=== PATIENT | female | born 1965 | race Caucasian/White ===

== ENCOUNTER 2024-01-21 07:45 | Outpatient (CLI) | payer MEDICARE, OTHER, SELFPAY ==
--- NOTE | ~2024-01-21 | MMUS_ITS ---
EXAMINATION: MM diagnostic milagros BI w will, US breast BI complete HISTORY: Bloody nipple discharge TECHNIQUE: Additional 3-D tomosynthesis images of the breasts were performed and synthetic 2-D images were generated. CAD analysis was submitted and interpreted. High resolution bilateral complete breas t ultrasound was performed. COMPARISON: Comparison to multiple prior studies sequentially, with oldest reviewed study dated 08/31. BREAST PARENCHYMAL COMPOSITION: Dense: The breasts are heterogeneously dense, which may obscure small masses FINDINGS: MAMMOGRAPHIC FINDINGS: There are focal asymmetries in the periareolar location of the left breast on CC view, not confirmed on medial lateral or MLO views, likely prominent ducts. No discrete mass, architectural distortion or suspicious calcifications. ULTRASOUND: Complete bilateral US of all 4 quadrants of the breasts and retroareolar region was reviewed. Right breast: Normal heterogeneous echotexture without focal solid or cystic mass. Left breast: At 7:00, 1 cm from the nipple there is an 11 mm cyst, likely corresponding to the mammog raphic asymmetry. No suspicious masses to suggest malignancy. IMPRESSION: 1. No evidence for malignancy in either breast. Given the history of bloody nipple discharge, further evaluation recommended. 2. MRI of the breasts with contrast recommended. BI-RADS Category 0: Incomplete: Needs additional imaging evaluation. Reviewed, dictated and finalized at location B. IMPRESSION: 1. No evidence for malignancy in either breast. Given the history of bloody nip ple discharge, further evaluation recommended. 2. MRI of the breasts with contrast recommended. BI-RADS Category 0: Incomplete: Needs additional imaging evaluation.
== END 2024-01-21 07:46 | disposition home or self-care (01) ==
PROVIDERS: PCP Family Medicine; Visit Provider Internal Medicine Hematology & Oncology
DX: N64.52 Nipple discharge (principal); R92.8 Other abnormal and inconclusive findings on diagnostic imaging of breast
CPT/HCPCS: 76641; 77062; 77066; G0279

== ENCOUNTER 2024-01-30 08:21 | Outpatient (CLI) | payer MEDICARE, MEDICAID, SELFPAY ==
--- NOTE | ~2024-01-30 | DEXA_ITS ---
Bone Density Report Name: NOHELIA PABON Age: 58 Sex: Female Ethnicity: White Date of : 1965 Indication: postmenopausal; screening for osteoporosis; prior fracture; asthma or emphysema; hysterectomy; Referring Provider: SARA GRACE Study: Bone densitometry was performed. Exam Date: January 30, 2024 Accession number: [id number] Bone Density: Region BMD T-score Z-score Classification AP Spine(L1-L4) 1.897 7.7 9.2 Normal Femoral Neck (Left) 0.741 -1.0 0.3 Normal Total Hip (Left) 0.911 -0.3 0.7 Normal Femoral Neck (Right) 0.729 -1.1 0.2 Osteopenia Total Hip (Right) 0.926 -0.1 0.9 Normal Total Hip Mean 0.919 -0.2 0.8 Normal World Health Organization criteria for BMD impression classify patients as: Normal (T-score at or above -1.0), Osteopenia (T-score between -1.0 and -2.5), or Osteoporosis (T-score at or below -2.5). 10-year Fracture Risk: FRAX not reported because: Prior hip or vertebral fracture Clinical Information Provided by Patient: Have had a previous hip or vertebral fracture Has had a low trauma fracture Has used the following medications: Vitamin D, Calcium Has the following medical conditions: Asthma or Emphysema, Hysterectomy Patient maximum height was 64.0 No regular weight bearing exercise Drinks caffeinated beverages Onset of menses at age 12 Number of children 2 Impression: The patient has low bone mass, based on the Right Femoral Neck T-score. The patient has risk factors, including: previous fracture. Discussion: INCREASED RISK OF FRACTURE DUE TO HISTORY OF FRACTURE. The patient's previous fracture puts the patient at high risk of a future fracture. In untreated patients, the risk of osteoporotic fracture increases approximately two-fold for each 1.0 SD decrease in T-score. Low bone density is not the only risk factor for fracture; also consider factors such as patient's age, frailty or poor health, risk of falling, risk of injury, previous osteoporotic fracture, family history of osteoporosis, cigarette smoking, low body weight, etc. Not everyone with a low trauma fracture has osteoporosis; osteomalacia and other metabolic bone disorders should also be considered. Patients who have osteoporosis should be evaluated for specific diseases and conditions (secondary causes) that may cause or contribute to bone loss and fracture risk. National Osteoporosis Foundation (NOF) recommends pharmacologic intervention for patients with a prior hip or vertebral fracture regardless of BMD T-score. The patient should follow a healthful lifestyle (good nutrition with adequate calcium and vitamin D, and appropriate weight-bearing exercise). Follow-Up: Consider a repeat BMD and Vertebral Fracture Assessment (VFA) exam in 2 years or sooner if medically necessary, to reassess this p
== END 2024-01-30 08:22 | disposition home or self-care (01) ==
LOC: ANHIMG 08:26
PROVIDERS: PCP Family Medicine; Visit Provider Internal Medicine Hematology & Oncology
DX: M85.851 Other specified disorders of bone density and structure, right thigh (principal)
CPT/HCPCS: 77080

== ENCOUNTER 2024-02-20 09:51 | Outpatient (CLI) | payer MEDICARE, MEDICAID, SELFPAY ==
--- NOTE | ~2024-02-20 | MR_ITS ---
EXAMINATION: MR breast BI wo/w con INDICATION: Bloody nipple discharge TECHNIQUE: Axial VIBRANT pre and dynamic post contrast, Sagittal VIBRANT post contrast, Axial T2 STIR ASSET COMPARISON: Mammography dated 01/21/2024 CONTRAST: Multihance, 12 cc BREAST COMPOSITION: Heterogeneous fibroglandular tissue FINDINGS: RIGHT BREAST: There is marked background parenchymal enhancement. No abnormal enhancement is present after contrast administration. No pathologically enlarged axillary or internal mammary lymph nodes ar e identified. LEFT BREAST: There is marked background parenchymal enhancement. No abnormal enhancement is present a fter contrast administration. No pathologically enlarged axillary or internal mammary lymph nodes are identified. IMPRESSION: No evidence for malignancy identified. Marked background parenchymal enhancement makes evaluation so mewhat difficult. BI-RADS Category 1: Negative Reviewed, dictated and finalized at location . IMPRESSION: No evidence for malignancy identified. Marked background parenchymal enhanceme nt makes evaluation somewhat difficult. BI-RADS Category 1: Negative
== END 2024-02-20 09:52 | disposition home or self-care (01) ==
PROVIDERS: PCP Family Medicine; Visit Provider Internal Medicine Hematology & Oncology
DX: R92.8 Other abnormal and inconclusive findings on diagnostic imaging of breast (principal)
CPT/HCPCS: 77049; A9577; C8908

== ENCOUNTER 2024-10-06 10:02 | Outpatient (CLI) | payer MEDICARE, MEDICAID, SELFPAY ==
--- NOTE | ~2024-10-06 | MM_ITS ---
EXAMINATION: MM diagnostic milagros BI w will HISTORY: Bilateral nipple discharge TECHNIQUE: 3-D tomosynthesis images of the breasts were performed and synthetic 2-D images were gener ated. CAD analysis was submitted and interpreted. COMPARISON: 01/21/2024, 03/15/2023, 03/14/2022 BREAST PARENCHYMAL COMPOSITION: The breasts are extremely dense, which lowers the sensitivity of mamm ography. FINDINGS: Stable parenchymal pattern of both breasts. No suspicious mass lesion or distortion. No cindy picious mesenteric or calcification. Bilateral benign calcifications are present. IMPRESSION: No mammographic evidence for malignancy. Patient could not stay for ultrasound. Consider follow-up se veral ultrasound to evaluate for dilated ducts or intraductal mass. BI-RADS Category 0: Incomplete: Needs additional imaging evaluation. Reviewed, dictated and finalized at [facility]. IMPRESSION: No mammographic evidence for malignancy. Patient could not stay for ultrasound. Consider follow-up several ultrasound to evaluate for dilated ducts or intradu ctal mass. BI-RADS Category 0: Incomplete: Needs additional imaging evaluation.
--- OUTSIDE RECORDS SUMMARY | 2024-10-06 11:16 | XMS_ITS | Encounter Summary ---
Author Organization [facility] Address [address] [place] [address] Phone Care Team Providers Care Running Instructor Name Role Phone Az Watson MD Primary Care Provider [phone] Cain Lira MD Unavailable [phone] Francoise Tompkins RN Unavailable Unavailable Claribel Sierra Unavailable Unavailab Trisha Houston APRN, SALOMON Unavailable Golden Npaier MD Unavailable Emilio Sarabia MD Unavailable [phone] Reason for Visit * Reason Comments Medication Refill Encounter Details Date Type Department Care Team (Late st Contact Info) Description 02/11/2021 Refill [facility] Medicine - [place] [address] [place] [address] Az Watson MD [address] [address] Medication Refill Social History Tobacco Use Types Packs/Day Years Used Date Smoking Tobacco: Former Cigarettes 1 30 0 06/18/1985 - 06/18/2015 Smokeless Tobacco: Never Alcohol Use Standard Drinks/Week Comments No 0 (1 standard drink = 0.6 oz pur e alcohol) IN OVER A YEAR PHQ-2 Answer Date Recorded Total Score - Questions 1-9 4 08/10 Sexually Active Control Partners Comments Never Comments No Sex and Gender Information Value Date Recorded Sex Assigned at Female 01/23/2023 10:37 AM CDT Legal Sex Female 9:47 PM CDT Gender Identity Female 01/23/2023 10:37 AM CDT Sexual Orientation Not on file Occupation Industry Job Start Date Job End Date disabled Not on file Not on file Not on file COVID-19 Exposure Response Date Recorded In the last month, have you been in contact with someone who was confirmed or suspected to have Coronavirus / COVID-19? No / Unsure 02/03/2021 8:35 AM CDT documented as of this encounter Miscellaneous Notes * Telephone Encounter - Kari Blackmon RN - 02/11/2021 4:37 PM CDT PRN medication requires review from provider Per nursing clinical judgement, provider to review and approve the medication(s) order(s) if appropriate. Requested Prescriptions Pending Prescriptions Disp Refills SUMAtriptan (IMITREX) 100 MG Tablet [Pharmacy Med Name: SUMATRIPTAN SUCCINATE 100MG TABS] 9 Tablet 9 Sig: TAKE ONE TABLET BY MOUTH AT ONSET OF MIGRAINE. MAY REPEAT DOSE IN 2 HOURS IF HEADACHE RECURS. MAX DOSE 2 TABLETS PER DAY. [facility] Neurology: Migraine Therapy Passed - 02/11/2021 10:55 AM Passed - Valid encounter within last 12 months Past Office Visits Recent Outpatient Visits 1 week ago Urinary pain [facility] - Az Collado MD 3 months ago Acute UTI [facility] - [facility] Medicine - Vickey Billy APN, HOUSING COURT JUDGE 5 months ago PVC's (premature ventricular contractions) [facility] - Az Collado MD 8 months ago Bladder infection [facility] - [facility] Medicine - Az Collado MD 11 months ago Hoarseness, chronic [facility] - [facility] Medicine - Az Collado MD Upcoming Appointments Future Appointments In 1 week [id number] [facility], [facility] In 1 week [id number] [facility] Mammography, [facility] In 4 months Mine Rivera, PAC [facility] Medical [facility] - Gastroenterology [facility], [facility] [place] - Recent and Past Visits Recent Visits Date Type Provider Dept 01/31/21 Office Visit Az Watson MD [facility] 11/10/20 Office Visit Vickey Robbins, CLINICAL PSYCHOLOGIST, HOUSING COURT JUDGE [facility]20 Office Visit Az Watson MD [facility] 06/01/20 Office Visit Az Watson MD [facility] 02/26/20 Office Visit Az Watson MD [facility] 02/02/20 Office Visit Az Watson MD [facility] 01/19/20 Office Visit Az Watson MD [facility] 12/31/19 Office Visit Mary Beth Soriano, PAC [facility] Showing recent visits within past 460 days with a meds authorizing provider and meeting all other requirements Future Appointments No visits were found meeting these conditions. Showing future appointments within next 90 days with a meds authorizing provider and meeting all other requirements documented in this encounter Plan of Treatment Upcoming Encounters Date Type Department Care Team (Latest Contact Info) Description 10/16/2024 9:00 AM CDT Office Visit [facility] Medical Group - Family Medicine - [place] [address] [place] [address] Az Watson MD #[address] [address] 10/16/2024 10:00 AM CDT Ancillary Procedure [facility] [address] [place] [address] Az Watson MD #2 [facility] [address] [place] [address] Discharge Disposition: Discharged to home or Selfcare 10/20/2024 9:00 AM CDT Office Visit [facility] - Family [facility] #[address] [place] [address] Az Watson MD #2 [facility] [address] [place] [address] 10/24/2024 10:30 AM CDT Office Visit [facility] UROLOGY #2 [place] [address] Emilio Sarabia MD #2 [facility] [address] [place] [address] documented as of this encounter Visit Diagnoses Diagnosis Migraine without aura and without status migrainosus, not intractable Migraine without aura, without mention of intractable migraine without mention of status migrainosus documented in this encounter Additional Health Concerns Infection Onset Date Last Indicated Resolved Time COVID - 19 06/11/2023 06/11/2023 06/21/2023 12:1 6 AM MANGLE CATCHER Assessment Noted Time PHQ-9 Depression Total Score: 4 09/02/19 21 8:46 AM CDT documented as of this encounter Care Teams Running Instructor Relationship Specialty Start Date End Date Az Watson MD #2 [facility] [address] [place] [address] PCP - General Family Medicine 05/03/15 Cain Lira MD [address] [place] [address] Obstetrics & Gynecology 02/15/17 Francoise Tompkins RN [place] 09/06/21 04/06/22 Claribel Sierra LSW [place] 09/09/21 04/06/22 Trisha Cook APRN, HOUSING COURT JUDGE #[address] [place] [address] Nurse Practitioner Advanced Practice Nurse 11/29/22 Golden Napier MD #2 [facility] [address] [place] [address] Consulting Physician Colon and Rectal Surgery 08/13/23 Emilio Sarabia MD #2 [facility] [address] [place] [address] Consulting Physician Urology 09/11/23 documented as of this encounter
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
--- OUTSIDE RECORDS SUMMARY | 2024-10-06 11:16 | XMS_ITS | Encounter Summary ---
Author Organization [facility] Address [address] [place] [address] Phone Care Team Providers Care International Guest Coordinator Name Role Phone Az Watson MD Primary Care Provider [phone] Cain Lira MD Unavailable [phone] Francoise Tompkins RN Unavailable Unavailable Claribel Sierra Unavailable Unavailab Trisha Houston APRN, SALOMON Unavailable Golden Napier MD Unavailable Emilio Sarabia MD Unavailable [phone] Reason for Visit * Reason Comments Medication Refill Encounter Details Date Type Department Care Team (Late st Contact Info) Description 02/02/2021 Refill [facility] - [facility] Medicine - [place] [address] [place] [address] Az Watson MD [address] [address] Medication Refill Social History Tobacco Use Types [...] Telephone Encounter - Kari Blackmon RN - 02/02/2021 1:45 PM CDT PRN medication requires review from provider Per nursing clinical judgement, provider to review and approve the medication(s) order(s) if appropriate. Requested Prescriptions Pending Prescriptions Disp Refills famotidine (PEPCID) 40 MG Tablet [Pharmacy Med Name: FAMOTIDINE 40MG TABS] 90 Tablet 3 Sig: TAKE ONE-HALF TABLET BY MOUTH TWICE A DAY H2 Antagonists Protocol Passed - 02/02/2021 10:21 AM Passed - Visit with relevant provider in past 12 months or upcoming 90 days Recent Visits Date Type Provider Dept 01/31/21 Office Visit Az Watson MD [facility] 11/10/20 Office Visit Vickey Robbins APN, SALOMON [facility] 09/01/20 Office Visit Az Watson MD [facility] 06/01/20 Office Visit Az Watson MD [facility] 02/26/20 Office Visit Az Watson MD [facility] Showing recent visits within past 365 days and meeting all other requirements Future Appointments No visits were found meeting these conditions. Showing future appointments within next 90 days and meeting all other requirements albuterol 108 (90 Base) MCG/ACT Aerosol Solution [Pharmacy Med Name: ALBUTEROL SULFATE HFA 108 AERS] 18 g 2 Sig: INHALE TWO PUFFS BY MOUTH EVERY 4 HOURS NEEDED FOR WHEEZING Short Acting Inhaled Beta-Agonists Protocol Passed - 02/02/2021 10:21 AM Passed - Visit with relevant provider in past 12 months or upcoming 90 days Recent Visits Date Type Provider Dept 01/31/21 Office Visit Az Watson MD [facility] 11/10/20 Office Visit Vickey Robbins APN, [place] [facility] 09/01/20 Office Visit Az Watson MD [facility] 06/01/20 Office Visit Az Watson MD [facility] 02/26/20 Office Visit Az Watson MD [facility] [place] Showing recent visits within past 365 days and meeting all other requirements Future Appointments No visits were found meeting these conditions. Showing future appointments within next 90 days and meeting all other requirements documented in this encounter Plan of Treatment Upcoming Encounters Date Type Department Care Team (Latest Contact Info) Description 10/16/2024 9:00 AM CDT Office Visit [facility] #2 [place] [address] Az Watson MD #[address] [address] 10/16/2024 10:00 AM CDT Ancillary Procedure [facility] [address] [place] [address] Az Watson MD #[address] [address] Discharge Disposition: Discharged to home or Selfcare 10/20/2024 9:00 AM CDT Office Visit [facility] #[address] [place] [address] Az Watson MD #2 [facility] [address] [place] [address] 10/24/2024 10:30 AM CDT Office Visit [facility] #[address] [place] [address] Emilio Sarabia MD #2 [facility] [address] [place] [address] documented as of this encounter Visit Diagnoses Not on filedocumented in this encounter Additional Health Concerns Infection Onset Date Last Indicated Resolved Time COVID - 19 06/11/2023 06/11/2023 06/21/2023 12:1 6 AM SILVICULTURE TEACHER Assessment Noted Time PHQ-9 Depression Total Score: 4 09/02/19 21 8:46 AM CDT documented as of this encounter Care Teams International Guest Coordinator Relationship Specialty Start Date End Date Az Watson MD #2 [facility] [address] [place] [address] PCP - General Family Medicine 05/03/15 Cain Lira MD [address] [facility] [address] [place] [address] Obstetrics & Gynecology 02/15/17 Francoise Tompkins RN [place] Customs [employer] [place] Protection Officer 09/06/21 04/06/22 Claribel Sierra LSW [place] [employer] Officer 09/09/21 04/06/22 Trisha Cook APRN, TENNIS NET MAKER [address] [place] [address] Nurse Practitioner Advanced Practice Nurse 11/29/22 Golden Napier MD #2 [facility] [address] [place] [address] Consulting Physician Colon and Rectal Surgery 08/13/23 Emilio Sarabia MD #2 [facility] [address] [place] [address] Consulting Physician Urology 09/11/23 documented as of this encounter
--- OUTSIDE RECORDS SUMMARY | 2024-10-06 11:16 | XMS_ITS | Encounter Summary ---
Author Organization [facility] Address [address] [place] [address] Phone Care Team Providers Care Rv Mechanic Name Role Phone Az Watson MD Primary Care Provider [phone] Cain Lira MD Unavailable [phone] Francoise Tompkins RN Unavailable Unavailable Claribel SierraW Unavailable Unavailab Trisha Houston APRN, SALOMON Unavailable Golden Napier MD Unavailable Emilio Sarabia MD Unavailable [phone] Reason for Visit * Reason Comments Medication Refill Encounter Details Date Type Department Care Team (Late st Contact Info) Description 12/28/2020 Refill [facility] [address] [place] [address] Az Watson MD #[address] [address] Medication Refill Social History Tobacco Use Types [...] have Coronavirus / COVID-19? No / Unsure 12/17/2020 8:28 AM CDT documented as of this encounter Miscellaneous Notes * Telephone Encounter - Abbi Hector RN - 12/28/2020 4:01 PM CDT Medication failed the protocol, provider to review and approve the medication order if appropriate. Requested Prescriptions Pending Prescriptions Disp Refills tiZANidine (ZANAFLEX) 4 MG Tablet [Pharmacy Med Name: TIZANIDINE HCL 4MG TABS] 60 Tablet 4 Sig: TAKE ONE TABLET BY MOUTH TWICE A DAY NEEDED FOR MUSCLE SPASMS [facility] Not Delegated - Analgesics: Muscle Relaxants Failed - 12/28/2020 4:01 PM Failed - This refill cannot be delegated Passed - Valid encounter within last 6 months Past Office Visits Recent Outpatient Visits 1 month ago Acute UTI [facility] - Family Medicine - Vickey Billy VP INFORMATION TECHNOLOGY, SENIOR TECHNICAL ARCHITECT 3 months ago PVC's (premature ventricular contractions) [facility] - Az Collado MD 7 months ago Bladder infection [facility] - Az Collado MD 10 months ago Hoarseness, chronic [facility] - Family Medicine - Az Collado MD 11 months ago Hoarseness, chronic [facility] - Az Collado MD Upcoming Appointments Future Appointments In 3 weeks Az Watson MD [facility] Family Medicine [facility] In 6 months Mine Rivera Nikki, PAC [facility] Gastroenterology [facility] THREAD WEAVER - Recent and Past Visits Recent Visits Date Type Provider Dept 11/10/20 Office Visit Vickey Robbins APN, SENIOR TECHNICAL ARCHITECT [facility] 09/01/20 Office Visit Az Watson MD [facility] 06/01/20 Office Visit Az Watson MD [facility] 02/26/20 Office Visit Az Watson MD [facility] 02/02/20 Office Visit Az Watson MD [facility] 01/19/20 Office Visit Az Watson MD [facility] 12/31/19 Office Visit Mary Beth Soriano, PAC [facility] 10/13/19 Telemedicine Az Watson MD [facility] Showing recent visits within past 460 days with a meds authorizing provider and meeting all other requirements Future Appointments Date Type Provider Dept 01/21/21 Appointment Az Watson MD [facility] Showing future appointments within next 90 days with a meds authorizing provider and meeting all other requirements documented in this encounter Plan of Treatment Upcoming Encounters Date Type Department Care Team (Latest Contact Info) Description 10/16/2024 9:00 AM CDT Office Visit [facility] #2 [place] [address] Az Watson MD #[address] [address] 10/16/2024 10:00 AM CDT Ancillary Procedure [facility] [address] [place] [address] Az Watson MD #2 [facility] [address] [place] [address] Discharge Disposition: Discharged to home or Selfcare 10/20/2024 9:00 AM CDT Office Visit [facility] - [facility] #2 [place] [address] Az Watson MD #2 [facility] [address] [place] [address] 10/24/2024 10:30 AM CDT Office Visit [facility] #2 [place] [address] Emilio Sarabia MD #2 [facility] [address] [place] [address] documented as of this encounter Visit Diagnoses Not on filedocumented in this encounter Additional Health Concerns Infection Onset Date Last Indicated Resolved Time COVID - 19 06/11/2023 06/11/2023 06/21/2023 12:1 6 AM DENTAL EQUIPMENT MECHANIC Assessment Noted Time PHQ-9 Depression Total Score: 4 09/02/19 21 8:46 AM CDT documented as of this encounter Care Teams Rv Mechanic Relationship Specialty Start Date End Date Az Watson MD #2 [facility] [address] [place] [address] PCP - General Family Medicine 05/03/15 Cain Lira MD [address] [facility] [address] [facility] [address] [place] [address] Obstetrics & Gynecology 02/15/17 Francoise Tompkins RN [place] Medical Case Manager 09/06/21 04/06/22 Claribel Sierra LSW [place] Medical Case Manager 09/09/21 04/06/22 Trisha Cook APRN, SENIOR TECHNICAL ARCHITECT #2 [place] [address] Nurse Practitioner Advanced Practice Nurse 11/29/22 Golden Napier MD #2 [facility] [address] [place] [address] Consulting Physician Colon and Rectal Surgery 08/13/23 Emilio Sarabia MD #2 [facility] [address] [place] [address] Consulting Physician Urology 09/11/23 documented as of this encounter
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
--- OUTSIDE RECORDS SUMMARY | 2024-10-06 11:16 | XMS_ITS | Encounter Summary ---
Author Organization [facility] Address [address] [place] [address] Phone Care Team Providers Care Finish Carpenter Name Role Phone Az Watson MD Primary Care Provider [phone] Cain Lira MD Unavailable [phone] Francoise Tompkins RN Unavailable Unavailable Claribel SierraW Unavailable Unavailab Trisha Houston APRN, SALOMON Unavailable Golden Napier MD Unavailable Emilio Sarabia MD Unavailable [phone] Reason for Visit * Reason Comments Medication Refill Encounter Details Date Type Department Care Team (Late st Contact Info) Description 07/28/2020 Refill [facility] [address] [place] [address] Az Watson MD #[address] [address] Medication Refill Social History Tobacco Use Types Packs/Day Years Used Date Smoking Tobacco: Former Cigarettes 1 30 0 06/18/1985 - 06/18/2015 Smokeless Tobacco: Never Alcohol Use Standard Drinks/Week Comments No 0 (1 standard drink = 0.6 oz pur e alcohol) IN OVER A YEAR PHQ-2 Answer Date Recorded Total Score - Questions 1-9 2 02/09 Sexually Active Control Partners Comments Never Comments [...] have Coronavirus / COVID-19? No / Unsure 07/01/2020 12:40 PM MANAGER ENVIRONMENTAL HEALTH documented as of this encounter Miscellaneous Notes * Telephone Encounter - Kari Blackmon RN - 07/29/2020 12:06 PM CST Medication failed the protocol, provider to review and approve the medication order if appropriate. Requested Prescriptions Pending Prescriptions Disp Refills albuterol 108 (90 Base) MCG/ACT Aerosol Solution [Pharmacy Med Name: ALBUTEROL SULFATE HFA 108 AERS] 2 Sig: INHALE TWO PUFFS BY MOUTH EVERY 4 HOURS NEEDED FOR WHEEZING Pulmonology: Beta Agonists - Albuterol & Levalbuterol Failed - 07/28/2020 10:04 AM Failed - May refill 2 inhalers, 0 refills one time since last office visit. May refill #50 nebulizer vials, 0 refills for albuterol or #48 vials, 0 refills for Xopenex one time since last office visit. Passed - Valid encounter within last 6 months Past Office Visits Recent Outpatient Visits 1 month ago Bladder infection [facility] - Az Collado MD 5 months ago Hoarseness, chronic [facility] - Az Collado MD 5 months ago Hoarseness, chronic [facility] - Az Collado MD 6 months ago Anxiety [facility] - Az Collado MD 7 months ago Acute vaginitis [facility] Upcoming Appointments Future Appointments In 1 month Az Watson MD [facility] Medical [facility] In 11 months Mine Rivera Nikki, PAC [facility] Medical [facility] TUMBLING AND ROLLING SUPERVISOR - Recent and Past Visits Recent Visits Date Type Provider Dept 06/01/20 Office Visit Az Watson MD [facility] 02/26/20 Office Visit Az Watson MD [facility] 02/02/20 Office Visit Az Watson MD [facility] 01/19/20 Office Visit Az Watson MD [facility] 12/31/19 Office Visit Mary Beth Soriano, PAC [facility] 10/13/19 Telemedicine Az Watson MD [facility] Showing recent visits within past 460 days with a meds authorizing provider and meeting all other requirements Future Appointments Date Type Provider Dept 09/01/20 Appointment Az Watson MD [facility] Showing future appointments within next 90 days with a meds authorizing provider and meeting all other requirements Passed - Last BP in normal range BP Readings from Last 1 Encounters: 07/01/20 98/66 metFORMIN (GLUCOPHAGE) 500 MG Tablet [Pharmacy Med Name: METFORMIN HCL 500MG TABS] 180 Tablet 1 Sig: TAKE ONE TABLET BY MOUTH TWICE A DAY Endocrinology: Diabetes - Biguanides Passed - 07/28/2020 10:04 AM Passed - Valid encounter within last 12 months Past Office Visits Recent Outpatient Visits 1 month ago Bladder infection [facility] Az Collado MD 5 months ago Hoarseness, chronic [facility] Az Collado MD 5 months ago Hoarseness, chronic [facility] Az Collado MD 6 months ago Anxiety [facility] - Az Collado MD 7 months ago Acute vaginitis [facility] Medical [facility] BENNIE Upcoming Appointments Future Appointments In 1 month Az Watson MD [facility] In 11 months Mine Rivera November, PAC [facility] Medical [facility] - Gastroenterology [facility] TUMBLING AND ROLLING SUPERVISOR - Recent and Past Visits Recent Visits Date Type Provider Dept 06/01/20 Office Visit Az Watson MD [facility] 02/26/20 Office Visit Az Watson MD [facility] 02/02/20 Office Visit Az Watson MD [facility] 01/19/20 Office Visit Az Watson MD [facility] 12/31/19 Office Visit Mary Beth Soriano, BENNIE [facility] [place] 10/13/19 Telemedicine Az Watson MD [facility] Showing recent visits within past 460 days with a meds authorizing provider and meeting all other requirements Future Appointments Date Type Provider Dept 09/01/20 Appointment Az Watson MD [facility] Showing future appointments within next 90 days with a meds authorizing provider and meeting all other requirements Passed - Last BP in normal range BP Readings from Last 1 Encounters: 07/01/20 98/66 famotidine (PEPCID) 40 MG Tablet [Pharmacy Med Name: FAMOTIDINE 40MG TABS] 90 Tablet 1 Sig: TAKE ONE-HALF TABLET BY MOUTH TWICE A DAY Gastroenterology: Antiulcer - H2 Antagonists Passed - 07/28/2020 10:04 AM Passed - Valid encounter within last 12 months Past Office Visits Recent Outpatient Visits 1 month ago Bladder infection [facility] - Az Collado MD 5 months ago Hoarseness, chronic [facility] - Az Collado MD 5 months ago Hoarseness, chronic [facility] Az Collado MD 6 months ago Anxiety [facility] - Az Collado MD 7 months ago [facility] Upcoming Appointments Future Appointments In 1 month Az Watson MD [facility] In 11 months Mine Rivera, PAC [facility] TUMBLING AND ROLLING SUPERVISOR - Recent and Past Visits Recent Visits Date Type Provider Dept 06/01/20 Office Visit Az Watson MD [facility] 02/26/20 Office Visit Az Watson MD [facility] 02/02/20 Office Visit Az Watson MD [facility] 01/19/20 Office Visit Az Watson MD [facility] 12/31/19 Office Visit Mary Beth Soriano, BENNIE [facility] 10/13/19 Telemedicine Az Watson MD [facility] Showing recent visits within past 460 days with a meds authorizing provider and meeting all other requirements Future Appointments Date Type Provider Dept 09/01/20 Appointment Az Watson MD [facility] Showing future appointments within next 90 days with a meds authorizing provider and meeting all other requirements Fenofibrate Micronized 134 MG Capsule [Pharmacy Med Name: FENOFIBRATE MICRONIZED 134MG CAPS] 90 Capsule 1 Sig: TAKE ONE CAPSULE BY MOUTH EVERY DAY Cardiovascular: Antilipid - Fibric Acid Derivatives Passed - 07/28/2020 10:04 AM Passed - Valid encounter within last 12 months Past Office Visits Recent Outpatient Visits 1 month ago Bladder infection [facility] Az Collado MD 5 months ago Hoarseness, chronic [facility] Az Collado MD 5 months ago Hoarseness, chronic [facility] Az Collado MD 6 months ago Anxiety [facility] Az Collado MD 7 months ago Acute vaginitis [facility] Mary Beth Haile, BENNIE Upcoming Appointments Future Appointments In 1 month Az Watson MD [facility] Medical [facility] In 11 months Mine Rivera, BENNIE [facility] - [facility] TUMBLING AND ROLLING SUPERVISOR - Recent and Past Visits Recent Visits Date Type Provider Dept 06/01/20 Office Visit Az Watson MD [facility] 02/26/20 Office Visit Az Watson MD [facility] 02/02/20 Office Visit Az Watson MD [facility] 01/19/20 Office Visit Az Watson MD [facility] 12/31/19 Office Visit Mary Beth Soriano, BENNIE [facility] [place] 10/13/19 Telemedicine Az Watson MD [facility] Showing recent visits within past 460 days with a meds authorizing provider and meeting all other requirements Future Appointments Date Type Provider Dept 09/01/20 Appointment Az Watson MD [facility] Showing future appointments within next 90 days with a meds authorizing provider and meeting all other requirements [facility]ER [facility]ON[facility] documented in this encounter Plan of Treatment Upcoming Encounters Date Type Department Care Team (Latest Contact Info) Description 10/16/2024 9:00 AM CDT Office Visit [facility] [place] [address] Az Watson MD #[address] [address] 10/16/2024 10:00 AM CDT Ancillary Procedure [facility] [address] [place] [address] Az Watson MD #[address] [address] Discharge Disposition: Discharged to home or Selfcare 10/20/2024 9:00 AM CDT [facility] Visit [facility] #2 [place] [address] Az Watson MD #2 [facility] [address] [place] [address] 10/24/2024 10:30 AM CDT Office Visit [facility] #2 [place] [address] Emilio Sarabia MD #2 [facility] [address] [place] [address] documented as of this encounter Visit Diagnoses Diagnosis Controlled type 2 diabetes mellitus without complication, without long-term current use of insulin Hyperlipidemia, unspecified hyperlipidemia type documented in this encounter Additional Health Concerns Infection Onset Date Last Indicated Resolved Time COVID - 19 06/11/2023 06/11/2023 06/21/2023 12:1 6 AM MANAGER ENVIRONMENTAL HEALTH Assessment Noted Time PHQ-9 Depression Total Score: 2 02/26/20 20 8:55 AM CDT documented as of this encounter Care Teams Finish Carpenter Relationship Specialty Start Date End Date Az Watson MD #2 [facility] [address] [place] [address] PCP - General Family Medicine 05/03/15 Cain Lira MD [address] [place] [address] Obstetrics & Gynecology 02/15/17 Francoise Tompkins RN [place] [employer] 09/06/21 04/06/22 Claribel Sierra LSW [place] [employer] 09/09/21 04/06/22 Trisha Cook APRN, ANIMAL CONTROL SPECIALIST #2 [place] [address] Nurse Practitioner Advanced Practice Nurse 11/29/22 Golden Napier MD #2 [facility] [address] [place] [address] Consulting Physician Colon and Rectal Surgery 08/13/23 Emilio Sarabia MD #2 [facility] [address] [place] [address] Consulting Physician Urology 09/11/23 documented as of this encounter
--- OUTSIDE RECORDS SUMMARY | 2024-10-06 11:16 | XMS_ITS | Encounter Summary ---
Author Organization [facility] Address [address] [place] [address] Phone Care Team Providers Care Industrial Engineering Manager Name Role Phone Az Watson MD Primary Care Provider [phone] Cain Lira MD Unavailable [phone] Francoise Tompkins RN Unavailable Unavailable Claribel SierraW Unavailable Unavailab Trisha Houston APRN, SALOMON Unavailable Golden Napier MD Unavailable Emilio Sarabia MD Unavailable [phone] Reason for Visit * Reason Comments Medication Refill Encounter Details Date Type Department Care Team (Late st Contact Info) Description 08/24/2020 Refill [facility] [address] [place] [address] Az Watson MD #[address] [address] Medication Refill Social History Tobacco [...] have Coronavirus / COVID-19? No / Unsure 08/17/2020 6:42 AM ARCHIVIST NONPROFIT FOUNDATION documented as of this encounter Miscellaneous Notes * Telephone Encounter - Kari Blackmon RN - 08/25/2020 11:32 AM CDT Medication failed the protocol, provider to review and approve the medication order if appropriate. Requested Prescriptions Pending Prescriptions Disp Refills tiZANidine (ZANAFLEX) 4 MG Tablet [Pharmacy Med Name: TIZANIDINE HCL 4MG TABS] 60 Tablet 4 Sig: TAKE ONE TABLET BY MOUTH TWICE A DAY NEEDED FOR MUSCLE SPASMS Not Delegated - Analgesics: Muscle Relaxants Failed - 08/24/2020 10:23 AM Failed - This refill cannot be delegated Passed - Valid encounter within last 6 months Past Office Visits Recent Outpatient Visits 2 months ago [facility]ado [facility] 6 months ago [facility] 6 months [facility], [facility] Al[facility] MD 7 months ago Anxiety [facility] Az Alvarez MD 7 months ago Acute vaginitis [facility] Mary Beth Araujo, BENNIE Upcoming Appointments Future Appointments In 1 week [facility] MD [facility] In 10 months Mine Rivera Nikki, PAC [facility] Gastroenterology [facility] HIGHWAY ENGINEER - Recent and Past Visits Recent Visits Date Type Provider Dept 06/01/20 Office Visit Az Watson MD [facility] 02/26/20 Office Visit Az Watson MD [facility] 02/02/20 Office Visit Az Watson MD [facility] 01/19/20 Office Visit Az Watson MD [facility] 12/31/19 Office Visit Mary Beth Soriano, BENNIE [facility] [place] 10/13/19 Telemedicine [facility] MD [facility] [...] Description 10/16/2024 9:00 AM CDT [facility] [place] [address] Az Watson MD #[address] [address] 10/16/2024 10:00 AM CDT Ancillary Procedure [facility] [address] [place] [address] Az Watson MD #[address] [address] Discharge Disposition: Discharged to home or Selfcare 10/20/2024 9:00 AM CDT Office Visit [facility] #2 [place] [address] Az Watson MD #2 [facility] [address] [place] [address] 10/24/2024 10:30 AM CDT Office Visit [facility] #[address] [place] [address] Emilio Sarabia MD #2 [facility] [address] [place] [address] documented as of this encounter Visit Diagnoses Not on filedocumented in this encounter Additional Health Concerns Infection Onset Date Last Indicated Resolved Time COVID - 19 06/11/2023 06/11/2023 06/21/2023 12:1 6 AM ARCHIVIST [employer]ATION Assessment Noted Time PHQ-9 Depression Total Score: 2 02/26/20 20 8:55 AM CDT documented as of this encounter Care Teams Industrial Engineering Manager Relationship Specialty Start Date End Date Az Watson MD #2 [facility] [address] [place] [address] PCP - General Family Medicine 05/03/15 Cain Lira MD [address] [facility] [address] [facility] [address] [place] [address] Obstetrics & Gynecology 02/15/17 Francoise Tompkins, RN [place] [employer] Operator 09/06/21 04/06/22 Claribel Sierra LSW [place] [employer] 09/09/21 04/06/22 Trisha Cook APRN, PRIVACY SPECIALIST #[address] [place] [address] Nurse Practitioner Advanced Practice Nurse 11/29/22 Golden Napier MD #2 [facility] [address] [place] [address] Consulting Physician Colon and Rectal Surgery 08/13/23 Emilio Sarabia MD #2 [facility] [address] [place] [address] Consulting Physician Urology 09/11/23 documented as of this encounter
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
--- OUTSIDE RECORDS SUMMARY | 2024-10-06 11:16 | XMS_ITS | Encounter Summary ---
Author Organization [facility] Address [address] [place] [address] Phone Care Team Providers Care Engineer Internship Name Role Phone Az Watson MD Primary Care Provider [phone] Cain Lira MD Unavailable [phone] Francoise Tompkins RN Unavailable Unavailable Claribel SierraW Unavailable Unavailab Trisha Houston APRN, [place] Unavailable Golden Napier MD Unavailable Emilio Sarabia MD Unavailable [phone] Reason for Visit * Reason Comments Medication Refill Encounter Details Date Type Department Care Team (Late st Contact Info) Description 11/04/2020 Refill [facility] [address] [place] [address] Az Watson MD #[address] [address] Medication Refill Social History Tobacco [...] file Not on file Not on file documented as of this encounter Miscellaneous Notes * Telephone Encounter - Kari Blackmon RN - 11/05/2020 8:42 AM CDT Medication failed the protocol, provider to review and approve the medication order if appropriate. Requested Prescriptions Pending Prescriptions Disp Refills albuterol 108 (90 Base) MCG/ACT Aerosol Solution [Pharmacy Med Name: ALBUTEROL SULFATE HFA 108 AERS] 1 Inhaler 2 Sig: INHALE TWO PUFFS BY MOUTH EVERY 4 HOURS NEEDED FOR WHEEZING [facility] Pulmonology: Beta Agonists - Albuterol & Levalbuterol Failed - 11/04/2020 10:06 AM Failed - May refill 2 inhalers, 0 refills one time since last office visit. May refill #50 nebulizer vials, 0 refills for albuterol or #48 vials, 0 refills for Xopenex one time since last office visit. Passed - Valid encounter within last 6 months Past Office Visits Recent Outpatient Visits 2 months ago PVC's (premature ventricular contractions) [facility] - Family Medicine - Az Collado MD 5 months ago Bladder infection [facility] - [facility] Medicine - Az Collado MD 8 months ago Hoarseness, chronic [facility] - [facility] - Az Collado MD 9 months ago Hoarseness, chronic [facility] - [facility] - Az Collado MD 9 months ago Anxiety [facility] - Family Medicine - Az Collado MD Upcoming Appointments Future Appointments In 5 days Mariaa Posadas, PAINTER RAILROAD CAR-SPEECH LANGUAGE PATHOLOGIST [facility] at [facility] In 1 month Az Watson MD [facility] Group - Family Medicine [facility] In 7 months Mine Rivera, [facility] - Gastroenterology - [facility] LINING INSERTER - Recent and Past Visits Recent Visits Date Type Provider Dept 09/01/20 Office Visit Az Watson MD [facility] 06/01/20 Office Visit Az Watson MD [facility] 02/26/20 Office Visit Az Watson MD [facility] 02/02/20 Office Visit Az Watson MD [facility] 01/19/20 Office Visit Az Watson MD [facility] 12/31/19 Office Visit Mary Beth Soriano, [facility] 10/13/19 Telemedicine Az Watson MD [facility] Showing recent visits within past 460 days with a meds authorizing provider and meeting all other requirements Future Appointments Date Type Provider Dept 12/09/20 Appointment Az Watson MD [facility] Showing future appointments within next 90 days with a meds authorizing provider and meeting all other requirements Passed - Last BP in normal range BP Readings from Last 1 Encounters: 09/01/20 116/64 metFORMIN (GLUCOPHAGE) 500 MG Tablet [Pharmacy Med Name: METFORMIN HCL 500MG TABS] 180 Tablet 1 Sig: TAKE ONE TABLET BY MOUTH TWICE A DAY Biguanides Protocol Failed - 11/04/2020 10:06 AM Failed - Normal creatinine in past 6 months CREATININE - POCT Date Value Ref Range Status 03/19/2020 0.8 0.6 - 1.3 mg/dL Final Failed - HgA1C on record in past 6 months HGB-A1C Date Value Ref Range Status 01/27/2020 5.1 4.0 - 6.0 % Final Passed - Visit with relevant provider in past 6 months or upcoming 90 days Recent Visits Date Type Provider Dept 09/01/20 Office Visit Az Watson MD [facility] 06/01/20 Office Visit Az Watson MD [facility] Showing recent visits within past 182 days and meeting all other requirements Future Appointments Date Type Provider Dept 12/09/20 Appointment Az Watson MD [facility] Showing future appointments within next 90 days and meeting all other requirements Passed - GFR in normal range documented in this encounter Plan of Treatment Upcoming Encounters Date Type Department Care Team (Latest Contact Info) Description 10/16/2024 9:00 AM CDT Office Visit [facility] #2 [place] [address] Az Watson MD #[address] [place] [address] 10/16/2024 10:00 AM CDT Ancillary Procedure [facility] [address] [place] [address] Az Watson MD #[address] [place] [address] Discharge Disposition: Discharged to home or Selfcare 10/20/2024 9:00 AM CDT Office Visit [facility] #2 [place] [address] Az Watson MD #2 [facility] [address] [place] [address] 10/24/2024 10:30 AM CDT Office Visit [facility] #2 [place] [address] Emilio Sarabia MD #2 [facility] [address] [place] [address] documented as of this encounter Visit Diagnoses Diagnosis Controlled type 2 diabetes mellitus without complication, without long-term current use of insulin documented in this encounter Additional Health Concerns Infection Onset Date Last Indicated Resolved Time COVID - 19 06/11/2023 06/11/2023 06/21/2023 12:1 6 AM SAL[place] TROLL FISHER Assessment Noted Time PHQ-9 Depression Total Score: 4 09/02/19 21 8:46 AM CDT documented as of this encounter Care Teams Engineer Internship Relationship Specialty Start Date End Date Az Watson MD #2 [facility] [address] [place] [address] PCP - General Family Medicine 05/03/15 Cain Lira MD [address] [place] [address] Obstetrics & Gynecology 02/15/17 Francoise Tompkins RN [place] User Support Analyst Supervisor 09/06/21 04/06/22 Claribel Sierra LSW [place] User Support Analyst Supervisor 09/09/21 04/06/22 Trisha Cook APRN, SULFATE DRIER MACHINE OPERATOR #[address] [place] [address] Nurse Practitioner Advanced Practice Nurse 11/29/22 Golden Napier MD #2 [facility] [address] [place] [address] Consulting Physician Colon and Rectal Surgery 08/13/23 Emilio Sarabia MD #2 [facility] [address] [place] [address] Consulting Physician Urology 09/11/23 documented as of this encounter
--- OUTSIDE RECORDS SUMMARY | 2024-10-06 11:16 | XMS_ITS | Encounter Summary ---
Author Organization [facility] Address [address] [place] [address] Phone Care Team Providers Care Resident Care Coordinator Name Role Phone Az Watson MD Primary Care Provider [phone] Cain Lira MD Unavailable [phone] Francoise Tompkins RN Unavailable Unavailable Claribel Sierra Unavailable Unavailab Trisha Houston APRN, [place] Unavailable Golden Napier MD Unavailable Emilio Sarabia MD Unavailable [phone] Reason for Visit * Reason Comments Medication Refill Encounter Details Date Type Department Care Team (Late st Contact Info) Description 05/09/2021 Refill [facility] Medicine - [place] [address] [place] [address] Az Watson MD [address] [address] Medication Refill Social History Tobacco Use Types [...] have Coronavirus / COVID-19? No / Unsure 04/25/2021 10:00 AM ASSEMBLY HAND documented as of this encounter Miscellaneous Notes * Telephone Encounter - Emma Stubbs RN - 05/09/2021 1:17 PM CST Medication failed the protocol, provider to review and approve the medication order if appropriate. Requested Prescriptions Pending Prescriptions Disp Refills albuterol 108 (90 Base) MCG/ACT Aerosol Solution [Pharmacy Med Name: ALBUTEROL SULFATE HFA 108 AERS] 18 g 2 Sig: INHALE TWO PUFFS BY MOUTH EVERY 4 HOURS NEEDED FOR WHEEZING Short Acting Inhaled Beta-Agonists Protocol Passed - 05/09/2021 9:30 AM Passed - Visit with relevant provider in past 12 months or upcoming 90 days Recent Visits Date Type Provider Dept 04/18/21 Office Visit Vickey Robbins APRN, CNP [facility] 01/31/21 Office Visit zA Watson MD [facility] 11/10/20 Office Visit Vickey Robbins APRN, [place] 09/01/20 Office Visit Az Watson MD [facility] 06/01/20 Office Visit Az Watson MD [facility] Showing recent visits within past 365 days and meeting all other requirements Future Appointments Date Type Provider Dept 05/27/21 Appointment Az Watson MD [facility] Showing future appointments within next 90 days and meeting all other requirements MBLY HAND documented in this encounter Plan of Treatment Upcoming Encounters Date Type Department Care Team (Latest Contact Info) Description 10/16/2024 9:00 AM CDT Office Visit [facility] [place] [address] Az Watson MD #2 [facility] [address] [place] [address] 10/16/2024 10:00 AM CDT Ancillary Procedure [facility] [address] [facility] [address] Az Watson MD #[address] [address] Discharge Disposition: Discharged to home or Selfcare 10/20/2024 9:00 AM CDT Office Visit [facility] #2 [place] [address] Az Watson MD #[address] [place] [address] 10/24/2024 10:30 AM CDT Office Visit [facility] #2 [facility] [place] [address] Emilio Sarabia MD #[address] [place] [address] documented as of this encounter Visit Diagnoses Not on filedocumented in this encounter Additional Health Concerns Infection Onset Date Last Indicated Resolved Time COVID - 19 06/11/2023 06/11/2023 06/21/2023 12:1 6 AM ASSEMBLY HAND Assessment Noted Time PHQ-9 Depression Total Score: 4 09/02/19 21 8:46 AM CDT documented as of this encounter Care Teams Resident Care Coordinator Relationship Specialty Start Date End Date Az Watson MD #2 [facility] [address] [place] [address] PCP - General Family Medicine 05/03/15 Cain Lira MD [address] [facility] [address] [place] [address] Obstetrics & Gynecology 02/15/17 Francoise Tompkins RN [place] Registered Nurse Cardiovascular Icu 09/06/21 04/06/22 Claribel Sierra LSW [place] Registered Nurse Cardiovascular Icu 09/09/21 04/06/22 Trisha Cook APRN, STUDENT WORKER #[address] [place] [address] Nurse Practitioner Advanced Practice Nurse 11/29/22 Golden Napier MD #2 [facility] [address] [place] [address] Consulting Physician Colon and Rectal Surgery 08/13/23 Emilio Sarabia MD #2 [facility] [address] [place] [address] Consulting Physician Urology 09/11/23 documented as of this encounter
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
--- OUTSIDE RECORDS SUMMARY | 2024-10-06 11:17 | XMS_ITS | Encounter Summary ---
Author Organization [facility] Address [address] [place] [address] Phone Care Team Providers Care Guest Room Inspector Name Role Phone Az Watson MD Primary Care Provider [phone] Cain Lira MD Unavailable [phone] Francoise Tompkins RN Unavailable Unavailable Claribel SierraW Unavailable Unavailab Trisha Houston APRN, SALOMON Unavailable Golden Napier MD Unavailable Emilio Sarabia MD Unavailable [phone] Reason for Visit * Reason Comments Medication Refill Encounter Details Date Type Department Care Team (Late st Contact Info) Description 06/25/2020 Refill [facility] [address] [place] [address] Az Watson MD #[address] [address] Medication Refill Social History Tobacco Use Types Packs/Day Years Used Date Smoking Tobacco: Former Cigarettes 1 30 0 06/18/1985 - 06/18/2015 Smokeless Tobacco: Never Comments:quit may 2015 Alcohol Use Standard Drinks/Week Comments No 0 [...] have Coronavirus / COVID-19? No / Unsure 06/21/2020 6:32 AM C PYTHON DEVELOPER documented as of this encounter Miscellaneous Notes * Telephone Encounter - Kari Blackmon RN - 06/25/2020 11:07 AM CST Please address medication warning Per nursing clinical judgement, provider to review and approve the medication(s) order(s) if appropriate. Requested Prescriptions Pending Prescriptions Disp Refills famotidine (PEPCID) 40 MG Tablet [Pharmacy Med Name: FAMOTIDINE 40MG TABS] 90 Tab 1 Sig: TAKE ONE-HALF TABLET BY MOUTH TWICE A DAY Gastroenterology: Antiulcer - H2 Antagonists Passed - 06/25/2020 9:03 AM Passed - Valid encounter within last 12 months Past Office Visits Recent Outpatient Visits 3 weeks ago Bladder infection [facility] - Az Collado MD 4 months ago Hoarseness, chronic [facility] - Az Collado MD 4 months ago Hoarseness, chronic [facility] - Az Collado MD 5 months ago Anxiety [facility] - Az Collado MD 5 months ago Acute vaginitis [facility] - [facility] Medicine - Mary Beth Haile, BENNIE Upcoming Appointments Future Appointments In 6 days Sony Hu, DO [facility] - [facility] - [facility] In 2 months Az Watson MD [facility] - Recent and Past Visits Recent Visits Date Type Provider Dept 06/01/20 Office Visit Az Watson MD [facility] 02/26/20 Office Visit Az Watson MD [facility] 02/02/20 Office Visit Az Watson MD [facility] 01/19/20 Office Visit Az Watson MD [facility] 12/31/19 Office Visit Mary Beth Soriano PAC [facility] [place] 10/13/19 Telemedicine Az Watson MD [facility] Showing recent visits within past 460 days with a meds authorizing provider and meeting all other requirements Future Appointments Date Type Provider Dept 09/01/20 Appointment Az Watson MD [facility] Showing future appointments within next 90 days with a meds authorizing provider and meeting all other requirements C PYTHON DEVELOPER documented in this encounter Plan of Treatment Upcoming Encounters Date Type Department Care Team (Latest Contact Info) Description 10/16/2024 9:00 AM CDT Office Visit [facility] [address] [place] [address] Az Watson MD #[address] [address] 10/16/2024 10:00 AM CDT Ancillary Procedure [facility] [address] [place] [address] Az Watson MD #[address] [address] Discharge Disposition: Discharged to home or Selfcare 10/20/2024 9:00 AM CDT Office Visit [facility] - Family Medicine [facility] [address] [place] [address] Az Watson MD #2 [facility] [address] [place] [address] 10/24/2024 10:30 AM CDT Office Visit [facility] #2 [place] [address] Emilio Sarabia MD #2 [facility] [address] [place] [address] documented as of this encounter Visit Diagnoses Not on filedocumented in this encounter Additional Health Concerns Infection Onset Date Last Indicated Resolved Time COVID - 19 06/11/2023 06/11/2023 06/21/2023 12:1 6 AM C PYTHON DEVELOPER Assessment Noted Time PHQ-9 Depression Total Score: 2 02/26/20 20 8:55 AM CDT documented as of this encounter Care Teams Guest Room Inspector Relationship Specialty Start Date End Date Az Watson MD [address]2 [facility] [address] [place] [address] PCP - General Family Medicine 05/03/15 Cain Lira MD [address] [facility] [address] [facility] [address] [place] [address] Obstetrics & Gynecology 02/15/17 Francoise Tompkins RN [place] Dramatic Teacher 09/06/21 04/06/22 Claribel Sierra LSW [place] Dramatic Teacher 09/09/21 04/06/22 Trisha Cook APRN, REGISTERED NURSES [address] [place] [address] Nurse Practitioner Advanced Practice Nurse 11/29/22 Golden Napier MD #2 [facility] [address] [place] [address] Consulting Physician Colon and Rectal Surgery 08/13/23 Emilio Sarabia MD #2 [facility] [address] [place] [address] Consulting Physician Urology 09/11/23 documented as of this encounter
--- OUTSIDE RECORDS SUMMARY | 2024-10-06 11:17 | XMS_ITS | Clinical Summary ---
Author Organization [facility] Address [address] [place] [address] Care Team Providers Care Vehicle Body Maker Name Role Phone Jose Mendoza RN Unavailable UnavailMelissa Nguyen RN Unavailable Unavailab Heriberto Gray MD Unavailable [phone] Lashaun Mcmahon MD Unavailable [phone] Az Watson MD Unavailable [phone] Az Watson MD Primary Care Provider [phone] Ashish Brown MD Unavailable [phone] Ousmane Zaidi MD Unavailable [phone] Allergies Active Allergy Reactions Criticality Noted Date Comments Cat Dander Itching,Eye irritation,Rhinitis Low 07/07/2024 Duloxetine Rash,Seizures High 12/16/2015 Erythromycin Stomach upset,Vomiting Low Gabapentin Hallucinations Medium 01/22/2023 Honeysuckle Shortness of breath High 12/25/2023 Alvan Rash High 06/30/2021 Blisters on back of head Metoclopramide Hcl Other (See comments) High 023 Tardive dyskinesia Mold Wheezing Medium 06/26/2024 Can't breathe Pregabalin Seizures High 11/22/2022 Briseyda Fruit Itching,Rash Medium 07/07/2024 Briseyda bushes Olanzapine-Fluoxetine Unknown 02/06/2017 Tetracycline Vomiting Low Medications rosuvastatin (CRESTOR) 10 mg tablet take 1 tablet by oral route every day 0 0 4 Active metFORMIN (GLUCOPHAGE) 500 mg tablet take 1 tablet by oral route 2 times every day with morning and evening meals 0 0 4 Active albuterol HFA (PROAIR HFA) 90 mcg/actuation inhaler inhale 2 puff by inhalation route every 4 - 6 hours as needed 0 Inhaler [address] (NexIUM) 40 mg capsule take 1 capsule by oral route every day 0 0 4 Active ALPRAZolam (XANAX) 0.5 mg tablet Take 1 tablet (0.5 mg total) by mouth 3 (three) times a day [address] (DEPAKOTE) 500 mg EC tablet Take 1 tablet (500 mg total) by mouth nightly 7 Active estradiol (ESTRACE) 2 mg tablet Take 1 tablet (2 mg total) by mouth every morning 7 Active mirtazapine (REMERON) 45 mg tablet Take 1 tablet (45 mg total) by mouth nightly 7 Active blood-glucose meter kit 1 Device by other route 4 times daily 9 Active CALCIUM CARBONATE-RICKI MIN D3 ORAL Take 2 tablets by mouth daily with dinner Active famotidine (PEPCID) 40 mg tabletIndicati ons:Heartburn Take 1 tablet (40 mg total) by mouth as needed for heartburn 1 Active traZODone (DESYREL) 150 mg tablet Take 2 tablets (300 mg total) by mouth nightly 2 Active citalopram (CeleXA) 10 mg tablet Take 1 tablet (10 mg total) by mouth every morning Take with 20 mg to total 30 mg 2 Active ascorbic acid (VITAMIN C) 500 mg tablet,chewabl e Take 1 tablet/chew tab (500 mg total) by mouth every morning Active magnesium oxide 500 mg capsule Take 500 mg by mouth nightly Active magnesium hydroxide (MILK OF MAGNESIA ORAL)Indicatio ns:constipatio n Take 130 mg by mouth daily as needed (constipation) Active ondansetron (ZOFRAN) 4 mg tablet Take 2 tablets (8 mg total) by mouth every 8 (eight) hours as needed for nausea or vomiting 3 Active blood-glucose, ketone contl nml solution To check blood sugar daily. DX: E11.9 3 Active blood glucose diagnostic strip Use as directed to check blood sugar daily. DX: E11.9 3 Active SUMAtriptan (IMITREX) 100 mg tablet Take 1 tablet (100 mg total) by mouth once as needed for migraine 3 Active Ultra Thin Lancets 30 gauge misc USE TO CHECK BLOOD SUGAR DAILY 4 Active oxyBUTYnin XL (DITROPAN-XL) 10 mg 24 hr tablet Take 1 tablet (10 mg total) by mouth nightly Active vibegron (Gemtesa) 75 mg tablet Take 75 mg by mouth nightly Active fluticasone propionate (FLONASE) 50 mcg/actuation nasal spray Administer 1 spray into each nostril daily Active acetaminophen (TYLENOL) 500 mg tabletIndicati ons:Pain Take 2 tablets (1,000 mg total) by mouth every 6 (six) hours as needed for pain Active pseudoephedrin e ER (SUDAFED) 120 mg 12 hr tablet Take 1 tablet (120 mg total) by mouth daily as needed for congestion Active vit C,O-Ma-hdhzz-l utein-zeaxan 250-90-40-1 mg capsule Take 1 capsule by mouth daily before lunch Active vitamin E 1,000 unit capsule Take 1 capsule (1,000 Units total) by mouth daily before lunch Active zinc gluconate 50 mg tablet Take 1 tablet (50 mg total) by mouth every morning Active carvediloL (COREG) 12.5 mg tablet TAKE 1 TABLET(12.5 MG) BY MOUTH DAILY 90 tablet 3 4 Active Additional Information Patient taking differently: 6.25 mgoral2 times daily with meals (bkfst, dinner), Indications: hypertension, Informant: Self, Reported on 09/04/2024 fenofibrate micronized (LOFIBRA) 134 mg capsule Take 1 capsule (134 mg total) by mouth nightly 4 Active naloxone (NARCAN) 4 mg/actuation spray,non-aero gregor Administer 1 spray into affected nostril(s) as needed for opioid reversal or respiratory depression 5 Active vitamin B complex (B COMPLEX ORAL) Take 1 tablet by mouth daily before lunch Active carboxymethylc ellulose (REFRESH LIQUIGEL) 1 % ophthalmic liquid gel drops Administer 1 drop into both eyes 2 (two) times a day as needed (dry eye) Active cycloSPORINE (RESTASIS) 0.05 % ophthalmic emulsion Administer 1 drop into both eyes 2 (two) times a day as needed (dry eye) Active diclofenac sodium (VOLTAREN) 1 % gel Apply 2 g topically 2 (two) times a day as needed (pain) Active cholecalcifero l, vitamin D3, (VITAMIN D3 ORAL) Take 1 tablet by mouth daily with dinner Active simethicone (GAS-X ORAL) Take 2 tablets by mouth 2 (two) times a day Active acetaminophen- aspirin-caffei ne (EXCEDRIN MIGRAINE) 250-250-65 mg per tablet Take 1 tablet by mouth every 6 (six) hours as needed for headaches or pain Active polyethylene glycol (MIRALAX) 17 gram packetIndicati ons:constipati on Take 1 packet (17 g total) by mouth daily 5 Active senna-docusate (PERICOLACE) 8.6-50 mgIndications: constipation Take 2 tablets by mouth 2 (two) times a day for 7 days 28 tablet 5 Active lidocaine 5 % gel Apply topically Acti ve tiZANidine (ZANAFLEX) 4 mg tabletIndicati ons:Muscle Spasm Take 2 tablets (8 mg total) by mouth 3 (three) times a day 180 tablet 5 Active oxyCODONE (ROXICODONE) 10 mg tabletIndicati ons:Pain Take 1 tablet (10 mg total) by mouth every 4 (four) hours as needed for pain 42 tablet 5 Active tiZANidine (ZANAFLEX) 4 mg tabletIndicati ons:Muscle Spasm Take 2 tablets (8 mg total) by mouth 3 (three) times a day 180 tablet 5 09/23/19 25 Discontin ued(Reord er) oxyCODONE (ROXICODONE) 10 mg tabletIndicati ons:Pain Take 1 tablet (10 mg total) by mouth every 4 (four) hours as needed for pain 42 tablet 5 09/09/19 25 Discontin ued(Reord er) oxyCODONE (ROXICODONE) 10 mg tabletIndicati ons:Pain Take 1 tablet (10 mg total) by mouth every 4 (four) hours as needed for pain 42 tablet 5 09/16/19 25 Discontin ued(Reord er) oxyCODONE (ROXICODONE) 10 mg tabletIndicati ons:Pain Take 1 tablet (10 mg total) by mouth every 4 (four) hours as needed for pain 42 tablet 5 09/23/19 25 Discontin ued(Reord er) oxyCODONE (ROXICODONE) 10 mg tabletIndicati ons:Pain Take 1 tablet (10 mg total) by mouth every 4 (four) hours as needed for pain 42 tablet 5 10/01/19 25 Discontin ued(Reord er) Active Problems Problem Noted Date Diagnosed Date Cervical myelopathy 07/01/2024 Numbness and tingling of hand 04/25/2024 Spondylosis of lumbar region without myelopathy or radiculopathy 11/30/2023 Terminal ileitis without complication 08/02/2023 Bladder infection 07/17/2023 Rash 05/08/2023 Constipation 04/18/2023 Weight loss 04/10/2023 Hearing loss 12/25/2022 Iron deficiency anemia 12/14/2022 Anemia, normocytic normochromic 11/22/2022 Diabetic gastroparesis assoc iated with type 2 diabetes mellitus 11/10/2022 Palpitations 11/01/2022 Chronic laryngitis 06/28/2022 Chronic post-traumatic stress disorder (PTSD) Major depressive disorder, recurrent episode, mi ld 02/22/2022 Essential hypertension 10/26/2021 Hemorrhoids 08/30/2021 Rectal bleeding 08/30/2021 Frequent UTI 01/31/2021 History of bladder surgery 01/31/2021 Other spondylosis with radiculopathy, lumbar reg ion 11/19/2020 Spinal stenosis, lumbar chago on, with neurogenic claudication 11/19/2020 s/p L4-5 TLIF in 2017 09/24/2020 Cervical spondylosis with radiculopathy 09/25/19 Pre-operative cardiovascular examination 021 PVC's (premature ventricular contractions) 09/01 Urinary incontinence 09/01/2020 Abnormal EKG 06/21/2020 Arthritis 04/27/2020 COPD (chronic obstructive pulmonary disease) Depression 04/27/2020 DM (diabetes mellitus) 04/27/2020 Overview (04/27/2020): Overview: Type 2 Epigastric abdominal pain 04/27/2020 Hyperlipidemia 04/27/2020 Laryngopharyngeal reflux 04/27/2020 Nausea with vomiting 04/27/2020 Obesity 04/27/2020 Vocal cord polyp 04/27/2020 Insomnia secondary to chronic pain 03/31/2020 Hair loss 02/26/2020 Nail deformity 02/26/2020 Thyroid nodule 02/26/2020 Hoarseness, chronic 02/02/2020 Irritable bowel syndrome 01/19/2020 Seasonal allergies 01/19/2020 Shortness of breath 01/19/2020 Degenerative disc disease, cervical 04/10/2019 Degenerative cervical spinal stenosis 04/10/2019 Cervical radiculopathy 04/10/2019 Cervicalgia 03/26/2019 emt intermediate (current) use of opiate analgesic 12/10 Chronic bilateral low back pain without sciatica 05/31/2018 Lumbar post-laminectomy synd louie-L4 to L5 pedicle screws with a L4-5 disc spacer 05/31/2018 Chronic joint pain 06/06/2017 Medically complex patient 06/06/2017 Overweight (BMI 25.0-29.9) 06/06/2017 Vitamin D insufficiency 06/06/2017 Migraine without aura and wi thout status migrainosus, not intractable 04/13/2017 Gastroesophageal reflux disease without esophagi tis 01/17/2017 Chronic pain syndrome 08/02/2016 History of colon polyps 08/02/2016 Overactive bladder 04/27/2016 Anxiety disorder 10/25/2015 Controlled type 2 diabetes m ellitus without complication, without long-term current use of insulin 10/25/2015 Cough 11/03/2009 Resolved Problems Problem Noted Date Diagnosed Date Resolved Date Chronic back pain greater th an 3 months duration 09/21/2021 07/13/2023 Tobacco abuse 06/23/2015 03/08/2023 Encounters Date Type Department Care Team Description 10/03/2024 Orders Only [facility] Neurosurgery [address] [place] [address] Medical Office Building [address] [place] [address] Emil Reaves MD PhD Cervical myelopathy (HCC) (Primary Dx); Cervical disc disorder with radiculopathy of cervical region; Cervicalgia 09/24/2024 Telephone [facility] [address] [facility] [address] [place] [address] Dunia Douglas NP 09/05/2024 Orders Only [facility] Neurosurgery [address] [facility] 6th [place] [address] [place] [address] Emil Reaves MD PhD Cervicalgia (Primary Dx); Cervical myelopathy (HCC); Back pain at L4-L5 level; Cervical disc disorder with radiculopathy of cervical region; Spinal stenosis, cervical region 09/04/2024 9:45 AM CDT Office Visit [facility] Neurosurgery [address] [place] [address] Medical Office Building [address] [place] [address] Emil Reaves MD PhD Cervical myelopathy (HCC) (Primary Dx) 09/04/2024 9:14 AM CDT - 09/04/2024 11:59 PM CDT Hospital Encounter [id number] [address] [place] [address] [address] [place] [phone] Cervical disc disorder with radiculopathy of cervical region; Cervical myelopathy (HCC); Cervicalgia Discharge Disposition: Discharge to home or self care 09/04/2024 Orders Only [facility] Neurosurgery [address] [place] [address] Medical Office Building [address] [place] [address] Emil Reaves MD PhD Lumbar post-laminectomy syndrome (Primary Dx); Cervical disc disorder with radiculopathy of cervical region; Back pain at L4-L5 level; Spinal stenosis, cervical region; Cervicalgia 08/27/2024 Orders Only [facility] Neurosurgery [address] [place] [address] Medical Office [facility] [address] [place] [address] Emil Reaves MD PhD Cervicalgia (Primary Dx); Cervical disc disorder with radiculopathy of cervical region; Cervical myelopathy (HCC) 07/24/2024 Telephone [facility] Neurosurgery [address] [facility] [address]th [place] [address] [place] [phone] Emil Reaves MD PhD 07/23/2024 Telephone [facility] Neurosurgery [address] [facility] [address]th [place] [address] [place] [phone] Emil Reaves MD PhD Med Refill 07/22/2024 SHOP/CHAP Initial Outreach [facility] [address] [place] [address] Any Velez, ELLYN 07/21/2024 SHOP/CHAP Initial Outreach [facility] CASE [facility]NAGEMENT [address] [place] [address] Any Velez, ELLYN 07/21/2024 SHOP/CHAP Initial Eligibility Review [facility]NAGEMENT [address] [place] [address] Any Velez, ELLYN 07/18/2024 7:30 AM DECK WORKER - 07/18/2024 12:40 PM DECK WORKER Surgery [facility] Operating Room [address] [place] [address] Emil Reaves MD PhD C5-C7 Posterior Spinal Fusion, C6 Decompression, Extension of Levels as Indicatd 07/18/2024 7:30 AM DECK WORKER Anesthesia Event [facility] Operating Room [address] [place] [address] Alex Marti III, MD PhD Carmen Elkins NP 07/18/2024 5:38 AM DECK WORKER - 07/19/2024 3:06 PM DECK WORKER Hospital [address] [address] Emil Reaves MD PhD Cervical myelopathy (HCC) (Primary Dx) Discharge Disposition: Discharge to home or self care 07/08/2024 9:10 AM DECK WORKER Lab [address] [address] Back pain at L4-L5 level; Cervical disc disorder with radiculopathy of cervical region; Cervical myelopathy (HCC) 07/08/2024 Orders Only [facility] Neurosurgery [address] [facility] Medical Office Building 4 [facility] [address] [place] [phone] Emil Reaves MD PhD Back pain at L4-L5 level (Primary Dx); Cervical disc disorder with radiculopathy of cervical region; Cervical myelopathy (HCC) from Last 3 Months Immunizations Immunization Administration Dates Next Due Influenza, Quadrivalent, Spl it, Intramuscular 02/27/2019 Influenza, Quadrivalent, Spl it, Pediatric, Preservative Free, Intramuscular 02/10/2022 Influenza, Quadrivalent, Spl it, Preservative Free, Intramuscular 02/25/2020,02/27/2019,03/01/2018 Influenza, Trivalent, Cell Culture-based MDCK, Preservative Free, Antibiotic Free, Intramuscular 02/20/2023 Influenza, Trivalent, IM (MDV) 1,03/01/2017,02/28/2016,02/23,02/19/2014,02/18/2013 Influenza, Trivalent, Preser vative Free, Intramuscular 02/27/2016,02/18/2015 Pneumococcal Polysaccharide PPV23 02/25/2020,,02/18/2015 Tdap 02/23/2015,02/18/2015,02/18/2013 ZOSTER Recombinant 03/29/2018, 8,12/11/2017,12/10 Surgical History Surgery Date Site/Laterality Comments TOTAL ABDOMINAL HYSTERECTOMY Hysterectomy, total TONSILLECTOMY Tonsillectomy LAMINECTOMY 06/11/2017 - 06/10/2018 Total Laminectomy/fusion BLADDER SUSPENSION OTHER SURGICAL HISTORY 06/11/2017 - 06/10/2018 TLIF Medical History Medical History Date Comments Arthritis Arthritis; Comme nts: JETHRO 05/20/2014 - Type 2 diabetes mellitus (HCC) D iabetes type 2; Comments: JETHRO 05/20/2014 - Chronic obstructive pulmonar y disease (HCC) COPD Gastroesophageal reflux disease GERD Hx Other Medical hysterectomy Hx Other Medical bladder suspens ion Type 2 diabetes mellitus (HCC) D iabetes type 2; Comments: KSA 06/16/2014 - Hyperlipidemia Neck pain Bipolar disorder (HCC) Essential hypertension 10/26/2021 Abnormal ECG Anxiety Cervical disc disease Cervical stenosis (uterine cervix) Depression Gastric reflux Glaucoma Lumbar stenosis Disc disorder of lumbar region Osteoarthritis Osteoporosis Osteopenia Claustrophobia Tolerates MRI po shantel Nausea with vomiting 04/27/2020 Family History Medical History Relation Name Comments Heart disease Maternal Grandfather Diabetes Maternal Grandmother Hypertension Maternal Grandmother Diabetes Mother Diabetes mellit us; Fibromyalgia Mother Fibromyalgia; Hypertension Mother Hypertension; 60s y, [place] Paternal Grandfather Anesthesia problems Neg Hx Relation Name Status Comments Maternal Grandfather Maternal Grandmother Mother Paternal Grandfather Social History Tobacco Use Types Packs/Day Years Used Date Smoking Tobacco: Former Cigarettes 1.5 39.8 1 977 - 03/20/2016 Passive Smoke Exposure: Past Smokeless Tobacco: Never Tobacco Cessation:Counseling Given: No Alcohol Use Standard Drinks/Week Comments No 0 (1 standard drink = 0.6 oz pur e alcohol) Dovetailities Answer Date Recorded In the past 12 months has [employer] gas, oil, or water Glad to Have You threatened to shut off services in your home? Patient declined 07/22/2024 Social Connection and Isolation Panel [NHANES] A nswer Date Recorded In a typical week, how many times do you talk on the phone with family, friends, or neighbors? Patient declined 07/22/2024 How often do you get togethe r with friends or relatives? Patient declined 07/22/2024 How often do you attend zoroastrianism or hindu serv ices? Patient declined 07/22/2024 Do you belong to any clubs o r organizations such as zoroastrianism groups, unions, fraternal or athletic groups, or school groups? Patient declined 07/22/2024 How often do you attend meet ings of the clubs or organizations you belong to? Patient declined 07/22/2024 Are you , , di vorced, , never , or living with a partner? Patient declined 07/22/2024 AUDIT-C Answer Date Recorded Q1: How often do you have a drink containing alcohol? Never 07/07/2024 Q2: How many drinks containi ng alcohol do you have on a typical day when you are drinking? Patient does not drink Q3: How often do you have si x or more drinks on one occasion? Never 07/07/2024 Overall Financial Resource Strain (CARDIA) Answe r Date Recorded How hard is it for you to pa y for the very basics like food, housing, medical care, and heating? Patient declined 07/22/2024 PHQ-2 Answer Date Recorded PHQ-2 Total Score (If total score is 3 or more points, staff should administer the PHQ-9) 0 05/27/2024 Hunger Vital Sign Answer Date Recorded Within the past 12 months, y ou worried that your food would run out before you got the money to buy more. Patient declined Within the past 12 months, t he food you bought just didn't last and you didn't have money to get more. Patient declined 04/2025 PRAPARE - Transportation Answer Date Re corded In the past 12 months, has l ack of transportation kept you from medical appointments or from getting medications? Patient declined 07/22/2024 In the past 12 months, has l ack of transportation kept you from meetings, work, or from getting things needed for daily living? Patient declined 07/22/2024 PHQ-9 Answer Date Recorded PHQ-9 Total Score 0 05/27/2024 Housing Stability Vital Sign Answer Daniel e Recorded In the last 12 months, was t here a time when you were not able to pay the mortgage or rent on time? Patient declined 07/22/19 25 In the past 12 months, how m any times have you moved where you were living? 0 07/22/2024 At any time in the past 12 m [facility], were you homeless or living in a alf (including now)? Patient declined 07/22/2024 Personal Safety Answer Date Recorded Have you ever been in or are you currently in a harmful physical or emotional relationship or is someone making you feel afraid or unsafe? Denies 07/18/2024 Comments No Sex and Gender Information Value Date Recorded Sex Assigned at Not on file Legal Sex Female 10:40 AM DECK WORKER Gender Identity Not on file Sexual Orientation Not on file Occupation Industry Job Start Date Job End Date On disability Not on file Not on file Not on file Obstetrics History Comments S/p Hysterectomy Last Filed Vital Signs Vital Sign Reading Time Taken Comments Blood Pressure 101/69 07/19/2024 11:15 AM DECK WORKER Pulse 103 07/19/2024 11:15 AM DECK WORKER Temperature 36.9 C (98.5 F) 07/19/2024 3:21 AM DECK WORKER Respiratory Rate 17 07/19/2024 8:10 AM DECK WORKER Oxygen Saturation 100% 07/19/2024 11:15 AM DECK WORKER Inhaled Oxygen Concentration - - Weight 62.1 kg (137 lb) 09/04/2024 10:31 AM CDT Height 160 cm (5' 3 ) 09/04/2024 10:31 AM CDT Body Mass Index 24.27 09/04/2024 10:31 AM CDT Plan of Treatment Health Maintenance Due Date Last Done Comments Albumin Creatinine Ratio, Urine 1963 Colon Cancer Screening-Colonoscopy 1963 Dilated Eye Exam 1963 Foot Exam 1963 Hepatitis B Screening 1981 Regular Well Visit/Exam 18-64 1981 Pneumococcal vaccine <65 (2 of 2 - PCV) 02/24/2021 02/25/2020, 02/23/2015, 02/18/2015 Hemoglobin A1C 05/29/2023 11/27/2022 Breast Cancer Screening-Mammogram 03/15/2024 03/15/2023, 03/15/2023, 03/14/2022, Additional history exists Lung Cancer Screening 04/23/2024 04/23/2023 , 03/14/2022, 03/10/2021 DTaP/Tdap/Td Vaccine (4 - Td or Tdap) 02/23/2025 02/23/2015, 02/18/2015, 02/18/2013 Depression Screening 05/27/2025 05/27/2024, 05/27/2024, 02/21/2024, Additional history exists Lipid Panel 07/18/2025 07/18/2024, 05/0 11/2021, 02/03/2021, Additional history exists eGFR 07/18/2025 07/18/2024, 06/12, 12/16/2022, Additional history exists Hepatitis C Screening Completed 06/09/2014 Zoster Vaccine Completed 03/29/2018, 03/11, 12/11/2017, Additional history exists Influenza Vaccine Completed 02/19/2024, , 02/10/2022, Additional history exists Goals Goal Patient Goal Type Associated Problems Recent Progress Patient-Stated? Author [facility](05/2024 8:22 AM CDT) No Jose Mendoza, RN Note: Patient will establish a comfort-function goal and identify the pain level that will allow the patient to perform desired activities and achieve an acceptable quality of life. [facility](05/2024 8:22 AM CDT) No Jose Mendoza, RN Note: Patient will report that the pain management medication regimen achieves comfort-function goal without the occurrence of adverse effects. Medical Devices Implanted Type Area Digital Marketing Specialist Device Identifier Shelf Expiration Date Model / Serial / Lot [employer] Allograft Bone Putty 2.5cc 700-025 - [id number] Implanted:Qty: 1 on 12/15/2022 by Emil Reaves MD PhD at [facility] N/A: Spine Cervical [employer] [id number] 04/10/2025 700-025 / / [id number] [employer] Cage Spinal Cervical 12d X 14w X 7h 6 Degree [id number] - [id number] Implanted:Qty: 1 on 12/15/2022 by Emil Reaves MD PhD at [facility] N/A: Spine Cervical [employer] [id number] 09/02/2026 [id number] / / [id number] [employer] Maxan 8mm 1 Level Spine Plate Bone Green [id number] - [id number] Implanted:Qty: 1 on 12/15/2022 by Emil Reaves MD PhD at [facility] N/A: Spine Cervical [employer] [id number] / / [employer] Maxan 4mm 16mm Variable Angle Spine Screw Bone [id number] - [id number] Implanted:Qty: 4 on 12/15/2022 by Emil Reaves MD PhD at [facility] N/A: Spine Cervical [employer] [id number] / / [employer] Virage Closure Top Lid Sterilization Nonsterile Disposable Screw .001 - [id number] Implanted:Qty: 6 on 07/18/2024 by Emil Reaves MD PhD at [facility] N/A: Spine Cervical [employer] 28.0 01 / / [employer] Virage 3.5mm 35mm Spine Straight [place] Spinal Titanium Blue Oct .004 - [id number] Implanted:Qty: 2 on 07/18/2024 by Emil Reaves MD PhD at [facility] N/A: Spine Cervical [employer] .0 04 / / [employer] I Factor Allograft Putty Syringe Graft 5 Cc Bone 700-050 - [id number] Implanted:Qty: 1 on 07/18/2024 by Emil Reaves MD PhD at [facility] N/A: Spine Cervical [employer] [id number] 05/10/2026 700-050 / / [id number] [employer] Crushed Chip Frozen Graft 60ml Bone Cancellous [id number] - [id number] Implanted:Qty: 1 on 07/18/2024 by Emil Reaves MD PhD at [facility] N/A: Spine Cervical [employer] 04/19/2029 [id number] / / [id number] [employer] Graft Bone Filler Allosync Pure 5cc Putty Abs - [id number] - [id number] Implanted:Qty: 1 on 07/18/2024 by Emil Reaves MD PhD at [facility] N/A: Spine Cervical [employer] [id number] 01/28/2029 ABS 5 / [id number] / [employer] Virage 4.5mm 20mm Self Tap Polyaxial Friction Fit Spine Screw 08.002 - [id number] Implanted:Qty: 2 on 07/18/2024 by Emil Reaves MD PhD at [facility] N/A: Spine Cervical [employer] 07.29001.0 02 / / [employer] Virage 3.5mm 14mm Polyaxial Spine Screw Bone Nonsterile 07.66139.007 - [id number] Implanted:Qty: 4 on 07/18/2024 by Emil Reaves MD PhD at [facility] N/A: Spine Cervical [employer] 07.03609.0 07 / / Procedures Procedure Name Priority Date/Time Associated Diagnosis Comments XR SPINE CERVICAL 2 OR 3 VIEWS Schedule Routine, Read Routine (OP Routine) 09/04/2024 9:30 AM CDT Cervical disc disorder with radiculopathy of cervical region Cervical myelopathy (HCC) Cervicalgia POCT GLUCOSE DEVICE Routine 07/19/2024 11:55 AM DECK WORKER XR SPINE CERVICAL 2 OR 3 VIEWS Pending Discharge 07/19/2024 11:53 AM DECK WORKER POCT GLUCOSE DEVICE Routine 07/19/2024 8 :13 AM DECK WORKER POCT GLUCOSE DEVICE Routine 07/18/2024 8 :45 PM DECK WORKER POCT GLUCOSE DEVICE Routine 07/18/2024 5 :02 PM DECK WORKER POCT GLUCOSE DEVICE Routine 07/18/2024 11:22 AM DECK WORKER LIPID PANEL STAT 07/18/2024 11:22 AM DECK WORKER EGFR STAT 07/18/2024 11:22 AM DECK WORKER BASIC METABOLIC PANEL STAT 07/18/2024 11:22 AM DECK WORKER CBC WITHOUT DIFFERENTIAL STAT 07/18/2024 11:22 AM DECK WORKER SD AN PROCEDURE PLACEHOLDER Routine 07/18/2024 10:18 AM DECK WORKER SD AN PROCEDURE PLACEHOLDER Routine 07/18/2024 10:17 AM DECK WORKER SD AN PROCEDURE PLACEHOLDER Routine 07/18/2024 10:16 AM DECK WORKER SD AN ELECTIVE ENDOTRACHEAL AIRWAY Routine 07/18/2024 10:16 AM DECK WORKER FL FLUOROSCOPY < 1 HOUR IP Routine 07/18/2024 10:00 AM DECK WORKER POCT GLUCOSE DEVICE Routine 07/18/2024 9 :14 AM DECK WORKER SPINAL CORD MONITORING 07/18/2024 7:33 AM DECK WORKER Cervical myelopathy (HCC) FUSION CERVICAL/THORACIC - POSTERIOR WITH INSTRUMENTATION 07/18/2024 7:33 AM DECK WORKER Cervical myelopathy (HCC) POCT GLUCOSE DEVICE Routine 07/18/2024 6 :33 AM DECK WORKER URINALYSIS, MICROSCOPIC ONLY Routine 07/08/2024 9:17 AM DECK WORKER Back pain at L4-L5 level Cervical disc disorder with radiculopathy of cervical region Cervical myelopathy (HCC) URINE CULTURE Routine 07/08/2024 9:17 AM DECK WORKER URINALYSIS AND REFLEX TO MICROSCOPIC AND CULTURE Routine 07/08/2024 9:17 AM DECK WORKER Back pain at L4-L5 level Cervical disc disorder with radiculopathy of cervical region Cervical myelopathy (HCC) EGFR Routine 07/08/2024 9:07 AM DECK WORKER Back pain at L4-L5 level Cervical disc disorder with radiculopathy of cervical region Cervical myelopathy (HCC) DIFFERENTIAL AUTO Routine 07/08/2024 9:0 7 AM DECK WORKER Back pain at L4-L5 level Cervical disc disorder with radiculopathy of cervical region Cervical myelopathy (HCC) ANTIBODY SCREEN Routine 07/08/2024 9:07 AM DECK WORKER Back pain at L4-L5 level Cervical disc disorder with radiculopathy of cervical region Cervical myelopathy (HCC) ABO/RH Routine 07/08/2024 9:07 AM DECK WORKER Back pain at L4-L5 level Cervical disc disorder with radiculopathy of cervical region Cervical myelopathy (HCC) APTT Routine 07/08/2024 9:07 AM DECK WORKER Cervical myelopathy (HCC) TYPE AND SCREEN Routine 07/08/2024 9:07 AM DECK WORKER Back pain at L4-L5 level Cervical disc disorder with radiculopathy of cervical region Cervical myelopathy (HCC) PROTIME-INR Routine 07/08/2024 9:07 AM DECK WORKER Back pain at L4-L5 level Cervical disc disorder with radiculopathy of cervical region Cervical myelopathy (HCC) CBC WITH AUTO DIFFERENTIAL Routine 07/08/2024 9:07 AM DECK WORKER Back pain at L4-L5 level Cervical disc disorder with radiculopathy of cervical region Cervical myelopathy (HCC) VITAMIN D 25 HYDROXY Routine 07/08/2024 9:07 AM DECK WORKER Back pain at L4-L5 level Cervical disc disorder with radiculopathy of cervical region Cervical myelopathy (HCC) BASIC METABOLIC PANEL Routine 07/08/2024 9:07 AM DECK WORKER Back pain at L4-L5 level Cervical disc disorder with radiculopathy of cervical region Cervical myelopathy (HCC) POCT HEMOGLOBIN A1C Routine 11/27/2022 12:28 PM CDT SERUM HEPATITIS C AB Routine 06/09/2014 4:35 AM DECK WORKER from Last 3 Months or Most Recently Relevant to Health Maintenance Results * XR Spine Cervical 2 or 3 Views (09/04/2024 9:30 AM CDT) Anatomical Region Laterality Modality Spine N/A Computed Radiogr aphy 09/04/2024 10:1 0 AM CDT Impressions 09/04/2024 10:13 AM CDT Unchanged postsurgical evidence of posterior decompression and instrumented spinal fusion from C5-C7 with combined anterior instrumented spinal fusion and interbody spacer from C5-C6. Dictated by: Ricardo Christian M.D. The radiology attending physician has personally reviewed this study, and had reviewed and/or edited this written report and agrees with it. Electronically signed by: Doug Addison M.D. Narrative 09/04/2024 10:13 AM CDT EXAMINATION: XR SPINE CERVICAL 2 OR 3 VIEWS HISTORY: Cervical Pain COMPARISON: C-spine MR from 11/26/2023 FINDINGS: Unchanged postsurgical evidence of posterior decompression and instrumented spinal fusion from C5-C7 with combined anterior instrumented spinal fusion and interbody spacer from C5-C6. Intact instrumentation. Multilevel degenerative disc disease, worst and mild at the unfused cervical spinal segments, particularly at C2-C3 where there are interdiscal calcifications. Fusion from degenerative change of the posterior elements at this level. No listhesis. Vertebral body heights are maintained. Prevertebral soft tissues are normal. Calcified atherosclerosis of the carotid arteries. Multilevel bilateral facet arthropathy and uncovertebral hypertrophy. Procedure Note Doug Frank MD - 09/04/2024 EXAMINATION: XR SPINE CERVICAL 2 OR 3 VIEWS HISTORY: Cervical Pain COMPARISON: C-spine MR from 11/26/2023 FINDINGS: Unchanged postsurgical evidence of posterior decompression and instrumented spinal fusion from C5-C7 with combined anterior instrumented spinal fusion and interbody spacer from C5-C6. Intact instrumentation. Multilevel degenerative disc disease, worst and mild at the unfused cervical spinal segments, particularly at C2-C3 where there are interdiscal calcifications. Fusion from degenerative change of the posterior elements at this level. No listhesis. Vertebral body heights are maintained. Prevertebral soft tissues are normal. Calcified atherosclerosis of the carotid arteries. Multilevel bilateral facet arthropathy and uncovertebral hypertrophy. IMPRESSION: Unchanged postsurgical evidence of posterior decompression and instrumented spinal fusion from C5-C7 with combined anterior instrumented spinal fusion and interbody spacer from C5-C6. Dictated by: Ricardo Christian M.D. The radiology attending physician has personally reviewed this study, and had reviewed and/or edited this written report and agrees with it. Electronically signed by: Doug Addison M.D. us Emil Reaves MD PhD IMG XR PROCEDURES Final R esult * POCT glucose (07/19/2024 11:55 AM DECK WORKER) Glucose, POC 143 70 - 199 mg/dL Blood 07/19/2024 11:5 5 AM DECK WORKER 07/19/2024 11:55 AM DECK WORKER Emil Reaves MD PhD LAB POCT ORDERABLES - DEV ICE Final Result [facility] Department [place] [address] * XR Spine Cervical 2 or 3 Views (07/19/2024 11:53 AM DECK WORKER) Anatomical Region Laterality Modality Spine N/A Computed Radiogr aphy 07/19/2024 4:32 PM DECK WORKER Impressions 07/19/2024 4:32 PM DECK WORKER 1. New posterior decompression and spinal fusion from C5 to C7. Electronically signed by: Duane Zuniga D.O. Narrative 07/19/2024 4:32 PM DECK WORKER EXAMINATION: XR SPINE CERVICAL 2 OR 3 VIEWS HISTORY: post op COMPARISON: 01/10/2024 FINDINGS: Interval posterior decompression and instrumented fusion from C5 to C7. Unchanged anterior discectomy and instrumented fusion at C5-C6. The hardware is intact and the cervical spine alignment is normal. Mild degenerative disc disease of the unfused segments. Mild soft tissue swelling subcutaneous gas in the posterior neck soft tissues. Procedure Note Duane Zuniga DO - 07/19/2024 EXAMINATION: XR SPINE CERVICAL 2 OR 3 VIEWS HISTORY: post op COMPARISON: 01/10/2024 FINDINGS: Interval posterior decompression and instrumented fusion from C5 to C7. Unchanged anterior discectomy and instrumented fusion at C5-C6. The hardware is intact and the cervical spine alignment is normal. Mild degenerative disc disease of the unfused segments. Mild soft tissue swelling subcutaneous gas in the posterior neck soft tissues. IMPRESSION: 1. New posterior decompression and spinal fusion from C5 to C7. Electronically signed by: Duane Zuniga D.O. us You [employer] ACCOUNTS RECEIVABLE REPRESENTATIVE IMG XR PROCEDURES Final Resu lt * POCT glucose (07/19/2024 8:13 AM DECK WORKER) Glucose, POC 141 70 - 199 mg/dL Blood 07/19/2024 8:13 AM DECK WORKER 07/19/2024 8:13 AM DECK WORKER us Emil Reaves MD PhD LAB POCT ORDERABLES - DEV ICE Final Result Performing Organization Address [facility] Co de Phone Number [facility] [place] [address] * POCT glucose (07/18/2024 8:45 PM DECK WORKER) Glucose, POC 137 70 - 199 mg/dL Blood 07/18/2024 8:45 PM DECK WORKER 07/18/2024 8:45 PM DECK WORKER Emil Reaves MD PhD LAB POCT ORDERABLES - DEV ICE Final Result Performing Organization Address [facility] Co de Phone Number [facility] [place] [address] * POCT glucose (07/18/2024 5:02 PM DECK WORKER) Glucose, POC 97 70 - 199 mg/dL Blood 07/18/2024 5:02 PM DECK WORKER 07/18/2024 5:02 PM DECK WORKER Emil Reaves MD PhD LAB POCT ORDERABLES - DEV ICE Final Result Performing Organization Address [facility] Co de Phone Number [facility] [place] [address] * eGFR (07/18/2024 11:22 AM DECK WORKER) eGFR >90 >=60 mL/min/1. 73 m2 Comment: Interpretive Data Reference Interval Normal >/= 90 mL/min/1.73m2 Mildly decreased* 60 - 89 mL/min/1.73m2 Mildly to moderately decreased 45 - 59 mL/min/1.73m2 Moderately to severely decreased 30 - 44 mL/min/1.73m2 Severely decreased 15 - 29 mL/min/1.73m2 Kidney Failure < 15 mL/min/1.73m2 *Relative to young adult level Estimated glomerular filtration rate is determined by the 2020 CKD-EPI equation recommended by the National Kidney Foundation (A Unifying Approach to GFR Estimation: Recommendations of the NKF-ASK Task Force on Reassessing the Inclusion of Race in Diagnosing Kidney Disease, JASN 2020). The CKD-EPI equation should not be used for patients with unstable renal function and has not been validated in children and those over 70. Current interpretive data was last reviewed 2021. Blood 07/18/2024 11:2 2 AM DECK WORKER 07/18/2024 11:38 AM DECK WORKER Emil Reaves MD PhD LAB BLOOD ORDERABLES Pretty l Result Performing Organization Address City/[facility]/ZIP Co de Phone Number [facility] [place] [address] * POCT glucose (07/18/2024 11:22 AM DECK WORKER) Glucose, POC 114 70 - 199 mg/dL Blood 07/18/2024 11:2 2 AM DECK WORKER 07/18/2024 11:22 AM DECK WORKER Emil Reaves MD PhD LAB POCT ORDERABLES - DEV ICE Final Result Performing Organization Address City/[facility]/ZIP Co de Phone Number [facility] [place] [address] * (ABNORMAL) CBC without differential (07/18/2024 11:22 AM DECK WORKER) [facility] WBC 4.6 3.8 - 9.9 K/cumm Hgb 9.5(L) 11.9 - 15.5 g/dL [facility] Hct 29.9(L) 35.6 - 45.5 % [facility] Plt 209 150 - 400 K/cumm [facility] MPV 9.8 9.1 - 12.3 fL [facility] RBC 3.23(L) 3.90 - 5.20 M/cumm [facility] MCV 92.6 81.3 - 96.4 fL [facility] MCH 29.4 27.1 - 33.3 pg [facility] MCHC 31.8(L) 32.3 - 35.7 g/dL [facility] RDW CV 12.2 11.1 - 14.9 % [facility] RDW SD 41.5 35.7 - 48.1 fL [facility] NRBC abs 0.00 0.00 - 0.01 K/cumm [facility] Blood 07/18/2024 11:2 2 AM DECK WORKER 07/18/2024 11:37 AM DECK WORKER us Emil Reaves MD PhD LAB BLOOD ORDERABLES Pretty cervantes Result [facility] Department [place] [address] * (ABNORMAL) Lipid panel (07/18/2024 11:22 AM DECK WORKER) [facility] Cholesterol 97 30 - 199 mg/dL Comment: Interpretive Data Ages < or = 19 years Acceptable: <170 mg/dL Borderline high: 170-199 mg/dL High: >or= 200 mg/dL Ages > or = 20 years Desirable: <200 mg/dL Borderline high: 200-239 mg/dL High: >or= 240 mg/dL Literature References: 1. Expert Panel on Integrated Guidelines for Cardiovascular Health and Risk Reduction in Children and Adolescents. Pediatrics 2011;128:S213 2. NCEP Expert Panel. Circulation 2004;110:227 Current Interpretive Data was last revised on 2018. Triglycerides 106 <=149 mg/dL [facility] Comment: Interpretive Data Ages < or = 9 years Acceptable: <75 mg/dL Borderline high: 75-99 mg/dL High: >or= 100 mg/dL Ages 10 to 20 years Acceptable: <90 mg/dL Borderline high: 90-129 mg/dL High: >or= 130 mg/dL Ages > or = 20 years Desirable: <150 mg/dL Borderline high: 150-199 mg/dL High: 200-499 mg/dL Very high: >or= 499 mg/dL Literature References: 1. Expert Panel on Integrated Guidelines for Cardiovascular Health and Risk Reduction in Children and Adolescents. Pediatrics 2011;128:S213 2. NCEP Expert Panel. Circulation 2004;110:227 Current Interpretive Data was last revised on 2018. HDL 29(L) >=40 mg/dL [facility] Comment: Interpretive Data Ages < or = 19 years Acceptable: >45 mg/dL Borderline low: 40-45 mg/dL Low: <40 mg/dL Ages > or = 20 years Desirable: >or= 60 mg/dL Low: <40 mg/dL Literature References: 1. Expert Panel on Integrated Guidelines for Cardiovascular Health and Risk Reduction in Children and Adolescents. Pediatrics 2011;128:S213 2. NCEP Expert Panel. Circulation 2004;110:227 Current Interpretive Data was last revised on 2018. LDL, calculated 48 <=129 mg/dL [facility] Comment: Interpretive Data Ages < or = 19 years Acceptable: <110 mg/dL Borderline high: 110-129 mg/dL High: >or= 130 mg/dL Ages > or = 20 years Optimal: <100 mg/dL Near optimal: 100-129 mg/dL Borderline high: 130-159 mg/dL High: >160 mg/dL Calculated using the Dharmesh LDL-C estimating equation. This equation was implemented on 2024. Prior to this date LDL-C was estimated using the Friedewald equation. Literature References: 1. Expert Panel on Integrated Guidelines for Cardiovascular Health and Risk Reduction in Children and Adolescents. Pediatrics 2011;128:S213 2. NCEP Expert Panel. Circulation 2004;110:227 3. Dharmesh Alas et al. LUDY Cardiol. 2020 October 09;5(5):540-548. doi: 10.1001/jamacardio.2020.0013 Current Interpretive Data was last revised on 2024. Non-HDL Cholesterol 68 mg/dL [facility] Comment: Interpretive Data Ages < or = 19 years Acceptable: <120 mg/dL Borderline high: 120-144 mg/dL High: >145 mg/dL Ages > or = 20 years When triglycerides are >200 mg/dL, Non-HDL cholesterol is a secondary target of therapy with treatment goals that are 30 mg/dL greater than the LDL cholesterol target. Literature References: 1. Expert Panel on Integrated Guidelines for Cardiovascular Health and Risk Reduction in Children and Adolescents. Pediatrics 2011;128:S213 2. NCEP Expert Panel. Circulation 2004;110:227 Current Interpretive Data was last revised on 2018. Chol/HDL ratio 3 [facility] Blood 07/18/2024 11:2 2 AM DECK WORKER 07/18/2024 11:38 AM DECK WORKER us Emil Reaves MD PhD LAB BLOOD ORDERABLES Pretty cervantes Result [facility] Department [place] [address] * (ABNORMAL) Basic metabolic panel (07/18/2024 11:22 AM DECK WORKER) Sodium 142 135 - 145 mmol/L Potassium, pl 4.4 3.3 - 4.9 mmol/L [facility] Chloride 110 97 - 110 mmol/L [facility] CO2 26 22 - 32 mmol/L [facility] Anion gap 6 2 - 15 mmol/L [facility] BUN 20 6 - 25 mg/dL [facility] Creatinine 0.60 0.60 - 1.10 mg/dL [facility] Glucose 112 70 - 199 mg/dL [facility] Comment: Interpretive Data Fasting glucose >/= 126 mg/dl is diagnostic for diabetes. Fasting is defined as no caloric intake for at least 8 hours. Fasting glucose between 100 mg/dl to 125 mg/dl is diagnostic of prediabetes. In a patient with classic symptoms of hyperglycemia or hyperglycemic crisis, a random glucose >/= 200 mg/dl is diagnostic for diabetes. In the absence of unequivocal hyperglycemia, results should be confirmed by repeat testing. The classification and Diagnosis of Diabetes Diabetes Care 2021; 46: S19-S40. Current interpretive data was last revised 2022. Calcium 8.0(L) 8.5 - 10.3 mg/dL [facility] Blood 07/18/2024 11:2 2 AM DECK WORKER 07/18/2024 11:38 AM DECK WORKER Emil Reaves MD PhD LAB BLOOD ORDERABLES Pretty l Result [facility] [place] [address] * SD AN PROCEDURE PLACEHOLDER (07/18/2024 10:18 AM DECK WORKER) Narrative Dipti Jamil CRNA - 07/18/2024 10:18 AM DECK WORKER Dipti Jamil CRNA 07/18/2024 10:19 AM Arterial Line Patient location: OR End time: 07/18/2024 10:18 AM Indication: continuous blood pressure monitoring and blood sampling needed Staff: Placed by: MARKET GARDENER: Dipti Jamil CRNA Procedure prep: Prep solution: chlorhexadine/alcohol Prep: provider hat/mask and sterile gloves Skin infiltrated with lidocaine 1%: yes Arterial line: Catheter size: 22 gauge Catheter length: 1 and 1/4 inch Laterality: right Site: radial artery Line secured: Tegaderm Results: good waveform and good blood return Number of attempts: 1 Assessment: Events: patient tolerated procedure well with no complications us Alex Marti III, MD PhD ANESTHESIA ORDERABLES Final Result * SD AN PROCEDURE PLACEHOLDER (07/18/2024 10:17 AM DECK WORKER) Narrative Dipti Jamil CRNA - 07/18/2024 10:17 AM DECK WORKER Dipti Jamil CRNA 07/18/2024 10:18 AM Peripheral IV Catheter Patient location: OR End time: 07/18/2024 10:18 AM Staff: Placed by: MARKET GARDENER: Dipti Jamil CRNA Preprocedure prep: Prep solution: chlorhexadine PPE: gloves and provider hat/mask PIV line: Laterality: left Site: wrist Catheter size: 16 g Technique: direct visualization, palpatation and anatomical landmarks Procedure details: good blood return Number of attempts: 1 Assessment: Events: patient tolerated procedure well with no complications Result [facility] Alex Marti III, MD PhD ANESTHESIA ORDERABLES Final Result * SD AN ELECTIVE ENDOTRACHEAL AIRWAY, SD AN PROCEDURE PLACEHOLDER (07/18/2024 10:16 AM DECK WORKER) Narrative Dipti Jamil CRNA - 07/18/2024 10:16 AM DECK WORKER Dipti Jamil CRNA 07/18/2024 10:17 AM Airway Patient location: OR Urgency: elective Indications for airway management: anesthesia and airway protection Difficult airway: no Staff: Placed by: MARKET GARDENER: Dipti Jamil CRNA Emergent airway documentation: Risks and benefits discussed: yes Consent obtained: yes Consent given by: patient Airway prep: Preoxygenated: yes Patient position: sniffing Sedation level during airway: GA Final airway details: Final airway type: endotracheal airway Tube type: ETT ETT size: 7.0 mm Cuffed: yes Technique used for successful ETT placement: video laryngoscopy Insertion site: oral Video blade type: Conroy Blade size: 3 Cormack-Lehane (video): grade I - full view of glottis Initial cuff pressure: 28 cm H2O Cuff inflated with: air ETT to lips: 22 cm Placement verified by: auscultation and CO2 detection Airway secured with: silk tape and prone view tape Number of attempts: 1 Result [facility] Alex Marti III, MD PhD ANESTHESIA ORDERABLES Final Result * FL Fluoroscopy < 1 Hour (07/18/2024 10:00 AM DECK WORKER) Narrative [facility] - 07/18/2024 10:00 AM DECK WORKER The images from this study are not interpreted by Radiology. Please refer to the physician's procedure / OR operative note. Result [facility] Emil Reaves MD PhD IMG FLUOROSCOPY PROCEDURE S Final Result [facility] * POCT glucose (07/18/2024 9:14 AM DECK WORKER) Glucose, POC 118 70 - 199 mg/dL Blood 07/18/2024 9:14 AM DECK WORKER 07/18/2024 9:14 AM DECK WORKER Emil Reaves MD PhD LAB POCT ORDERABLES - DEV ICE Final Result Performing Organization Address [facility] de Phone Number [facility] [place] [address] * POCT glucose (07/18/2024 6:33 AM DECK WORKER) Glucose, POC 98 70 - 199 mg/dL Blood 07/18/2024 6:33 AM DECK WORKER 07/18/2024 6:33 AM DECK WORKER Emil Reaves MD PhD LAB POCT ORDERABLES - DEV ICE Final Result Performing Organization Address [facility] [place] [address] * (ABNORMAL) Urinalysis reflex to microscopic and culture Urine, clean voided (07/08/2024 9:17 AM DECK WORKER) [facility] Color, ur Yellow Yellow Clarity, ur Turbid(A) Clear [facility] ([place]) Specific gravity, ur 1.018 1.003 - 1.030 [facility] ([place]) pH, urine 8.0 [facility] ([place]) Comment: Interpretive Data U rine pH is affected by diet, medications, systemic acid-base disturbances, and renal tubular function. pH may affect urinary stone formation. For example, urine pH below 6.0 may help reduce the tendency for calcium phosphate stones and pH greater than 6.0 may reduce the tendency for uric acid stone formation. Source: [facility] Current Interpretive Data was last revised on 2017 Protein, ur ql Negative Negative [facility] ([place]) Glucose, ur ql Negative Negative [facility] ([place]) Ketones, ur Negative Negative [facility] ([place]) Bilirubin, ur Negative Negative [facility] ([place]) Blood, ur Negative Negative [facility] ([place]) Urobilinogen, ur <2.0 <2.0 mg/dL [facility] ([place]) Nitrite, ur Negative Negative [facility] ([place]) Leukocyte esterase, ur 3+(A) Negative [facility] ([place]) UA reflex comment Reflex to microscopic UA will be performed. [facility] ([place]) Urine, clean voided 07/08/2024 9:17 AM DECK WORKER 07/08/2024 9:47 AM DECK WORKER us Emil Reaves MD PhD LAB MICROBIOLOGY - GENERA L ORDERABLES Final Result Performing Organization Address [facility] Co de Phone Number [facility] [place] ([place]) [address] [facility] [address] * (ABNORMAL) Urinalysis, microscopic only (07/08/2024 9:17 AM DECK WORKER) WBC, ur 11-20(A) 0 - 5 /HPF RBC, ur 0-2 0 - 2 /HPF [facility] ([place]) Epithelial cells, squamous, ur 1-5 0 - 5 /HPF [facility] ([place]) Bacteria, ur Trace(A) [facility] ([place]) Culture Reflex Comment Reflex to urine culture will be performed. [facility] ([place]) Urine, clean voided 07/08/2024 9:17 AM DECK WORKER 07/08/2024 9:47 AM DECK WORKER us Emil Reaves MD PhD LAB URINE ORDERABLES Pretty l Result Performing Organization Address City/[facility]/ZIP Co de Phone Number [facility] [address] [facility] [address] * Urine culture Urine, clean voided (07/08/2024 9:17 AM DECK WORKER) Report Final Report: Less than 100,000 colonies/mL (clinically insignificant growth based on current clinical standards) Comment:Testing performed by : [facility], [address] [place] [address] Organism (CLINICALLY INSIGNIFICANT GROWTH [facility] [place] ([place]) Urine, clean voided 07/08/2024 9:17 AM DECK WORKER 07/08/2024 1:50 PM DECK WORKER Narrative [facility] ([place]) - 07/09/2024 4:03 PM DECK WORKER Urine culture reflexed based upon urinalysis results. Testing performed by [facility] ([phone]) us Emil Reaves MD PhD LAB MICROBIOLOGY - GENERA L ORDERABLES Final Result [facility] ([place]) 1 [facility] Department [place] [address] * eGFR (07/08/2024 9:07 AM DECK WORKER) eGFR >90 >=60 mL/min/1. 73 m2 Comment: Interpretive Data Reference Interval Normal >/= 90 mL/min/1.73m2 Mildly decreased* 60 - 89 mL/min/1.73m2 Mildly to moderately decreased 45 - 59 mL/min/1.73m2 Moderately to severely decreased 30 - 44 mL/min/1.73m2 Severely decreased 15 - 29 mL/min/1.73m2 Kidney Failure < 15 mL/min/1.73m2 *Relative to young adult level Estimated glomerular filtration rate is determined by the 2020 CKD-EPI equation recommended by the National Kidney Foundation (A Unifying Approach to GFR Estimation: Recommendations of the NKF-ASK Task Force on Reassessing the Inclusion of Race in Diagnosing Kidney Disease, JASN 2020). The CKD-EPI equation should not be used for patients with unstable renal function and has not been validated in children and those over 70. Current interpretive data was last reviewed 2021. Blood 07/08/2024 9:07 AM DECK WORKER 07/08/2024 9:41 AM DECK WORKER us Emil Reaves MD PhD LAB BLOOD ORDERABLES Pretty l Result [facility] ([place]) 1 [facility] Department [place] [address] * Differential, auto (07/08/2024 9:07 AM DECK WORKER) Neutrophil abs 2.7 1.5 - 6.5 K/cumm Imm gran abs 0.0 0.0 - 0.1 K/cumm [facility] ([place]) Lymphocyte abs 1.7 0.8 - 3.3 K/cumm [facility] ([place]) Monocyte abs 0.6 0.2 - 0.8 K/cumm [facility] ([place]) Eosinophil abs 0.2 0.0 - 0.5 K/cumm [facility] ([place]) Basophil abs 0.0 0.0 - 0.1 K/cumm [facility] ([place]) Neutrophil pct 51.1 % [facility] ([place]) Comment: Interpretive Data Percent cell count reference ranges are not reported, since discordance with absolute values may lead to misinterpretation of CBC data. Current Interpretive Data was last revised on 2017. Imm gran pct 0.6 % [facility] ([place]) Comment: Interpretive Data Percent cell count reference ranges are not reported, since discordance with absolute values may lead to misinterpretation of CBC data. Current Interpretive Data was last revised on 2017. Lymphocyte pct 33.2 % [facility] ([place]) Comment: Interpretive Data Percent cell count reference ranges are not reported, since discordance with absolute values may lead to misinterpretation of CBC data. Current Interpretive Data was last revised on 2017. Monocyte pct 11.5 % [facility] ([place]) Comment: Interpretive Data Percent cell count reference ranges are not reported, since discordance with absolute values may lead to misinterpretation of CBC data. Current Interpretive Data was last revised on 2017. Eosinophil pct 3.2 % [facility] ([place]) Comment: Interpretive Data Percent cell count reference ranges are not reported, since discordance with absolute values may lead to misinterpretation of CBC data. Current Interpretive Data was last revised on 2017. Basophil pct 0.4 % [facility] ([place]) Comment: Interpretive Data Percent cell count reference ranges are not reported, since discordance with absolute values may lead to misinterpretation of CBC data. Current Interpretive Data was last revised on 2017. Blood 07/08/2024 9:07 AM DECK WORKER 07/08/2024 9:41 AM DECK WORKER Emil Reaves MD PhD LAB BLOOD ORDERABLES Pretty l Result Performing Organization Address City/[facility]/ZIP Co de Phone Number [facility] ([place]) 1 [facility] Department [place] [address] * (ABNORMAL) CBC with auto differential (07/08/2024 9:07 AM DECK WORKER) WBC 5.2 3.8 - 9.9 K/cumm Hgb 11.5(L) 11.9 - 15.5 g/dL [facility] ([place]) Hct 35.3(L) 35.6 - 45.5 % [facility] ([place]) Plt 264 150 - 400 K/cumm [facility] ([place]) MPV 9.2 9.1 - 12.3 fL [facility] ([place]) RBC 3.80(L) 3.90 - 5.20 M/cumm [facility] ([place]) MCV 92.9 81.3 - 96.4 fL [facility] ([place]) MCH 30.3 27.1 - 33.3 pg [facility] ([place]) MCHC 32.6 32.3 - 35.7 g/dL [facility] ([place]) RDW CV 12.2 11.1 - 14.9 % [facility] ([place]) RDW SD 41.3 35.7 - 48.1 fL [facility] ([place]) NRBC abs 0.00 0.00 - 0.01 K/cumm [facility] ([place]) Blood 07/08/2024 9:07 AM DECK WORKER 07/08/2024 9:41 AM DECK WORKER Emil Reaves MD PhD LAB BLOOD ORDERABLES Pretty cervantes Result Performing Organization Address City/[facility]/ZIP Co de Phone Number [facility] ([place]) [address] [place] [address] * ABO/Rh (07/08/2024 9:07 AM DECK WORKER) ABO/Rh A Positive Blood 07/08/2024 9:07 AM DECK WORKER 07/08/2024 9:41 AM DECK WORKER Narrative [facility] ([place] - 07/08/2024 10:45 AM DECK WORKER Has the patient had Daratumumab or Isatuximab in the past 6 months?->Unknown Emil Reaves MD PhD LAB BLOOD BANK TEST ORDER ROSE Final Result [facility]) [address] [place] [address] * Vitamin D 25 hydroxy (07/08/2024 9:07 AM DECK WORKER) Pathologist [facility] Vitamin D 25-OH 50 30 - 80 ng/mL Blood 07/08/2024 9:07 AM DECK WORKER 07/08/2024 9:41 AM DECK WORKER Emil Reaves MD PhD LAB BLOOD ORDERABLES Pretty l Result [facility]) [address] [place] [address] * aPTT (07/08/2024 9:07 AM DECK WORKER) aPTT 32 28 - 38 sec [facility] ([place]) Comment: Interpretive Data Heparin therapeutic range: 66.0 - 100.0 seconds. Range based on correlation with therapeutic heparin activity range of 0.3 - 0.7 Units/mL. Current interpretive data was last revised on 2023. Blood 07/08/2024 9:07 AM DECK WORKER 07/08/2024 9:41 AM DECK WORKER us Emil Reaves MD PhD LAB BLOOD ORDERABLES Pretty l Result Performing Organization Address City/[facility]/ZIP Co de Phone Number [facility]) [address] [place] [address] * Protime-INR (07/08/2024 9:07 AM DECK WORKER) Pathologist [facility] PT 10.4 9.7 - 13.0 sec [facility] ([place]) INR 0.96 0.90 - 1.20 [facility] Comment: Interpretive data Oral anticoagulant therapeutic ranges: Venous thromboembolism prophylaxis or treatment: 2.0-3.0 CARDIOLOGY Standard range: 2.0-3.0 High-intensity range: 2.5-3.5 Refer to indication-specific guidelines for appropriate target ranges for prosthetic heart valve replacement. Current interpretive data was last revised on 2019. Blood 07/08/2024 9:07 AM DECK WORKER 07/08/2024 9:41 AM DECK WORKER us Emil Reaves MD PhD LAB BLOOD ORDERABLES Pretty l Result Performing Organization Address [facility]/ZIP Co de Phone Number [facility] 1 [facility] [place] [address] * Antibody screen (07/08/2024 9:07 AM DECK WORKER) Pathologist [facility] Carmen, indirect, Gel Interpretation Negative ABSC Blood 07/08/2024 9:07 AM DECK WORKER 07/08/2024 9:41 AM DECK WORKER Narrative [facility] - 07/08/2024 10:45 AM DECK WORKER Has the patient had Daratumumab or Isatuximab in the past 6 months?->Unknown Emil Reaves MD PhD LAB BLOOD BANK TEST ORDER ROSE Final Result Performing Organization Address City/[facility]/ZIP Co de Phone Number [facility] ([place]) [address] [place] [address] * Basic metabolic panel (07/08/2024 9:07 AM DECK WORKER) Pathologist [facility] Sodium 142 135 - 145 mmol/L Potassium, pl 4.2 3.3 - 4.9 mmol/L [facility] Chloride 104 97 - 110 mmol/L [facility] ([place]) CO2 28 22 - 32 mmol/L [facility] Anion gap 10 2 - 15 mmol/L [facility] ([place]) BUN 20 6 - 25 mg/dL [facility]) Creatinine 0.60 0.60 - 1.10 mg/dL [facility]) Glucose 121 70 - 199 mg/dL [facility] ([place]) Comment: Interpretive Data Fasting glucose >/= 126 mg/dl is diagnostic for diabetes. Fasting is defined as no caloric intake for at least 8 hours. Fasting glucose between 100 mg/dl to 125 mg/dl is diagnostic of prediabetes. In a patient with classic symptoms of hyperglycemia or hyperglycemic crisis, a random glucose >/= 200 mg/dl is diagnostic for diabetes. In the absence of unequivocal hyperglycemia, results should be confirmed by repeat testing. The classification and Diagnosis of Diabetes Diabetes Care 2021; 46: S19-S40. Current interpretive data was last revised 2022. Calcium 9.4 8.5 - 10.3 mg/dL [facility] Blood 07/08/2024 9:07 AM DECK WORKER 07/08/2024 9:41 AM DECK WORKER Emil Reaves MD PhD LAB BLOOD ORDERABLES Pretty cervantes Result [facility]) 1 [facility] Department [place] [address] * POCT hemoglobin A1c (11/27/2022 12:28 PM CDT) Pathologist [facility] Hgb A1C, POC 5.0 4.0 - 5.6 % [facility] Est Average Gluc POC 97 mg/dL [facility] Comment: The ADA recommends reporting an estimated Average Glucose (eAG) with all Hemoglobin A1c results using the equation derived from a study of 507 normal and diabetic adults. Minority populations were underrepresented and children were not included. (Diabetes Care 31:4139-5114, 2008). The eAG is not equivalent to a fasting glucose. Blood 11/27/2022 12:2 8 PM CDT 11/27/2022 12:28 PM CDT us Emil Reaves MD PhD POINT OF CARE TEST ORDERA BLES Final Result [facility] [place] [address] * Serum Hepatitis C ab (06/09/2014 4:35 AM DECK WORKER) HCV ab NONREAC NONREAC HISTORICAL RESULTS Serum 06/09/2014 4:35 AM DECK WORKER Narrative HISTORICAL RESULTS - 06/09/2014 8:01 AM DECK WORKER HEP C EARLY ACUTE INFECTION (OCCURING DURING THE PRIOR 8-9 WEEKS) IS NOT RULED OUT BY THIS TEST. us Cinthia Garrison MD LAB BLOOD ORDERABLES Final Resul t HISTORICAL RESULTS from Last 3 Months or Most Recently Relevant to Health Maintenance Insurance [facility] MEDICARE ADVANTAGE [address] [place] [address] [facility] MEDICARE ADVANTAGE IDPA Advance Directives For more information, please contact: [phone] * Full Code (Latest Code Status on File) Date Activated Date Inactivated Comments 07/18/2024 1:43 PM 07/19/2024 7:11 PM * Full Code Date Activated Date Inactivated Comments 12/15/2022 2:34 PM 12/16/2022 4:53 PM Care Teams Vehicle Body Maker Relationship Specialty Start Date End Date Az Watson MD [address] [facility] [address] [address] PCP - General Family Medicine 10/22/23 Jose Mendoza, RN Registered Nurse 06/12/17 Melissa Stearns, RN Registered Nurse Pain Management 12/03/17 Heriberto Mercedes MD [address] [place] [address] Anesthesiologist Pain Management 05/03/22 Lashaun Mcmahon MD [address] [address] Consulting Physician Cardiology 12/13/22 Az Watson MD [address] [place] [place] [address] [address] Referring Physician Family Medicine 12/13/22 Ashish Brown MD [address] [place] [address] Referring Physician Obstetrics and Gynecology 11/07/23 Ousmane Zaidi MD [address] [place] [address] Consulting Physician Anesthesiology 02/21/24
--- OUTSIDE RECORDS SUMMARY | 2024-10-06 11:17 | XMS_ITS | Continuity of Care Document ---
Author Organization [facility] Address [address] [place] [address] Phone Care Team Providers Care Spray Stainer Name Role Phone Administrative, Provider Unavailable Unavail able Allergies, Adverse Reactions, Alerts Substance Reaction Status Criticality No Known Allergies Active No Inform ation Medications Medication Instructions Dosage Effective Dates (start - stop) Status Comments Odessa 5 mg-325 mg tablet take 1 by oral route every 8 hours as needed for pain - Active Feldene 10 mg capsule take 1 capsule by oral route every day 10 MG - Active CELEXA (unknown strength) take 1 tablet by oral route every day Not Available - Active XANAX (unknown strength) take 1 tablet by oral route 3 times every day Not Available - Active NEXIUM (unknown strength) take 1 capsule by oral route every day at least 1 hour before a meal swallowing whole. Do not crush or chew granules. Not Available - Active CRESTOR (unknown strength) take 1 tablet by oral route every day Not Available - Active FLONASE (unknown strength) inhale 1 spray by intranasal route every day in each nostril Not Available - Active ALEVE (unknown strength) take 1 tablet by oral route every 12 hours as needed Not Available - Active Mobic 15 mg tablet take 1 tablet by oral route every day - No Longer Active Procedures Procedure Date Medical Record Copy Medical Record Copy Per Page Office/outpatient visit,est, mod 2014 Screen For Future Fall Risk, 1 Or No Fal ls In 1 yr Screend For Tobacco And Rec Cessation In tervention BMI Documented Above Normal Limit F/U Pl an Doc Current Medications Documented 15 Influenza Immunization Administered Or R eported Pain Assessmnt Pos. F/u Plan Documented BP Not Documented Reason Not Given Nerve Conduction Studies; - 5 EMG, each extrem w/nerve conduction; com plete Office/outpatient visit,[facility], [facility] 2014 Current Tobacco Non User BMI Documented Above Normal Limit F/U Pl an Doc Current Medications Documented 15 Influenza Immunization Administered Or R eported Pain Assessmnt Pos. F/u Plan Documented Office/outpatient visit,[facility], [facility] 2014 Pain Assessmnt Pos. F/u Plan Documented Current Medications Not Documented For N o Reason BMI Not Documented Reason Not Given Screend For Tobacco And Rec Cessation In tervention Influenza Vaccine Not Given No Reason Ap Pneumoccol Vaccine Administered 015 Office/outpatient visit,[facility], [facility] 2014 Pain Assessmnt Pos. F/u Plan Documented Current Medications Not Documented For N o Reason MRI of cervical spine, No Contrast MRI of lumbar spine X-ray exam of thoracic 3 views 15 X-ray exam Lumbar Complete Flex/ext View s X-ray exam Cervical 6+ Views Current Tobacco Non User BMI Doc Out Of Norm Limits No F/U Plan D oc No Reas Current Medications Not Documented For N o Reason BP Normal No Follow Up Required 015 Office/outpatient visit,[facility], [facility] 2014 OA Symptoms And Functional Status Assess ed Pain Assessmnt Pos. F/u Plan Documented Advance Directives Directive Yes / No Effective Date File Name No Information Encounters Encounter Description Practice Location Reason(s) For Visit Diagnoses Date Provider Providers Copied on Encounter [facility], [address] [address], [place], [place], [id number], [place] tel:[phone] [facility] No Information 5 Administrati ve Provider. [address] [facility] [address], [place], [place], [id number], [place]. tel:[phone] Office/outpa tient visit,[facility], [facility], [address] [address], [place], [place], [id number], [place] tel:[phone] [facility] Brachial neuritisAcquir ed spondylolisthe sisCervical spinal stenosis 5 Rosalina Young. [address] [address], [place], [place], [id number], [place]. tel:[phone] Referring Provider: Hannah Mckeon, [address] [address], [place], [address] . tel:[phone] [facility], [address] [address], [place], [place], [id number], [place] tel:[phone] [facility] cervical spine (chief complaint) BRACHIAL NEURITIS NOS 5 Isabella Ramirez. [address] [address], [place], [place], [id number], [place]. tel:[phone] Referring Provider: Delta Mcclure, [address], [place], [address] . tel:[phone] Office/outpa tient visit,[facility], [facility], [address] [address], [place], [place], [id number], [place] tel:[phone] [facility] Cervical radiculopathy 5 Kylee Sorenson. [address] [facility], [address] [address], [place], [place], [id number], [place]. tel:[phone] Referring Provider: James Lawton, [address], [place], [address] . tel:[phone] Office/outpa tient visit,[facility], [facility], [address] [address], [place], [place], [id number], [place] tel:[phone] [facility] lumbar spine (chief complaint) Spinal stenosis of lumbar regionSpinal stenosis in cervical regionLUMBOSAC RAL NEURITIS NOSACQ SPONDYLOLISTHE SIS 5 Isabella Ramirez. [address], [address], [place], [place], [id number], [place]. tel:[phone] Referring Provider: James Lawton, [address], [place], [address] . tel:[phone] Office/outpa tient visit,[facility], [facility], [address] [address], [place], [place], [address], [place] tel:[phone] [facility] cervical spine (chief complaint) BRACHIAL NEURITIS NOSLUMBOSACRAL NEURITIS NOSPain in thoracic spineLumbar painCervical painSpinal stenosis in cervical regionSpinal stenosis of lumbar regionAcquired spondylolisthe sis 5 Isabella Ramirez. [address], [address], [place], [place], [address], [place]. tel:[phone] Referring Provider: James Lawton, [address], [place], [address] . tel:[phone] [facility], [address], [place], [place], [address], [place] tel:[phone] [facility] BRACHIAL NEURITIS NOS 5 [facility]. [address], [address], [place], [place], [address], [place]. tel:[phone] Referring Provider: James Lawton, [address], [place], [address] . tel:[phone] [facility], [address] [place] [address], [id number], tel:[phone] [facility] LUMBOSACRAL NEURITIS NOS 5 [facility]. [address] [facility], [address], [place], [place], [id number], . tel:[phone] Referring Provider: James Lawton, [address] [place] [address] [address], [place], [address] . tel:[phone] Office/outpa tient visit,[facility], [facility], [address] [place] [address] [address], [place], [place], [id number], [place] tel:[phone] [facility] lumbar spine (chief complaint) Pain in thoracic spineCervical painLumbar painCervical radiculopathyL umbar radiculopathy 0201 5 Isabella Ramirez. [address] [facility], [address], [place], [place], [address], [place]. tel:[phone] Referring Provider: James Lawton, [address] [place] [address] [address], [place], [address] . tel:[phone] Family History Family Member Type Diagnosis Age At Onset Problem (finding) Family history of Diabetes mellitus Problem (finding) Family history of Arthr itis Problem (finding) Family history of cance r Problem (finding) Family history of hyper tension Maternal grandmother Problem (finding) stroke Immunizations Vaccine Date Status Comments Flu (split) (3 yrs or older) administered Source: Other Provider Payers Payer name Insurance type Covered libertarian ID Authoriza tion(s) No Information Social History Type Description Quantity Date Captured Comments Sex Female Smoking Status No Information Chief Complaint And Reason For Visit No Information Reason For Referral Reason For Referral No Information Plan Of Treatment Date Type Action Status Referral Ordered: EMG NCS Appointment date/timeframe: 10/13/2014 ordered Referral Ordered: MRI of cervical spine, No Contrast Appointment date/timeframe: 08/20/2014 ordered Referral Ordered: X-ray exam of thoracic 3 views ordered Referral Ordered: X-ray exam Cervical 6+ Views ordered Referral Ordered: MRI lumbar spine Wo Contrast Appointment date/timeframe: 08/20/2014 ordered Referral Ordered: X-ray exam Lumbar Complete Flex/ext Views ordered Patient Education Body Mass Index: After Your Visit completed Patient Education Surgery for Cervical My elopathy: Befor completed Patient Education Body Mass Index: After Your Visit completed Patient Education Body Mass Index: After Your Visit completed Patient Education [id number] Plan for People With Lo completed History Of Present Illness Encounter Date Complaint History Of Prese nt Illness cervical spine Ivone Hernandez i s a 49 year old female. EMG NCS right upper Extremity lumbar spine Ivone Hernandez i s a 49 year old female. She presents with pain. The problem is unchanged. She rates her current pain as 9/10. cervical spine Ivone Hernandez i s a 49 year old female. She presents with pain. The problem is unchanged. She rates her current pain as 9/10. The patient has had a previous MRI. lumbar spine Ivone Hernandez i s a 49 year old female. She presents with pain. The symptoms occur constantly. The problem is worse. The pain is described as burning, sharp, stabbing, aching and throbbing. She rates her current pain as 8/10. The symptoms are aggravated by walking and sitting. Ivone states that the symptoms are relieved by rest, heat and medications. She has had TENS applied. Patient has had previous therapy. She attended physical therapy. Functional Status Date Functional Assessmen t No Information Instructions Date Instruction Additional Infor mation No Information Assessments Type Assessment Date No Information Patient Care Teams Name Effective Dates (start - stop) Status Members No Information
--- OUTSIDE RECORDS SUMMARY | 2024-10-06 11:17 | XMS_ITS | Referral Summary ---
Author Organization [facility] Address [address] [place] [address] Care Team Providers Care Clay Worker Name Role Phone Jose Mendoza RN Unavailable UnavailMelissa Nguyen RN Unavailable Unavailab Heriberto Gray MD Unavailable [phone] Lashaun Mcmahon MD Unavailable [phone] Az Watson MD Unavailable [phone] Az Watson MD Primary Care Provider [phone] Ashish Brown MD Unavailable [phone] Ousmane Zaidi MD Unavailable [phone] Encounters Date Type Department Care Team Description 10/03/2024 Orders Only [facility] Neurosurgery [address] Medical Office Building [address] [place] [address] Emil Reaves MD PhD Cervical myelopathy (HCC) (Primary Dx); Cervical disc disorder with radiculopathy of cervical region; Cervicalgia 09/24/2024 Telephone [facility] [address] [place] [address] Dunia Douglas NP 09/05/2024 Orders Only [facility] Neurosurgery [address] [facility] [facility] 6th [place] [address] [place] [address] Emil Reaves MD PhD Cervicalgia (Primary Dx); Cervical myelopathy (HCC); Back pain at L4-L5 level; Cervical disc disorder with radiculopathy of cervical region; Spinal stenosis, cervical region 09/04/2024 Orders Only [facility] Neurosurgery [address] [place] [address] Medical Office Building [address] [place] [address] Emil Reaves MD PhD Lumbar post-laminectomy syndrome (Primary Dx); Cervical disc disorder with radiculopathy of cervical region; Back pain at L4-L5 level; Spinal stenosis, cervical region; Cervicalgia 09/04/2024 9:14 AM CDT - 09/04/2024 11:59 PM CDT Hospital Encounter [id number] [address] [place] [address] [address] [place] [phone] Cervical disc disorder with radiculopathy of cervical region; Cervical myelopathy (HCC); Cervicalgia Discharge Disposition: Discharge to home or self care 09/04/2024 9:45 AM CDT Office Visit [facility] Neurosurgery [address] [place] [address] Medical Office Building [address] [place] [address] Emil Reaves MD PhD Cervical myelopathy (HCC) (Primary Dx) 08/27/2024 Orders Only [facility] Neurosurgery [address] [place] [address] Medical Office Building [address] [place] [address] Emil Reaves MD PhD Cervicalgia (Primary Dx); Cervical disc disorder with radiculopathy of cervical region; Cervical myelopathy (HCC) 07/24/2024 Telephone [facility] [facility] 6th [place] [address] [place] [address] Emil Reaves MD PhD 07/23/2024 Telephone [facility] Neurosurgery [address] [facility] 6th [place] [address] [place] [address] Emil Reaves MD PhD Med Refill 07/22/2024 SHOP/CHAP Initial Outreach MERGED WITH [facility] OP CASE MANAGEMENT [address] [place] [address] Any Velez RN 07/21/2024 SHOP/CHAP Initial Outreach MERGED WITH [facility] OP CASE MANAGEMENT [address] [place] [address] Any Velez RN 07/21/2024 SHOP/CHAP Initial Eligibility Review MERGED WITH [facility] OP CASE MANAGEMENT [address] [place] [address] Any Velez, ELLYN 07/18/2024 5:38 AM SHEET LAYER - 07/19/2024 3:06 PM SHEET LAYER Hospital Encounter [address] [address] Emil Reaves MD PhD Cervical myelopathy (HCC) (Primary Dx) Discharge Disposition: Discharge to home or self care 07/18/2024 7:30 AM SHEET LAYER - 07/18/2024 12:40 PM SHEET LAYER Surgery [facility] Operating Room [address] [place] [address] Emil Reaves MD PhD C5-C7 Posterior Spinal Fusion, C6 Decompression, Extension of Levels as Indicatd 07/18/2024 7:30 AM SHEET LAYER Anesthesia Event [facility] Operating Room [address] [place] [id number] Alex Marti III, MD PhD Carmen Elkins NP 07/08/2024 9:10 AM SHEET LAYER [address] [address] Back pain at L4-L5 level; Cervical disc disorder with radiculopathy of cervical region; Cervical myelopathy (HCC) 07/08/2024 Orders Only [facility] Neurosurgery [facility] [facility] Medical Office Building [address] [place] [address] Emil Reaves MD PhD Back pain at L4-L5 level (Primary Dx); Cervical disc disorder with radiculopathy of cervical region; Cervical myelopathy (HCC) from Last 3 Months Allergies Active Allergy Reactions Criticality Noted Date Comments Cat Dander Itching,Eye irritation,Rhinitis Low 07/07/2024 Duloxetine Rash,Seizures High 12/16/2015 Erythromycin Stomach upset,Vomiting Low Gabapentin Hallucinations Medium 01/22/2023 Honeysuckle Shortness of breath High 12/25/2023 La Plant Rash High 06/30/2021 Blisters on back of head Metoclopramide Hcl Other (See comments) High 023 Tardive dyskinesia Mold Wheezing Medium 06/26/2024 Can't breathe Pregabalin Seizures High 11/22/2022 Brsieyda Fruit Itching,Rash Medium 07/07/2024 Briseyda bushes Olanzapine-Fluoxetine [...] daily as needed for congestion Active vit C,W-Yn-wnykj-l utein-zeaxan 250-90-40-1 mg capsule Take 1 capsule [...] stenosis 04/10/2019 Cervical radiculopathy 04/10/2019 Cervicalgia 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 12/10 Chronic [...] duration 09/21/2021 07/13/2023 Tobacco abuse 06/23/2015 03/08/2023 Immunizations Immunization Administration Dates Next Due Influenza, Quadrivalent, Spl it, Intramuscular 02/27/2019 Influenza, Quadrivalent, Spl it, Pediatric, Preservative Free, Intramuscular 02/10/2022 Influenza, Quadrivalent, Spl it, Preservative Free, Intramuscular 02/25/2020,02/27/2019,03/01/2018 Influenza, Trivalent, Cell Culture-based MDCK, Preservative Free, Antibiotic Free, Intramuscular 02/20/2023 Influenza, Trivalent, IM (MDV) 1,03/01/2017,02/28/2016,02/23,02/19/2014,02/18/2013 Influenza, Trivalent, Preser vative Free, Intramuscular 02/27/2016,02/18/2015 Pneumococcal Polysaccharide PPV23 02/25/2020,,02/18/2015 Tdap 02/23/2015,02/18/2015,02/18/2013 ZOSTER Recombinant 03/29/2018, 8,12/11/2017,12/10 Social History Tobacco Use Types Packs/Day Years Used Date Smoking Tobacco: Former Cigarettes 1.5 39.8 1 977 - 03/20/2016 Passive Smoke Exposure: Past Smokeless Tobacco: Never Tobacco Cessation:Counseling Given: No Alcohol Use Standard Drinks/Week Comments No 0 (1 standard drink = 0.6 oz pur e alcohol) [facility] Utilities Answer Date Recorded In the past 12 months has th e electric, gas, oil, or water company threatened to shut off services in your home? Patient declined 07/22/2024 Social Connection and Isolation Panel [NHANES] A nswer Date Recorded In a typical week, how many times do you talk on the phone with family, friends, or neighbors? Patient declined 07/22/2024 How often do you get togethe r with friends or relatives? Patient declined 07/22/2024 How often do you attend quaker or mormonism serv ices? Patient declined 07/22/2024 Do you belong to any clubs o r organizations such as quaker groups, unions, fraternal or athletic groups, or [...] any time in the past 12 m [facility], were you homeless or living in a residential (including now)? Patient declined 07/22/2024 Personal Safety Answer Date Recorded Have you ever been in or are you currently in a harmful physical or emotional relationship or is someone making you feel afraid or unsafe? Denies 07/18/2024 Comments No Sex and Gender Information Value Date Recorded Sex Assigned at Not on file Legal Sex Female 10:40 AM SHEET LAYER Gender Identity Not on file Sexual Orientation Not on file Occupation Industry Job Start Date Job End Date On disability Not on file Not on file Not on file Last Filed Vital Signs Vital Sign Reading Time Taken Comments Blood Pressure 101/69 07/19/2024 11:15 AM SHEET LAYER Pulse 103 07/19/2024 11:15 AM SHEET LAYER Temperature 36.9 C (98.5 F) 07/19/2024 3:21 AM SHEET LAYER Respiratory Rate 17 07/19/2024 8:10 AM SHEET LAYER Oxygen Saturation 100% 07/19/2024 11:15 AM SHEET LAYER Inhaled Oxygen Concentration - - Weight 62.1 kg (137 lb) 09/04/2024 10:31 AM CDT Height 160 cm (5' 3 ) 09/04/2024 10:31 AM CDT Body Mass Index 24.27 09/04/2024 10:31 AM CDT Plan of Treatment Not on file Goals Goal Patient Goal Type Associated Problems [...] adverse effects. Medical Devices Implanted Type Area Bromination Equipment Operator Device Identifier Shelf Expiration Date Model / Serial / Lot [employer] Allograft Bone Putty 2.5cc 700-025 - [id number] Implanted:Qty: 1 on 12/15/2022 by Emil Reaves MD PhD at [facility] N/A: Spine Cervical [employer] [id number] 04/10/2025 700-025 / / [id number] [employer] Cage Spinal Cervical 12d X 14w X 7h 6 Degree [id number] - [id number] Implanted:Qty: 1 on 12/15/2022 by Emil Reaves MD PhD at [facility] N/A: Spine Cervical [employer] [id number] 09/02/2026 [id number] / / [id number] [employer] Maxan 8mm 1 Level Spine Plate Bone Green [id number] - [id number] Implanted:Qty: 1 on 12/15/2022 by Emil Reaves MD PhD at [facility] N/A: Spine Cervical [employer] [id number] / / [employer] Maxan 4mm 16mm Variable Angle Spine Screw Bone 14-604470 - [id number] Implanted:Qty: 4 on 12/15/2022 by Emil Reaves MD PhD at [facility] N/A: Spine Cervical [employer] [id number] / / [employer] Inc Virage Closure Top Lid Sterilization Nonsterile Disposable Screw 28.001 - [id number] Implanted:Qty: 6 on 07/18/2024 by Emil Reaves MD PhD at [facility] N/A: Spine Cervical [employer] 28.0 / / [employer] Spine Inc Virage 3.5mm 35mm Spine Straight Milton Spinal Titanium Blue Oct 09.004 - [id number] Implanted:Qty: 2 on 07/18/2024 by Emil Reaves MD PhD at [facility] N/A: Spine Cervical [employer] 07.21706.0 04 / / [employer] I Factor Allograft Putty Syringe Graft 5 Cc Bone 700-050 - [id number] Implanted:Qty: 1 on 07/18/2024 by Emil Reaves MD PhD at [facility] N/A: Spine Cervical [employer] [id number] 05/10/2026 700-050 / / [id number] Allosource Crushed Chip Frozen Graft 60ml Bone Cancellous [id number] - [id number] Implanted:Qty: 1 on 07/18/2024 by Emil Reaves MD PhD at [facility] N/A: Spine Cervical [employer]osource 04/19/2029 [id number] / / [id number] [employer] Graft Bone Filler Allosync Pure 5cc Putty Abs-2009-10 - [id number] - [id number] Implanted:Qty: 1 on 07/18/2024 by Emil Reaves MD PhD at [facility] N/A: Spine Cervical [employer] [id number] 01/28/2029 ABS-2009- 5 / [id number] / Michelle [employer] Virage 4.5mm 20mm Self Tap Polyaxial Friction Fit Spine Screw 07.18762.002 - [id number] Implanted:Qty: 2 on 07/18/2024 by Emil Reaves MD PhD at [facility] N/A: Spine Cervical [employer] 07.89703.0 02 / / [employer] Inc Virage 3.5mm 14mm Polyaxial Spine Screw Bone Nonsterile 07.21939.007 - [id number] Implanted:Qty: 4 on 07/18/2024 by Emil Reaves MD PhD at [facility] N/A: Spine Cervical [employer] 07.04387.0 07 / / Procedures Procedure Name Priority Date/Time Associated Diagnosis Comments XR SPINE CERVICAL 2 OR 3 VIEWS Schedule Routine, Read Routine (OP Routine) 09/04/2024 9:30 AM CDT Cervical disc disorder with radiculopathy of cervical region Cervical myelopathy (HCC) Cervicalgia POCT GLUCOSE DEVICE Routine 07/19/2024 11:55 AM SHEET LAYER XR SPINE CERVICAL 2 OR 3 VIEWS Pending Discharge 07/19/2024 11:53 AM SHEET LAYER POCT GLUCOSE DEVICE Routine 07/19/2024 8 :13 AM SHEET LAYER POCT GLUCOSE DEVICE Routine 07/18/2024 8 :45 PM SHEET LAYER POCT GLUCOSE DEVICE Routine 07/18/2024 5 :02 PM SHEET LAYER POCT GLUCOSE DEVICE Routine 07/18/2024 11:22 AM SHEET LAYER LIPID PANEL STAT 07/18/2024 11:22 AM SHEET LAYER EGFR STAT 07/18/2024 11:22 AM SHEET LAYER BASIC METABOLIC PANEL STAT 07/18/2024 11:22 AM SHEET LAYER CBC WITHOUT DIFFERENTIAL STAT 07/18/2024 11:22 AM SHEET LAYER AZ AN PROCEDURE PLACEHOLDER Routine 07/18/2024 10:18 AM SHEET LAYER AZ AN PROCEDURE PLACEHOLDER Routine 07/18/2024 10:17 AM SHEET LAYER AZ AN PROCEDURE PLACEHOLDER Routine 07/18/2024 10:16 AM SHEET LAYER AZ AN ELECTIVE ENDOTRACHEAL AIRWAY Routine 07/18/2024 10:16 AM SHEET LAYER FL FLUOROSCOPY < 1 HOUR IP Routine 07/18/2024 10:00 AM SHEET LAYER POCT GLUCOSE DEVICE Routine 07/18/2024 9 :14 AM SHEET LAYER SPINAL CORD MONITORING 07/18/2024 7:33 AM SHEET LAYER Cervical myelopathy (HCC) FUSION CERVICAL/THORACIC - POSTERIOR WITH INSTRUMENTATION 07/18/2024 7:33 AM SHEET LAYER Cervical myelopathy (HCC) POCT GLUCOSE DEVICE Routine 07/18/2024 6 :33 AM SHEET LAYER URINALYSIS, MICROSCOPIC ONLY Routine 07/08/2024 9:17 AM SHEET LAYER Back pain at L4-L5 level Cervical disc disorder with radiculopathy of cervical region Cervical myelopathy (HCC) URINE CULTURE Routine 07/08/2024 9:17 AM SHEET LAYER URINALYSIS AND REFLEX TO MICROSCOPIC AND CULTURE Routine 07/08/2024 9:17 AM SHEET LAYER Back pain at L4-L5 level Cervical disc disorder with radiculopathy of cervical region Cervical myelopathy (HCC) EGFR Routine 07/08/2024 9:07 AM SHEET LAYER Back pain at L4-L5 level Cervical disc disorder with radiculopathy of cervical region Cervical myelopathy (HCC) DIFFERENTIAL AUTO Routine 07/08/2024 9:0 7 AM SHEET LAYER Back pain at L4-L5 level Cervical disc disorder with radiculopathy of cervical region Cervical myelopathy (HCC) ANTIBODY SCREEN Routine 07/08/2024 9:07 AM SHEET LAYER Back pain at L4-L5 level Cervical disc disorder with radiculopathy of cervical region Cervical myelopathy (HCC) ABO/RH Routine 07/08/2024 9:07 AM SHEET LAYER Back pain at L4-L5 level Cervical disc disorder with radiculopathy of cervical region Cervical myelopathy (HCC) APTT Routine 07/08/2024 9:07 AM SHEET LAYER Cervical myelopathy (HCC) TYPE AND SCREEN Routine 07/08/2024 9:07 AM SHEET LAYER Back pain at L4-L5 level Cervical disc disorder with radiculopathy of cervical region Cervical myelopathy (HCC) PROTIME-INR Routine 07/08/2024 9:07 AM SHEET LAYER Back pain at L4-L5 level Cervical disc disorder with radiculopathy of cervical region Cervical myelopathy (HCC) CBC WITH AUTO DIFFERENTIAL Routine 07/08/2024 9:07 AM SHEET LAYER Back pain at L4-L5 level Cervical disc disorder with radiculopathy of cervical region Cervical myelopathy (HCC) VITAMIN D 25 HYDROXY Routine 07/08/2024 9:07 AM SHEET LAYER Back pain at L4-L5 level Cervical disc disorder with radiculopathy of cervical region Cervical myelopathy (HCC) BASIC METABOLIC PANEL Routine 07/08/2024 9:07 AM SHEET LAYER Back pain at L4-L5 level Cervical disc disorder with radiculopathy of cervical region Cervical myelopathy (HCC) POCT HEMOGLOBIN A1C Routine 11/27/2022 12:28 PM CDT SERUM HEPATITIS C AB Routine 06/09/2014 4:35 AM SHEET LAYER from Last 3 Months or Most Recently [...] esult * POCT glucose (07/19/2024 11:55 AM SHEET LAYER) Glucose, POC 143 70 - 199 mg/dL Blood 07/19/2024 11:5 5 AM SHEET LAYER 07/19/2024 11:55 AM SHEET LAYER us Emil Reaves MD PhD LAB POCT ORDERABLES - DEV ICE Final Result [facility] [address] [facility] [place] [address] * XR Spine Cervical 2 or 3 Views (07/19/2024 11:53 AM SHEET LAYER) Anatomical Region Laterality Modality Spine N/A Computed Radiogr aphy 07/19/2024 4:32 PM SHEET LAYER Impressions 07/19/2024 4:32 PM SHEET LAYER 1. New posterior decompression and spinal fusion from C5 to C7. Electronically signed by: Duane Zuniga D.O. Narrative 07/19/2024 4:32 PM SHEET LAYER EXAMINATION: XR SPINE CERVICAL 2 OR 3 [...] by: Duane Zuniga D.O. us You Plascencia JEWEL STRINGER IMG XR PROCEDURES Final Resu lt * POCT glucose (07/19/2024 8:13 AM SHEET LAYER) Glucose, POC 141 70 - 199 mg/dL Blood 07/19/2024 8:13 AM SHEET LAYER 07/19/2024 8:13 AM SHEET LAYER us Emil Reaves MD PhD LAB POCT ORDERABLES - DEV ICE Final Result [facility] [place] [address] * POCT glucose (07/18/2024 8:45 PM SHEET LAYER) Glucose, POC 137 70 - 199 mg/dL Blood 07/18/2024 8:45 PM SHEET LAYER 07/18/2024 8:45 PM SHEET LAYER Emil Reaves MD PhD LAB POCT ORDERABLES - DEV ICE Final Result Performing Organization Address [facility] Co de Phone Number [facility] [place] [address] * POCT glucose (07/18/2024 5:02 PM SHEET LAYER) Glucose, POC 97 70 - 199 mg/dL Blood 07/18/2024 5:02 PM SHEET LAYER 07/18/2024 5:02 PM SHEET LAYER Emil Reaves MD PhD LAB POCT ORDERABLES - DEV ICE Final Result Performing Organization Address [facility] Co de Phone Number [facility] [place] [address] * eGFR (07/18/2024 11:22 AM SHEET LAYER) eGFR >90 >=60 mL/min/1. 73 m2 Comment: [...] reviewed 2021. Blood 07/18/2024 11:2 2 AM SHEET LAYER 07/18/2024 11:38 AM SHEET LAYER Emil Reaves MD PhD LAB BLOOD ORDERABLES Pretty l Result Performing Organization Address City/[facility]/ZIP Co de Phone Number [facility] [place] [address] * POCT glucose (07/18/2024 11:22 AM SHEET LAYER) Pathologist [facility] Glucose, POC 114 70 - 199 mg/dL Blood 07/18/2024 11:2 2 AM SHEET LAYER 07/18/2024 11:22 AM SHEET LAYER Emil Reaves MD PhD LAB POCT ORDERABLES - DEV ICE Final Result Performing Organization Address [facility] de Phone Number [facility] Department [place] [address] * (ABNORMAL) CBC without differential (07/18/2024 11:22 AM SHEET LAYER) WBC 4.6 3.8 - 9.9 K/cumm Hgb 9.5(L) 11.9 - 15.5 g/dL [facility] Hct 29.9(L) 35.6 - 45.5 % [facility] Plt 209 150 - 400 K/cumm [facility] MPV 9.8 9.1 - 12.3 fL [facility] RBC 3.23(L) 3.90 - 5.20 M/cumm [facility] MCV 92.6 81.3 - 96.4 fL [facility] MCH 29.4 27.1 - 33.3 pg [facility] MCHC 31.8(L) 32.3 - 35.7 g/dL [facility] RDW CV 12.2 11.1 - 14.9 % [facility] RDW SD 41.5 35.7 - 48.1 fL [facility] NRBC abs 0.00 0.00 - 0.01 K/cumm [facility] Blood 07/18/2024 11:2 2 AM SHEET LAYER 07/18/2024 11:37 AM SHEET LAYER us Emil Reaves MD PhD LAB BLOOD ORDERABLES Pretty cervantes Result [facility] Department [place] [address] * (ABNORMAL) Lipid panel (07/18/2024 11:22 AM SHEET LAYER) Cholesterol 97 30 - 199 mg/dL Comment: [...] revised on 2018. Triglycerides 106 <=149 mg/dL [facility] Comment: Interpretive Data Ages < or [...] revised on 2018. HDL 29(L) >=40 mg/dL [facility] Comment: Interpretive Data Ages < or [...] on 2018. LDL, calculated 48 <=129 mg/dL [facility] Comment: Interpretive Data Ages < or = [...] revised on 2024. Non-HDL Cholesterol 68 mg/dL [facility] Comment: Interpretive Data Ages < or [...] last revised on 2018. Chol/HDL ratio 3 [facility] Blood 07/18/2024 11:2 2 AM SHEET LAYER 07/18/2024 11:38 AM SHEET LAYER Emil Reaves MD PhD LAB BLOOD ORDERABLES Pretty l Result Performing Organization Address [facility] Co de Phone Number [facility] Department [place] [address] * (ABNORMAL) Basic metabolic panel (07/18/2024 11:22 AM SHEET LAYER) [facility] Sodium 142 135 - 145 mmol/L Potassium, pl 4.4 3.3 - 4.9 mmol/L [facility] Chloride 110 97 - 110 mmol/L [facility] CO2 26 22 - 32 mmol/L [facility] Anion gap 6 2 - 15 mmol/L [facility] BUN 20 6 - 25 mg/dL [facility] Creatinine 0.60 0.60 - 1.10 mg/dL [facility] Glucose 112 70 - 199 mg/dL [facility] Comment: Interpretive Data Fasting glucose >/= [...] 2022. Calcium 8.0(L) 8.5 - 10.3 mg/dL [facility] Blood 07/18/2024 11:2 2 AM SHEET LAYER 07/18/2024 11:38 AM SHEET LAYER Emil Reaves MD PhD LAB BLOOD ORDERABLES Pretty l Result Performing Organization Address [facility] Co de Phone Number [facility] Department [place] [address] * [place] AN PROCEDURE PLACEHOLDER (07/18/2024 10:18 AM SHEET LAYER) Dipti Garcia CRNA - 07/18/2024 10:18 AM SHEET LAYER Dipti Jamil CRNA 07/18/2024 10:19 AM Arterial Line Patient location: OR End time: 07/18/2024 10:18 AM Indication: continuous blood pressure monitoring and blood sampling needed Staff: Placed by: EXTRUSION MANAGER: Dipti Jamil CRNA Procedure prep: Prep solution: chlorhexadine/alcohol Prep: provider hat/mask and sterile gloves Skin infiltrated with lidocaine 1%: yes Arterial line: Catheter size: 22 gauge Catheter length: 1 and 1/4 inch Laterality: right Site: radial artery Line secured: Tegaderm Results: good waveform and good blood return Number of attempts: 1 Assessment: Events: patient tolerated procedure well with no complications Alex Marti III, MD PhD ANESTHESIA ORDERABLES Final Result * [place] AN PROCEDURE PLACEHOLDER (07/18/2024 10:17 AM SHEET LAYER) Dipti Garcia CRNA - 07/18/2024 10:17 AM SHEET LAYER Dipti Jamil CRNA 07/18/2024 10:18 AM Peripheral IV Catheter Patient location: OR End time: 07/18/2024 10:18 AM Staff: Placed by: SAMMY: Dipti Jamil CRNA Preprocedure prep: Prep solution: chlorhexadine PPE: gloves and provider hat/mask PIV line: Laterality: left Site: wrist Catheter size: 16 g Technique: direct visualization, palpatation and anatomical landmarks Procedure details: good blood return Number of attempts: 1 Assessment: Events: patient tolerated procedure well with no complications Alex Marti III, MD PhD ANESTHESIA ORDERABLES Final Result * [place] AN ELECTIVE ENDOTRACHEAL AIRWAY, [place] AN PROCEDURE PLACEHOLDER (07/18/2024 10:16 AM SHEET LAYER) Dipti Garcia CRNA - 07/18/2024 10:16 AM SHEET LAYER Dipti Jamil CRNA 07/18/2024 10:17 AM Airway Patient location: OR Urgency: elective Indications for airway management: anesthesia and airway protection Difficult airway: no Staff: Placed by: EXTRUSION MANAGER: Dipti Jamil CRNA Emergent airway documentation: Risks [...] prone view tape Number of attempts: 1 Alex Marti III, MD PhD ANESTHESIA ORDERABLES Final Result * [place] Fluoroscopy < 1 Hour (07/18/2024 10:00 AM SHEET LAYER) Narrative [email or web address] - 07/18/2024 10:00 AM SHEET LAYER The images from this study are not interpreted by Radiology. Please refer to the physician's procedure / OR operative note. Emil Reaves MD PhD IMG FLUOROSCOPY PROCEDURE S Final Result Performing Organization Address [facility] Co de Phone Number [email or web address] * POCT glucose (07/18/2024 9:14 AM SHEET LAYER) Glucose, POC 118 70 - 199 mg/dL Blood 07/18/2024 9:14 AM SHEET LAYER 07/18/2024 9:14 AM SHEET LAYER Emil Reaves MD PhD LAB POCT ORDERABLES - DEV ICE Final Result Performing Organization Address City/[facility]/ZIP Co de Phone Number [facility] Department [place] [address] * POCT glucose (07/18/2024 6:33 AM SHEET LAYER) Glucose, POC 98 70 - 199 mg/dL Blood 07/18/2024 6:33 AM SHEET LAYER 07/18/2024 6:33 AM SHEET LAYER us Emil Reaves MD PhD LAB POCT ORDERABLES - DEV ICE Final Result [facility] Department [place] [address] * (ABNORMAL) Urinalysis reflex to microscopic and culture Urine, clean voided (07/08/2024 9:17 AM SHEET LAYER) Color, ur Yellow Yellow Clarity, ur Turbid(A) [...] tendency for uric acid stone formation. Source: [facility] Vendormate Current Interpretive Data was last revised on [...] ([place]ITA) Urine, clean voided 07/08/2024 9:17 AM SHEET LAYER 07/08/2024 9:47 AM SHEET LAYER Emil Reaves MD PhD LAB MICROBIOLOGY - GENERA L ORDERABLES Final Result Performing Organization Address [facility] Co de Phone Number LUPE [facility]LEY ([place]) 1 [facility] [place] [address] * (ABNORMAL) Urinalysis, microscopic only (07/08/2024 9:17 AM SHEET LAYER) WBC, ur 11-20(A) 0 - 5 /HPF RBC, ur 0-2 0 - 2 /HPF [facility] ([place]) Epithelial cells, squamous, ur 1-5 0 - 5 /HPF [facility] ([place]) Bacteria, ur Trace(A) [facility] ([place]) Culture Reflex Comment Reflex to urine culture will be performed. [facility] ([place]) Urine, clean voided 07/08/2024 9:17 AM SHEET LAYER 07/08/2024 9:47 AM SHEET LAYER Emil Reaves MD PhD LAB URINE ORDERABLES Pretty l Result Performing Organization Address [facility] Co de Phone Number LUPE WHATLEY ([place]) 1 [facility] [place] [address] * Urine culture Urine, clean voided (07/08/2024 9:17 AM SHEET LAYER) Report Final Report: Less than 100,000 colonies/mL (clinically insignificant growth based on current clinical standards) Comment:Testing performed by : [facility], 1 [place] [address] Organism (CLINICALLY INSIGNIFICANT GROWTH [facility] ([place]) Urine, clean voided 07/08/2024 9:17 AM SHEET LAYER 07/08/2024 1:50 PM SHEET LAYER Narrative [facility] ([place]) - 07/09/2024 4:03 PM SHEET LAYER Urine culture reflexed based upon urinalysis results. Testing performed by [facility] Microbiology Laboratory ([phone]) Emil Reaves MD PhD LAB MICROBIOLOGY - GENERA L ORDERABLES Final Result Performing Organization Address [facility]/ZIP Co de Phone Number LUPE WHATLEY ([place]) 1 [facility] Department [place] [address] * eGFR (07/08/2024 9:07 AM SHEET LAYER) Pathologist [facility] eGFR >90 >=60 mL/min/1. 73 m2 Comment: [...] last reviewed 2021. Blood 07/08/2024 9:07 AM SHEET LAYER 07/08/2024 9:41 AM SHEET LAYER us Emil Reaves MD PhD LAB BLOOD ORDERABLES Pretty l Result LUPE Armstrong[place]) 1 [facility] Department [place] [address] * Differential, auto (07/08/2024 9:07 AM SHEET LAYER) Neutrophil abs 2.7 1.5 - 6.5 K/cumm [...] Neutrophil pct 51.1 % [facility] ([place]) Comment: Interpretive [...] revised on 2017. Blood 07/08/2024 9:07 AM SHEET LAYER 07/08/2024 9:41 AM SHEET LAYER us Emil Reaves MD PhD LAB BLOOD ORDERABLES Pretty cervantes Result LUPE WHATLEY ([place]) 1 [facility] Department [place] [address] * (ABNORMAL) CBC with auto differential (07/08/2024 9:07 AM SHEET LAYER) WBC 5.2 3.8 - 9.9 K/cumm Hgb [...] [facility] ([place]) Blood 07/08/2024 9:07 AM SHEET LAYER 07/08/2024 9:41 AM SHEET LAYER Emil Reaves MD PhD LAB BLOOD ORDERABLES Pretty l Result Performing Organization Address City/[facility] de Phone Number [facility] ([place]) 1 [facility] Department [place] [address] * ABO/Rh (07/08/2024 9:07 AM SHEET LAYER) ABO/Rh A Positive Blood 07/08/2024 9:07 AM SHEET LAYER 07/08/2024 9:41 AM SHEET LAYER Narrative [facility] ([place]) - 07/08/2024 10:45 AM SHEET LAYER Has the patient had Daratumumab or Isatuximab in the past 6 months?->Unknown Emil Reaves MD PhD LAB BLOOD BANK TEST ORDER ROSE Final Result Performing Organization Address City/State/[facility] Co de Phone Number LUPE WHAT[place] ([place]) 1 [facility] [place] [address] * Vitamin D 25 hydroxy (07/08/2024 9:07 AM SHEET LAYER) Vitamin D 25-OH 50 30 - 80 ng/mL Blood 07/08/2024 9:07 AM SHEET LAYER 07/08/2024 9:41 AM SHEET LAYER Emil Reaves MD PhD LAB BLOOD ORDERABLES Pretty l Result Performing Organization Address [facility] Co de Phone Number LUPE [place] ([place]) 1 [facility] [place] [address] * aPTT (07/08/2024 9:07 AM SHEET LAYER) aPTT 32 28 - 38 sec [facility] ([place]) Comment: Interpretive Data Heparin therapeutic range: 66.0 - 100.0 seconds. Range based on correlation with therapeutic heparin activity range of 0.3 - 0.7 Units/mL. Current interpretive data was last revised on 2023. Blood 07/08/2024 9:07 AM SHEET LAYER 07/08/2024 9:41 AM SHEET LAYER Emil Reaves MD PhD LAB BLOOD ORDERABLES Pretty l Result Performing Organization Address [facility] Co de Phone Number LUPE [place] ([place]) 1 [facility] [place] [address] * Protime-INR (07/08/2024 9:07 AM SHEET LAYER) PT 10.4 9.7 - 13.0 sec [facility] ([place]) INR 0.96 0.90 - 1.20 [facility] ([place]) Comment: Interpretive data Oral anticoagulant therapeutic ranges: Venous thromboembolism prophylaxis or treatment: 2.0-3.0 CARDIOLOGY Standard range: 2.0-3.0 High-intensity range: 2.5-3.5 Refer to indication-specific guidelines for appropriate target ranges for prosthetic heart valve replacement. Current interpretive data was last revised on 2019. Blood 07/08/2024 9:07 AM SHEET LAYER 07/08/2024 9:41 AM SHEET LAYER Emil Reaves MD PhD LAB BLOOD ORDERABLES Pretty l Result Performing Organization Address City/[facility]/ZIP Co de Phone Number [facility] ([place]) [address] [place] [address] [place] [address] * Antibody screen (07/08/2024 9:07 AM SHEET LAYER) Carmen, indirect, Gel Interpretation Negative ABSC Blood 07/08/2024 9:07 AM SHEET LAYER 07/08/2024 9:41 AM SHEET LAYER Narrative [facility] ([place]) - 07/08/2024 10:45 AM SHEET LAYER Has the patient had Daratumumab or Isatuximab in the past 6 months?->Unknown Emil Reaves MD PhD LAB BLOOD BANK TEST ORDER ROSE Final Result Performing Organization Address [facility] Co de Phone Number LUPE [place] ([place]) [address] [place] [address] [place] [address] * Basic metabolic panel (07/08/2024 9:07 AM SHEET LAYER) Sodium 142 135 - 145 mmol/L Potassium, pl 4.2 3.3 - 4.9 mmol/L [facility] ([place]) Chloride 104 97 - 110 mmol/L [facility] ([place]) CO2 28 22 - 32 mmol/L [facility] ([place]) Anion gap 10 2 - 15 mmol/L [facility] ([place]) BUN 20 6 - 25 mg/dL [facility] ([place]) Creatinine 0.60 0.60 - 1.10 mg/dL [facility] ([place]) Glucose 121 70 - 199 mg/dL [facility] ([place]) Comment: Interpretive Data Fasting glucose >/= 126 [...] 2022. Calcium 9.4 8.5 - 10.3 mg/dL [facility] ([place]) Blood 07/08/2024 9:07 AM SHEET LAYER 07/08/2024 9:41 AM SHEET LAYER Emil Reaves MD PhD LAB BLOOD ORDERABLES Pretty l Result Performing Organization Address City/[facility]/ZIP Co de Phone Number [facility] ([place]) 1 [facility] Department [place] [address] * POCT hemoglobin A1c (11/27/2022 12:28 PM CDT) [facility] Hgb A1C, POC 5.0 4.0 - 5.6 % [facility] Est Average Gluc POC 97 mg/dL [facility] Comment: The ADA recommends reporting an estimated Average Glucose (eAG) with all Hemoglobin A1c results using the equation derived from a study of 507 normal and diabetic adults. Minority populations were underrepresented and children were not included. (Diabetes Care 31:7347-1010, 2008). The eAG is not equivalent to a fasting glucose. Blood 11/27/2022 12:2 8 PM CDT 11/27/2022 12:28 PM CDT Emil Reaves MD PhD POINT OF CARE TEST ORDERA BLES Final Result Performing Organization Address City/[facility]/ZIP Co de Phone Number [facility] [place] [address] * Serum Hepatitis C ab (06/09/2014 4:35 AM SHEET LAYER) [facility] HCV ab NONREAC NONREAC HISTORICAL RESULTS Serum 06/09/2014 4:35 AM SHEET LAYER Narrative HISTORICAL RESULTS - 06/09/2014 8:01 AM SHEET LAYER HEP C EARLY ACUTE INFECTION (OCCURING DURING THE PRIOR 8-9 WEEKS) IS NOT RULED OUT BY THIS TEST. us Cinthia Garrison MD LAB BLOOD ORDERABLES Final Resul t HISTORICAL RESULTS from Last 3 Months or Most Recently Relevant to Health Maintenance Insurance [facility] [place]UAL [place] [facility] MEDICARE ADVANTAGE [facility] MEDICARE ADVANTAGE IDPA Advance Directives For more information, please contact: [phone] * Full Code (Latest Code Status on File) Date Activated Date Inactivated Comments 07/18/2024 1:43 PM 07/19/2024 7:11 PM * Full Code Date Activated Date Inactivated Comments 12/15/2022 2:34 PM 12/16/2022 4:53 PM Care Teams Clay Worker Relationship Specialty Start Date End Date Az Watson MD [address] [address] PCP - General Family Medicine 10/22/23 Jose Mendoza, RN Registered Nurse 06/12/17 Melissa Stearns RN Registered Nurse Pain Management 12/03/17 Heriberto Mercedes MD [address] [place] [address] Anesthesiologist Pain Management 05/03/22 Lashaun Mcmahon MD [address] [place] [address] Consulting Physician Cardiology 12/13/22 Az Watson MD 2 [facility] [address] [place] [address] Referring Physician Family Medicine 12/13/22 Ashish Brown MD [address] [facility] [address] [place] [address] Referring Physician Obstetrics and Gynecology 11/07/23 Ousmane Zaidi MD [address] [place] [address] Consulting Physician Anesthesiology 02/21/24
--- OUTSIDE RECORDS SUMMARY | 2024-10-06 11:17 | XMS_ITS | Patient Health Record ---
Author Organization [facility] Address [address] [place] [address] Support Name Relationship Address Phone Ivone Hernandez Guarantor Unknown [phone] Reason For Referral No Information Medications Medication SIG (Take, Route, Frequency, Duration) Notes Start Date End Date Status Calcium Carbonate 1250 (500 Ca) MG take 1 tablet by oral route daily for 30 days Oral 1 for 30 Active Multiple Vitamins take 1 tablet by ora l route once daily with food for 30 days Oral 1 for 30 Active Ferrous Sulfate 325 (65 Fe) MG take 1 capsule by oral route daily for 30 days Oral 1 for 30 Active Estradiol 2 MG take 1 tablet by ora l route daily for 30 days Oral 1 for 30 Active Esomeprazole Magnesium 40 MG take 1 capsule by oral route daily for 30 days Oral 1 for 30 Active ZyrTEC Allergy 10 MG take 1 capsule by o ral route daily for 30 days Oral 1 for 30 Active ProAir Digihaler 108 (90 Base) MCG/ACT INHALE 2 PUFFS BY MOUTH EVERY 6 HOURS NEEDED Inhalation 08/12/2012 Active Reglan 5 MG 1 tab 2 times a day Oral for 30 Active Problems Problem Type SNOMED Code ICD Code Onset Dates Problem Status W/U Status Risk Notes Problem 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) Unspecified binocular vision disorder (368.30) Active confirmed Problem Anemia (473744218) Anemia, unspecified (D64.9) Active confirmed Problem Anxiety disorder (847675028) Anxiety disorder, unspecified (F41.9) Active confirmed Problem Allergic rhinitis caused by pollen (disorder) (74012233) Allergic rhinitis due to pollen (J30.1) Active confirmed Problem Chronic obstructive pulmonary disease (05688079) Chronic obstructive pulmonary disease, unspecified (J44.9) Active confirmed Problem Gastro-esophageal reflux disease without esophagitis (017506514) Gastro-esophagea l reflux disease without esophagitis (K21.9) Active confirmed Problem Rheumatoid arthritis (27836385) Rheumatoid arthritis, unspecified (M06.9) Active confirmed Problem Age-related osteoporosis (919725357) Age-related osteoporosis without current pathological fracture (M81.0) Active confirmed Problem Hyperlipidemia (34684436) Hyperlipidemia, unspecified (E78.5) Active confirmed Problem Headache (75113772) Headache, unspecified (R51.9) Active confirmed Plan Of Treatment No Information Insurance Providers Payer Name Payer Address Payer Phone Subscriber Number Group Number Insured Name Patient Relationship to Insured Coverage Start Date Coverage End Date [employer] [place] [address] [place] [address] [id number] Ivone Hernandez Self - patient is the insured 2 Medical (General) History Surgical History Surgery Date(Month/Year) Tonsillectomy; 2011-08-30 Bladder Surgery: urge inconti, Date of P rocedure: 2004; 2011-08-30 Hysterectomy: varicose vein. SHAHAB, Date o f Procedure: 2004; 2011-08-30
--- OUTSIDE RECORDS SUMMARY | 2024-10-06 11:17 | XMS_ITS | Encounter Summary ---
Author Organization [facility] Address [address] [place] [address] Phone Care Team Providers Care Web Applications Architect Name Role Phone Az Watson MD Primary Care Provider [phone] Cain Lira MD Unavailable [phone] Francoise Tompkins RN Unavailable Unavailable Claribel Sierra Unavailable Unavailab Trisha Houston APRN, SALOM[place] Unavailable Golden Napier MD Unavailable Emilio Sarabia MD Unavailable [phone] Reason for Visit * Reason Comments Medication Refill Encounter Details Date Type Department Care Team (Late st Contact Info) Description 08/11/2021 Refill [facility] - Family Medicine - [place] [address] [place] [address] Az Watson MD [address] [address] Medication Refill Social History Tobacco Use Types [...] encounter Miscellaneous Notes * Telephone Encounter - Ivon Naranjo RN - 08/11/2021 10:28 AM CST Medication failed the protocol, provider to review and approve the medication order if appropriate. Requested Prescriptions Pending Prescriptions Disp Refills metFORMIN (GLUCOPHAGE) 500 MG Tablet [Pharmacy Med Name: METFORMIN HCL 500MG TABS] 180 Tablet 1 Sig: TAKE ONE TABLET BY MOUTH TWICE A DAY Biguanides Protocol Failed - 08/11/2021 10:15 AM Failed - HgA1C on record in past 6 months HGB-A1C Date Value Ref Range Status 02/03/2021 5.6 4.0 - 6.0 % Final Failed - GFR on record in past 6 months GFR, EST. NONAFRICAN Date Value Ref Range Status 02/03/2021 >60 >=60 Final Passed - Visit with relevant provider in past 6 months or upcoming 90 days Recent Visits Date Type Provider Dept 04/18/21 Office Visit Vickey Robbins APRN, PASSENGER CAR UPHOLSTERER APPRENTICE [facility] [place] Showing recent visits within past 182 days and meeting all other requirements Future Appointments Date Type Provider Dept 08/30/21 Appointment Az Watson MD [facility] Showing future appointments within next 90 days and meeting all other requirements Fenofibrate Micronized 134 MG Capsule [Pharmacy Med Name: FENOFIBRATE MICRONIZED 134MG CAPS] 90 Capsule 1 Sig: TAKE ONE CAPSULE BY MOUTH EVERY DAY Fibrates Protocol Passed - 08/11/2021 10:15 AM Passed - Visit with relevant provider in past 12 months or upcoming 90 days Recent Visits Date Type Provider Dept 04/18/21 Office Visit Vickey Robbins APRN, [facility] [place] 01/31/21 Office Visit Az Watson MD [facility] 11/10/20 Office Visit Vickey Robbins APRN, SALOM[place] 09/01/20 Office Visit Az Watson MD [facility] Showing recent visits within past 365 days and meeting all other requirements Future Appointments Date Type Provider Dept 08/30/21 Appointment zA Watson MD [facility] Showing future appointments within next 90 days and meeting all other requirements Passed - Lipid panel in past 12 months LDL Date Value Ref Range Status 02/03/2021 78 5 - 130 mg/dL Final HDL CHOLESTEROL Date Value Ref Range Status 02/03/2021 43.2 >40 mg/dL Final CHOLESTEROL Date Value Ref Range Status 02/03/2021 148 <=200 mg/dL Final TRIGLYCERIDES Date Value Ref Range Status 02/03/2021 132 <150 mg/dL Final VLDL Date Value Ref Range Status 02/03/2021 26 5 - 55 mg/dL Final CHOL/HDL RATIO Date Value Ref Range Status 02/03/2021 3.4 0.0 - 4.4 Final NON-HDL CHOLESTEROL Date Value Ref Range Status 02/03/2021 104.8 <130 mg/dL Final albuterol 108 (90 Base) MCG/ACT Aerosol Solution [Pharmacy Med Name: ALBUTEROL SULFATE HFA 108 AERS] 18 g 2 Sig: INHALE TWO PUFFS BY MOUTH EVERY 4 HOURS NEEDED FOR WHEEZING Short Acting Inhaled Beta-Agonists Protocol Passed - 08/11/2021 10:15 AM Passed - Visit with relevant provider in past 12 months or upcoming 90 days Recent Visits Date Type Provider Dept 04/18/21 Office Visit Vickey Robbins APRN, [facility] [place] 01/31/21 Office Visit Az Watson MD [facility] 11/10/20 Office Visit Vickey Robbins APRN, [facility] 09/01/20 Office Visit Az Watson MD [facility] Showing recent visits within past 365 days and meeting all other requirements Future Appointments Date Type Provider Dept 08/30/21 Appointment Az Watson MD [facility] Showing future appointments within next 90 days and meeting all other requirements ERTY ADJUSTER documented in this encounter Plan of Treatment Upcoming Encounters Date Type Department Care Team (Latest Contact Info) Description 10/16/2024 9:00 AM CDT Office Visit [facility] [address] [place] [address] Az Watson MD #2 [facility] [address] [place] [address] 10/16/2024 10:00 AM CDT Ancillary Procedure [facility] [address] [place] [address] Az Watson MD #[address] [address] Discharge Disposition: Discharged to home or Selfcare 10/20/2024 9:00 AM CDT Office Visit [facility] #2 [place] [address] Az Watson MD #[address] [address] 10/24/2024 10:30 AM CDT Office Visit [facility] #2 [place] [address] Emilio Sarabia MD #2 [facility] [address] [place] [address] documented as of this encounter Visit Diagnoses Diagnosis Controlled type 2 diabetes mellitus without complication, without long-term current use of insulin Hyperlipidemia, unspecified hyperlipidemia type documented in this encounter Additional Health Concerns Infection Onset Date Last Indicated Resolved Time COVID - 19 06/11/2023 06/11/2023 06/21/2023 12:1 6 AM PROPERTY ADJUSTER Assessment Noted Time PHQ-9 Depression Total Score: 4 09/02/19 21 8:46 AM CDT documented as of this encounter Care Teams Web Applications Architect Relationship Specialty Start Date End Date Az Watson MD #2 [facility] [address] [place] [address] PCP - General Family Medicine 05/03/15 Cain Lira MD [address] [place] [address] Obstetrics & Gynecology 02/15/17 Francoise Tompkins RN [place] [employer] 09/06/21 04/06/22 Claribel Sierra LSW [place] [employer] 09/09/21 04/06/22 Trisha Cook APRN, PASSENGER CAR UPHOLSTERER APPRENTICE [address] [place] [address] Nurse Practitioner Advanced Practice Nurse 11/29/22 Golden Napier MD #2 [facility] [address] [place] [address] Consulting Physician Colon and Rectal Surgery 08/13/23 Emilio Sarabia MD #2 [facility] [address] [place] [address] Consulting Physician Urology 09/11/23 documented as of this encounter
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
--- OUTSIDE RECORDS SUMMARY | 2024-10-06 11:17 | XMS_ITS | Encounter Summary ---
Author Organization [facility] Address [address] [place] [address] Phone Care Team Providers Care Network Technician Name Role Phone Az Watson MD Primary Care Provider [phone] Cain Lira MD Unavailable [phone] Francoise Tompkins RN Unavailable Unavailable Claribel Sierra Unavailable Unavailab Trisha Houston APRN, [place] Unavailable Golden Napier MD Unavailable Emilio Sarabia MD Unavailable [phone] Reason for Visit * Reason Comments Medication Refill Encounter Details Date Type Department Care Team (Late st Contact Info) Description 05/17/2021 Refill [facility] - [facility] - [place] [address] [place] [address] Az Watson MD [address] [address] Medication Refill Social History Tobacco Use Types [...] COVID-19? No / Unsure 04/25/2021 10:00 AM RESERVE OPERATOR documented as of this encounter Miscellaneous Notes * Telephone Encounter - Kari Blackmon RN - 05/17/2021 2:23 PM CST Medication failed the protocol, provider to review and approve the medication order if appropriate. Requested Prescriptions Pending Prescriptions Disp Refills tiZANidine (ZANAFLEX) 4 MG Tablet [Pharmacy Med Name: TIZANIDINE HCL 4MG TABS] 60 Tablet 4 Sig: TAKE ONE TABLET BY MOUTH TWICE A DAY NEEDED FOR MUSCLE SPASMS Not Delegated - Muscle Relaxants Protocol Failed - 05/17/2021 11:20 AM Failed - This refill cannot be [...] Dept 05/27/21 Appointment Az Watson MD [facility] Showing future appointments within next 90 days and meeting all other requirements Passed - ALT less than 90 and AST less than 55 on record in past 12 months SGOT (AST) Date Value Ref Range Status 02/03/2021 20 <=32 U/L Final SGPT (ALT) Date Value Ref Range Status 02/03/2021 22 <=41 U/L Final RVE OPERATOR documented in this encounter Plan of Treatment Upcoming Encounters Date Type Department Care Team (Latest Contact Info) Description 10/16/2024 9:00 AM CDT Office Visit [facility] #2 [place] [address] Az Watson MD #2 [facility] [address] [place] [address] 10/16/2024 10:00 AM CDT Ancillary Procedure [facility] [address] [place] [address] Az Watson MD #[address] [place] [address] Discharge Disposition: Discharged to home or Selfcare 10/20/2024 9:00 AM CDT Office Visit [facility] #2 [place] [address] Az Watson MD #2 [facility] [address] [place] [address] 10/24/2024 10:30 AM CDT Office Visit [facility] #2 [place] [address] Emilio Sarabia MD #2 [facility] [address] [place] [address] documented as of this encounter Visit Diagnoses Not on filedocumented in this encounter Additional Health Concerns Infection Onset Date Last Indicated Resolved Time COVID - 19 06/11/2023 06/11/2023 06/21/2023 12:1 6 AM RESERVE OPERATOR Assessment Noted Time PHQ-9 Depression Total Score: 4 09/02/19 21 8:46 AM CDT documented as of this encounter Care Teams Network Technician Relationship Specialty Start Date End Date Az Watson MD #2 [facility] [address] [place] [address] PCP - General Family Medicine 05/03/15 Cain Lira MD [address] [place] [address] Obstetrics & Gynecology 02/15/17 Francoise Tompkins RN [place] Central Melt Specialist 09/06/21 04/06/22 Claribel Sierra LSW [place] Central Melt Specialist 09/09/21 04/06/22 Trisha Cook APRN, CLERICAL METHODS ANALYST #2 [place] [address] Nurse Practitioner Advanced Practice Nurse 11/29/22 Golden Napier MD #2 [facility] [address] [place] [address] Consulting Physician Colon and Rectal Surgery 08/13/23 Emilio Sarabia MD #2 [facility] [address] [place] [address] Consulting Physician Urology 09/11/23 documented as of this encounter
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
--- OUTSIDE RECORDS SUMMARY | 2024-10-06 11:18 | XMS_ITS | Encounter Summary ---
Author Organization [facility] Address [address] [place] [address] Phone Care Team Providers Care Warehouse Guard Name Role Phone Az Watson MD Primary Care Provider [phone] Cain Lira MD Unavailable [phone] Francoise Tompkins RN Unavailable Unavailable Claribel Sierra Unavailable Unavailab Trisha Houston APRN, [place] Unavailable Golden Napier MD Unavailable Emilio Sarabia MD Unavailable [phone] Reason for Visit * Reason Comments Medication Refill Encounter Details Date Type Department Care Team (Late st Contact Info) Description 10/27/2021 Refill [facility] - [facility] Medicine - [place] [address] [place] [address] Az Watson MD [address] [address] Medication Refill Social History Tobacco Use Types Packs/Day Years Used Date Smoking Tobacco: Former Cigarettes 1 39 1 977 - 06/18/2015 Smokeless Tobacco: Never Alcohol Use Standard Drinks/Week Comments No 0 (1 standard drink = 0.6 oz pur e alcohol) last 2011 PHQ-2 Answer Date Recorded Total Score - Questions 1-9 1 08/10 Sexually Active Control Partners Comments Not Currently [...] suspected to have Coronavirus/COVID-19? No / Unsure 10/18/2021 7:20 AM CDT documented as of this encounter Miscellaneous Notes * Telephone Encounter - Kari Blackmon RN - 10/27/2021 1:18 PM CDT PRN medication requires review from [...] Short Acting Inhaled Beta-Agonists Protocol Passed - 10/27/2021 12:55 PM Passed - Visit with relevant provider in past 12 months or upcoming 90 days Recent Visits Date Type Provider Dept 09/21/21 Office Visit Az Watson MD [facility] 08/30/21 Office Visit Az Watson MD [facility] 04/18/21 Office Visit Vickey Robbins APRN, [place] [facility] [place] 01/31/21 Office Visit Az Watson MD [facility] 11/10/20 Office Visit Vickey Robbins APRN, [place] [facility] Showing recent visits within past 365 days and meeting all other requirements Future Appointments Date Type Provider Dept 12/08/21 Appointment Az Watosn MD [facility] Showing future appointments within next 90 days and meeting all other requirements documented in this encounter Plan of Treatment Upcoming Encounters Date Type Department Care Team (Latest Contact Info) Description 10/16/2024 9:00 AM CDT [facility] #2 [place] [address] Az Watson MD #2 [facility] [address] [place] [address] 10/16/2024 10:00 AM CDT Ancillary Procedure [facility] - [facility] Center CT [address] [facility] [place] [address] Az Watson MD #[address] [facility] [address] [place] [address] Discharge Disposition: Discharged to home or Selfcare 10/20/2024 9:00 AM CDT Office Visit [facility] #2 [place] [address] Az Watson MD #2 [facility] [address] [place] [address] 10/24/2024 10:30 AM CDT Office Visit [facility]OLOGY #2 [facility] [place] [address] Emilio Sarabia MD #2 [facility] [address] [place] [address] documented as of this encounter Visit Diagnoses Not on filedocumented in this encounter Additional Health Concerns Infection Onset Date Last Indicated Resolved Time COVID - 19 06/11/2023 06/11/2023 06/21/2023 12:1 6 AM TRANSPORTATION MAINTENANCE OPERATOR Assessment Noted Time PHQ-9 Depression Total Score: 4 09/02/19 21 8:46 AM CDT documented as of this encounter Care Teams Warehouse Guard Relationship Specialty Start Date End Date Az Watson MD #2 [facility] [address] [place] [address] PCP - General Family Medicine 05/03/15 Cain Lira MD [address] [place] [address] Obstetrics & Gynecology 02/15/17 Francoise Tompkins RN [place] R&D Engineer 09/06/21 04/06/22 Claribel Sierra LSW [place] R&D Engineer 09/09/21 04/06/22 Trisha Cook APRN, CARDIAC CATH LAB RADIOLOGY TECHNOLOGIST #2 [place] [address] Nurse Practitioner Advanced Practice Nurse 11/29/22 Golden Napier MD #2 [facility] [address] [place] [address] Consulting Physician Colon and Rectal Surgery 08/13/23 Emilio Sarabia MD #2 [facility] [address] [place] [address] Consulting Physician Urology 09/11/23 documented as of this encounter
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
--- OUTSIDE RECORDS SUMMARY | 2024-10-06 11:18 | XMS_ITS | Encounter Summary ---
Author Organization [facility] Healthcare Address [address] [place] [address] Care Team Providers Care White Sugar Supervisor Name Role Phone Jose Mendoza RN Unavailable UnavailMelissa Nguyen RN Unavailable Unavailab Heriberto Gray MD Unavailable [phone] Vickey Robbins NP Primary Care Provider Lashaun Mcmahon MD Unavailable [phone] Az Watson MD Unavailable [phone] Az Watson MD Primary Care Provider [phone] Ashish Brown MD Unavailable [phone] Ousmane Zaidi MD Unavailable [phone] Any Velez RN Unavailable [phone] Encounter Details Date Type Department Care Team (Late st Contact Info) Description 10/06/2020 Telephone [facility] [address] [place] [address] Leah Alves, RT Social History Tobacco Use Types Packs/Day Years Used Date Smoking Tobacco: Former Smokeless Tobacco: Never Alcohol Use Standard Drinks/Week Comments No 0 (1 standard drink = 0.6 oz pur e alcohol) PHQ-2 Answer Date Recorded PHQ-2 Total Score (If total score is 3 or more points, staff should administer the PHQ-9) 0 09/21/2020 Comments No Sex and Gender Information Value Date Recorded Sex Assigned at Not on file Legal Sex Female 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 Author BH-Pain Behavioral Health Worsening(05/2024 8:22 AM CDT) No Jose Mendoza, ELLYN Note: Patient will establish a comfort-function goal and identify the pain level that will allow the patient to perform desired activities and achieve an acceptable quality of life. BH-Pain Behavioral Health Worsening(05/2024 8:22 AM CDT) No Jose Mendoza RN Note: Patient will report that the pain management medication regimen achieves comfort-function goal without the occurrence of adverse effects. documented as of this encounter Visit Diagnoses Not on filedocumented in this encounter Care Teams White Sugar Supervisor Relationship Specialty Start Date End Date Vickey Robbins NP 2 [facility] [address] CHATMAN [address] [address] PCP - General Nurse Practitioner 08/16/22 10/21/23 Az Watson MD 2 [facility] [place] [address] PCP - General Family Medicine 10/22/23 Jose Mendoza, ELLYN Registered Nurse 06/12/17 Melissa Stearns, ELLYN Registered Nurse Pain Management 12/03/17 Heriberto Mercedes MD 2 [facility] [address] [address] Anesthesiologist Pain Management 05/03/22 Lashaun Mcmahon MD 2 [facility] [place] [address] Consulting Physician Cardiology 12/13/22 Az Watson MD 2 [facility] [address] [place] [address] Referring Physician Family Medicine 12/13/22 Ashish Brown MD [address] [facility] [address] [place] [address] Referring Physician Obstetrics and Gynecology 11/07/23 Ousmane Zaidi MD 2 [facility] [address] [place] [address] Consulting Physician Anesthesiology 02/21/24 Any Velez, RN [address] [facility] [address] [place] [address] SHOP Outpatient Roving Weight Gauger 07/21/24 07/21/24 documented as of this encounter
--- OUTSIDE RECORDS SUMMARY | 2024-10-06 11:18 | XMS_ITS | Continuity of Care Document ---
Author Organization [facility] Address [address] [facility] [address] [place] [address] Phone Care Team Providers Care Ortho Assistant Name Role Phone Baltazar OD, Sony Unavailable Unavailable Advance Directives Directive Yes / No Effective Date File Name No Information Encounters Encounter Description Practice Location Reason(s) For Visit Diagnoses Date Provider Providers Copied on Encounter [facility], [address] [place], [place], [id number], [place] tel:[phone] [facility] No Information Apr-2 0-200 5 Baltazar OD Sony. [address] [facility] , [address], [place], [address], [place]. tel:[phone] Family History Family Member Type Diagnosis Age At Onset No Information Payers Payer name Insurance type Covered democrat ID Authoriza tion(s) Medicaid [facility] [id number] Social History Type Description Quantity Date Captured Comments Sex Female Smoking Status No Information Chief Complaint And Reason For Visit No Information Reason For Referral Reason For Referral No Information History Of Present Illness Encounter Date Complaint History Of Prese nt Illness No Information Functional Status Date Functional Assessmen t No Information Instructions Date Instruction Additional Infor mation No Information Assessments Type Assessment Date No Information Patient Care Teams Name Effective Dates (start - stop) Status Members No Information
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
--- OUTSIDE RECORDS SUMMARY | 2024-10-06 11:18 | XMS_ITS | Encounter Summary ---
Author Organization [facility] Address [address] [place] [address] Phone Care Team Providers Care Biometry Teacher Name Role Phone Az Watson MD Primary Care Provider [phone] Cain Lira MD Unavailable [phone] Francoise Tompkins RN Unavailable Unavailable Claribel SierraW Unavailable Unavailab Trisha Houston APRN, [place] Unavailable Golden Napier MD Unavailable Emilio Sarabia MD Unavailable [phone] Reason for Visit * Reason Comments Medication Refill Encounter Details Date Type Department Care Team (Late st Contact Info) Description 11/24/2019 Refill [facility] [address] [place] [address] Az Watson MD #[address] [address] Medication Refill Social History Tobacco Use Types Packs/Day Years Used Date Smoking Tobacco: Former Cigarettes 1 30 0 06/18/1985 - 06/18/2015 Smokeless Tobacco: Never Comments:quit may 2015 Alcohol Use Standard Drinks/Week Comments No 0 (1 standard drink = 0.6 oz pur e alcohol) only at [place] PHQ-2 Answer Date Recorded PHQ-2 Score 2 09/19/2019 Sexually Active Control Partners Comments Never Comments [...] encounter Miscellaneous Notes * Telephone Encounter - Lela Fairbanks RN - 11/24/2019 11:48 AM CDT Requested Prescriptions Pending Prescriptions Disp Refills tiZANidine (ZANAFLEX) 4 MG Tablet [Pharmacy Med Name: TIZANIDINE HCL 4MG TABS] 60 Tab 4 Sig: TAKE ONE TABLET BY MOUTH TWICE A DAY NEEDED FOR MUSCLE SPASMS Not Delegated - Analgesics: Muscle Relaxants Failed - 11/24/2019 9:17 AM Failed - This refill cannot be delegated Passed - Valid encounter within last 6 months Past Office Visits Recent Outpatient Visits 1 month ago Gastroesophageal reflux disease without esophagitis [facility] Az Watson MD 8 months ago Hyperlipidemia, unspecified hyperlipidemia type [facility] Az Watson MD 10 months ago Acute cystitis with hematuria [facility] Vickey Robbins APN, HOUSING QUALITY STANDARD INSPECTOR 1 year ago Hyperlipidemia, unspecified hyperlipidemia type [facility] Az Watson MD 2 years ago Chronic prescription benzodiazepine use [facility] Az Watson MD Upcoming Appointments Future Appointments In 1 month Az Watson MD [facility], [facility] In 4 months Sony Hu DO [facility] GASTROENTEROLOGY, [facility] documented in this encounter Plan of Treatment Upcoming Encounters Date Type Department Care Team (Latest Contact Info) Description 10/16/2024 9:00 AM CDT Office Visit [facility] #2 [place] [address] Az Watson MD #2 [facility] [address] [place] [address] 10/16/2024 10:00 AM CDT [facility] [address] [place] [address] Az Watson MD #2 [facility] [address] [place] [address] Discharge Disposition: Discharged to home or Selfcare 10/20/2024 9:00 AM CDT Office Visit [facility] #2 [place] [address] Az Watson MD #2 [facility] [address] [place] [address] 10/24/2024 10:30 AM CDT Office Visit [facility] #2 [place] [address] Emilio Sarabia MD #2 [facility] [address] [place] [address] documented as of this encounter Visit Diagnoses Not on filedocumented in this encounter Additional Health Concerns Infection Onset Date Last Indicated Resolved Time COVID - 19 06/11/2023 06/11/2023 06/21/2023 12:1 6 AM REGROOVER Assessment Noted Time PHQ-9 Depression Total Score: 2 09/19/19 20 9:00 AM CDT documented as of this encounter Care Teams Biometry Teacher Relationship Specialty Start Date End Date Az Watson MD #2 [facility] [address] [place] [address] PCP - General Family Medicine 05/03/15 Cain Lira MD [address] [place] [address] Obstetrics & Gynecology 02/15/17 Francoise Tompkins RN [place] Deodorizer Operator 09/06/21 04/06/22 Claribel Sierra LSW [place] Deodorizer Operator 09/09/21 04/06/22 Trisha Cook APRN, HOUSING QUALITY STANDARD INSPECTOR #2 [place] [address] Nurse Practitioner Advanced Practice Nurse 11/29/22 Golden Napier MD #2 [facility] [address] [place] [address] Consulting Physician Colon and Rectal Surgery 08/13/23 Emilio Sarabia MD #2 [facility] [address] [place] [address] Consulting Physician Urology 09/11/23 documented as of this encounter
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
--- OUTSIDE RECORDS SUMMARY | 2024-10-06 11:18 | XMS_ITS | Encounter Summary ---
Author Organization [facility] Address [address] [place] [address] Phone Care Team Providers Care Hand Tier Name Role Phone Az Watson MD Primary Care Provider [phone] Cain Lira MD Unavailable [phone] Francoise Tompkins RN Unavailable Unavailable Claribel Sierra Unavailable Unavailab Trisha Houston APRN, SALOMON Unavailable Golden Napier MD Unavailable Emilio Sarabia MD Unavailable [phone] Reason for Visit * Reason Comments Medication Refill Encounter Details Date Type Department Care Team (Late st Contact Info) Description 12/09/2021 Refill [facility] [place] [address] [place] [address] Az Watson MD #[address] [address] Medication Refill Social History Tobacco Use Types [...] suspected to have Coronavirus/COVID-19? No / Unsure 12/08/2021 3:27 PM CDT documented as of this encounter Miscellaneous Notes * Telephone Encounter - Kari Blackmon RN - 12/09/2021 3:16 PM CDT Medication failed the protocol, provider to review and approve the medication order if appropriate. Requested Prescriptions Pending Prescriptions Disp Refills tiZANidine (ZANAFLEX) 4 MG Tablet [Pharmacy Med Name: TIZANIDINE HCL 4MG TABS] 90 Tablet 1 Sig: TAKE 1 TABLET BY MOUTH 3 TIMES DAILY. Not Delegated - Muscle Relaxants Protocol Failed - 12/09/2021 3:11 PM Failed - This refill cannot be delegated Passed - Visit with relevant provider in past 12 months or upcoming 90 days Recent Visits Date Type Provider Dept 09/21/21 Office Visit Az Watson MD [facility] 08/30/21 Office Visit Az Watson MD [facility] 04/18/21 Office Visit Vickey Robbins APRN, [facility] [place] 01/31/21 Office Visit Az Watson MD [facility] Showing recent visits within past 365 days and meeting all other requirements Future Appointments Date Type Provider Dept 01/24/22 Appointment Az Watson MD [facility] Showing future appointments within next 90 days and meeting all other requirements Passed - ALT less than 90 and AST less than 55 on record in past 12 months SGOT (AST) Date Value Ref Range Status 10/14/2021 22 <=32 U/L Final SGPT (ALT) Date Value Ref Range Status 10/14/2021 19 <=41 U/L Final albuterol 108 (90 Base) MCG/ACT Aerosol Solution [Pharmacy Med Name: ALBUTEROL SULFATE HFA 108 AERS] 18 g 2 Sig: INHALE TWO PUFFS BY MOUTH EVERY 4 HOURS NEEDED FOR WHEEZING Short Acting Inhaled Beta-Agonists Protocol Passed - 12/09/2021 3:11 PM Passed - Visit with relevant provider in past 12 months or upcoming 90 days Recent Visits Date Type Provider Dept 09/21/21 Office Visit Az Watson MD [facility] 08/30/21 Office Visit Az Watson MD [facility] 04/18/21 Office Visit Vickey Robbins APRN, ACUTE CARE NURSE [facility] [place] 01/31/21 Office Visit Az Watson MD [facility] Showing recent visits within past 365 days and meeting all other requirements Future Appointments Date Type Provider Dept 01/24/22 Appointment Az Watson MD [facility] Showing future appointments within next 90 days and meeting all other requirements rosuvastatin (CRESTOR) 10 MG Tablet [Pharmacy Med Name: ROSUVASTATIN CALCIUM 10MG TABS] 90 Tablet 2 Sig: TAKE ONE TABLET BY MOUTH EVERY DAY Hmg CoA Reductase Inhibitors Protocol Passed - 12/09/2021 3:11 PM Passed - Visit with relevant provider in past 12 months or upcoming 90 days Recent Visits Date Type Provider Dept 09/21/21 Office Visit Az Watson MD [facility] 08/30/21 Office Visit Az Watson MD [facility] 04/18/21 Office Visit Vickey Robbins APRN, ACUTE CARE NURSE [facility] 01/31/21 Office Visit Az Watson MD [facility] Showing recent visits within past 365 days and meeting all other requirements Future Appointments Date Type Provider Dept 01/24/22 Appointment Az Watson MD [facility] Showing [...] Range Status 10/14/2021 100.6 <130 mg/dL Final documented in this encounter Plan of Treatment Upcoming Encounters Date Type Department Care Team (Latest Contact Info) Description 10/16/2024 9:00 AM CDT [facility] [place] [address] Az Watson MD #[address] [address] 10/16/2024 10:00 AM CDT Ancillary Procedure [facility] [address] [place] [address] Az Watson MD #[address] [address] Discharge Disposition: Discharged to home or Selfcare 10/20/2024 9:00 AM CDT Office Visit [facility] [place] [address] Az Watson MD #[address] [address] 10/24/2024 10:30 AM CDT Office Visit [facility] #2 [place] [address] Emilio Sarabia MD #2 [place] [address] [place] [address] documented as of this encounter Visit Diagnoses Diagnosis Hyperlipidemia, unspecified hyperlipidemia type documented in this encounter Additional Health Concerns Infection Onset Date Last Indicated Resolved Time COVID - 19 06/11/2023 06/11/2023 06/21/2023 12:1 6 AM CONSULTING SALES EXECUTIVE Assessment Noted Time PHQ-9 Depression Total Score: 4 09/02/19 21 8:46 AM CDT documented as of this encounter Care Teams Hand Tier Relationship Specialty Start Date End Date Az Watson MD #2 [facility] [address] [place] [address] PCP - General Family Medicine 05/03/15 Cain Lira MD [address] [facility] [address] [facility] [address] [place] [address] Obstetrics & Gynecology 02/15/17 Francoise Tompkins RN [place] Pattern Data Operator 09/06/21 04/06/22 Claribel Sierra LSW [place] Pattern Data Operator 09/09/21 04/06/22 Trisha Cook APRN, ACUTE CARE NURSE #2 [place] [address] Nurse Practitioner Advanced Practice Nurse 11/29/22 Golden Napier MD #2 [facility] [address] [place] [address] Consulting Physician Colon and Rectal Surgery 08/13/23 Emilio Sarabia MD #[address] [address] Consulting Physician Urology 09/11/23 documented as of this encounter
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
--- OUTSIDE RECORDS SUMMARY | 2024-10-06 11:18 | XMS_ITS | Encounter Summary ---
Author Organization [facility] Healthcare Address [address] [place] [address] Care Team Providers Care Spanish Literature Professor Name Role Phone Jose Mendoza RN Unavailable UnavailMelissa Nguyen RN Unavailable Unavailab Heriberto Gray MD Unavailable [phone] Lashaun Mcmahon MD Unavailable [phone] Az Watson MD Unavailable [phone] Az Watson MD Primary Care Provider [phone] Ashish Brown MD Unavailable [phone] Ousmane Zaidi MD Unavailable [phone] Encounter Details Date Type Department Care Team (Late st Contact Info) Description 09/24/2024 Telephone [facility] [address] [facility] [address] [place] [address] Dunia Douglas, BILL [address] [place] [address] Social History Tobacco Use Types Packs/Day Years Used Date Smoking Tobacco: Former Cigarettes 1.5 39.8 1 977 - 03/20/2016 Passive Smoke Exposure: Past Smokeless Tobacco: Never Alcohol Use Standard Drinks/Week Comments No 0 (1 standard drink = 0.6 oz pur e alcohol) [facility] Utilities Answer Date Recorded In the [...] declined 07/22/2024 How often do you attend rastafarian or bahai serv ices? Patient declined 07/22/2024 Do you belong to any clubs o r organizations such as rastafarian groups, unions, fraternal or athletic groups, or [...] any time in the past 12 m [facility], were you homeless or living in a long term (including now)? Patient declined 07/22/2024 Personal Safety Answer Date Recorded Have you ever been in or are you currently in a harmful physical or emotional relationship or is someone making you feel afraid or unsafe? Denies 07/18/2024 Comments No Sex and Gender Information Value Date Recorded Sex Assigned at Not on file Legal Sex Female 10:40 AM VARITYPE OPERATOR Gender Identity Not on file Sexual Orientation Not on file Occupation Industry Job Start Date Job End Date On disability Not on file Not on file Not on file documented as of this encounter Miscellaneous Notes * Telephone Encounter - Jeannette Harman - 09/24/2024 8:50 AM CDT Called pt to reschedule appt. LVM documented in this encounter Plan of Treatment Not on [...] on filedocumented in this encounter Care Teams Spanish Literature Professor Relationship Specialty Start Date End Date Az Watson MD [facility] [address] [place] [address] PCP - General Family Medicine 10/22/23 Jose Mendoza, RN Registered Nurse 06/12/17 Melissa Stearns, RN Registered Nurse Pain Management 12/03/17 Heriberto Mercedes MD [address] [facility] [address] [address] [place] [address] Anesthesiologist Pain Management 05/03/22 Lashaun Mcmahon MD [address] [facility] [address] [place] [address] [place] [address] Consulting Physician Cardiology 12/13/22 Az Watson MD [address] [facility] [address] Referring Physician Family Medicine 12/13/22 Ashish Brown MD [address] [place] [address] Referring Physician Obstetrics and Gynecology 11/07/23 Ousmane Zaidi MD [address] [facility] [address] [address] [place] [address] Consulting Physician Anesthesiology 02/21/24 documented as of this encounter
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
--- OUTSIDE RECORDS SUMMARY | 2024-10-06 11:18 | XMS_ITS | CONTINUITY OF CARE DOCUMENT ---
Author Name [email or web address] Address Unknown Organization [facility] Address [address] [place] [address] Phone [phone] Care Team Providers Care Power Equipment Technology Instructor Name Role Phone ALVARO LIMON MD Unavailable ALVARO LIMON MD Unavailable INSURANCE PROVIDERS Payer name Policy type / Coverage type Lan red republican [employer] [facility] Medicaid 1 [id number]
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
--- OUTSIDE RECORDS SUMMARY | 2024-10-06 11:18 | XMS_ITS | Patient Health Record ---
Author Organization [employer] Address [facility] [place] [address] Support Name Relationship Address Phone Ivone Hernandez Guarantor Unknown [phone] Reason For Referral No Information Medications Medication SIG (Take, Route, Frequency, Duration) Notes Start Date End Date Status NexIUM 40mg take 1 capsule by or ORAL 04/28/2014 0 Active Flonase 50mcg/actuation inhale 1 spray b y in NASAL 04/28/2014 Active Topamax 100mg take 2 tablet by ora ORAL 04/28/2014 Active metFORMIN HCl 500mg take 1 tablet by ora ORAL 04/1106/11/1899 Active Reglan 5mg take 1 tablet by ora ORAL 04/28/2014 Active Percocet 10-325mg take 1 tablet by ora ORAL 201306/11/1899 Active Estrace 2mg take 1 tablet by ora ORAL 04/28/2014 0 Active Advair Diskus 250-50mcg/dose inhale 1 puff by inh INHALATION 04/28/2014 Active ProAir HFA 90mcg/actuation inhale 2 puff by inh INHALATION 04/28/2014 Active Baclofen 10mg take 1 tablet by ora ORAL 04/28/2014 Active Crestor 10mg take 1 tablet by ora ORAL 04/28/2014 Active Problems Problem Type SNOMED Code ICD Code Onset Dates Problem Status W/U Status Risk Notes Problem Chronic laryngitis (03668205) Chronic laryngitis (476.0) 0 confirmed Kervin Problem Degeneration of intervertebral disc (38190515) Degeneration of intervertebral disc, site unspecified (722.6) 0 confirmed Kervin Plan Of Treatment No Information Medical (General) History Surgical History Surgery Date(Month/Year) bladder sling tonsillectomy
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
--- OUTSIDE RECORDS SUMMARY | 2024-10-06 11:18 | XMS_ITS | Continuity of Care Document ---
Author Organization [facility] Address [address] [facility] [address] [place] [address] Phone Care Team Providers Care Conveyor Line Battery Charger Name Role Phone Ronald MICHEAL, Emma Unavailable Unavailable Allergies, Adverse Reactions, Alerts Substance Reaction Status Criticality DULOXETINE HCL Active No Informatio n erythromycin base Active No Informa tion lithium Active No Information tetracycline Active No Information Medications Medication Instructions Dosage Effective Dates (start - stop) Status Comments cephalexin 250 mg capsule take 1 capsule by oral route every 6 hours 250 MG - Active Imitrex 100 mg tablet take 1 tablet by o ral route after onset of migraine; may repeat after 2 hours if headache returns,not to exceed 200mg in 24hrs 100 MG - Active Excedrin Extra Strength 250 mg-250 mg-65 mg tablet take one tablet daily - Active zinc 50 mg tablet take one tablet daily - Active Benadryl 25 mg capsule take 2 capsule by oral route every 4 - 6 hours as needed 50 MG - Active citalopram 40 mg tablet take 1 tablet by oral route every day 40 MG - Active Flonase Allergy Relief 50 mcg/actuation nasal spray,suspension inhale 2 spray by intranasal route every day in each nostril 100 MCG - Active ibuprofen 200 mg capsule take 1 capsule by oral route every 6 hours as needed 200 MG - Active metoprolol succinate ER 50 mg tablet,extended release 24 hr take 1 tablet by oral route every day 50 MG - Active ondansetron [address] 2 tablet by translingual route 2 times every day on top of the tongue where they will dissolve, then swallow 8 MG - Active Stool Softener 50 mg capsule take 1 capsule by oral route every day at bedtime as needed 50 MG - Active Sudafed 30 mg tablet take 2 tablet by or al route every 1 - 12 hours as needed not to exceed 8 tablets per 24hrs 60 MG - Active Vitamin C 1,000 mg tablet take 1 by oral route every day 1 - Active Ventolin HFA 90 mcg/actuation aerosol inhaler inhale 2 puff by inhalation route every 4 - 6 hours as needed 180 MCG - Active Xanax 0.5 mg tablet take 1 tablet by ora l route 3 times every day 0.5 MG - Active tizanidine 4 mg tablet take 1 tablet by oral route every 6 - 8 hours as needed not to exceed 3 doses in 24 hours 4 MG - Active oxycodone 10 mg tablet take 1 tablet by oral route every 4 - 6 hours 10 MG - Active mirtazapine 45 mg tablet take 1 tablet by oral route every day before bedtime 45 MG - Active rosuvastatin 10 mg tablet take 1 tablet by oral route every day 10 MG - Active Calcium 500 500 mg calcium (1,250 mg) tablet take 1 by oral route every day 1 - Active multivitamin with iron tablet take 1 tablet by oral route every day with food - Active fenofibrate micronized 134 mg capsule take 1 capsule by oral route every day with food 134 MG - Active magnesium 200 mg tablet take 2 by oral r oute every day 2 - Active potassium chloride ER 10 mEq capsule,extended release take 2 capsule by oral route every day with food 20 MEQ - Active metformin 500 mg tablet take 2 tablet by oral route every day with morning and evening meals 1000 MG - Active Depakote 500 mg tablet,delayed release take 1 tablet by oral route 2 times every day 500 MG - Active Celebrex 200 mg capsule take 1 capsule b y oral route 2 times every day as needed 200 MG - Active Movantik 25 mg tablet take 1 tablet by o ral route every day in the morning 25 MG - Active trazodone 150 mg tablet take 1 tablet by oral route 3 times every day 150 MG - Active Nexium 40 mg capsule,delayed release take 1 capsule by oral route every day 40 MG - Active estradiol 2 mg tablet take 1 tablet by o ral route every day 2 MG - Active Procedures Procedure Date No Charge GDX Retina Fundus Photography W/ Report Eye Exam & Treatment SCODI, Retina No Charge Optomap Fundus Photos 021 Eye Exam & Treatment No Charge Refraction Fundus Photography W/ Report Eye Exam, New Patient Advance Directives Directive Yes / No Effective Date File Name No Information Encounters Encounter Description Practice Location Reason(s) For Visit Diagnoses Date Provider Providers [facility]ied on [facility], [facility] [place] [address], [place], [place], [id number], tel:[phone] SEC Cuco MARTINES Professional No Information 3 Ronald Carter. [address] [place], [place] [address], [address], [place], [place], [address], [place]. tel:[phone] [facility], [facility] [place] [address], [place], [place], [id number], [phone] SEC Cuco BOBBI Professional Diabetic eye exam (chief complaint) Drusen (degenerative) of macula, left eyeAge-related nuclear cataract, bilateralType 2 diabetes mellitus without complicationsO ptic cupping of both eyes 2 Lonny Hays. [address], [address], [address], [place]. tel:[phone] Referring Provider: Saúl Alas [address] [facility] [address], [place], [address] . tel:[phone] [facility], [facility] [place] [address], [place], [place], [address], [place] tel:[phone] SEC Cuco [place] Professional Complete Exam (chief complaint) Age-related nuclear cataract, bilateralType 2 diabetes mellitus without complicationsB ranch retinal vein occlusion of right eye with retinal neovasculariza tionOptic cupping of both eyesDry eye syndrome of bilateral lacrimal glands 1 Lonny Hays. [address], [address], [place], [place], [address], [place]. tel:[phone] Referring Provider: Saúl Alas [address], [place], [address] . tel:[phone] [facility], [address] [place] [address] [address], [place], [place], [address], [phone] SEC Cuco [place] Professional Complete Exam (chief complaint) Age-related nuclear cataract, bilateral Sep-2 1 Lonny Hays. [address], [facility] [address], [place], [place], [address], . tel:[phone] Referring Provider: Saúl Alas, [address], [place], [address] . tel:[phone] [facility], [address] [place] [address] [address], [place], [place], [address], [phone] SEC Pierce [place] Professional complete (chief complaint) Age-related nuclear cataract, bilateralBranc h retinal vein occlusion of right eye with retinal neovasculariza tionOptic cupping of both eyesType 2 diabetes mellitus without complications Nov- 0 Lonny Hays. [address], [facility] [address], [place], [place], [address], [place]. tel:[phone] Referring Provider: Saúl Alas, [address], [place], [address] . tel:[phone] [facility], [address] [place] [address] [address], [place], [place], [address], [phone] SEC Fredy Coolye No Information October- 0 Lonny Hays. [address], [address], [place], [place], [address], . tel:[phone] Family History Family Member Type Diagnosis Age At Onset Problem Family history of Diabetes nj nino Payers Payer name Insurance type Covered alliance party ID Authoriza tion(s) Medicare [facility] [id number] Medicaid [facility] [id number] Social History Type Description Quantity Date Captured Comments Alcohol Use Details Unknown Caffeine Use Details Unknown Tobacco Use Status No Information Smoking Status No Information Sex Female Chief Complaint And Reason For Visit No Information Reason For Referral Reason For Referral No Information Plan Of Treatment Date Type Action Status Goal Tobacco cessation counseling completed Goal Tobacco cessation counseling completed Patient Education The Eye: Anatomy Sketch completed Patient Education Cataracts: Care Instruc tions completed Patient Education Learning About Retinal Vein Occlusion completed History Of Present Illness Encounter Date Complaint History Of Prese nt Illness Diabetic eye exam The 57 year ol d patient presents for evaluation of Diabetic eye exam in the right eye and left eye. Patient states her eyes are dry. Patient using an ART prn OU. Patient is a Type 2 diab, BS checked a couple of days ago @ 99, a1c 6.0, and PCP treats her diab. Patient states she has [facility] glasses [facility]. Complete Exam The 56 year old female presents for evaluation of Complete Exam with OCT-MAC and Optomap in the right eye and left eye. Hx of CAT OU, JUAN OU, Cupping OU, and BRVO OD. Pt is NIDDM II x 9 yrs, followed by PCP, pt she doesn't check BS and A1C was 5.1 about 3 mos ago. Pt reports stable VA, OU, DV and NV, since last appt. Pt reports she uses AFT PRN OU. Complete Exam The 55 year old female presents for evaluation of Complete Exam in the right eye and left eye. Hx of CAT OU, Cupping OU, JUAN OU, and BRVO OD. Pt is NIDDM II x 8-9yrs, followed by PCP, pt reports BS was 98 this am and she is unaware of A1C. Pt reports she is using AFT PRN OU. Pt denies any changes in VA, OU, DV and NV, since last appt. Pt left without being seen by due to wait time. complete The 54 year old female presents for evaluation of complete in the right eye and left eye. Pt wants glc evaluation, she says her previous doctor was watching it . Pt states pain behind both eyes. She says she gets tejada's. Pt states she can't see at night, feels her vision is getting worse. Pt is Type II NIDDM, she doesn't know her A1c and her BS is usually around 111-112. Functional Status Date Functional Assessmen t No Information Instructions Date Instruction Additional Infor aníbal Impression/Plan Impression/Plan Impression/Plan Impression/Plan Assessments Type Assessment Date No Information Patient Care Teams Name Effective Dates (start - stop) Status Members No Information
--- OUTSIDE RECORDS SUMMARY | 2024-10-06 11:18 | XMS_ITS | Encounter Summary ---
Author Organization [facility] Address [address] [place] [address] Phone Care Team Providers Care Environmental Planning Engineer Name Role Phone Az Watson MD Primary Care Provider [phone] Cain Lira MD Unavailable [phone] Francoise Tompkins RN Unavailable Unavailable Claribel SierraW Unavailable Unavailab Trisha Houston APRN, SALOMON Unavailable Golden Napier MD Unavailable Emilio Sarabia MD Unavailable [phone] Reason for Visit * Reason Comments Medication Refill Encounter Details Date Type Department Care Team (Late st Contact Info) Description 05/12/2020 Refill [facility] [address] [place], [place] [id number] Az Watson MD [address] [address] Medication Refill Social History Tobacco Use Types Packs/Day Years Used Date Smoking Tobacco: Former Cigarettes 1 30 0 06/18/1985 - 06/18/2015 Smokeless Tobacco: Never Comments:quit may 2015 Alcohol Use Standard Drinks/Week Comments No 0 (1 standard drink = 0.6 oz pur e alcohol) only at [place] PHQ-2 Answer Date Recorded Total Score - [...] have Coronavirus / COVID-19? No / Unsure 04/27/2020 9:25 AM VOCATIONAL DIRECTOR documented as of this encounter Miscellaneous Notes * Telephone Encounter - Kari Blackmon RN - 05/12/2020 11:59 AM CST Medication failed the protocol, provider to review and approve the medication order if appropriate. Requested Prescriptions Pending Prescriptions Disp Refills fluticasone (FLONASE) 50 MCG/ACT Suspension [Pharmacy Med Name: FLUTICASONE PROPIONATE 50 SUSP] 2 Sig: USE 2 SPRAYS IN EACH NOSTRIL EVERY EVENING Ear, Nose, and Throat: Nasal Preparations - Corticosteroids Passed - 05/12/2020 9:47 AM Passed - Valid encounter within last 12 months Past Office Visits Recent Outpatient Visits 2 months ago Hoarseness, chronic [facility] - Az Collado MD 3 months ago Hoarseness, chronic [facility] - Az Collado MD 3 months ago Anxiety [facility] Az Alvarez MD 4 months ago Acute vaginitis [facility] Mary Beth Araujo PAC 7 months ago Gastroesophageal reflux disease without esophagitis [facility] Az Alvarez MD Upcoming Appointments Future Appointments In 2 weeks Az Watson MD [facility] Nabor [place] [facility] In 1 month Sony Hu, [facility] - Gastroenterology - [place] [facility] BAR TURNER - Recent and Past Visits Recent Visits Date Type Provider Dept 02/26/20 Office Visit Az Watson MD [facility] 02/02/20 Office Visit Az Watson MD [facility] 01/19/20 Office Visit Az Watson MD [facility] 12/31/19 Office Visit Mary Beth Soriano PAC [facility] [place] 10/13/19 Telemedicine Az Watson MD [facility] 03/13/19 Office Visit Az Watson MD [facility] Showing recent visits within past 460 days with a meds authorizing provider and meeting all other requirements Future Appointments Date Type Provider Dept 06/01/20 Appointment Az Watson MD [facility] [place] Showing future appointments within next 90 days with a meds authorizing provider and meeting all other requirements albuterol 108 (90 Base) MCG/ACT Aerosol Solution [Pharmacy Med Name: ALBUTEROL SULFATE HFA 108 AERS] 2 Sig: INHALE TWO PUFFS BY MOUTH EVERY 4 HOURS NEEDED FOR WHEEZING Pulmonology: Beta Agonists - Albuterol & Levalbuterol Failed - 05/12/2020 9:47 AM Failed - May refill 2 inhalers, 0 refills one time since last office visit. May refill #50 nebulizer vials, 0 refills for albuterol or #48 vials, 0 refills for Xopenex one time since last office visit. Passed - Valid encounter within last 6 months Past Office Visits Recent Outpatient Visits 2 months ago Hoarseness, chronic [facility] - Az Collado MD 3 months ago Hoarseness, chronic [facility] - Az Collado MD 3 months ago Anxiety [facility] - Az Collado MD 4 months ago Acute vaginitis [facility] 7 months ago Gastroesophageal reflux disease without esophagitis [facility] MD Upcoming Appointments Future Appointments In 2 weeks Az Watson MD [facility] Family [facility] In 1 month Sony Hu, [facility] Gastroenterology [facility] BAR TURNER - Recent and Past Visits Recent Visits Date Type Provider Dept 02/26/20 Office Visit Az Watson MD [facility] [place] 02/02/20 Office Visit Az Watson MD [facility] [place] 01/19/20 Office Visit Az Watson MD [facility] [place] 12/31/19 Office Visit [facility] 10/13/19 Telemedicine Az Watson MD [facility] [place] 03/13/19 [facility] recent visits within past 460 days with a meds authorizing provider and meeting all other requirements Future Appointments Date Type Provider Dept 06/01/20 Appointment Az Watson MD [facility] [place] Showing future appointments within next 90 days with a meds authorizing provider and meeting all other requirements Passed - Last BP in normal range BP Readings from Last 1 Encounters: 02/26/20 122/74 TIONAL DIRECTOR documented in this encounter Plan of Treatment Upcoming Encounters Date Type Department Care Team (Latest Contact Info) Description 10/16/2024 9:00 AM CDT [facility] [place] [facility] [place] [address] Az Watson MD [address] [address] 10/16/2024 10:00 AM CDT Ancillary Procedure [facility] [address] [place] [address] Az Watson MD #2 [facility] [address] [place] [address] Discharge Disposition: Discharged to home or Selfcare 10/20/2024 9:00 AM CDT Office Visit [facility] - [facility] #2 [place] [address] Az Watson MD #2 [facility] [address] [place] [address] 10/24/2024 10:30 AM CDT Office Visit [facility] #2 [place] [address] Emilio Sarabia MD #2 [facility] [address] [place] [address] documented as of this encounter Visit Diagnoses Not on filedocumented in this encounter Additional Health Concerns Infection Onset Date Last Indicated Resolved Time COVID - 19 06/11/2023 06/11/2023 06/21/2023 12:1 6 AM VOCATIONAL DIRECTOR Assessment Noted Time PHQ-9 Depression Total Score: 2 02/26/20 20 8:55 AM CDT documented as of this encounter Care Teams Environmental Planning Engineer Relationship Specialty Start Date End Date Az Watson MD #2 [facility] [address] [place] [address] PCP - General Family Medicine 05/03/15 Cain Lira MD [address] [facility] [address] [facility] [address] [place] [address] Obstetrics & Gynecology 02/15/17 Francoise Tompkins RN [place] [employer] Doc[employer] 09/06/21 04/06/22 Claribel Sierra LSW [place] [employer] 09/09/21 04/06/22 Trisha Cook APRN, SKULL CHOPPER [address] [place] [address] Nurse Practitioner Advanced Practice Nurse 11/29/22 Golden Napier MD #2 [facility] [address] [place] [address] Consulting Physician Colon and Rectal Surgery 08/13/23 Emilio Sarabia MD #2 [facility] [address] [place] [address] Consulting Physician Urology 09/11/23 documented as of this encounter
--- OUTSIDE RECORDS SUMMARY | 2024-10-06 11:18 | XMS_ITS | Encounter Summary ---
Author Organization [facility] Address [address] [place] [address] Phone Care Team Providers Care Professor Of Mathematics Name Role Phone Az Watson MD Primary Care Provider [phone] Cain Lira MD Unavailable [phone] Francoise Tompkins RN Unavailable Unavailable Claribel Sierra Unavailable Unavailab Trisha Houston APRN, SALOMON Unavailable Golden Napier MD Unavailable Emilio Sarabia MD Unavailable [phone] Reason for Visit * Reason Comments Medication Refill Encounter Details Date Type Department Care Team (Late st Contact Info) Description 10/26/2021 Refill [facility] - [place] [address] [place] [address] Az Watson MD [address] [address] Medication Refill Social History Tobacco Use Types [...] Encounter - Kari Blackmon RN - 10/27/2021 9:23 AM CDT Medication failed the protocol, provider to review and approve the medication order if appropriate. Requested Prescriptions Pending Prescriptions Disp Refills tiZANidine (ZANAFLEX) 4 MG Tablet [Pharmacy Med Name: TIZANIDINE HCL 4MG TABS] 90 Tablet 1 Sig: Take 1 Tablet by mouth 3 times daily. Not Delegated - Muscle Relaxants Protocol Failed - 10/26/2021 5:39 PM Failed - This refill cannot be delegated Passed - Visit with relevant provider in past 12 months or upcoming 90 days Recent Visits Date Type Provider Dept 09/21/21 Office Visit Az Watson MD [facility] 08/30/21 Office Visit Az Watson MD [facility] 04/18/21 Office Visit Vickey Robbins APRN, SALOMON [place] 01/31/21 Office Visit Az Watson MD [facility] 11/10/20 Office Visit Vcikey Robbins APRN, SALOMON [place] Showing recent visits within past 365 days and meeting all other requirements Future Appointments Date Type Provider Dept 12/08/21 Appointment Az Watson MD [facility] Showing future appointments within next 90 days and meeting all other requirements Passed - ALT less than 90 and AST less than 55 on record in past 12 months SGOT (AST) Date Value Ref Range Status 10/14/2021 22 <=32 U/L Final SGPT (ALT) Date Value Ref Range Status 10/14/2021 19 <=41 U/L Final documented in this encounter Plan of Treatment Upcoming Encounters Date Type Department Care Team (Latest Contact Info) Description 10/16/2024 9:00 AM CDT Office Visit [facility]2 [facility] [address] Az Watson MD #2 [facility] [address] [place] [address] 10/16/2024 10:00 AM CDT Ancillary Procedure [facility] [address] [place] [address] Az Watson MD #[address] [address] Discharge Disposition: Discharged to home or Selfcare 10/20/2024 9:00 AM CDT Office Visit [facility] [facility] [address] Az Watson MD #2 [facility] [address] [place] [address] 10/24/2024 10:30 AM CDT Office Visit [facility] #2 [place] [address] Emilio Sarabia MD #2 [facility] [address] [place] [address] documented as of this encounter Visit Diagnoses Not on filedocumented in this encounter Additional Health Concerns Infection Onset Date Last Indicated Resolved Time COVID - 19 06/11/2023 06/11/2023 06/21/2023 12:1 6 AM READING TEACHER Assessment Noted Time PHQ-9 Depression Total Score: 4 09/02/19 21 8:46 AM CDT documented as of this encounter Care Teams Professor Of Mathematics Relationship Specialty Start Date End Date Az Watson MD #2 [facility] [address] [place] [address] PCP - General Family Medicine 05/03/15 Cain Lira MD [address] [place] [address] Obstetrics & Gynecology 02/15/17 Francoise Tompkins RN [place] [employer] Systems Engineer 09/06/21 04/06/22 Claribel Sierra LSW [place] [employer] Systems Engineer 09/09/21 04/06/22 Trisha Cook APRN, TITLE CLERK [employer] [address] [place] [address] Nurse Practitioner Advanced Practice Nurse 11/29/22 Golden Napier MD #2 [facility] [address] [place] [address] Consulting Physician Colon and Rectal Surgery 08/13/23 Emilio Sarabia MD #2 [facility] [address] [place] [address] Consulting Physician Urology 09/11/23 documented as of this encounter
--- OUTSIDE RECORDS SUMMARY | 2024-10-06 11:18 | XMS_ITS | Encounter Summary ---
Author Organization [facility] Address [address] [place] [address] Phone Care Team Providers Care Equities Analyst Name Role Phone Az Watson MD Primary Care Provider [phone] Cain Lira MD Unavailable [phone] Trisha Cook APRN, DIRECTOR BEHAVIORAL HEALTH Unavailable Golden Napier MD Unavailable Emilio Sarabia MD Unavailable [phone] Reason for Visit * Reason Comments Medication Refill Encounter Details Date Type Department Care Team (Late st Contact Info) Description 11/16/2023 Refill [facility] - Family Medicine - [place] [address] [place] [address] Az Watson MD #[address] [address] Medication Refill Social History Tobacco Use Types [...] Telephone Encounter - Kari Blackmon RN - 11/16/2023 2:41 PM CDT PRN medication requires review from [...] Short Acting Inhaled Beta-Agonists Protocol Passed - 11/16/2023 1:18 PM Passed - Visit with relevant provider [...] 01/02/23 Office Visit Vickey Robbins APRN, [place] [facility] Showing recent visits within past 365 days and meeting all other requirements Future Appointments Date Type Provider Dept 11/27/23 Appointment Vickey Robbins APRN, [place] [facility] Showing future appointments within next 90 days and meeting all other requirements docusate sodium (COLACE) 100 MG Capsule [Pharmacy Med Name: DOCUSATE SOD 100MG CAPSULES] 60 Capsule1 Sig: TAKE ONE CAPSULE BY MOUTH TWICE DAILY NEEDED FOR CONSTIPATION. 2ND LINE Laxatives Protocol Passed - 11/16/2023 1:18 PM Passed - Visit with relevant provider in past 12 months or upcoming 90 days Recent Visits Date Type Provider Dept 07/25/23 Office Visit Az Watson MD [facility] 07/17/23 Telemedicine Az Watson MD [facility] 05/08/23 Telemedicine Az Watson MD [facility] 04/18/23 Office Visit Az Watson MD [facility] 03/08/23 Office Visit Vickey Robbins APRN, [place] 02/28/23 Office Visit Vickey Robbins APRN, [place] [facility] 01/24/23 Office Visit Vickey Robbins APRN, [place] [facility] 01/02/23 Office Visit Vickey Robbins APRN, [place] [facility] Showing recent visits within past 365 days and meeting all other requirements Future Appointments Date Type Provider Dept 11/27/23 Appointment Vickey Robbins APRN, CNP [facility] Showing future appointments within next 90 days and meeting all other requirements Passed - Up to date with colon cancer screening Health Maintenance Lancets Misc 100 Lancet 3 Sig: Use as directed to check blood sugar daily Dx: E11.9 There is no refill protocol information for this order documented in this encounter Plan of Treatment Upcoming Encounters Date Type Department Care Team (Latest Contact Info) Description 10/16/2024 9:00 AM CDT Office Visit [facility] Medical [facility] - Family Medicine - [place] [address] [place] [address] Az Watson MD #[address] [address] 10/16/2024 10:00 AM CDT Ancillary Procedure [facility] [address] [place] [address] Az Watson MD #2 [facility] [address] [place] [address] Discharge Disposition: Discharged to home or Selfcare 10/20/2024 9:00 AM CDT Office Visit [facility] - Family Medicine [facility] #2 [place] [address] Az Watson MD #[address] [address] 10/24/2024 10:30 AM CDT Office Visit [facility] UROLOGY #2 [place] [address] Emilio Sarabia MD #[address] [address] documented as of this encounter Goals Goal Patient Goal Type Associated Problems Recent Progress Patient-Stated? Author Behavioral Health Behavioral Health On track( 022 8:46 AM DIRECTOR AMBULATORY) Yes Betsy Butts, DOSIMETRIST Note: I need to be able to [...] documented as of this encounter Care Teams Equities Analyst Relationship Specialty Start Date End Date Az Watson MD #2 [facility] [address] [place] [address] PCP - General Family Medicine 05/03/15 Cain Lira MD [address] [place], [place] [id number] Obstetrics & Gynecology 02/15/17 Trisha Cook APRN, DIRECTOR BEHAVIORAL HEALTH #[address] [place] [address] Nurse Practitioner Advanced Practice Nurse 11/29/22 Golden Napier MD #2 [facility] [address] [place] [address] Consulting Physician Colon and Rectal Surgery 08/13/23 Emilio Sarabia MD #2 [facility] [address] [place] [address] Consulting Physician Urology 09/11/23 documented as of this encounter
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
--- OUTSIDE RECORDS SUMMARY | 2024-10-06 11:18 | XMS_ITS | Encounter Summary ---
Author Organization [facility] Address [address] [place] [address] Phone Care Team Providers Care Casting Operator Helper Name Role Phone Az Watson MD Primary Care Provider [phone] Cain Lira MD Unavailable [phone] Francoise Tompkins RN Unavailable Unavailable Claribel Sierra Unavailable Unavailab Trisha Houston APRN, ORNAMENTAL PAINTER Unavailable Golden Napier MD Unavailable Emilio Sarabia MD Unavailable [phone] Reason for Visit * Reason Comments Medication Refill Encounter Details Date Type Department Care Team (Late st Contact Info) Description 11/10/2021 Refill [facility] - [place] #2 [place] [id number] Mine Rivera Nikki, PAC [address] [place] [address] Medication Refill Social History Tobacco Use Types [...] encounter Miscellaneous Notes * Telephone Encounter - Alta Rucker RN - 11/11/2021 3:42 PM CDT Patient requesting refill too soon. Medication refused. documented in this encounter Plan of Treatment Upcoming Encounters Date Type Department Care Team (Latest Contact Info) Description 10/16/2024 9:00 AM CDT Office Visit [facility] #2 [place] [address] Az Watson MD #[address] [address] 10/16/2024 10:00 AM CDT Ancillary Procedure [facility] [address] [place] [address] Az Watson MD #[address] [address] Discharge Disposition: Discharged to home or Selfcare 10/20/2024 9:00 AM CDT Office Visit [facility] #2 [place] [address] Az Watson MD #2 [facility] [address] [place] [address] 10/24/2024 10:30 AM CDT Office Visit [facility] #2 [place] [address] Emilio Sarabia MD #2 [facility] [address] [place] [address] documented as of this encounter Visit Diagnoses Diagnosis Gastroesophageal reflux disease without esophagitis Esophageal reflux documented in this encounter Additional Health Concerns Infection Onset Date Last Indicated Resolved Time COVID - 19 06/11/2023 06/11/2023 06/21/2023 12:1 6 AM GENETIC COORDINATOR Assessment Noted Time PHQ-9 Depression Total Score: 4 09/02/19 21 8:46 AM CDT documented as of this encounter Care Teams Casting Operator Helper Relationship Specialty Start Date End Date Az Watson MD #2 [facility] [address] [place] [address] PCP - General Family Medicine 05/03/15 Cain Lira MD [address] [facility] [address] [facility] [address] [place] [address] Obstetrics & Gynecology 02/15/17 Francoise Tompkins RN [place] Collection Correspondent 09/06/21 04/06/22 Claribel Sierra LSW [place] Collection Correspondent 09/09/21 04/06/22 Trisha Cook APRN, ORNAMENTAL PAINTER #2 [place] [address] Nurse Practitioner Advanced Practice Nurse 11/29/22 Golden Napier MD #2 [facility] [address] [place] [address] Consulting Physician Colon and Rectal Surgery 08/13/23 Emilio Sarabia MD #2 [facility] [address] [place] [address] Consulting Physician Urology 09/11/23 documented as of this encounter
--- OUTSIDE RECORDS SUMMARY | 2024-10-06 11:18 | XMS_ITS | Clinical Summary ---
Author Organization [facility] Amanda naranjo [facility] Address [address] [place] [address] Care Team Providers Care Tufter Operator Name Role Phone Az Watson MD Primary Care Provider [phone] Allergies Active Allergy Reactions Criticality Noted Date Comments Divalproex Rash Low 04/09/2023 Duloxetine Rash,Seizure High 04/09/2023 Erythromycin Nausea and Vomiting Low 04/09/2023 Fluoxetine Hcl Other (See Comments) 04/09/2023 Gabapentin Hallucination Low 04/09/2023 Olanzapine Other (See Comments) 04/09/2023 Pregabalin Seizure High 04/09/2023 Prochlorperazine Other (See Comments) Tetracycline Hcl Nausea and Vomiting Low 04/09/2023 Medications albuterol sulfate HFA 90 mcg/actuation aerosol inhaler Albuterol Sulfate HFA 108 (90 Base) MCG/ACT Inhalation Aerosol Solution QTY: 18 Days: 16 Refills: 0 Written: 03/28/23 Patient Instructions: 2 puffs twice a day 03/28/20 Active ALPRAZolam (XANAX) 0.5 mg tablet ALPRAZolam 0.5 MG Oral Tablet QTY: 90 tablet Days: 30 Refills: 0 Written: 02/23/23 Patient Instructions: 1 tablet as needed for Anxiety. 02/24/20 Active carvediloL (COREG) 12.5 mg tablet Carvedilol 12.5 MG Oral Tablet QTY: 180 tablet Days: 90 Refills: 0 Written: 04/09/23 Patient Instructions: 04/09/20 Active celecoxib (CeleBREX) 200 mg capsule 2 times daily. 04/01/20 Active citalopram (CeleXA) 10 mg tablet Citalopram Hydrobromide 10 MG Oral Tablet QTY: 90 tablet Days: 90 Refills: 0 Written: 02/18/23 Patient Instructions: 02/19/20 Active citalopram (CeleXA) 20 mg tablet Citalopram Hydrobromide 20 MG Oral Tablet QTY: 90 tablet Days: 90 Refills: 0 Written: 02/18/23 Patient Instructions: 02/19/20 Active esomeprazole (NexIUM) 40 mg Capsule, Delayed Release(E.C.) Esomeprazole Magnesium 40 MG Oral Capsule Delayed Release QTY: 90 capsule Days: 90 Refills: 0 Written: 02/15/23 Patient Instructions: 1 tablet 4 hours before meals. 02/16/20 Active estradioL (ESTRACE) 2 mg tablet Estradiol 2 MG Oral Tablet QTY: 90 tablet Days: 90 Refills: 0 Written: 03/26/23 Patient Instructions: 03/26/20 Active famotidine (PEPCID) 40 mg tablet Famotidine 40 MG Oral Tablet QTY: 90 tablet Days: 90 Refills: 0 Written: 02/22/23 Patient Instructions: 1/2 tablet in the am and 1/2 tablet in the pm. 02/23/20 Active fluticasone propionate (FLONASE) 50 mcg/spray [place], Suspension nasal inhaler Fluticasone Propionate 50 MCG/ACT Nasal Suspension QTY: 48 Days: 90 Refills: 0 Written: 03/26/23 Patient Instructions: daily. 03/26/20 Active ketorolac tromethamine (ACULAR) 0.5 % solution Ketorolac Tromethamine 0.5% Ophthalmic Solution QTY: 5 Days: 12 Refills: 0 Written: 04/02/23 Patient Instructions: 04/02/20 Active metFORMIN (GLUCOPHAGE) 500 mg tablet 2 times daily. 01/27/20 Active mirtazapine (REMERON) 45 mg tablet Mirtazapine 45 MG Oral Tablet QTY: 30 tablet Days: 30 Refills: 0 Written: 02/19/23 Patient Instructions: at bedtime 02/20/20 Active Mometasone (ELOCON) 0.1 % Solution Mometasone Furoate 0.1% External Solution QTY: 60 Days: 15 Refills: 0 Written: 02/14/23 Patient Instructions: As directed. 02/15/20 Active oxyBUTYnin (DITROPAN XL) 10 mg Extended Release 24 hour tablet oxyBUTYnin Chloride ER 10 MG Oral Tablet Extended Release 24 Hour QTY: 0 tablet Days: 0 Refills: 0 Written: 04/09/23 Patient Instructions: At bedtime. 04/09/20 Active oxyCODONE (ROXICODONE) 10 mg tablet oxyCODONE HCl 10 MG Oral Tablet QTY: 42 tablet Days: 7 Refills: 0 Written: 03/01/23 Patient Instructions: 1 tablet every 4 hours. 03/01/20 Active rosuvastatin (CRESTOR) 10 mg tablet Rosuvastatin Calcium 10 MG Oral Tablet QTY: 90 tablet Days: 90 Refills: 0 Written: 01/26/23 Patient Instructions: 01/27/20 Active traZODone (DESYREL) 150 mg tablet traZODone HCl 150 MG Oral Tablet QTY: 60 tablet Days: 30 Refills: 0 Written: 02/20/23 Patient Instructions: 2 tablets at bed. 02/21/20 Active fenofibrate micronized (LOFIBRA) 134 mg Capsule Take 134 mg by mouth daily. Active vibegron (GEMTESA ORAL) Take by mouth. Active divalproex (DEPAKOTE) 500 mg delayed release tablet Take 500 mg by mouth 3 times daily. Active SUMAtriptan (IMITREX) 100 mg tablet Take 100 mg by mouth see administration instructions. may repeat in 2 hours; max dose 200mg in 24 hours Active ascorbic acid (VITAMIN C) 100 mg Tablet, Chewable Take 100 mg by mouth. Active cyanocobalamin 1,000 mcg Tablet Take 1,000 mcg by mouth daily. Active MAGNESIUM CITRATE ORAL Take by mouth. Ac tive Active Problems No known active problems Encounters Date Type Department Care Team Description 10/02/[address] [facility] Oncology and Hematology - [place] [address] [place] [phone] He Tran MD Depression Referral 09/09/2024 External Device Data [facility] ABSTRACTION Provider, Abstract 08/27/2024 External Device Data [facility] [place] Provider, Abstract 08/20/2024 External Device Data [place] Provider, Abstract 08/19/2024 External Device Data [facility] Provider, Abstract 08/18/2024 External Device Data [place] Provider, Abstract 08/16/2024 External Device Data [facility] Provider, Abstract 08/16/2024 External Device Data [place] Provider, Abstract 08/13/2024 External Device Data [facility] Provider, Abstract 07/30/2024 External Device Data [facility] [place] Provider, Abstract from Last 3 Months Family History Medical History Relation Name Comments Diabetes Mother Relation Name Status Comments Brother Alive Daughter 1 Alive Daughter 2 Father Mother Alive Sister Alive Social History Tobacco Use Types Packs/Day Years Used Date Smoking Tobacco: Former Cigarettes Smokeless Tobacco: Never Alcohol Use Standard Drinks/Week Comments Not Currently 0 (1 standard drink = 0.6 oz pur e alcohol) Comments Unknown Sex and Gender Information Value Date Recorded Sex Assigned at Not on file Legal Sex Female 12:12 PM CONCRETE SPREADER Gender Identity Not on file Sexual Orientation Not on file Last Filed Vital Signs Vital Sign Reading Time Taken Comments Blood Pressure 117/70 03/03/2024 9:01 AM CDT Pulse 101 03/03/2024 8:59 AM CDT Temperature 36.7 C (98 F) 03/03/2024 8:59 AM CDT Respiratory Rate 16 03/03/2024 8:59 AM CDT Oxygen Saturation 97% 03/03/2024 8:59 AM CDT Inhaled Oxygen Concentration - - Weight 62.8 kg (138 lb 6.4 oz) 03/03/2024 8:59 A M CDT Height - - Body Mass Index - - Plan of Treatment Upcoming Encounters Date Type Department Care Team (Late st Contact Info) Description 11/28/2024 9:30 AM CDT Office Visit [facility] Oncology and Hematology - [place] [address] [facility] [address] [place] [address] He Tran MD [address] [facility] [address] [place] [address] 04/08/2025 8:30 AM CDT Office Visit [facility] Endocrinology [address] [facility] [address] [place] [address] Rogelio Franks MD [address] [phone] Health Maintenance Due Date Last Done Comments DIABETES MICROALBUMIN ANNUAL SCREEN 1981 LDL CHOLESTEROL ANNUAL 1981 COLORECTAL SCREENING 2008 Colorectal Cancer Screening 2008 FIT-DNA Q 3 years 2008 FIT/FOBT Q 1 year 2008 Flex Sig/CT Colonography Q 5 years 2008 RSV VACCINE (60+ or ) (1 - Risk 60-74 years 1-dose series) 2023 DIABETES HBA1C Q 6 MONTHS 03/13/2024 09/12/2023, BREAST CANCER SCREENING 01/20/2025 01/21/20 24, 01/21/2024, 03/15/2023, Additional history exists DIABETES ANNUAL FOOT EXAM 02/14/2025 02/15/2024 DTAP/TDAP/TD VACCINES (4 - T d or Tdap) 02/23/2025 02/23/2015, 02/18/2015, 02/18/2013 DIABETES ANNUAL RETINAL EXAM 02/24/2025 02/25/2024 ZOSTER VACCINE Completed 03/29/2018, 12/10/2017 INFLUENZA VACCINE Completed 02/19/2024, , 02/20/2023, Additional history exists Procedures Procedure Name Priority Date/Time Associated Diagnosis Comments MAMMO BILAT DIAGNOSTIC Routine 01/21/2024 12:59 PM CDT from Last 3 Months or Most Recently Relevant to Health Maintenance Results * MAMMO BILAT DIAGNOSTIC (01/21/2024 12:59 PM CDT) Anatomical Region Laterality Modality Breast Bilateral Mammography He Tran MD MAMMO ORDERABLES Final Result from Last 3 Months or Most Recently Relevant to Health Maintenance Insurance [employer] [employer] [facility] [id number] [employer] Sas[address] [place] [address] Care Teams Tufter Operator Relationship Specialty Start Date End Date Az Watson MD [address] [address] PCP - General Family Practice 06/26/23
--- OUTSIDE RECORDS SUMMARY | 2024-10-06 11:18 | XMS_ITS | Encounter Summary ---
Author Organization [facility] Address [address] [place] [address] Phone Care Team Providers Care Health Center Assistant Name Role Phone Az Watson MD Primary Care Provider [phone] Cain Lira MD Unavailable [phone] Francoise Tompkins RN Unavailable Unavailable Claribel Sierra Unavailable Unavailab Trisha [place] APRN, SALOMON Unavailable Golden Napier MD Unavailable Emilio Sarabia MD Unavailable [phone] Reason for Visit * Reason Comments Medication Refill Encounter Details Date Type Department Care Team (Late st Contact Info) Description 02/08/2022 Refill [facility] - Family Medicine - [place] [address] [place] [address] Az Watson MD [address] [address] Medication Refill Social History Tobacco Use Types [...] Telephone Encounter - Kari Blackmon RN - 02/09/2022 8:58 AM CDT Medication failed the protocol, provider to review and approve the medication order if appropriate. Requested Prescriptions Pending Prescriptions Disp Refills metFORMIN (GLUCOPHAGE) 500 MG Tablet [Pharmacy Med Name: METFORMIN HCL 500MG TABS] 180 Tablet 1 Sig: TAKE ONE TABLET BY MOUTH TWICE A DAY Biguanides Protocol Passed - 02/08/2022 5:13 PM Passed - Visit with relevant provider in past 6 months or upcoming 90 days Recent Visits Date Type Provider Dept 09/21/21 Office Visit Az Watson MD [facility] 08/30/21 Office Visit Az Watson MD [facility] Showing recent visits within past 182 days and meeting all other requirements Future Appointments Date Type Provider Dept 04/28/22 Appointment Az Watson MD [facility] Showing future appointments within next 90 days and meeting all other requirements Passed - HgA1C on record in past 6 months HGB-A1C Date Value Ref Range Status 10/14/2021 5.5 4.0 - 6.0 % Final Passed - GFR on record in past 6 months GFR, EST. NONAFRICAN Date Value Ref Range Status 10/14/2021 >60 >=60 Final tiZANidine (ZANAFLEX) 4 MG Tablet [Pharmacy Med Name: TIZANIDINE HCL 4MG TABS] 90 Tablet 1 Sig: TAKE ONE TABLET BY MOUTH THREE TIMES A DAY Not Delegated - Muscle Relaxants Protocol Failed - 02/08/2022 5:13 PM Failed - This refill cannot be delegated Passed - Visit with relevant provider in past 12 months or upcoming 90 days Recent Visits Date Type Provider Dept 09/21/21 Office Visit Az Wtason MD [facility] 08/30/21 Office Visit Az Watson MD [facility] 04/18/21 Office Visit Vickey Robbins APRN, MACHINE OPERATOR HELPER [facility] Showing recent visits within past 365 days and meeting all other requirements Future Appointments Date Type Provider Dept 04/28/22 Appointment Az Watson MD [facility] [place] Showing future appointments within next 90 days [...] Description 10/16/2024 9:00 AM CDT Office Visit [facility] [address] [place] [address] Az Watson MD #[address] [address] 10/16/2024 10:00 AM CDT Ancillary Procedure [facility] [address] [place] [address] Az Watson MD #[address] [address] Discharge Disposition: Discharged to home or Selfcare 10/20/2024 9:00 AM CDT Office Visit [facility] [address] [place] [address] Az Watson MD #2 [facility] [address] [place] [address] 10/24/2024 10:30 AM CDT Office Visit [facility] #[address] [place] [address] Emilio Sarabia MD #2 [facility] [address] [place] [address] documented as of this encounter Visit Diagnoses Diagnosis Controlled type 2 diabetes mellitus without complication, without long-term current use of insulin documented in this encounter Additional Health Concerns Infection Onset Date Last Indicated Resolved Time COVID - 19 06/11/2023 06/11/2023 06/21/2023 12:1 6 AM QUALITY MANAGEMENT NURSE Assessment Noted Time PHQ-9 Depression Total Score: 4 09/02/19 21 8:46 AM CDT documented as of this encounter Care Teams Health Center Assistant Relationship Specialty Start Date End Date Az Watson MD [address] [facility] [address] [place] [address] PCP - General Family Medicine 05/03/15 Cain Lira MD [address] [facility] [address] [facility] [address] [place] [address] Obstetrics & Gynecology 02/15/17 Francoise Tompkins RN [place] Congressional Representative 09/06/21 04/06/22 Claribel Sierra LSW [place] Congressional Representative 09/09/21 04/06/22 Trisha Cook APRN, MACHINE OPERATOR HELPER [address] [place] [address] Nurse Practitioner Advanced Practice Nurse 11/29/22 Golden Napier MD #2 [facility] [address] [place] [address] Consulting Physician Colon and Rectal Surgery 08/13/23 Emilio Sarabia MD #2 [facility] [address] [place] [address] Consulting Physician Urology 09/11/23 documented as of this encounter
--- OUTSIDE RECORDS SUMMARY | 2024-10-06 11:18 | XMS_ITS | Encounter Summary ---
Author Organization [facility] Address [address] [place] [address] Phone Care Team Providers Care Slab Worker Name Role Phone Az Watson MD Primary Care Provider [phone] Cain Lira MD Unavailable [phone] Francoise Tompkins RN Unavailable Unavailable Claribel SierraW Unavailable Unavailab Trisha [place] APRN, SALOMON Unavailable Golden Napier MD Unavailable Emilio Sarabia MD Unavailable [phone] Reason for Visit * Reason Comments Medication Refill Encounter Details Date Type Department Care Team (Late st Contact Info) Description 10/27/2019 Refill [facility] [address] [place] [address] Az Watson MD #[address] [address] Medication Refill Social History Tobacco Use Types Packs/Day Years Used Date Smoking Tobacco: Former Cigarettes 1 30 0 06/18/1985 - 06/18/2015 Smokeless Tobacco: Never Comments:quit may 2015 Alcohol Use Standard Drinks/Week Comments No 0 (1 standard drink = 0.6 oz pur e alcohol) only at [facility] PHQ-2 Answer Date Recorded PHQ-2 Score 2 [...] have Coronavirus / COVID-19? No / Unsure 10/16/2019 9:29 AM CDT documented as of this encounter Miscellaneous Notes * Telephone Encounter - Lela Fairbanks RN - 10/27/2019 9:47 AM CDT Requested Prescriptions Pending Prescriptions Disp Refills tiZANidine (ZANAFLEX) 4 MG Tablet [Pharmacy Med Name: TIZANIDINE HCL 4MG TABS] 60 Tab 0 Sig: TAKE ONE TABLET BY MOUTH TWICE A DAY NEEDED FO MUSCLE SPASMS Not Delegated - Analgesics: Muscle Relaxants Failed - 10/27/2019 9:11 AM Failed - Valid encounter within last 6 months Past Office Visits Recent Outpatient Visits 7 months ago Hyperlipidemia, unspecified hyperlipidemia type [facility] Az Watson MD 9 months ago Acute cystitis with hematuria [facility] Vickey Robbins APN, UPHOLSTERY HANDLER 1 year ago Hyperlipidemia, unspecified hyperlipidemia type [facility] Az Watson MD 2 years ago Chronic prescription benzodiazepine use [facility] Az Watson MD 2 years ago Vitamin D insufficiency [facility] Az Watson MD Upcoming Appointments Future Appointments In 5 months Sony Hu, [facility], [facility] Failed - This refill cannot be delegated documented in this encounter Plan of Treatment Upcoming Encounters Date Type Department Care Team (Latest Contact Info) Description 10/16/2024 9:00 AM CDT Office Visit [facility] [place] [address] Az Watson MD #[address] [address] 10/16/2024 10:00 AM CDT Ancillary Procedure [facility] [address] [place] [address] Az Watson MD #2 [facility] [address] [place] [address] Discharge Disposition: Discharged to home or Selfcare 10/20/2024 9:00 AM CDT Office Visit [facility] [place] [address] Az Watson MD #[address] [address] 10/24/2024 10:30 AM CDT Office Visit [facility] #2 [place] [address] Emilio Sarabia MD #2 [facility] [address] [place] [address] documented as of this encounter Visit Diagnoses Not on filedocumented in this encounter Additional Health Concerns Infection Onset Date Last Indicated Resolved Time COVID - 19 06/11/2023 06/11/2023 06/21/2023 12:1 6 AM FIBERGLASS PRODUCT TESTER Assessment Noted Time PHQ-9 Depression Total Score: 2 09/19/19 20 9:00 AM CDT documented as of this encounter Care Teams Slab Worker Relationship Specialty Start Date End Date Az Watson MD [address] [facility] [address] [place] [address] PCP - General Family Medicine 05/03/15 Cain Lira MD [address] [place] [address] Obstetrics & Gynecology 02/15/17 Francoise Tompkins RN [place] Car Refinisher 09/06/21 04/06/22 Claribel Sierra LSW [place] Car Refinisher 09/09/21 04/06/22 Trisha Cook APRN, UPHOLSTERY HANDLER [address] [place] [address] Nurse Practitioner Advanced Practice Nurse 11/29/22 Golden Napier MD #2 [facility] [address] [place] [address] Consulting Physician Colon and Rectal Surgery 08/13/23 Emilio Sarabia MD #2 [facility] [address] [place] [address] Consulting Physician Urology 09/11/23 documented as of this encounter
--- OUTSIDE RECORDS SUMMARY | 2024-10-06 11:18 | XMS_ITS | Encounter Summary ---
Author Organization [facility] Address [address] [place] [address] Phone Care Team Providers Care Clam Sorter Name Role Phone Az Watson MD Primary Care Provider [phone] Cain Lira MD Unavailable [phone] Francoise Tompkins RN Unavailable Unavailable Claribel SierraW Unavailable Unavailab Trisha Houston APRN, SALOMON Unavailable Golden Napier MD Unavailable Emilio Sarabia MD Unavailable [phone] Reason for Visit * Reason Comments Medication Refill Encounter Details Date Type Department Care Team (Late st Contact Info) Description 02/06/2020 Refill [facility] [address] [place] [address] Az Watson MD #[address] [address] Medication Refill Social History Tobacco Use Types Packs/Day Years Used Date Smoking Tobacco: Former Cigarettes 1 30 0 06/18/1985 - 06/18/2015 Smokeless Tobacco: Never Comments:quit may 2015 Alcohol Use Standard Drinks/Week Comments No 0 (1 standard drink = 0.6 oz pur e alcohol) only at [place] PHQ-2 Answer Date Recorded PHQ-2 Score 2 [...] have Coronavirus / COVID-19? No / Unsure 02/04/2020 10:08 AM CDT documented as of this encounter Miscellaneous Notes * Telephone Encounter - Sarah Olivares RN - 02/09/2020 2:33 PM CDT Routing to PCP for review r/t famotidine 20mg out of stock, pharmacy requesting 40mg tablets. Patient was taking 20mg bid, pended script for 40mg taking 20mg bid. Requested Prescriptions Pending Prescriptions Disp Refills Fenofibrate Micronized 134 MG Capsule [Pharmacy Med Name: FENOFIBRATE MICRONIZED 134MG CAPS] 90 Cap1 Sig: TAKE ONE CAPSULE BY MOUTH EVERY DAY Cardiovascular: Antilipid - Fibric Acid Derivatives Passed - 02/09/2020 2:33 PM Passed - Valid encounter within last 12 months Past Office Visits Recent Outpatient Visits 1 week ago Hoarseness, chronic [facility] Az Watson MD 3 weeks ago Anxiety [facility] Az Watson MD 1 month ago Acute vaginitis [facility] Mary Beth Soriano PAC 3 months ago Gastroesophageal reflux disease without esophagitis [facility] Az Watson MD 11 months ago Hyperlipidemia, unspecified hyperlipidemia type [facility] Az Watson MD Upcoming Appointments Future Appointments Tomorrow [facility]1; [facility] Tomorrow SAHCCT1 [facility], [facility] In 2 days Az Watson MD [facility] - Primary Care, [facility] In 2 months Sony Hu DO [facility] - Gastroenterology, [facility] In 2 months Az Watson MD [facility] - Primary Care, [facility] ELECTRICAL ENGINEERING DRAFTSPERSON - Recent and Past Visits Recent Visits Date Type Provider Dept 02/02/20 Office Visit Az Watson MD [facility] 01/19/20 Office Visit Az Watson MD [facility] 12/31/19 Office Visit Mary Beth Soriano PAC [facility] [place] 10/13/19 Telemedicine Az Watson MD [facility] 03/13/19 Office Visit Az Watson MD [facility] 01/10/19 Office Visit Vickey Robbins APN, SPARMAKER [facility] Show[facility] recent visits within past 460 days with a meds authorizing provider and meeting all other requirements Future Appointments Date Type Provider Dept 02/11/20 Appointment Az Watson MD [facility] 04/22/20 Appointment Az Watson MD [facility] [place] Showing future appointments within next 90 days with a meds authorizing provider and meeting all other requirements famotidine (PEPCID) 40 MG Tablet 90 Tab 1 Sig: Take 0.5 Tabs by mouth 2 times daily. Gastroenterology: Antiulcer - H2 Antagonists Passed - 02/09/2020 2:33 PM Passed - Valid encounter within last 12 months Past Office Visits Recent Outpatient Visits 1 week ago Hoarseness, chronic [facility] Az Watson MD 3 weeks ago Anxiety [facility] Az Watson MD 1 month ago Acute vaginitis [facility] Mary Beth Soriano, PAC 3 months ago Gastroesophageal reflux disease without esophagitis [facility] Az Watson MD 11 months ago Hyperlipidemia, unspecified hyperlipidemia type [facility] Az Watson MD Upcoming Appointments Future Appointments Tomorrow [facility]1; [facility], [facility] Tomorrow [facility]CT1 [facility], [facility] In 2 days Az Watson MD [facility] - Primary Care, [facility] In 2 months Sony Hu DO [facility] - Gastroenterology, [facility] In 2 months Az Watson MD [facility] - Primary Care, [facility] ELECTRICAL ENGINEERING DRAFTSPERSON - Recent and Past Visits Recent Visits Date Type Provider Dept 02/02/20 Office Visit Az Watson MD [facility] 01/19/20 Office Visit Az Watson MD [facility] [place] 12/31/19 Office Visit Mary Beth Soriano PAC [facility] 10/13/19 Telemedicine Az Watson MD [facility] 03/13/19 Office Visit Az Watson MD [facility] [place] 01/10/19 Office Visit Vickey Robbins APN, SPARMAKER [facility] [place] Showing recent visits within past 460 days with a meds authorizing provider and meeting all other requirements Future Appointments Date Type Provider Dept 02/11/20 Appointment Az Watson MD [facility] [place] 04/22/20 Appointment Az Watson MD [facility] [place] Showing future appointments within next 90 days with a meds authorizing provider and meeting all other requirements Refused Prescriptions Disp Refills famotidine (PEPCID) 20 MG Tablet [Pharmacy Med Name: FAMOTIDINE 20MG TABS] 60 Tab 3 Sig: TAKE ONE TABLET BY MOUTH TWICE A DAY Gastroenterology: Antiulcer - H2 Antagonists Passed - 02/09/2020 2:33 PM Passed - Valid encounter within last 12 months Past Office Visits Recent Outpatient Visits 1 week ago Hoarseness, chronic [facility] Az Watson MD 3 weeks ago Anxiety [facility] - Primary Care Az Watson MD 1 month ago Acute vaginitis [facility] Mary Beth Soriano, PAC 3 months ago Gastroesophageal reflux disease without esophagitis [facility] Az Watson MD 11 months ago Hyperlipidemia, unspecified hyperlipidemia type [facility] Az Watson MD Upcoming Appointments Future Appointments Tomorrow [facility]USTECH1; [facility] Tomorrow [facility] MD [facility], [facility] In 2 months Sony Hu DO [facility] - Gastroenterology, [facility] In 2 months Az Watson MD [facility] Medical [facility] - Primary Care, [facility] ELECTRICAL ENGINEERING DRAFTSPERSON - Recent and Past Visits Recent Visits Date Type Provider Dept 02/02/20 Office Visit Az Watson MD [facility] 01/19/20 Office Visit Az Watson MD [facility] 12/31/19 Office Visit Mary Beth Soriano, BENNIE [facility] 10/13/19 Telemedicine Az Watson MD [facility] 03/13/19 Office Visit Az Watson MD [facility] 01/10/19 Office Visit Vickey Robbins APN, SPARMAKER [facility] Showing recent visits within past 460 days with a meds authorizing provider and meeting all other requirements Future Appointments Date Type Provider Dept 02/11/20 Appointment Az Watson MD [facility] 04/22/20 Appointment Az Watson MD [facility] Showing future appointments within next 90 days with a meds authorizing provider and meeting all other requirements * Telephone Encounter - Afia Herman - 02/09/2020 12:11 PM CDT Pharmacy is needing a new script for this patients Famotidine. Pharmacy is only carrying 40 mg tablets of this at this time. I have pended Script for this medication. documented in this encounter Plan of Treatment Upcoming Encounters Date Type Department Care Team (Latest Contact Info) Description 10/16/2024 9:00 AM CDT Office Visit [facility] #2 [facility] [address] zA Watson MD #2 [facility] [address] [place] [address] 10/16/2024 10:00 AM CDT Ancillary Procedure [facility] [address] [place] [address] Az Watson MD #[address] [address] Discharge Disposition: Discharged to home or Selfcare 10/20/2024 9:00 AM CDT Office Visit [facility] #2 [facility] [address] Az Watson MD #[address] [address] 10/24/2024 10:30 AM CDT Office Visit [facility] #2 [place] [address] Emilio Sarabia MD #[address] [place] [address] documented as of this encounter Visit Diagnoses Not on filedocumented in this encounter Additional Health Concerns Infection Onset Date Last Indicated Resolved Time COVID - 19 06/11/2023 06/11/202306/21/2023 12:1 6 AM RESIDENT INSPECTOR Assessment Noted Time PHQ-9 Depression Total Score: 2 12/31/19 20 10:12 AM CDT documented as of this encounter Care Teams Clam Sorter Relationship Specialty Start Date End Date Az Watson MD #2 [facility] [address] [place] [address] PCP - General Family Medicine 05/03/15 Cain Lria MD [address] [place] [address] Obstetrics & Gynecology 02/15/17 Francoise Tompkins RN [place] Director Pharmacy Services 09/06/21 04/06/22 Claribel Sierra LSW [place] Director Pharmacy Services 09/09/21 04/06/22 Trisha Cook APRN, SPARMAKER #2 [place] [address] Nurse Practitioner Advanced Practice Nurse 11/29/22 Golden Napier MD #2 [facility] [address] [place] [address] Consulting Physician Colon and Rectal Surgery 08/13/23 Emilio Sarabia MD #2 [facility] [address] [place] [address] Consulting Physician Urology 09/11/23 documented as of this encounter
--- OUTSIDE RECORDS SUMMARY | 2024-10-06 11:18 | XMS_ITS | Encounter Summary ---
Author Organization [facility] Address [address] [place] [address] Phone Care Team Providers Care Chemistry Instructor Name Role Phone Az Watson MD Primary Care Provider [phone] Cain Lira MD Unavailable [phone] Francoise Tompkins RN Unavailable Unavailable Claribel Sierra Unavailable Unavailab Trisha Houston APRN, TEACHER HEARING IMPAIRED Unavailable Golden Napier MD Unavailable Emilio Sarabia MD Unavailable [phone] Reason for Visit * Reason Comments Medication Refill Encounter Details Date Type Department Care Team (Late st Contact Info) Description 11/14/2021 Refill [facility] [place] #2 [place] [id number] Mine Rivera Nikki, PAC [address] [place] [address] Medication Refill Social History Tobacco Use Types [...] encounter Miscellaneous Notes * Telephone Encounter - Itzel Monzon MA - 11/14/2021 1:23 PM CDT erroneous encounter documented in this encounter Plan of Treatment Upcoming Encounters Date Type Department Care Team (Latest Contact Info) Description 10/16/2024 9:00 AM CDT Office Visit [facility] #2 [place] [address] Az Watson MD #[address] [address] 10/16/2024 10:00 AM CDT Ancillary Procedure [facility] [address] [place] [address] Az Watson MD #[address] [address] Discharge Disposition: Discharged to home or Selfcare 10/20/2024 9:00 AM CDT Office Visit [facility] #2 [place] [address] Az Watson MD #2 [facility] [address] [place] [address] 10/24/2024 10:30 AM CDT Office Visit [facility] #2 [place] [address] Emilio Sarabia MD #2 [facility] [address] [place] [address] documented as of this encounter Visit Diagnoses Diagnosis Gastroesophageal reflux disease without esophagitis Esophageal reflux documented in this encounter Additional Health Concerns Infection Onset Date Last Indicated Resolved Time COVID - 19 06/11/2023 06/11/2023 06/21/2023 12:1 6 AM CLINICAL RECRUITER Assessment Noted Time PHQ-9 Depression Total Score: 4 09/02/19 21 8:46 AM CDT documented as of this encounter Care Teams Chemistry Instructor Relationship Specialty Start Date End Date Az Watson MD #2 [facility] [address] [place] [address] PCP - General Family Medicine 05/03/15 Cain Lira MD [address] [facility] [address] [facility] [address] [place] [address] Obstetrics & Gynecology 02/15/17 Francoise Tompkins RN [place] Electrician Substation Supervisor 09/06/21 04/06/22 Claribel Sierra LSW [place] Electrician Substation Supervisor 09/09/21 04/06/22 Trisha Cook APRN, TEACHER HEARING IMPAIRED #2 [place] [address] Nurse Practitioner Advanced Practice Nurse 11/29/22 Golden Napier MD #2 [facility] [address] [place] [address] Consulting Physician Colon and Rectal Surgery 08/13/23 Emilio Sarabia MD #2 [facility] [address] [place] [address] Consulting Physician Urology 09/11/23 documented as of this encounter
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
--- OUTSIDE RECORDS SUMMARY | 2024-10-06 11:18 | XMS_ITS | Encounter Summary ---
Author Organization [facility] Address [address] [place] [address] Phone Care Team Providers Care Ignition Mechanic Name Role Phone Az Watson MD Primary Care Provider [phone] Cain Lira MD Unavailable [phone] Francoise Tompkins RN Unavailable Unavailable Claribel Sierra Unavailable Unavailab Trisha Houston APRN, HUMAN SERVICES INSTRUCTOR Unavailable Golden Napier MD Unavailable Emilio Sarabia MD Unavailable [phone] Reason for Visit * Reason Comments Medication Refill Encounter Details Date Type Department Care Team (Late st Contact Info) Description 02/10/2022 Refill [facility] - [facility]ology - [place] [address] [place] [id number] Mine Rivera Nikki, PAC [address] [place] [address] Medication Refill Social History Tobacco Use Types [...] encounter Miscellaneous Notes * Telephone Encounter - Mine Rivera PAC - 02/14/2022 12:22 PM CDT Refer to telephone note of 02/08/2022 * Telephone Encounter - Alta Rucker RN - 02/14/2022 11:41 AM CDT Pharmacy requesting refill of: Requested Prescriptions Pending Prescriptions Disp Refills ??? esomeprazole (NexIUM) 40 MG CAPSULE DELAYED RELEASE [Pharmacy Med Name: ESOMEPRAZOLE MAGNESIUM 40MG CPDR] 90 Capsule 0 Sig: TAKE ONE CAPSULE BY MOUTH EVERY DAY Last fill: 12/13/2021 Patients last OV with GI: 06/30/2021 Next Office Visit with GI: None scheduled. Nexium order pended, please review. documented in this encounter Plan of Treatment Upcoming Encounters Date Type Department Care Team (Latest Contact Info) Description 10/16/2024 9:00 AM CDT Office Visit [facility] - Family Medicine [facility] [address] [place] [address] Az Watson MD [address] [address] 10/16/2024 10:00 AM CDT Ancillary Procedure [facility] [address] [place] [address] Az Watson MD [address] [facility] [address] [place] [address] Discharge Disposition: Discharged to home or Selfcare 10/20/2024 9:00 AM CDT Office Visit [facility] - Family Medicine [facility] [address] [place] [address] Az Watson MD [address] [facility] [address] [place] [address] 10/24/2024 10:30 AM CDT Office Visit [facility] [address] [place] [address] Emilio Sarabia MD [address]2 [facility] [address] [place] [address] documented as of this encounter Visit Diagnoses Diagnosis Gastroesophageal reflux disease without esophagitis Esophageal reflux documented in this encounter Additional Health Concerns Infection Onset Date Last Indicated Resolved Time COVID - 19 06/11/2023 06/11/2023 06/21/2023 12:1 6 AM DRIER AND PULVERIZER TENDER Assessment Noted Time PHQ-9 Depression Total Score: 4 09/02/19 21 8:46 AM CDT documented as of this encounter Care Teams Ignition Mechanic Relationship Specialty Start Date End Date Az Watson MD [address] [address] PCP - General Family Medicine 05/03/15 Cain Lira MD [address] [place] [address] Obstetrics & Gynecology 02/15/17 Tompkins, Francoise M, RN [place] Hot Dip Plater 09/06/21 04/06/22 Claribel Sierra LSW [place] Hot Dip Plater 09/09/21 04/06/22 Trisha Cook APRN, HUMAN SERVICES INSTRUCTOR [address] [place] [address] Nurse Practitioner Advanced Practice Nurse 11/29/22 Golden Napier MD [address]2 [facility] [address] [place] [address] Consulting Physician Colon and Rectal Surgery 08/13/23 Emilio Sarabia MD #2 [facility] [address] [place] [address] Consulting Physician Urology 09/11/23 documented as of this encounter
--- OUTSIDE RECORDS SUMMARY | 2024-10-06 11:18 | XMS_ITS | Encounter Summary ---
Author Organization [facility] Address [address] [place] [place] [address] Care Team Providers Care Storage Battery Inspector Name Role Phone Az Watson MD Primary Care Provider [phone] Encounter Details Date Type Department Care Team (Late st Contact Info) Description 04/23/2023 Lab Requisition [facility] - Pathology Lab [address] [place] [address] Josefa Ye MD [facility] [address] [address] Illness, unspecified Social History Tobacco Use Types Packs/Day Years Used Date Smoking Tobacco: Former Cigarettes 1 2015 Smokeless Tobacco: Never Alcohol Use Standard Drinks/Week Comments Not Currently 0 (1 standard drink = 0.6 oz pur e alcohol) Occasionally Comments No Sex and Gender Information Value Date Recorded Sex Assigned at Not on file Legal Sex Female 8:54 AM NUCLEAR POWER PLANT ENGINEER Gender Identity Not on file Sexual Orientation Not on file documented as of this encounter Functional Status * Is person deaf or have serious hearing difficulty? Answer Date of Assessment Author No 03/29/2022 10:57 AM Augusta Feldman RN * Is person blind or have serious difficulty seeing? Answer Date of Assessment Author No 03/29/2022 10:57 AM Augusta Feldman RN * Does person have serious difficulty walking/climbing stairs? Answer Date of Assessment Author Yes 03/29/2022 10:57 AM Augusta Feldman RN * Does person have difficulty dressing/bathing? Answer Date of Assessment Author Yes 03/29/2022 10:57 AM Augusta Feldman RN * Does person have difficulty doing errands alone? Answer Date of Assessment Author Yes 03/29/2022 10:57 AM Augusta Feldman RN documented as of this encounter Mental Status * Does person have difficulty concentrating/remembering/making decisions? Answer Entry Date Author No 03/29/2022 10:57 AM Augusta Feldman RN documented in this encounter Plan of Treatment Not on file documented as of this encounter Procedures Procedure Name Priority Date/Time Associated Diagnosis Comments BONE MARROW BIOPSY (STL) Routine 04/20/2023 8:12 AM NUCLEAR POWER PLANT ENGINEER Illness, unspecified documented in this encounter Results * BONE MARROW BIOPSY (STL) (04/20/2023 8:12 AM NUCLEAR POWER PLANT ENGINEER) Case Report Bone Marrow Patholog y Report Case: [id number] Authorizing Provider: Josefa Ye MD Collected: 04/20/2023 08:12 AM Ordering Location: [facility] Pathology Lab Received: 04/23/2023 01:06 PM Pathologist: Yannick Ahn MD Specimens: A) - Bone Marrow Core, Left iliac B) - Bone Marrow Clot 04/23/2023 2:57 PM NUCLEAR POWER PLANT ENGINEER [facility] PATHOLOGY LAB Final Diagnosis Bone marrow, aspirate, clot section, and core biopsy: - Mildly hypocellular marrow with maturing trilineage hematopoiesis and no evidence of lymphoma or high-grade myeloid neoplasm. - Hemodilute aspirate smear. - See description. Peripheral blood smear: - Normocytic anemia. - See description. 04/23/2023 2:57 PM [facility] PATHOLOGY [facility] Comment Correlation with genetics is recommended to assess for the possibility of a subtle myeloid stem cell disorder, that is not morphologically as evident. 04/23/2023 2:57 PM NUCLEAR POWER PLANT ENGINEER [facility] PATH[facility] Peripheral Smear Description RBC: normocytic anemia. WBC: normal in number and morphology. No dysplasia seen. Platelets:normal in number and morphology. 04/23/2023 2:57 PM [facility] Bone Marrow Aspirate Differential count (200 cells): not performed due to hemodilution. Specimen quality: hemodilute. Spicules: none. Mostly peripheral blood elements with occasional myeloid and erythroid precursor cells. 04/23/2023 2:57 PM [facility] Bone Marrow Core Biopsy and Clot Section Description Specimen quality: adequate with 1.7 cm of evaluable marrow. Cellularity: 30-40% Trilineage Hematopoiesis: present. Myeloid to Erythroid ratio: normal. Myeloid maturation and localization: normal. Erythroid maturation and localization: normal. Megakaryocyte number: normal. Megakaryocyte distribution: few small forms present Lymphoid aggregates: absent. Bone trabeculae: normal. Blood vessels: normal. Plasma cells: normal. Reticulin stain: mild reticulin fibrosis. Storage iron (by special stain): adequate. Sideroblastic iron (by special stain): no ring sideroblasts. Clot section marrow particles: absent. Clot section morphology: peripheral blood only. 04/23/2023 2:57 PM [facility] Flow Cytometry Summary Bone marrow, flow cytometric immunophenotypic analysis: - No evidence of a monoclonal B-cell population or increase in blasts 04/23/2023 2:57 PM [facility] Clinical History Anemia. 04/23/2023 2:57 PM [facility] Materials Received Received are 11 slide(s) and 2 blocks labeled [id number] along with a copy of the outside pathology report. The materials originate from [facility], [address] [place] [address]. All original materials are returned to the referring institution, along with a copy of our final report. 04/23/2023 2:57 PM [facility] Pathologist Location at [facility] 04/23/2023 2:57 PM [facility] Disclaimer The performance characteristics of all immunohistochemical and indirect immunofluorescence stains (if any) cited in this report were determined by the Histopathology Laboratory of [facility]. Some of these tests were developed by our own laboratory and have not been cleared or approved by the US Food and Drug Administration. The FDA does not require this test to go through premarket FDA review. These tests are used for clinical purposes. They should not be regarded as investigational or for research. This laboratory is certified under the Clinical Laboratory Improvement Amendments (CLIA) as qualified to perform high complexity clinical laboratory testing. This case has been personally reviewed and interpreted by the attending (teaching) pathologist. 04/23/2023 2:57 PM NUCLEAR POWER PLANT ENGINEER [facility] PATHOLOGY LAB Embedded Images 04/23/2023 2:57 PM NUCLEAR POWER PLANT ENGINEER [facility] LAB Pathology/Cytology BONE MARROW CLOT SPECIMEN / Unknown 04/20/2023 8:12 AM NUCLEAR POWER PLANT ENGINEER 04/23/2023 1:06 PM NUCLEAR POWER PLANT ENGINEER Miscellaneous samples (specimen) BONE MARROW CLOT SPECIMEN / Unknown 04/20/2023 8:12 AM NUCLEAR POWER PLANT ENGINEER 04/23/2023 1:06 PM NUCLEAR POWER PLANT ENGINEER us Josefa Ye MD LAB - PATHOLOGY/CYTOLOGY ORDERAB LES Final Result [facility] PATHOLOGY LAB [address] [phone] documented in this encounter Visit Diagnoses Diagnosis Illness, unspecified documented in this encounter Care Teams Storage Battery Inspector Relationship Specialty Start Date End Date Az Watson MD PCP - General 03/06/18 documented as of this encounter
--- OUTSIDE RECORDS SUMMARY | 2024-10-06 11:18 | XMS_ITS | Clinical Summary ---
Author Organization [facility] Address [address] [place] [address] Phone Care Team Providers Care Carburetor Expert Name Role Phone Az Watson MD Primary Care Provider [phone] Cain Lira MD Unavailable [phone] Trisha Cook APRN, DOPE FIRER Unavailable Golden Napier MD Unavailable Emilio Sarabia MD Unavailable [phone] Allergies Active Allergy Reactions Criticality Noted Date Comments Duloxetine Hcl Other (see Comments),Rash 2015 seizure Erythromycin Itching,Vomiting 09/24/2015 Gabapentin Hallucinations 01/22/2023 Clovis Rash High 06/30/2021 Lonicera Shortness of Breath High 12/25/2023 Honeysuckle Metoclopramide Hcl Other (see Comments) High 023 Tardive dyskinesia Pregabalin Other (see Comments) High 11/22/2022 Seizures Briseyda Hives,Itching 10/01/2024 Tetracycline Itching,Vomiting Medications estradiol (ESTRACE) 2 MG Tablet Take 1 Tablet by mouth daily. 015 Active Calcium Carb-Cholecalcife rol (CALCIUM 600 + D PO) Take 2 Tabs by mouth daily (with dinner). Active POTASSIUM CHLORIDE PO Take 1 Tab by mouth daily. Active Ascorbic Acid (VITAMIN C PO) Take by mouth. Active MAGNESIUM PO Take by mouth daily. Active zinc sulfate (ZINCATE) 220 (50 Zn) MG Capsule Take 220 mg by mouth 2 times daily. Active Pseudoephedrine HCl (SUDAFED PO)Indications:Ta winnie Sudafed D Take by mouth daily. Indications: Taking Sudafed D Active fluocinonide (LIDEX) 0.05 % Solution Active Misc. Devices MiscIndications:C hronic back pain greater than 3 months duration,Other spondylosis with radiculopathy, lumbar region Supply and instructions: Dispense 1 Standard Single Point Cane 1 Each Active Cholecalciferol (VITAMIN D3 PO) Take by mouth. Active Ibuprofen (MOTRIN IB PO) Take by mouth. Activ e multi-vitamins Tablet Take 1 Tablet by mouth every morning. Active Blood Glucose Monitoring Suppl (True Metrix Meter) w/Device Kit To check blood sugar daily. DX: E11.9 1 Kit Active Glucose Blood (True Metrix Blood Glucose Test) Strip Use as directed to check blood sugar daily. DX: E11.9 100 Strip 3 023 Active acetaminophen (TYLENOL) 325 MG Tablet Take 325 mg by mouth every 4 hours as needed. Active prednisoLONE acetate (PRED FORTE) 1 % Suspension 023 Active ketorolac, ophth, (ACULAR) 0.5 % Solution 023 Active carvedilol (COREG) 12.5 MG Tablet Take 12.5 mg by mouth daily. 023 Active oxyCODONE 10 MG TabletIndications :Chronic pain syndrome Take 1 Tablet by mouth every 6 hours as needed for Moderate or more severe pain. 42 Tablet 024 Active Diapers & Supplies Misc Use as directed 120 Each 11 024 Active Incontinence Supply Disposable MiscIndications:U rinary incontinence, unspecified type Use as directed 120 Each 11 024 Active Glucose Blood (OneTouch Verio) Strip Use to check glucose daily 100 Strip 3 024 Active Blood Glucose Monitoring Suppl (OneTouch Verio) w/Device Kit Use to check glucose daily 1 Kit Active docusate sodium (COLACE) 100 MG Capsule TAKE ONE CAPSULE BY MOUTH TWICE DAILY NEEDED FOR CONSTIPATION. 2ND LINE 60 Capsule 1 024 Active Additional Information Patient not taking.Reported on 10/01/2024 Lancets Misc Use as directed to check blood sugar daily Dx: E11.9 100 Lancet 3 024 Active mometasone (ELOCON) 0.1 % Solution Active hydrocortisone 2.5 % CreamIndications: Pruritus Apply 2 times daily. Application Site: Left wrist twice daily until healed (Description and Location) 30 g 024 Active Fenofibrate Micronized 134 MG CapsuleIndication s:Hyperlipidemia, unspecified hyperlipidemia type TAKE 1 CAPSULE BY MOUTH DAILY 90 Capsule 1 024 Active metFORMIN (GLUCOPHAGE) 500 MG TabletIndications :Controlled type 2 diabetes mellitus without complication, without long-term current use of insulin TAKE 1 TABLET BY MOUTH TWICE DAILY 180 Tablet 1 024 Active famotidine (PEPCID) 40 MG Tablet Take 0.5 Tablets by mouth 2 times daily. 90 Tablet 1 024 Active SUMAtriptan (IMITREX) 100 MG Tablet TAKE 1 TABLET BY MOUTH DAILY NEEDED FOR MIGRAINE OR HEADACHES DIRECTED, MAY REPEAT DOSE IN 2 HOURS IF HEADACHE RECCURS 9 Tablet 3 025 Active esomeprazole (NexIUM) 40 MG CAPSULE DELAYED RELEASEIndication s:Gastroesophagea l reflux disease without esophagitis TAKE ONE CAPSULE BY MOUTH DAILY 90 Capsule 1 025 Active rosuvastatin (CRESTOR) 10 MG TabletIndications :Hyperlipidemia, unspecified hyperlipidemia type Take 1 Tablet by mouth daily. 90 Tablet 1 025 Active Gemtesa 75 MG Tablet TAKE 1 TABLET BY MOUTH DAILY 90 Tablet 3 025 Active tiZANidine (ZANAFLEX) 4 MG Tablet Take 8 mg by mouth 3 times daily. 025 Active citalopram (CeleXA) 10 MG TabletIndications :Depression, unspecified depression type Take 1 Tablet by mouth daily. 30 Tablet 025 Active albuterol 108 (90 Base) MCG/ACT Aerosol SolutionIndicatio ns:SOB (shortness of breath) INHALE 2 PUFFS BY MOUTH EVERY 4 HOURS NEEDED FOR COUGH 8.5 g 1 025 Active senna-docusate (Stimulant Laxative) 8.6-50 MG Tablet Take 2 Tablets by mouth 2 times daily. 120 Tablet 2 025 Active ALPRAZolam (XANAX) 0.5 MG TabletIndications :Anxiety Take 1 Tablet by mouth 3 times daily as needed for Anxiety. 90 Tablet 025 Active divalproex (DEPAKOTE) 500 MG Tablet Delayed ResponseIndicatio ns:Depression, unspecified depression type TAKE 2 TABLETS BY MOUTH EVERY NIGHT 60 Tablet 025 Active fluticasone (FLONASE) 50 MCG/ACT Suspension SHAKE LIQUID AND USE 2 SPRAYS IN EACH NOSTRIL DAILY DIRECTED 16 g 3 025 Active oxybutynin (DITROPAN-XL) 10 MG TABLET SR 24 HR TAKE 1 TABLET BY MOUTH DAILY 90 Tablet 3 025 Active Acetaminophen (TYLENOL EXTRA STRENGTH PO) Take 1,000 mg by mouth 2 times daily. Active Multiple Vitamins-Minerals (CENTRUM SILVER PO) Take by mouth. Activ e citalopram (CeleXA) 10 MG Tablet Take 1 Tablet by mouth every morning. 90 Tablet 025 Active citalopram (CeleXA) 20 MG TabletIndications :anxiety Take 1 Tablet by mouth every morning. Indications: anxiety 90 Tablet 025 Active Mirtazapine (REMERON) 45 MG TabletIndications :Insomnia, unspecified type Take 1 Tablet by mouth nightly. 30 Tablet 025 Active traZODone (DESYREL) 150 MG TabletIndications :Insomnia, unspecified type Take 2 Tablets by mouth nightly. 60 Tablet 025 Active ondansetron (ZOFRAN) 4 MG Tablet TAKE 1 TO 2 TABLETS BY MOUTH EVERY 8 HOURS NEEDED FOR NAUSEA 90 Tablet 025 Active cycloSPORINE (Restasis MultiDose) 0.05 % Emulsion Place 1 Drop in both eyes 2 times daily. 30 Each 1 025 Active Multiple Vitamin (MULTI-VITAMIN PO) Take 1 Tablet by mouth daily. 2024 Discontinued oxybutynin (DITROPAN-XL) 10 MG TABLET SR 24 HR Take 1 Tablet by mouth daily. 90 Tablet 3 024 2024 Discontinued Restasis MultiDose 0.05 % Emulsion INSTILL 1 DROP INTO BOTH EYES TWICE DAILY 2024 Discontinued(R eorder) citalopram (CeleXA) 10 MG Tablet Take 1 Tablet by mouth every morning. 2024 Discontinued(R eorder) fluticasone (FLONASE) 50 MCG/ACT Suspension 2 Sprays by Nasal route daily. Use in each nostril as directed. 16 g 3 2024 Discontinued ondansetron (ZOFRAN) 4 MG Tablet TAKE 1 TO 2 TABLETS BY MOUTH EVERY 8 HOURS NEEDED FOR NAUSEA 90 Tablet 2024 Discontinued(R eorder) ALPRAZolam (XANAX) 0.5 MG TabletIndications :Anxiety Take 1 Tablet by mouth 3 times daily as needed for Anxiety. 90 Tablet 2024 Discontinued Mirtazapine (REMERON) 45 MG TabletIndications :Insomnia, unspecified type Take 1 Tablet by mouth nightly. 30 Tablet 2024 Discontinued(R eorder) traZODone (DESYREL) 150 MG TabletIndications :Insomnia, unspecified type Take 2 Tablets by mouth nightly. 60 Tablet 2024 Discontinued(R eorder) divalproex (DEPAKOTE) 500 MG Tablet Delayed ResponseIndicatio ns:Depression, unspecified depression type Take 2 Tablets by mouth nightly. 60 Tablet 2024 Discontinued citalopram (CeleXA) 20 MG TabletIndications :anxiety Take 1 Tablet by mouth every morning. Indications: anxiety 30 Tablet 025 2024 Discontinued(R eorder) fluconazole (DIFLUCAN) 150 MG Tablet Take 1 Tablet by mouth once for 1 dose. 1 Tablet 2024 Active Problems Problem Noted Date Diagnosed Date SOB (shortness of breath) 05/29/2024 History of cataract 08/05/2023 Terminal ileitis without complication 08/02/2023 Primary hypertension 07/25/2023 Bladder infection 07/17/2023 Migraine without aura and wi th status migrainosus, not intractable 05/08/2023 Rash 05/08/2023 Constipation 04/18/2023 Postmenopausal 04/18/2023 Hearing loss 12/25/2022 Iron deficiency anemia 12/14/2022 Anemia, normocytic normochromic 11/22/2022 Diabetic gastroparesis assoc iated with type 2 diabetes mellitus 11/10/2022 Esophageal thickening 04/23/2022 Abnormal thyroid ultrasound 04/23/2022 Major depressive disorder, recurrent episode, mi ld 02/22/2022 Chronic post-traumatic stress disorder (PTSD) Chronic back pain greater than 3 months duration 09/21/2021 S/P lumbar spinal fusion 09/21/2021 Gastroesophageal reflux disease 08/30/2021 Rectal bleeding 08/30/2021 Hemorrhoids 08/30/2021 Personal history of tobacco use, presenting hazards to health 01/31/2021 Frequent UTI 01/31/2021 History of bladder surgery 01/31/2021 Urinary incontinence 09/01/2020 Encounter for monitoring beta jeanette therapy PVC's (premature ventricular contractions) 09/01 Abnormal EKG 06/21/2020 Hair loss 02/26/2020 Nail deformity 02/26/2020 Thyroid nodule 02/26/2020 Hoarseness, chronic 02/02/2020 Irritable bowel syndrome 01/19/2020 Seasonal allergies 01/19/2020 Shortness of breath 01/19/2020 Vitamin D insufficiency 06/06/2017 Chronic joint pain 06/06/2017 Medically complex patient 06/06/2017 Migraine without aura and wi thout status migrainosus, not intractable 04/13/2017 Gastroesophageal reflux disease without esophagi tis 01/17/2017 Chronic pain syndrome 08/02/2016 History of colon polyps 08/02/2016 Chronic bilateral low back pain with sciatica Overactive bladder 04/27/2016 Anxiety 10/25/2015 Controlled type 2 diabetes m ellitus without complication, without long-term current use of insulin 10/25/2015 Insomnia 10/25/2015 Tobacco abuse 06/23/2015 Nausea with vomiting Epigastric abdominal pain Anxiety disorder Arthritis COPD (chronic obstructive pulmonary disease) Depression DM (diabetes mellitus) Overview (05/27/2015): Type 2 Hyperlipidemia Laryngopharyngeal reflux Vocal cord polyp Weight loss Resolved Problems Problem Noted Date Diagnosed Date Resolved Date Elevated liver enzymes 03/16/201803/16 Encounters Date Type Department Care Team Description 10/03/2024 Telephone [facility] [address] [place] [address] Az Watson MD Prior Authorization 10/01/2024 [facility] [place] [address] Az Watson MD Medication Refill 10/01/2024 Nurse Triage [facility] [address] [address] Az Watson MD Medication Problem; Abdominal Pain; Yeast Infection 09/25/2024 [facility] [place] [address] Az Watson MD Medication Refill 09/22/2024 [facility] [place] [address] Az Watson MD Medication Refill 09/21/2024 Refill [facility] [address] [place] [address] Emilio Sarabia MD Medication Refill 09/21/2024 [facility] [place] [address] Az Watson MD Medication Refill 09/15/2024 Telephone [facility] [address] [place] [phone] Az Watson MD Advice Only; Medication Management 09/05/2024 [facility] Triage [facility] [address] [place] [phone] Az Watson MD Advice Only; Cough; Pleurisy 09/05/2024 [facility] [place] [facility] [facility] [phone] Az Watson MD Prior Authorization 09/04/2024 [facility] [place] [address] [place] [phone] Az Watson MD Medication Refill 09/02/2024 [facility] [place] [address] [place] [phone] Az Watson MD Medication Refill 09/01/2024 Results [facility] [place] [address] [facility] [phone] Vickey Robbins APRN, DOPE FIRER URINALYSIS REFLEX IF INDICATED BY ABNORMAL RESULTS 09/01/2024 Telephone [facility] [address] [place] [phone] Emilio Sarabia MD 09/01/2024 Telephone [facility] [place] [phone] Az Watson MD 09/01/2024 [facility] [address] [place] [phone] Az Watson MD Advice Only 08/26/2024 [facility]ill [facility] [place] [address] Az Watson MD Medication Refill 08/25/2024 10:15 AM CDT Office Visit [facility] [place] [address] [facility] [address] Az Watson MD Depression, unspecified depression type (Primary Dx); Anxiety; Insomnia, unspecified type; Gross hematuria Discharge Disposition: Discharged to home or Selfcare 08/25/2024 Travel 08/25/2024 Telephone [facility] [place] [facility] [address] [place] [phone] Az Watson MD Appointment 08/23/2024 Refill [facility] [address] [place] [address] Emilio Sarabia MD Medication Refill 08/21/2024 [facility]ill [facility] [place] [address] Az Watson MD Medication Refill 08/01/2024 9:00 AM DEVELOPMENT EXECUTIVE Office Visit [facility] [address] [place] [address] Emilio Sarabia MD Frequent UTI (Primary Dx) Discharge Disposition: Discharged to home or Selfcare 08/01/2024 Travel 07/23/2024 Results Follow-Up [facility] [place] [address] [place] [address] Az Watson MD CBC WITH AUTO DIFFERENTIAL 07/21/2024 Refill [facility] [place] [address] [facility] [address] Az Watson MD Medication Refill 07/18/2024 Results Follow-Up [facility] [address] [place] [address] Teresa Holder, MERCHANDISE SUPPORT ASSOCIATE, DOPE FIRER XR CHEST 2 VIEWS 07/15/2024 [facility]phone [facility] [address] [place] [address] Az Watson MD Form Completion 07/11/2024 10:33 AM DEVELOPMENT EXECUTIVE - 07/11/2024 11:59 PM DEVELOPMENT EXECUTIVE [facility] [address] [place] [address] Oemeryl, Teresa Caicedo, MERCHANDISE SUPPORT ASSOCIATE, DOPE FIRER Discharge Disposition: Discharged to home or Selfcare 07/11/2024 9:30 AM DEVELOPMENT EXECUTIVE [facility] [place] [facility] [place] [address] Gallo, Teresa Caicedo, MERCHANDISE SUPPORT ASSOCIATE, DOPE FIRER Preoperative clearance (Primary Dx) Discharge Disposition: Discharged to home or Selfcare 07/11/2024 [facility]phone [facility] [address] [place] [phone] Az Watson MD Form Completion 07/11/2024 Travel 07/10/2024 [facility]ill [facility] [place] [address] Az Watson MD Medication Refill from Last 3 Months Immunizations Immunization Administration Dates Next Due Influenza Vaccine 02/27/2016,02/18/2015 Influenza Vaccine greater than 3 yrs 08/2020,03/02/2017,02/28/2016,02/0902/27/2017 Influenza Vaccine less than 3 yrs 02/27/2019 Influenza Vaccine, MDCK,quad rivalent, pres free 02/20/2023 Influenza Vaccine, Quadrivalent, PF 02/25/2020,0 02/27/2019,03/02/2018 Influenza Vaccine,quadrivale nt Less Than 3s 02/10/2022 Influenza, Injectable, Mdck, Preservative Free 02/20/2023 Influenza, Injectable, Quadrivalent 02/27/2019 Influenza, Seasonal, Injecta ble, Undefined 02/11/2021,03/01/2017,02/28/2016,02/09,02/19/2014,02/18/2013 Influenza,Split Virus,Trivalent,Injectable,PF 02/19/2024 PNEUMONIA ADULT IM [id number] 02/23/2015 Pneumococcal Vaccine Adult - 23 Valent 02/25/2020,02/23/2015,02/18/2015 Pneumococcal conjugate PCV20 , polysaccharide [id number] conjugate, adjuvant, PF 09/19/2022 RSV, Bivalent, Protein Subun it Rsvpref, Diluent Reconstit (Abrysvo) 11/27/2023 TDAP Vaccine 02/18/2015,02/18/2013 Zoster Vaccine Recombinant 03/29/2018,12/10/2017 Family History Medical History Relation Name Comments ADD / ADHD Brother No Known Problems Daughter 1 Depression Daughter 2 Post pardum Drug Abuse Daughter 2 Dementia Father Other-comment Father A-FIB Cancer Maternal Aunt Depression Maternal Aunt Heart Attack Maternal Grandfather Abdominal Aortic Aneurysm Maternal Grandmother Diabetes Maternal Grandmother Hypertension Maternal Grandmother Stroke Maternal Grandmother Diabetes Mother Hypertension Mother Depression Paternal Aunt No Known Problems Paternal Grandfather Cancer Paternal Grandmother Thyroid Disease Sister Relation Name Status Comments Brother Alive Daughter 1 Alive Daughter 2 Father Maternal Aunt Maternal Grandfather Maternal Grandmother Mother Alive Paternal Aunt Paternal Grandfather Paternal Grandmother Sister Alive Social History Tobacco Use Types Packs/Day Years Used Date Smoking Tobacco: Former Cigarettes 1 39 1 977 - 06/18/2015 Smokeless Tobacco: Never Tobacco Cessation:Counseling Given: Yes Alcohol Use Standard Drinks/Week Comments Not Currently 0 (1 standard drink = 0.6 oz pur e alcohol) last 2011 [facility] Utilities Answer Date Recorded In the past 12 months has [employer], gas, oil, or water [employer] threatened to shut off services in your home? Patient declined 02/19/2024 Social Connection and Isolation Panel [NHANES] A nswer Date Recorded In a typical week, how many times do you talk on the phone with family, friends, or neighbors? Patient declined 02/19/2024 How often do you get togethe r with friends or relatives? Patient declined 02/19/2024 How often do you attend shinto or quaker serv ices? Patient declined 02/19/2024 Do you belong to any clubs o r organizations such as shinto groups, unions, fraternal or athletic groups, or [...] Total Score - Questions 1-9 2 08/09 [facility] - Occupational Stress [...] any time in the past 12 m [facility], were you homeless or living in a chcf (including now)? Patient declined 02/19/2024 Education Answer [...] Sign Reading Time Taken Comments Blood Pressure 132/70 08/25/2024 10:02 AM CDT Pulse 89 08/25/2024 10:02 AM CDT Temperature 36.2 C (97.1 F) 08/25/2024 10:02 AM CDT Respiratory Rate 18 08/01/2024 8:48 AM DEVELOPMENT EXECUTIVE Oxygen Saturation 98% 08/25/2024 10:02 AM CDT Inhaled Oxygen Concentration - - Weight 61.2 kg (135 lb) 08/25/2024 10:02 AM CDT Height 162.6 cm (5' 4 ) 08/25/2024 10:02 AM CDT Body Mass Index 23.17 08/25/2024 10:02 AM CDT Plan of Treatment Upcoming Encounters Date Type Department Care Team (Latest Contact Info) Description 10/16/2024 9:00 AM CDT [facility] [address] [place] [address] zA Watson MD [address] [address] 10/16/2024 10:00 AM CDT [facility]illary [facility] [address] [place] [address] Az Watson MD [address]2 [facility] [address] [place] [address] Discharge Disposition: Discharged to home or Selfcare 10/20/2024 9:00 AM CDT Office [facility] [address] [place] [address] Az Watson MD #2 [facility] [address] [place] [address] 10/24/2024 10:30 AM CDT Office Visit [facility] [address] [place] [address] Emilio Sarabia MD #[address] [address] Health Maintenance Due Date Last Done Comments Colonoscopy 2008 Immunochemical Fecal Occult Blood 2013 SARS-COV-2 Immunization () 02/10/2024 Diabetes: Nephropathy Screening 02/29/2024 02/28/2023, 11/22/2022, 10/27/2022, Additional history exists Lung Cancer Screening 04/23/2024 04/23/2023 , 03/14/2022, 03/10/2021, Additional history exists Diabetes: Hemoglobin A1c 11/27/2024 024, 09/12/2023, 02/07/2023, Additional history exists Mammogram 01/20/2025 01/21/2024, 01/09, 03/15/2023, Additional history exists Diabetes: Foot Exam 02/14/2025 02/15/2024, 06/15/2023, 03/02/2023 Td Immunization Every 10 Years (Adults With 1 Tdap) 02/18/2025 02/18/2015, 02/18/2013 Diabetes: Eye Exam 04/16/2025 04/16/2024, 1 , 02/25/2024, Additional history exists Cologuard 04/25/2025 04/25/2022, 03/26/2019 Colorectal Cancer Screening 04/25/2025 Postponed from 04/25/2025 (Lower Priority for Now) Zoster Immunization Completed 03/29/2018, 8 Hepatitis C Virus (HCV) Screening Completed 09/13/2018 Pneumococcal Immunization (50+ years) Completed 09/19/2022, 02/25/2020, 02/23/2015, Additional history exists Pneumococcal Immunization Combined Discontinued 09/19/2022, 02/25/2020, 02/23/2015, Additional history exists Respiratory Syncytial Virus (RSV) Immunization (Adult) Completed 11/27/2023 Influenza Immunization Completed , 02/20/2023, 02/20/2023, Additional history exists Hepatitis B Immunization Aged Out No longer eligible based on patient's age to complete this topic Meningococcal Immunization (ACWY) Aged Out No longer eligible based on patient's age to complete this topic Rotavirus Immunization Aged Out No lo nger eligible based on patient's age to complete this topic Goals Goal Patient Goal Type Associated Problems Recent Progress Patient-Stated? Author Behavioral Health Behavioral Health On track( 022 8:46 AM DEVELOPMENT EXECUTIVE) Yes Betsy Butts, GUT PULLER Note: I need to be able to [...] at least 1x/month at least 6 sessions Procedures Procedure Name Priority Date/Time Associated Diagnosis Comments NEUROSURGY CONSULT 09/04/2024 12 :00 AM CDT URINALYSIS REFLEX IF INDICATED BY ABNORMAL RESULTS Routine 09/01/2024 9:22 AM CDT Gross hematuria URINALYSIS REFLEX IF INDICATED BY ABNORMAL RESULTS Routine 08/01/2024 9:06 AM DEVELOPMENT EXECUTIVE Frequent UTI CULTURE, URINE Routine 08/01/2024 9:06 AM DEVELOPMENT EXECUTIVE Frequent UTI XR CHEST 2 VIEWS Routine 07/11/2024 11:0 0 AM DEVELOPMENT EXECUTIVE Preoperative clearance CBC WITH AUTO DIFFERENTIAL Routine 07/11/2024 10:16 AM DEVELOPMENT EXECUTIVE Preoperative testing COMPLETE BLOOD COUNT (CBC) WITH DIFF Routine 07/11/2024 10:16 AM DEVELOPMENT EXECUTIVE Preoperative testing HEMOGLOBIN A1C W/ ESTIMATED GLUCOSE Routine 05/29/2024 9:22 AM DEVELOPMENT EXECUTIVE Controlled type 2 diabetes mellitus without complication, without long-term current use of insulin (HCC) HM DILATED EYE EXAM 04/16/2024 1 2:00 AM DEVELOPMENT EXECUTIVE PODIATRY CONSULT 02/15/2024 12:0 0 AM CDT MAMMOGRAM BILATERAL GENERIC 01/21/2024 12:[address] CHEST SCREENING WO Routine 04/23/2023 8:29 AM DEVELOPMENT EXECUTIVE Personal history of tobacco use, presenting hazards to health CMP (COMPREHENSIVE METABOLIC PANEL) Routine 02/28/2023 8:56 AM CDT Iron deficiency anemia, unspecified iron deficiency anemia type COLOGUARD Routine 04/25/2022 7:29 AM DEVELOPMENT EXECUTIVE Screening for colon cancer HEPATITIS C ANTIBODY Routine 09/13/2018 8:42 AM CDT Encounter for hepatitis C screening test for low risk patient from Last 3 Months or Most Recently Relevant to Health Maintenance Results * NEUROSURGY CONSULT (09/04/2024 12:00 AM CDT) 09/04/2024 Az Watson MD GENERIC SCAN ORDERS CONSU LT Final Result SCAN * (ABNORMAL) URINALYSIS REFLEX IF INDICATED BY ABNORMAL RESULTS (09/01/2024 9:22 AM CDT) Only the most recent of2 resultswithin the time period is included. SPECIFIC GRAVITY 1.015 1.003 - 1.030 09/01/2024 12:34 PM CDT [facility] UR[facility] PH 8.0 5.0 - 9.0 09/01/2024 12:34 PM CDT [facility] WBC ESTERASE Negative Negative 09/01/2024 12:34 PM CDT [facility] NITRITE Negative Negative 09/01/2024 12:34 PM CDT [facility] PROTEIN, RANDOM URINE 15 mg/dL(A) Negative 09/01/2024 12:34 PM CDT [facility] GLUCOSE, QUAL Negative Negative 09/01/2024 12:34 PM CDT [facility] URINE KETONES Negative Negative 09/01/2024 12:34 PM CDT [facility] UROBILINOGEN Normal Normal mg/dL 09/01/2024 12:34 PM CDT [facility] URINE BLOOD Negative Negative duc/ul 09/01/2024 12:34 PM CDT [facility] URINALYSIS COLOR Yellow 09/02/19 12:34 PM CDT [facility] URINALYSIS CLARITY Clear 09/01/2024 12:34 PM CDT [facility] Urine URINE SPECIMEN OBTAINED BY CLEAN CATCH PROCEDURE / Unknown Non-Phlebotomy Collection / Unknown 09/01/2024 9:22 AM CDT 09/01/2024 9:22 AM CDT us Vickey Robbins MERCHANDISE SUPPORT ASSOCIATE, DOPE FIRER URINE ORDERABLES Final Result Performing Organization Address City/[facility]/ZIP Co de Phone Number [facility] [address] [place] [address] * CULTURE, URINE (08/01/2024 9:06 AM DEVELOPMENT EXECUTIVE) CULTURE RESULTS Mixed Growth of One or More Distal Urethral Contaminants 08/02/2024 10:15 PM DEVELOPMENT EXECUTIVE [facility] Culture URINE SPECIMEN OBTAINED BY CLEAN CATCH PROCEDURE / Unknown Non-Phlebotomy Collection / Unknown 08/01/2024 9:06 AM DEVELOPMENT EXECUTIVE 08/01/2024 9:06 AM DEVELOPMENT EXECUTIVE us Emilio Cobos MD MICROBIOLOGY - GENERAL ORDERAB LES Final Result Performing Organization Address [facility] Co de Phone Number [facility] [address] [place] [address], [place] * XR CHEST 2 VIEWS (07/11/2024 11:00 AM DEVELOPMENT EXECUTIVE) Anatomical Region Laterality Modality Chest N/A Digital Radiogra phy 07/14/2024 7:39 AM DEVELOPMENT EXECUTIVE Impressions 07/14/2024 7:41 AM DEVELOPMENT EXECUTIVE IMPRESSION: No acute cardiopulmonary abnormality. Narrative 07/14/2024 7:41 AM DEVELOPMENT EXECUTIVE EXAM DESCRIPTION: XR CHEST 2 VIEWS REASON FOR STUDY: Pre operative examination for C5-C6, C6-C7 cervical spine fusion on 07/18/2024-no chest complaints- chronic shortness of breath with exertion- HX ex smoker TECHNIQUE: 2 radiographic view(s) of the chest. COMPARISON: None FINDINGS: No consolidation, pulmonary edema, pleural effusion or pneumothorax. Heart size and mediastinal contours are normal. Cervical instrumentation. THIS IS AN ELECTRONICALLY VERIFIED FINAL REPORT 07/14/2024 7:39 AM - Electronically signed by Daniel Burgess M.D. AG: KATHY Report ID: [id number] Reading Location: [id number] Procedure Note Daniel Burgess MD - 07/14/2024 EXAM DESCRIPTION: XR CHEST 2 VIEWS REASON FOR STUDY: Pre operative examination for C5-C6, C6-C7 cervical spine fusion on 07/18/2024-no chest complaints- chronic shortness of breath with exertion- HX ex smoker TECHNIQUE: 2 radiographic view(s) of the chest. COMPARISON: None FINDINGS: No consolidation, pulmonary edema, pleural effusion or pneumothorax. Heart size and mediastinal contours are normal. Cervical instrumentation. THIS IS AN ELECTRONICALLY VERIFIED FINAL REPORT 07/14/2024 7:39 AM - Electronically signed by Daniel Burgess M.D. AG: AG Report ID: [id number] Reading Location: [id number] IMPRESSION: No acute cardiopulmonary abnormality. September N Oehl MERCHANDISE SUPPORT ASSOCIATE, DOPE FIRER IMG DIAGNOSTIC ORDERABLES Final Result * (ABNORMAL) CBC WITH AUTO DIFFERENTIAL (07/11/2024 10:16 AM DEVELOPMENT EXECUTIVE) WBC 7.57 4.00 - 12.00 10(3)/mcL 07/11/2024 11:21 AM DEVELOPMENT EXECUTIVE [facility] RBC 3.65(L) 3.80 - 5.30 10(6)/mcL 07/11/2024 11:21 AM [facility] HEMOGLOBIN (HGB) 11.1(L) 12.0 - 15.8 g/dL 07/11/2024 11:21 AM [facility] HEMATOCRIT (HCT) 33.7(L) 36.0 - 47.0 % 07/11/2024 11:21 AM [facility] MCV 92.3 82.0 - 96.0 fL 07/11/2024 11:21 AM [facility] MCH 30.4 26.0 - 34.0 pg 07/11/2024 11:21 AM [facility] MCHC 32.9 31.0 - 36.0 g/dL 07/11/2024 11:21 AM [facility] PLATELET COUNT 249 140 - 440 10(3)/[facility] [place] 07/11/2024 11:21 AM [facility] RDW 11.8 11.8 - 15.5 % 07/11/2024 11:21 AM [facility] MPV 9.5(L) 9.7 - 12.4 fL 07/11/2024 11:21 AM [facility] NEUTROPHILS 69.7 47.0 - 73.0 % 07/11/2024 11:21 AM [facility] LYMPHOCYTES 21.3 18.0 - 42.0 % 07/11/2024 11:21 AM [facility] MONOCYTES 7.4 4.0 - 12.0 % 07/11/2024 11:21 AM [facility] EOSINOPHILS 1.6 0.0 - 5.0 % 07/11/2024 11:21 AM [facility] BASOPHILS 0.0 0.0 - 1.0 % 07/11/2024 11:21 AM [facility] ABSOLUTE NEUTROPHILS 5.28 1.60 - 7.70 10(3)/[facility] [place] 07/11/2024 11:21 AM [facility] ABSOLUTE LYMPHOCYTES 1.61 1.30 - 3.20 10(3)/[facility] [place] 07/11/2024 11:21 AM [facility] ABSOLUTE MONOCYTES 0.56 0.20 - 1.00 10(3)/[facility] [place] 07/11/2024 11:21 AM [facility] ABSOLUTE EOSINOPHIL 0.12 0.00 - 0.40 10(3)/[facility] [place] 07/11/2024 11:21 AM [facility] ABSOLUTE BASOPHILS 0.00 0.00 - 0.10 10(3)/[facility] [place] 07/11/2024 11:21 AM [facility] NRBC PER 100 WBC 0 07/11/19 11:21 AM [facility] Blood Venipuncture / Unknown 07/11/2024 10:16 AM DEVELOPMENT EXECUTIVE 07/11/2024 11:14 AM DEVELOPMENT EXECUTIVE Az Watson MD HEMATOLOGY ORDERABLES Fin al Result Performing Organization Address [facility] Co de Phone Number [facility] [address] [place] [address] * HEMOGLOBIN A1C W/ ESTIMATED GLUCOSE (05/29/2024 9:22 AM DEVELOPMENT EXECUTIVE) HGB-A1C 5.4 4.0 - 6.0 % 05/29/2024 12:36 PM DEVELOPMENT EXECUTIVE [facility] Est Average Glucose 108.3 mg/dL 05/29/2024 12:36 PM DEVELOPMENT EXECUTIVE [facility] Blood Venipuncture / Unknown 05/29/2024 9:22 AM DEVELOPMENT EXECUTIVE 05/29/2024 9:22 AM DEVELOPMENT EXECUTIVE Narrative [facility] - 05/29/2024 12:36 PM DEVELOPMENT EXECUTIVE HEMOGLOBIN A1C: DIABETIC PATIENTS: WELL-CONTROLLED: 6.2 - 7.0 INTERMEDIATE WELL-CONTROLLED: 7.0 - 9.0 POORLY-CONTROLLED: >9.0 Result [facility] Az Watson MD CHEMISTRY ORDERABLES Pretty l Result Performing Organization Address [facility] de Phone Number [facility] [address] [place] [address] * HM DILATED EYE EXAM (04/16/2024 12:00 AM DEVELOPMENT EXECUTIVE) 04/16/2024 us Provider Scan PROCEDURE/MINOR SURGICAL ORDERAB LES Final Result Performing Organization Address [facility] Co de Phone Number SCAN * PODIATRY CONSULT (02/15/2024 12:00 AM CDT) 02/15/2024 us Provider Scan GENERIC SCAN ORDERS CONSULT Pretty l Result SCAN * MAMMOGRAM BILATERAL MISCELLANEOUS (01/21/2024 12:00 AM CDT) 01/21/2024 us Provider Scan IMG MAMMO ORDERABLES Final Resul t SCAN * CT CHEST SCREENING WO (04/23/2023 8:29 AM DEVELOPMENT EXECUTIVE) Anatomical Region Laterality Modality Chest N/A Computed Tomogra phy 04/23/2023 8:51 AM DEVELOPMENT EXECUTIVE Impressions 04/23/2023 8:54 AM DEVELOPMENT EXECUTIVE IMPRESSION: Stable 2-3 mm lung nodules bilaterally. No new suspicious nodules. Fluid throughout the esophagus, predisposing to aspiration. Lung-RADS category 2: Benign appearance or behavior. Benign Recommendation: Low dose Screening CT of chest in 12 months. Narrative 04/23/2023 8:54 AM DEVELOPMENT EXECUTIVE EXAM DESCRIPTION: CT CHEST SCREENING WO REASON FOR STUDY: Screening CT of the chest in a former smoker with a 60 pack year smoking history. Additional history: The patient stopped smoking 7 years ago. TECHNIQUE: Low dose CT scan of the chest was performed without intravenous contrast using helical scanning technique. The exam extends from the lung apices through the lung bases. Automatic exposure control was used as a dose optimization technique. NOTE: This study was performed for the specific purposes of lung cancer screening and is not an alternative to diagnostic chest CT. RADIATION DOSE: CT dose index volume (CTDIvol) = 2.98 mGy COMPARISON: CT chest 03/14/2022 FINDINGS: SMOKING RELATED LUNG DISEASE: Minimal pulmonary emphysema. Mild biapical scarring. LUNG NODULES: Anterior right upper lobe 3 mm lung nodule, stable (series 5, image 59). Stable 3 mm right upper lobe subpleural nodule (112). Stable right middle lobe 3 mm nodule (155). Stable central left lower lobe 2 mm nodule (110). No new suspicious nodules are identified. CORONARY ARTERY CALCIFICATION: Severe coronary artery calcifications. OTHER: No focal consolidation, pneumothorax, or pleural effusion. The central airways are clear. No mediastinal mass. No thoracic lymphadenopathy. The heart is normal in size. No pericardial effusion. Mild atherosclerotic calcifications of the thoracic aorta. No thoracic aortic aneurysm. No acute fractures or suspicious osseous lesions. Fluid is noted throughout the esophagus. The visualized upper abdomen is normal. Buddy Lung THIS IS AN ELECTRONICALLY VERIFIED FINAL REPORT 04/23/2023 8:51 AM - Electronically signed by Buddy NARAYAN: SYLVAIN Report ID: [id number] Reading Location: [place] [address] Procedure Note Buddy Alejo MD - 04/23/2023 EXAM DESCRIPTION: CT CHEST SCREENING WO REASON FOR STUDY: Screening CT of the chest in a former smoker with a 60 pack year smoking history. Additional history: The patient stopped smoking 7 years ago. TECHNIQUE: Low dose CT scan of the chest was performed without intravenous contrast using helical scanning technique. The exam extends from the lung apices through the lung bases. Automatic exposure control was used as a dose optimization technique. NOTE: This study was performed for the specific purposes of lung cancer screening and is not an alternative to diagnostic chest CT. RADIATION DOSE: CT dose index volume (CTDIvol) = 2.98 mGy COMPARISON: CT chest 03/14/2022 FINDINGS: SMOKING RELATED LUNG DISEASE: Minimal pulmonary emphysema. Mild biapical scarring. LUNG NODULES: Anterior right upper lobe 3 mm lung nodule, stable (series 5, image 59). Stable 3 mm right upper lobe subpleural nodule (112). Stable right middle lobe 3 mm nodule (155). Stable central left lower lobe 2 mm nodule (110). No new suspicious nodules are identified. CORONARY ARTERY CALCIFICATION: Severe coronary artery calcifications. OTHER: No focal consolidation, pneumothorax, or pleural effusion. The central airways are clear. No mediastinal mass. No thoracic lymphadenopathy. The heart is normal in size. No pericardial effusion. Mild atherosclerotic calcifications of the thoracic aorta. No thoracic aortic aneurysm. No acute fractures or suspicious osseous lesions. Fluid is noted throughout the esophagus. The visualized upper abdomen is normal. Buddy Lung THIS IS AN ELECTRONICALLY VERIFIED FINAL REPORT 04/23/2023 8:51 AM - Electronically signed by Buddy Alejo M.D. KR: SYLVAIN Report ID: [id number] Reading Location: [id number] IMPRESSION: Stable 2-3 mm lung nodules bilaterally. No new suspicious nodules. Fluid throughout the esophagus, predisposing to aspiration. Lung-RADS category 2: Benign appearance or behavior. Benign Recommendation: Low dose Screening CT of chest in 12 months. Az Jhony Watson MD IMG CT ORDERABLES Final R esult * (ABNORMAL) CMP (COMPREHENSIVE METABOLIC PANEL) (02/28/2023 8:56 AM CDT) SODIUM 142 136 - 145 mmol/L 02/28/2023 1:13 PM CDT [facility] POTASSIUM 4.3 3.5 - 5.1 mmol/L 02/28/2023 1:13 PM CDT [facility] CHLORIDE 109(H) 98 - 107 mmol/L 02/28/2023 1:13 PM CDT [facility] CO2, VENOUS 27 22 - 30 mmol/L 02/28/2023 1:13 PM CDT [facility] ANION GAP 10.3 <18.0 mmol/L 02/28/2023 1:13 PM CDT [facility] GLUCOSE 98 70 - 99 mg/dL 02/28/2023 1:13 PM CDT [facility] BUN 24(H) 10 - 20 mg/dL 02/28/2023 1:13 PM CDT [facility] CREATININE, BLOOD 0.74 0.60 - 1.00 mg/dL 02/28/2023 1:13 PM CDT [facility] BUN/CREATININE RATIO 32(H) 12 - 20 ratio 02/28/2023 1:13 PM CDT [facility] TOTAL PROTEIN 6.6 6.3 - 8.2 g/dL 02/28/2023 1:13 PM CDT [facility] ALBUMIN 3.6 3.5 - 5.0 g/dL 02/28/2023 1:13 PM CDT [facility] A/G RATIO 1.2 1.0 - 2.2 02/28/2023 1:13 PM CDT [facility] CALCIUM 8.7 8.7 - 10.5 mg/dL 02/28/2023 1:13 PM CDT [facility] T BILI 0.3 0.2 - 1.2 mg/dL 02/28/2023 1:13 PM CDT [facility] SGOT (AST) 30 5 - 34 U/L 02/28/2023 1:13 PM CDT [facility] SGPT (ALT) 27 0 - 55 U/L 02/28/2023 1:13 PM CDT [facility] ALKALINE PHOSPHATASE 36(L) 40 - 150 U/L 02/28/2023 1:13 PM CDT [facility] IS THE PATIENT REQUIRED TO BE FASTING? No 02/28/2023 1:13 PM CDT [facility] GFR, ESTIMATED >60 >=60 02/28/2023 1:13 PM CDT [facility] Comment: Creatinine Clearance is the preferred criteria for selecting drug dose adjustments in renally impaired patients. The GFR is provided as additional pertinent clinical information. GFR is reported in mL/min/1.73 sq m. Calculation based on the Chronic Kidney Disease Epidemiology Collaboration (CKD- EPI) equation refit without adjustment for race. GFR, EST. >60 >=60 023 1:13 PM CDT [facility] GFR, EST. NONAFRICAN >60 >=60 02/28/2023 1:13 PM CDT [facility] Blood Venipuncture / Unknown 02/28/2023 8:56 AM CDT 02/28/2023 8:56 AM CDT Mine Rivera PAC CHEMISTRY ORDERABLES Pretty l Result [facility] [address] [place] [address] * COLOGUARD (04/25/2022 7:29 AM DEVELOPMENT EXECUTIVE) Cologuard Negative Negative [facility] Comment: NEGATIVE TEST RESULT. A negative Cologuard result indicates a low likelihood that a colorectal cancer (CRC) or advanced adenoma (adenomatous polyps with more advanced pre-malignant features) is present. The chance that a person with a negative Cologuard test has a colorectal cancer is less than 1 in 1500 (negative predictive value >99.9%) or has an advanced adenoma is less than 5.3% (negative predictive value 94.7%). These data are based on a prospective cross-sectional study of 10,000 individuals at average risk for colorectal cancer who were screened with both Cologuard and colonoscopy. (Carrie Izquierdo. et al, N Engl J Med 2014;370(14):2504-7055) The normal value (reference range) for this assay is negative. COLOGUARD RE-SCREENING RECOMMENDATION: Periodic colorectal cancer screening is an important part of preventive healthcare for asymptomatic individuals at average risk for colorectal cancer. Following a negative Cologuard result, the British Cancer Society and U.S. Multi-Society Task Force screening guidelines recommend a Cologuard re-screening interval of 3 years. References: British Cancer Society Guideline for Colorectal Cancer Screening: https://www.cancer.org/cancer/tzvrx-aywsjj-rfdwxh/ufhcylqvx-yjoxnqvjt-ooduffx/ acs-recommendations.html.; Jesus LESLIE, Betty SO, Edwardo LawtonK, Colorectal Cancer Screening: Recommendations for Physicians and Patients from the U.S. Multi-Society Task Force on Colorectal Cancer Screening , Am J Gastroenterology 2017; 112:6851-7424. TEST DESCRIPTION: Composite algorithmic analysis of stool DNA-biomarkers with hemoglobin immunoassay. Quantitative values of individual biomarkers are not reportable and are not associated with individual biomarker result reference ranges. Cologuard is intended for colorectal cancer screening of adults of either sex, 45 years or older, who are at average-risk for colorectal cancer (CRC). Cologuard has been approved for use by the U.S. FDA. The performance of Cologuard was established in a cross sectional study of average-risk adults aged 50-84. Cologuard performance in patients ages 45 to 49 years was estimated by sub-group analysis of near-age groups. Colonoscopies performed for a positive result may find as the most clinically significant lesion: colorectal cancer [4.0%], advanced adenoma (including sessile serrated polyps greater than or equal to 1cm diameter) [20%] or non- advanced adenoma [31%]; or no colorectal neoplasia [45%]. These estimates are derived from a prospective cross-sectional screening study of 10,000 individuals at average risk for colorectal cancer who were screened with both Cologuard and colonoscopy. (Carrie Donahue et al, N Engl J Med 2014;370(14):8874-1017.) Cologuard may produce a false negative or false positive result (no colorectal cancer or precancerous polyp present at colonoscopy follow up). A negative Cologuard test result does not guarantee the absence of CRC or advanced adenoma (pre-cancer). The current Cologuard screening interval is every 3 years. (British Cancer Society and U.S. Multi-Society Task Force). Cologuard performance data in a 10,000 patient pivotal study using colonoscopy as the reference method can be accessed at the following location: www.haystagg/results. Additional description of the Cologuard test process, warnings and precautions can be found at www.EnlightedogShakard.com. Stool 04/25/2022 7:29 AM DEVELOPMENT EXECUTIVE 04/26/2022 12:31 PM DEVELOPMENT EXECUTIVE us Vickey Robbins APRN DOPE FIRER BODY FLUIDS & ST OOLS ORDERABLES Final Result [facility], [facility] [address] [place] [address], [facility] [address] [place] [address] * HEPATITIS C ANTIBODY (09/13/2018 8:42 AM CDT) hepatitis C antibody 0.12 <1 S/CO 09/13/2018 9:49 PM CDT [facility] Comment: Signal/Cutoff ratio < 0.79 is Nondetected Signal/Cutoff ratio 0.80-0.99 is Grayzone Signal/Cutoff ratio > 0.99 is Detected Supplemental assays are recommended if signal/cutoff ratio is >/=1.00. Signal/cutoff ratio result >/= 5.00 is 97% predictive of positivity for recombinant immunoblot assay (RIBA) and will be reported to the [place] Department of Public Health as required. Blood specimen (specimen) Venipuncture / Unknown 09/13/2018 8:42 AM CDT 09/13/2018 8:42 AM CDT us Az Watson MD CHEMISTRY ORDERABLES Pretty cervantes Result [facility] [address] [place] [address], from Last 3 Months or Most Recently Relevant to Health Maintenance Insurance MEDICAID [place] MEDICARE C [facility] Advance Directives Documents on File Type Date Recorded Patient Fire Alarm Repairer Expl anation Advance Care Planning Discussion 01/14/2021 9:24 AM ACP Dicussion Record / 01/14/21 Power of Veneer Marker for Health Care 01/14/2021 9:23 AM POA-HC/ 8/6/21 Care Teams Carburetor Expert Relationship Specialty Start Date End Date Az Watson MD [facility] [address] [place] [address] PCP - General Family Medicine 05/03/15 Cain Lira MD [address] [place] [address] Obstetrics & Gynecology 02/15/17 Trisha Cook APRN, DOPE FIRER [address] [place] [address] Nurse Practitioner Advanced Practice Nurse 11/29/22 Golden Napier MD #2 [facility] [address] [place] [address] Consulting Physician Colon and Rectal Surgery 08/13/23 Emilio Sarabia MD #2 [facility] [address] [place] [address] Consulting Physician Urology 09/11/23
--- OUTSIDE RECORDS SUMMARY | 2024-10-06 11:18 | XMS_ITS | Encounter Summary ---
Author Organization [facility] Address [address] [facility] [facility] [place] [address] Care Team Providers Care Cardiology Physician Name Role Phone Az Watson MD Primary Care Provider [phone] Encounter Details Date Type Department Care Team (Late st Contact Info) Description 04/20/2023 Lab Requisition [facility] - Pathology Lab [address] [place] [address] Josefa Ye MD [facility] [address] [address] Anemia, unspecified Social History Tobacco Use Types Packs/Day Years Used Date Smoking Tobacco: Former Cigarettes 1 2015 Smokeless Tobacco: Never Alcohol Use Standard Drinks/Week Comments Not Currently 0 (1 standard drink = 0.6 oz pur e alcohol) Occasionally Comments No Sex and Gender Information Value Date Recorded Sex Assigned at Not on file Legal Sex Female 8:54 AM GLASS VIAL BENDING CONVEYOR FEEDER Gender Identity Not on file Sexual Orientation [...] Procedure Name Priority Date/Time Associated Diagnosis Comments FLOW CYTOMETRY BONE MARROW Routine 04/20/2023 8:10 AM GLASS VIAL BENDING CONVEYOR FEEDER Anemia, unspecified documented in this encounter Results * FLOW CYTOMETRY BONE MARROW (04/20/2023 8:10 AM GLASS VIAL BENDING CONVEYOR FEEDER) Case Report Flow Cytometry Case: [id number] Authorizing Provider: Josefa Ye MD Collected: 04/20/2023 08:10 AM Ordering Location: [facility] Pathology Lab Received: 04/20/2023 02:26 PM Pathologist: Augusta Hopson MD Specimen: Bone Marrow 04/20/2023 3:52 PM [facility] Final Diagnosis Bone marrow, flow cytometric immunophenotypic analysis: - No evidence of a monoclonal B-cell population or increase in blasts - See interpretation 04/20/2023 3:52 PM [facility] Flow Cytometry Interpretation Viability: 89% B-cells: polytypic, kappa:lambda ratio 1.4:1 Blasts: detected, 1.6% of events A bone marrow aspirate smear prepared from the flow cytometry specimen has been reviewed for quality control clerk purposes. 04/20/2023 3:52 PM [facility] Flow Cytometry Results Differential Result Comment Flow Cell Count /uL 8,400 Total Viability % 89.0 Lymphocytes % 48 Dim CD45 Region % 6 Monocytes % 15 Granulocytes % 31 04/20/2023 3:52 PM [facility] Reason for test Anemia, unspecified 285.9 04/20/2023 3:52 PM [facility] Client Specimen ID # [id number] 04/20/2023 3:52 PM [facility] Number of markers 10 were performed. A-2 Flow CD10 A-3 Flow CD13 A-5 Flow CD20 A-1 Flow CD5 A-4 Flow CD19 A-6 Flow CD33 A-7 Flow CD34 A-8 Flow CD45 A-9 [place]+CD19+ A-10 Lambda+CD19+ 04/20/2023 3:52 PM [facility] Pathologist Location at [facility] 04/20/2023 3:52 PM [facility] Disclaimer Test performed at [facility], [address] [place] [address], [address]. *The established laboratory minimum viability is 70%. Values below the minimum may result in the failure to find an abnormal population of cells. This test was developed and its performance characteristics determined by the Flow Cytometry Laboratory. It has not been cleared by the [place] Food and Drug Administration (FDA). The FDA has determined that such clearance or approval is not necessary. This test is used for clinical purposes. It should not be regarded as investigational or for research. This laboratory is regulated under the Clinical Laboratory Improvement Amendments of 1998 (CLIA) as a qualified to perform high complexity clinical testing. 04/20/2023 3:52 PM [facility] Embedded Images 3:52 PM [facility] Pathology/Cytolo gy BONE MARROW SPECIMEN / Unknown 04/20/2023 8:10 AM GLASS VIAL BENDING CONVEYOR FEEDER 04/20/2023 2:26 PM GLASS VIAL BENDING CONVEYOR FEEDER us Josefa Ye MD LAB - PATHOLOGY/CYTOLOGY ORDERAB LES Final Result [facility] [address] [place] [address], [facility] [phone] documented in this encounter Visit Diagnoses Diagnosis Anemia, unspecified documented in this encounter Care Teams Cardiology Physician Relationship Specialty Start Date End Date Az Watson MD PCP - General 03/06/18 documented as of this encounter
--- OUTSIDE RECORDS SUMMARY | 2024-10-06 11:18 | XMS_ITS | Clinical Summary ---
Author Organization [facility] [employer] Address [address] [place] [address] Care Team Providers Care Spacecraft Systems Engineer Name Role Phone Az Watson MD Primary Care Provider [phone] Source Comments [facility] [employer],non-owned Affiliates and Associated Physician Practices is amultiple site organization consisting of ambulatory clinics and hospital sitesin [place], [place], [place] and [place]. This disclosure is being madepursuant to the Care Everywhere program and may not contain all information available regarding this patient. Last updated 18.[facility] [employer] Allergies Active Allergy Reactions Criticality Noted Date Comments Codeine Urticaria 11/03/2009 Depakote GI Discomfort 11/06/2009 Blisters at the back of my head. Duloxetine Other,Rash,Seizures, Unkn own High 12/16/2015 seizure Reaction: Other reaction, seizure Erythromycin Urticaria 11/03/2009 Ocosta Rash High 06/30/2021 Blisters on back of head Prochlorperazine Unknown 01/03/2022 Symbyax Unknown 02/06/2017 Tetracycline Urticaria 11/03/2009 Medications * Be aware that medications may not be up to date on this document. Alwaysverify current medications with the patient. albuterol HFA (PROVENTIL;GAVIN TOLIN;PROAIR) 108 (90 BASE) MCG/ACT inhaler Inhale 2 Puffs by mouth 4 times daily as needed Active multivitamin daily (THERAGRAN) tablet Take 1 Tab by mouth daily with food. Active calcium-vitami n D (OS-GEMINI 500 + D) 500-200 MG-UNIT tablet Take 1 Tab by mouth daily. Active estradiol (ESTRACE) 2 MG tablet Take 2 mg by mouth daily. Active esomeprazole (NEXIUM) 40 MG capsule Take 40 mg by mouth 2 times daily. Active bepotastine (BEPREVE) 1.5 % ophthalmic solution Instill 1 Drop into both eyes 2 times daily. Active hydrocortisone (HYTONE) 1 % cream Apply to affected area 3 times daily. 0 0 0 Active diphenhydrAMIN E (BENADRYL) 25 MG capsule Take 25 mg by mouth 3 times daily Active fenofibrate micronized (LOFIBRA) 134 MG capsule Take 134 mg by mouth once daily 2 Active metFORMIN (GLUCOPHAGE) 500 MG tablet Take 500 mg by mouth 2 times daily with morning and evening meal Active Rosuvastatin Calcium 10 MG CPSP Take 1 tablet by mouth at bedtime Active citalopram (CELEXA) 10 MG tablet Take 30 mg by mouth once daily Active celecoxib (CELEBREX) 200 MG capsule Take 200 mg by mouth once daily Active ondansetron (ZOFRAN) 4 MG tablet Take 4 mg by mouth every 8 hours as needed Active mirtazapine (REMERON) 45 MG tablet Take 45 mg by mouth at bedtime Active traZODone (DESYREL) 150 MG tablet Take 2 tablets by mouth at bedtime Active naloxegol (MOVANTIK) 25 MG tablet Take 25 mg by mouth at bedtime Active tiZANidine HCl 4 MG Take 1 tablet by mouth 3 times daily Active ALPRAZolam (XANAX) 0.5 MG tablet Take 0.5 mg by mouth 3 times daily as needed Active Potassium 99 MG tablet Take 99 mg by mouth once daily Active magnesium 500 MG tablet Take 800 mg by mouth at bedtime 2 tablets Active oxybutynin CR 24hr (DITROPAN-XL) 10 MG tablet Take 10 mg by mouth once daily Active famotidine (Pepcid) 20 MG tablet Take by mouth 2 times daily Active SUMAtriptan (Imitrex) 100 MG tablet Take 100 mg by mouth daily as needed - may repeat one time for Migraine No more than 2 doses in 24 hours. Active fluticasone propionate (Flonase) 50 MCG/ACT nasal spray [place] 2 sprays into each nostril once daily Active ferrous gluconate 324 (38 Fe) MG tablet Take 500 mg by mouth once daily Active ascorbic acid (Vitamin C) 500 MG tablet Take 500 mg by mouth once daily Active vitamin D3 (Cholecalcifer ol) 10 MCG (400 UNIT) tablet Take 400 Units by mouth once daily 2 tablets Active pseudoephedrin e (Sudafed) 30 MG tablet Take 30 mg by mouth every 4 hours as needed for Nasal Congestion Active Magnesium Hydroxide (MILK OF MAGNESIA PO) Take 30 mg by mouth as needed Active phenazopyridin e (Pyridium) 100 MG tablet Take 100 mg by mouth 3 times daily as needed for Pain Active cephalexin (Keflex) 250 MG capsule Take by mouth 3 times daily Active naloxone HCl (Narcan) 4 MG/0.1ML nasal spray [place] 1 spray into the nose as needed Active acetaminophen (Tylenol) 500 MG tablet Take 1 (one) tablet by mouth every 6 hours as needed for Fever or Pain Maximum allowable Acetaminophen amount = 4 Grams (4000 mg) / 24 hours. 30 tablet 2 Active Active Problems Problem Noted Date Diagnosed Date Cough 11/03/2009 Family History Medical History Relation Name Comments Bipolar Disorder Brother Drug Abuse Brother Depression Father Alcohol abuse Maternal Grandfather Depression Mother Diabetes Mother Hypertension Mother Cancer Paternal Aunt Depression Paternal Aunt Drug Abuse Paternal Grandfather Cancer Paternal Grandmother Depression Paternal Grandmother Hypertension Paternal Grandmother Stroke Paternal Grandmother Relation Name Status Comments Brother Father Maternal Grandfather Mother Paternal Aunt Paternal Grandfather Paternal Grandmother Social History Tobacco Use Types Packs/Day Years Used Date Smoking Tobacco: Former Cigarettes 1 - 2015 Smokeless Tobacco: Never Tobacco Cessation:Counseling Given: Not Answered Alcohol Use Standard Drinks/Week Comments Not Currently 0 (1 standard drink = 0.6 oz pur e alcohol) Occasionally Comments No Sex and Gender Information Value Date Recorded Sex Assigned at Not on file Legal Sex 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 Gender Identity Not on file Sexual Orientation Not on file Last Filed Vital Signs Vital Sign Reading Time Taken Comments Blood Pressure 102/63 04/04/2022 2:06 PM CDT Pulse 49 04/04/2022 2:06 PM CDT Temperature 36.8 C (98.2 F) 03/29/2022 10:54 AM CDT Respiratory Rate 11 03/29/2022 11:13 AM CDT Oxygen Saturation 99% 03/29/2022 11:13 AM CDT Inhaled Oxygen Concentration - - Weight 60.8 kg (134 lb) 04/04/2022 2:06 PM CDT Height 162.6 cm (5' 4 ) 04/04/2022 2:06 PM CDT Body Mass Index 23 04/04/2022 2:06 PM CDT Plan of Treatment Health Maintenance Due Date Last Done Comments COLOGUARD (AGES 45-75) - COLON CA SCREENING 1963 COLON MONITORING 1963 COLONOSCOPY - COLON CA SCREENING 1963 CT COLONOGRAPHY - COLON CA SCREENING 1963 Colorectal Cancer Screening 1963 FIT - COLON CA SCREENING 1963 FLEX SIG - COLON CA SCREENING 1963 PAP SMEAR 1963 HIV SCREENING 1978 HEPATITIS C SCREENING 03/11/1981 DTAP/TDAP/TD VACCINES (1 - Tdap) 1982 LUNG CANCER SCREENING 2013 PNEUMOCOCCAL VACCINE 50+ (1 of 1 - PCV) 2013 ZOSTER VACCINE (1 of 2) 2013 COVID-19 VACCINE (1 - season) 2024 MAMMOGRAM 03/14/2024 03/14/2022 DEPRESSION SCREENING 06/11/2024 MEDICARE AWV CALENDAR YEAR 2024 INFLUENZA VACCINE (Season Ended) 2025 02/10/2022, 02/11/2021, 02/25/2020, Additional history exists Respiratory Syncytial Virus (RSV) Vaccine Pt: or over 60 yrs (1 - 1-dose 75+ series) 2038 HEPATITIS B VACCINE Aged Out No longe r eligible based on patient's age to complete this topic HIB VACCINE Aged Out No longer eligi ble based on patient's age to complete this topic HPV VACCINE Aged Out No longer eligi ble based on patient's age to complete this topic MENINGOCOCCAL (Group B) VACCINE SHARED DECISION-MAKING Aged Out No longer eligible based on patient's age to complete this topic MENINGOCOCCAL GROUPS A/C/Y/W VACCINE Aged Out No longer eligible based on patient's age to complete this topic Insurance MEDICAID - [facility] MEDICARE MEDICAID - [place] MEDICARE DUAL ADV [place] Advance Directives * Full Code (Latest Code Status on File) Date Activated Date Inactivated Comments 11/03/2009 8:39 PM 11/17/2009 10:15 PM Care Teams Spacecraft Systems Engineer Relationship Specialty Start Date End Date Az Watson MD PCP - General 03/06/18
--- OUTSIDE RECORDS SUMMARY | 2024-10-06 11:18 | XMS_ITS | Encounter Summary ---
Author Organization [facility] Address [address] [place] [address] Phone Care Team Providers Care Technical Administrative Assistant Name Role Phone Az Watson MD Primary Care Provider [phone] Cain Lira MD Unavailable [phone] Francoise Tompkins RN Unavailable Unavailable Claribel SierraW Unavailable Unavailab Trisha Houston APRN, SALOMON Unavailable Golden Napier MD Unavailable Emilio Sarabia MD Unavailable [phone] Reason for Visit * Reason Comments Medication Refill Encounter Details Date Type Department Care Team (Late st Contact Info) Description 03/31/2020 Refill [facility] [address] [place] [address] Az Watson MD [address] [address] Medication Refill Social History Tobacco Use Types Packs/Day Years Used Date Smoking Tobacco: Former Cigarettes 1 30 0 06/18/1985 - 06/18/2015 Smokeless Tobacco: Never Comments:quit may 2015 Alcohol Use Standard Drinks/Week Comments No 0 (1 standard drink = 0.6 oz pur e alcohol) only at [place] PHQ-2 Answer Date Recorded Total Score - [...] have Coronavirus / COVID-19? No / Unsure 03/19/2020 7:48 AM CDT documented as of this encounter Miscellaneous Notes * Telephone Encounter - Zamzam Montilla RN - 04/01/2020 8:42 AM CDT Requested Prescriptions Pending Prescriptions Disp Refills tiZANidine (ZANAFLEX) 4 MG Tablet [Pharmacy Med Name: TIZANIDINE HCL 4MG TABS] 60 Tab 4 Sig: TAKE ONE TABLET BY MOUTH TWICE A DAY NEEDED FOR MUSCLE SPASMS Not Delegated - Analgesics: Muscle Relaxants Failed - 03/31/2020 4:50 PM Failed - This refill cannot be delegated Passed - Valid encounter within last 6 months Past Office Visits Recent Outpatient Visits 1 month ago Hoarseness, chronic [facility] - Az Collado MD 1 month ago Hoarseness, chronic [facility] - Az Collado MD 2 months ago Anxiety [facility] - Az Collado MD 3 months ago Acute vaginitis [facility] - Mary Beth Haile PAC 5 months ago Gastroesophageal reflux disease without esophagitis [facility] - Az Collado MD Upcoming Appointments Future Appointments In 2 weeks Sony Hu, DO [facility] - [place] [facility] In 3 weeks Az Watson MD [facility] Medical [facility] - Family [facility] WAIT[facility] - Recent and Past Visits Recent Visits Date Type Provider Dept 02/26/20 Office Visit Az Watson MD [facility] [place] 02/02/20 Office Visit Az Watson MD [facility] 01/19/20 Office Visit Az Watson MD [facility] 12/31/19 Office Visit Mary Beth Soriano, BENNIE [facility] 10/13/19 Telemedicine Az Watson MD [facility] [place] 03/13/19 Office Visit Az Watson MD [facility] 01/10/19 Office Visit Vickey Robbins APN, BLOCK BOLTER MULE OPERATOR [facility] Showing recent visits within past 460 days with a meds authorizing provider and meeting all other requirements Future Appointments Date Type Provider Dept 04/22/20 Appointment Az Watson MD [facility] Showing future appointments within next 90 days with a meds authorizing provider and meeting all other requirements Signed Prescriptions Disp Refills SUMAtriptan (IMITREX) 100 MG Tablet 9 Tab 9 Sig: TAKE ONE TABLET BY MOUTH AT ONSET OF MIGRAINE. MAY REPEAT DOSE IN 2 HOURS IF HEADACHE RECURS. MAX DOSE 2 TABLETS PER DAY. Neurology: Migraine Therapy Passed - 03/31/2020 4:50 PM Passed - Valid encounter within last 12 months Past Office Visits Recent Outpatient Visits 1 month ago Hoarseness, chronic [facility] Medical Group - Family [facility] Az Collado MD 1 month ago Hoarseness, chronic [facility] Medical [facility] - Family [facility] Az Collado MD 2 months ago Anxiety [facility] Medical [facility] - Family [facility] - Az Collado MD 3 months ago Acute vaginitis [facility] Medical [facility] - Family [facility] [place], [facility] 5 months ago Gastroesophageal reflux disease without esophagitis [facility] Medical [facility] - Family [facility] N[facility]ñez MD Upcoming Appointments Future Appointments In 2 weeks Sony Hu DO [facility] Medical Group - Gastroenterology [facility] In 3 weeks Az Watson MD [facility] - Recent and Past Visits Recent Visits Date Type Provider Dept 02/26/20 Office Visit Az Watson MD [facility] 02/02/20 Office Visit Az Watson MD [facility] 01/19/20 Office Visit Az Watson MD [facility] 12/31/19 [facility] MD [facility] [place] 03/13/19 Office Visit Az Watson MD [facility] [place] 01/10/19 Office Visit Vickey Robbins LOTTERY OFFICE MANAGER, BLOCK BOLTER MULE OPERATOR [facility] Showing recent visits within past 460 days with a meds authorizing provider and meeting all other requirements Future Appointments Date Type Provider Dept 04/22/20 Appointment Az Watson MD [facility] Showing future appointments within next 90 days with a meds authorizing provider and meeting all other requirements rosuvastatin (CRESTOR) 10 MG Tablet 90 Tab 2 Sig: TAKE ONE TABLET BY MOUTH EVERY DAY Cardiovascular: Antilipid - HMG-CoA Reductase Inhibitors Passed - 03/31/2020 4:50 PM Passed - Valid encounter within last 12 months Past Office Visits Recent Outpatient Visits 1 month ago Hoarseness, chronic [facility] Medical [facility] Az Collado MD 1 month ago Hoarseness, chronic [facility] Medical [facility] Az Collado MD 2 months ago Anxiety [facility] Az Collado MD 3 months ago Acute vaginitis [facility] Medical [facility] Cronin, BENNIE 5 months ago Gastroesophageal reflux disease without esophagitis [facility] MD Upcoming Appointments Future Appointments In 2 weeks Sony Hu, [facility] Gastroenterology [facility] In 3 weeks Az Watson MD [facility] - Recent and Past Visits Recent Visits Date Type Provider Dept 02/26/20 Office Visit Az Watson MD [facility] 02/02/20 Office Visit Az Watson MD [facility] [place] 01/19/20 Office Visit Az Watson MD [facility] 12/31/19 Office Visit Mary Beth Soirano, BENNIE [facility] 10/13/19 Telemedicine Az Watson MD [facility] [place] 03/13/19 Office Visit Az Watson MD [facility] 01/10/19 Office Visit Vickey Robbins APN, BLOCK BOLTER MULE OPERATOR [facility] Showing recent visits within past 460 days with a meds authorizing provider and meeting all other requirements Future Appointments Date Type Provider Dept 04/22/20 Appointment Az [facility] MD [facility] Showing future appointments within next 90 days with a meds authorizing provider and meeting all other requirements documented in this encounter Plan of Treatment Upcoming Encounters Date Type Department Care Team (Latest Contact Info) Description 10/16/2024 9:00 AM CDT Office Visit [facility] [address] [place] [address] Az Watson MD [address] [address] 10/16/2024 10:00 AM CDT Ancillary Procedure [facility] [address] [place] [address] Az Watson MD #[address] [address] Discharge Disposition: Discharged to home or Selfcare 10/20/2024 9:00 AM CDT Office Visit [facility] #2 [place] [address] Az Watson MD #2 [facility] [address] [place] [address] 10/24/2024 10:30 AM CDT Office Visit [facility] #[address] [place] [address] Emilio Sarabia MD #2 [facility] [address] [place] [address] documented as of this encounter Visit Diagnoses Diagnosis Migraine without aura and without status migrainosus, not intractable Migraine without aura, without mention of intractable migraine without mention of status migrainosus documented in this encounter Additional Health Concerns Infection Onset Date Last Indicated Resolved Time COVID - 19 06/11/2023 06/11/2023 06/21/2023 12:1 6 AM HAZARDOUS MATERIALS DRIVER Assessment Noted Time PHQ-9 Depression Total Score: 2 02/26/20 20 8:55 AM CDT documented as of this encounter Care Teams Technical Administrative Assistant Relationship Specialty Start Date End Date Az Watson MD #2 [facility] [address] [place] [address] PCP - General Family Medicine 05/03/15 Cain Lira MD [address] [place] [address] Obstetrics & Gynecology 02/15/17 Francoise Tompkins RN [place] [employer] 09/06/21 04/06/22 Claribel Sierra LSW [place] [employer] 09/09/21 04/06/22 Trisha Cook APRN, BLOCK BOLTER MULE OPERATOR [address] [place] [address] Nurse Practitioner Advanced Practice Nurse 11/29/22 Golden Napier MD #2 [facility] [address] [place] [address] Consulting Physician Colon and Rectal Surgery 08/13/23 Emilio Sarabia MD #2 [facility] [address] [place] [address] Consulting Physician Urology 09/11/23 documented as of this encounter
--- OUTSIDE RECORDS SUMMARY | 2024-10-06 11:18 | XMS_ITS | Encounter Summary ---
Author Organization [facility] Address [address] [place] [address] Phone Care Team Providers Care Automobile Appraiser Name Role Phone Az Watson MD Primary Care Provider [phone] Cain Lira MD Unavailable [phone] Trisha Cook APRN, PRODUCTION SUPPORT CONSULTANT Unavailable Golden Napier MD Unavailable Emilio Sarabia MD Unavailable [phone] Reason for Visit * Reason Comments Medication Refill Encounter Details Date Type Department Care Team (Late st Contact Info) Description 05/19/2023 Refill [facility] - [place] [address] [place] [address] Az Watson MD #[address] [address] Medication Refill Social History Tobacco Use Types [...] Coronavirus/COVID-19? No / Unsure 04/20/2023 6:05 AM SENIOR INSTRUCTIONAL DESIGNER documented as of this encounter Miscellaneous Notes * Telephone Encounter - Kari Blackmon RN - 05/21/2023 8:07 AM CST Medication failed the protocol, provider to review and approve the medication order if appropriate. Requested Prescriptions Pending Prescriptions Disp Refills ondansetron (ZOFRAN) 4 MG Tablet [Pharmacy Med Name: ONDANSETRON HCL 4MG TABS] 90 Tablet 0 Sig: TAKE ONE TO TWO TABLETS BY MOUTH EVERY 8 HOURS NEEDED FOR NAUSEA Not Delegated - 5-HT3 Antagonists Protocol Failed - 05/19/2023 2:06 AM Failed - This refill cannot be delegated Passed - Visit with relevant provider in past 12 months or upcoming 90 days Recent Visits Date Type Provider Dept 05/08/23 Telemedicine Az Watson MD [facility] 04/18/23 Office Visit Az Watson MD [facility] 03/08/23 Office Visit Vickey Robbins APRN, SALOMON [place] 02/28/23 Office Visit Vickey Robbins APRN, SALOMON [place] 01/24/23 Office Visit Viceky Robbins APRN, SALOMON [place] 01/02/23 Office Visit Vickey Robbins APRN, PRODUCTION SUPPORT CONSULTANT [facility] 11/08/22 Office Visit Vickey Robbins APRN, SALOM[place] [facility] [place] 10/17/22 Office Visit Vickey Robbins APRN, SALOMON [facility] 09/19/22 Office Visit Vickey Robbins APRN, SALOMON [facility] 06/19/22 Office Visit Vickey Robbins APRN, SALOMON [facility] Showing recent visits within past 365 days and meeting all other requirements Future Appointments Date Type Provider Dept 07/25/23 Appointment Az Watson MD [facility] Showing future appointments within next 90 days and meeting all other requirements Stimulant Laxative 8.6-50 MG Tablet [Pharmacy Med Name: STIMULANT LAXATIVE 8.6- 50MG TABS] 90 Tablet0 Sig: TAKE TWO TABLETS BY MOUTH DAILY Laxatives Protocol Passed - 05/19/2023 2:06 AM Passed - Visit with relevant provider in past 12 months or upcoming 90 days Recent Visits Date Type Provider Dept 05/08/23 Telemedicine Az Watson MD [facility] 04/18/23 Office Visit Az Watson MD [facility] 03/08/23 Office Visit Vickey Robbins APRN, SALOMON [facility] 02/28/23 Office Visit Vickey Robbins APRN, SALOMON [facility] 01/24/23 Office Visit Vickey Robbins APRN, SALOMON [facility] 01/02/23 Office Visit Vickey Robbins APRN, SALOMON [facility] 11/08/22 Office Visit Vickey Robbins APRN, SALOMON [facility] 10/17/22 Office Visit Vickey Robbins APRN, SALOMON [facility] 09/19/22 Office Visit Vickey Robbins APRN, SALOMON [facility] 06/19/22 Office Visit Vickey Robbins APRN, SALOMON [facility] Showing recent visits within past 365 days and meeting all other requirements Future Appointments Date Type Provider Dept 07/25/23 Appointment Az Watson MD [facility] Showing future appointments within next 90 days and meeting all other requirements Passed - Up to date with colon cancer screening Health Maintenance OR INSTRUCTIONAL DESIGNER documented in this encounter Plan of Treatment Upcoming Encounters Date Type Department Care Team (Latest Contact Info) Description 10/16/2024 9:00 AM CDT Office Visit [facility] #2 [place] [address] zA Watson MD #2 [facility] [address] [place] [address] 10/16/2024 10:00 AM CDT Ancillary Procedure [facility] [address] [place] [address] Az Watson MD #[address] [address] Discharge Disposition: Discharged to home or Selfcare 10/20/2024 9:00 AM CDT Office Visit [facility] [address] [place] [address] Az Watson MD #[address] [address] 10/24/2024 10:30 AM CDT Office Visit [facility] #[address] [place] [address] Emilio Sarabia MD #2 [facility] [address] [place] [address] documented as of this encounter Goals Goal Patient Goal Type Associated Problems Recent Progress Patient-Stated? Author Behavioral Health Behavioral Health On track( 022 8:46 AM SENIOR INSTRUCTIONAL DESIGNER) Yes Betsy Butts, [employer]ORDER POLICE Note: I need to be able to [...] 19 06/11/2023 06/11/2023 06/21/2023 12:1 6 AM SENIOR INSTRUCTIONAL DESIGNER Assessment Noted Time PHQ-9 Depression Total Score: 4 09/02/19 21 8:46 AM CDT documented as of this encounter Care Teams Automobile Appraiser Relationship Specialty Start Date End Date Az Watson MD #2 [facility] [address] [place] [address] PCP - General Family Medicine 05/03/15 Cain Lira MD [address] [place] [address] Obstetrics & Gynecology 02/15/17 Trisha Cook APRN, PRODUCTION SUPPORT CONSULTANT [address] [place] [address] Nurse Practitioner Advanced Practice Nurse 11/29/22 Golden Napier MD #2 [facility] [address] [place] [address] Consulting Physician Colon and Rectal Surgery 08/13/23 Emilio Sarabia MD #2 [place] [id number] Consulting Physician Urology 09/11/23 documented as of this encounter
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
== END 2024-10-06 10:03 | disposition home or self-care (01) ==
LOC: ANHIMG 10:03
PROVIDERS: PCP Family Medicine; Visit Provider Surgery
DX: R92.8 Other abnormal and inconclusive findings on diagnostic imaging of breast (principal)
CPT/HCPCS: 77062; 77066; G0279

== ENCOUNTER 2024-10-21 08:13 | Outpatient (CLI) | payer MEDICARE, MEDICAID, SELFPAY ==
--- NOTE | ~2024-10-21 | US_ITS ---
EXAMINATION TYPE: US breast BI limited COMPARISON: Mammography dated 10/06/2024 REASON FOR STUDY: N63.41 - Unspecified lump in right breast, subareolar TECHNIQUE: Sonographic evaluation of the bilateral breasts was performed. INTERPRETATION: There is an 11 x 9 x 5 mm anechoic simple cyst at the left breast 6:00 position, in the subareolar re gion. No other solid or cystic lesion identified in either breast. No dilated ducts seen. IMPRESSION: No evidence for malignancy. Small simple left breast cyst, as detailed above. BI-RADS CATEGORY: BI-RADS 2: Benign Reviewed, dictated and finalized at location .
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
--- OUTSIDE RECORDS SUMMARY | 2024-10-21 08:17 | XMS_ITS | Continuity of Care Document ---
Author Organization [facility] Address [address] [place] [address] Phone Care Team Providers Care Bag Machine Tender Name Role Phone Administrative, Provider Unavailable Unavail able Allergies, Adverse Reactions, Alerts Substance Reaction Status Criticality No Known Allergies Active No Inform ation Medications Medication Instructions Dosage Effective Dates (start - stop) Status Comments Perry 5 mg-325 mg tablet take 1 by [...] each extrem w/nerve conduction; com plete Office/outpatient visit,[facility], [facility] Current Tobacco Non User BMI Documented Above Normal Limit F/U Pl an Doc Current Medications Documented 15 Influenza Immunization Administered Or R eported Pain Assessmnt Pos. F/u Plan Documented Office/outpatient visit,[facility], [facility] 2014 Pain Assessmnt Pos. F/u Plan Documented Current Medications Not Documented For N o Reason BMI Not Documented Reason Not Given Screend For Tobacco And Rec Cessation In tervention Influenza Vaccine Not Given No Reason Ap Pneumoccol Vaccine Administered 015 Office/outpatient visit,[facility], [facility] [place] Pain Assessmnt Pos. F/u Plan Documented [...] Normal No Follow Up Required 015 Office/outpatient visit,[facility], [facility] OA Symptoms And Functional Status Assess ed Pain Assessmnt Pos. F/u Plan Documented Advance Directives Directive Yes / No Effective Date File Name No Information Encounters Encounter Description Practice Location Reason(s) For Visit Diagnoses Date Provider Providers Copied on Encounter [facility], [address] [address], [place], [place], [id number], [place] tel:[phone] [facility] No Information 5 Administrati ve Provider. [address] [facility] [address], [place], [place], [address], [place]. tel:[phone] Office/outpa tient visit,[facility], [facility], [address] [address], [place], [place], [address], [place] tel:[phone] [facility] Brachial neuritisAcquir ed spondylolisthe sisCervical spinal stenosis 5 Rosalina Young. [address] [address], [place], [place], [address], [place]. tel:[phone] Referring Provider: Hannah Mckeon, [address] [address], [place], [address] . tel:[phone] [facility], [address] [address], [place], [place], [address], [place] tel:[phone] [facility] cervical spine (chief complaint) BRACHIAL NEURITIS NOS 5 Isabella Ramirez. [address] [address], [place], [place], [address], [place]. tel:[phone] Referring Provider: Delta Mcclure, [address] [facility] [address], [place], [address] . tel:[phone] Office/outpa [facility]ient visit,[facility], [facility], [address] [address], [place], [place], [address], [place] tel:[phone] [facility] Cervical radiculopathy 5 Kylee Sorenson. [address] [facility] [address], [place], [place], [address], [place]. tel:[phone] Referring Provider: James Lawton, [address] [facility] [address], [place], [address] . tel:[phone] Office/outpa [facility]ient visit,[facility], [facility], [address], [place], [place], [address], [place] tel:[phone] [facility] lumbar spine (chief complaint) Spinal stenosis of lumbar regionSpinal stenosis in cervical regionLUMBOSAC RAL NEURITIS NOSACQ SPONDYLOLISTHE SIS 5 Isabella Ramirez. [address] [facility], [address], [place], [place], [address], [place]. tel:[phone] Referring Provider: James Lawton, [address] [facility] [address], [place], [address] . tel:[phone] Office/outpa tient visit,[facility], [facility], [address], [place], [place], [address], [place] tel:[phone] [facility] cervical spine (chief complaint) BRACHIAL NEURITIS NOSLUMBOSACRAL NEURITIS NOSPain in thoracic spineLumbar painCervical painSpinal stenosis in cervical regionSpinal stenosis of lumbar regionAcquired spondylolisthe sis 5 Isabella Ramirez. [address] [facility], [address], [place], [place], [address], [place]. tel:[phone] Referring Provider: James Lawton, [address] [facility] [facility] [address], [place], [address] . tel:[phone] [facility], [address], [place], [place], [address], [place] tel:[phone] [facility] BRACHIAL NEURITIS NOS 5 [facility]. [address] [facility], [address], [place], [place], [address], [place]. tel:[phone] Referring Provider: James Lawton, [address] [facility] [address], [place], [address] . tel:[phone] [facility], [address] [place] [address], [id number], tel:[phone] [facility] LUMBOSACRAL NEURITIS NOS 5 [facility]. [address] [facility], [address], [place], [place], [address], . tel:[phone] Referring Provider: James Lawton, [address] [place] [address] [address], [place], [address] . tel:[phone] Office/outpa tient visit,[facility], [facility], [address] [place] [address] [address], [place], [place], [address], [place] tel:[phone] [facility] lumbar spine (chief complaint) Pain in thoracic spineCervical painLumbar painCervical radiculopathyL umbar radiculopathy 0201 5 Isabella Ramirez. [address] [facility], [address], [place], [place], [address], [place]. tel:[phone] Referring Provider: James Lawton, [address] [place] [address] [address], [place], [address] . tel:[phone] Family History Family Member Type Diagnosis Age At Onset Problem (finding) Family history of Diabetes mellitus Problem (finding) Family history of Arthr itis Problem (finding) Family history of cance r Problem (finding) Family history of hyper tension Maternal grandmother Problem (finding) stroke Immunizations Vaccine Date Status Comments Flu (split) (3 yrs or older) administered Source: Other Provider Payers Payer name Insurance type Covered democrat ID Authoriza tion(s) No Information Social History [...] Index: After Your Visit completed Patient Education Moyhxp-sr-Remy Plan for People With Lo completed History [...]
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
--- OUTSIDE RECORDS SUMMARY | 2024-10-21 08:17 | XMS_ITS | Continuity of Care Document ---
Author Organization [facility] Address [address] [place] [address] Phone Care Team Providers Care Flower Grower Name Role Phone Baltazar OD, Sony Unavailable Unavailable Advance Directives Directive Yes / No Effective Date File Name No Information Encounters Encounter Description Practice Location Reason(s) For Visit Diagnoses Date Provider Providers Copied on Encounter [facility], [address], [place], [place], [address], [place] tel:[phone] SEC Formerly named [facility] No Information Apr-2 0-200 5 Baltazar OD Sony. [address] [facility] , [address], [place], [address], [place]. tel:[phone] Family History Family Member Type Diagnosis Age At Onset No Information Payers Payer name Insurance type Covered libertarian ID Authoriza tion(s) Medicaid [facility] [id number] Social History Type Description Quantity Date Captured [...]
--- OUTSIDE RECORDS SUMMARY | 2024-10-21 08:17 | XMS_ITS | Encounter Summary ---
Author Organization [facility] Address [address] [place] [address] Phone Care Team Providers Care Light Armored Reconnaissance Officer Name Role Phone Az Watson MD Primary Care Provider [phone] Cain Lira MD Unavailable [phone] Francoise Tompkins RN Unavailable Unavailable Claribel Sierra Unavailable Unavailab Trisha Houston APRN, FANCY PACKER Unavailable Golden Napier MD Unavailable Emilio Sarabia MD Unavailable [phone] Reason for Visit * Reason Comments Medication Refill Encounter Details Date Type Department Care Team (Late st Contact Info) Description 02/02/2021 Refill [facility] - [place] [address] [place] [address] Az Watson MD [address] [address] Medication Refill Social History Tobacco Use Types [...] [place] 11/10/20 Office Visit Vickey Robbins APN, FANCY PACKER [facility] [place] 09/01/20 Office Visit Az Watson MD [facility] 06/01/20 Office Visit Az Watson MD [facility] 02/26/20 Office Visit Az Watson MD [facility] [place] Showing recent visits within past 365 days and meeting all other requirements Future Appointments No visits were found meeting these conditions. Showing future appointments within next 90 days and meeting all other requirements documented in this encounter Plan of Treatment Upcoming Encounters Date Type Department Care Team (Latest Contact Info) Description 10/24/2024 10:30 AM CDT Office Visit [facility] UR[facility]Y #2 [place] [address] Emilio Sarabia MD #2 [facility] [address] [place] [address] 10/29/2024 8:30 AM CDT Office Visit [facility] - Family Medicine - [place] #[address] [place] [address] Vickey Robbins APRN, FANCY PACKER #2 [facility] [address] [place] [address] 11/04/2024 9:00 AM CDT [facility] [address] [place] [address] Az Watson MD #2 [facility] [address] [place] [address] Discharge Disposition: Discharged to home or Selfcare documented as of this encounter Visit Diagnoses Not on filedocumented in this encounter Additional Health Concerns Infection Onset Date Last Indicated Resolved Time COVID - 19 06/11/2023 06/11/2023 06/21/2023 12:1 6 AM CUSTOMER SUPPORT TECHNICIAN Assessment Noted Time PHQ-9 Depression Total Score: 4 09/02/19 21 8:46 AM CDT documented as of this encounter Care Teams Light Armored Reconnaissance Officer Relationship Specialty Start Date End Date Az Watson MD #2 [facility] [address] [place] [address] PCP - General Family Medicine 05/03/15 Cain Lira MD [address] [facility] [address] [facility] [address] [place] [address] Obstetrics & Gynecology 02/15/17 Francoise Tompkins RN [place] Supervisor Pole Yard 09/06/21 04/06/22 Claribel Sierra LSW [place] Supervisor [place] Yard 09/09/21 04/06/22 Trisha Cook APRN, FANCY PACKER #2 [place] [address] Nurse Practitioner Advanced Practice Nurse 11/29/22 Golden Napier MD #2 [facility] [address] [place] [address] Consulting Physician Colon and Rectal Surgery 08/13/23 Emilio Sarabia MD #2 [facility] [address] [place] [address] Consulting Physician Urology 09/11/23 documented as of this encounter
--- OUTSIDE RECORDS SUMMARY | 2024-10-21 08:17 | XMS_ITS | Encounter Summary ---
Author Organization [facility] Address [address] [place] [address] Phone Care Team Providers Care Reservation Sales Agent Name Role Phone Az Watson MD Primary Care Provider [phone] Cain Lira MD Unavailable [phone] Francoise Tompkins RN Unavailable Unavailable Claribel Sierra Unavailable Unavailab Trisha Houston APRN, BUSINESS PRACTICES SUPERVISOR Unavailable Golden Napier MD Unavailable Emilio Sarabia MD Unavailable [phone] Reason for Visit * Reason Comments Medication Refill Encounter Details Date Type Department Care Team (Late st Contact Info) Description 02/11/2021 Refill [facility] - [place] [address] [place] [address] Az Watson MD [address] [address] Medication Refill Social History Tobacco Use Types [...] - Family Medicine - Vickey Billy APN, BUSINESS PRACTICES SUPERVISOR 5 months ago PVC's (premature ventricular contractions) [facility] - [facility] - Az Collado MD 8 months ago Bladder infection [facility] - Az Collado MD 11 months ago Hoarseness, chronic [facility] - Az Collado MD Upcoming Appointments Future Appointments In 1 week SA[facility]CT1 [facility] CT, [facility] In 1 week [id number] [facility] Mammography, [facility] In 4 months Mine Rivera Nikki, PAC [facility] Medical Group - Gastroenterology [facility] CHECKER/STOCKER - Recent and Past Visits Recent Visits Date Type Provider Dept 01/31/21 Office Visit Az Watson MD [facility] 11/10/20 Office Visit Vickey Robbins, CHEMICAL PRODUCTION ENGINEER, BUSINESS PRACTICES SUPERVISOR [facility] 09/01/20 Office Visit Az Watson MD [facility] 06/01/20 Office Visit Az Watson MD [facility] 02/26/20 Office Visit Az Watson MD [facility] 02/02/20 Office Visit Az Watson MD [facility] 01/19/20 Office Visit Az Watson MD [facility] 12/31/19 Office Visit Mary Beth Soriano, PAC [facility] Showing recent visits within past 460 [...] Description 10/24/2024 10:30 AM CDT Office Visit [facility] UROLOGY [address] [facility] [place] [address] Emilio Sarabia MD #[address] [address] 10/29/2024 8:30 AM CDT Office Visit [facility] Group - Family Medicine - [place] #[address] [place] [address] Vickey Robbins, AUTOMOTIVE CENTER MANAGER, BUSINESS PRACTICES SUPERVISOR #[address] [address] 11/04/2024 9:00 AM CDT Ancillary Procedure [facility] [address] [place] [address] Az Watson MD #[address] [address] Discharge Disposition: Discharged to home or Selfcare documented as of this encounter Visit Diagnoses Diagnosis Migraine without aura and without status migrainosus, not intractable Migraine without aura, without mention of intractable migraine without mention of status migrainosus documented in this encounter Additional Health Concerns Infection Onset Date Last Indicated Resolved Time COVID - 19 06/11/2023 06/11/2023 06/21/2023 12:1 6 AM CHILD WELFARE SPECIALIST Assessment Noted Time PHQ-9 Depression Total Score: 4 09/02/19 21 8:46 AM CDT documented as of this encounter Care Teams Reservation Sales Agent Relationship Specialty Start Date End Date Az Watson MD #[address] [address] PCP - General Family Medicine 05/03/15 Cain Lira MD [address] [facility] [address] [address] [address] [address] Obstetrics & Gynecology 02/15/17 Francoise Tompkins RN [place] Manager Traffic 09/06/21 04/06/22 Claribel Sierra LSW [place] Manager Traffic 09/09/21 04/06/22 Trisha Cook APRN, BUSINESS PRACTICES SUPERVISOR #2 [place] [address] Nurse Practitioner Advanced Practice Nurse 11/29/22 Goledn Napier MD #2 [facility] [address] [place] [address] Consulting Physician Colon and Rectal Surgery 08/13/23 Emilio Sarabia MD #2 [facility] [address] [place] [address] Consulting Physician Urology 09/11/23 documented as of this encounter
--- OUTSIDE RECORDS SUMMARY | 2024-10-21 08:17 | XMS_ITS | Encounter Summary ---
Author Organization [facility] Address [address] [place] [address] Phone Care Team Providers Care Senior Design Engineering Specialist Name Role Phone Az Watson MD Primary Care Provider [phone] Cain Lira MD Unavailable [phone] Francoise Tompkins RN Unavailable Unavailable Claribel SierraW Unavailable Unavailab Trisha Houston APRN, SALOMON Unavailable Golden Napier MD Unavailable Emilio Sarabia MD Unavailable [phone] Reason for Visit * Reason Comments Medication Refill Encounter Details Date Type Department Care Team (Late st Contact Info) Description 08/24/2020 Refill [facility] [address] [place] [address] Az Watson MD #[address] [address] Medication Refill Social History Tobacco [...] COVID-19? No / Unsure 08/17/2020 6:42 AM STEAM PLANT RECORDS CLERK documented as of this encounter Miscellaneous [...] Outpatient Visits 2 months ago [facility] - [facility] Collado MD 6 months ago [facility] 6 months [facility], [facility] Alvarez MD 7 months ago Anxiety [facility] Az Alvarez MD 7 months ago Acute vaginitis [facility] Mary Beth Araujo, BENNIE Upcoming Appointments Future Appointments In 1 week Az Watson MD [facility] In 10 months Mine Rivera Nikki, PAC [facility] - Gastroenterology [facility] MATCHER OPERATOR - Recent and Past Visits Recent Visits Date Type Provider Dept 06/01/20 Office Visit Az Watson MD [facility] 02/26/20 Office Visit Az Watson MD [facility] 02/02/20 Office Visit Az Watson MD [facility] 01/19/20 Office Visit Az Watson MD [facility] 12/31/19 Office Visit Mary Beth Soriano, BENNIE [facility] 10/13/19 Telemedicine Az Watson MD [facility] [...] Description 10/24/2024 10:30 AM CDT Office Visit [facility] #2 [place] [address] Emilio Sarabia MD #2 [facility] [address] [place] [address] 10/29/2024 8:30 AM CDT Office Visit [facility] [place] #2 [place] [address] Vickey Robbins APRN, DRAGSAW OPERATOR #2 [facility] [address] [place] [address] 11/04/2024 9:00 AM CDT [facility] [address] [place] [address] Az Watson MD #2 [facility] [address] [place] [address] Discharge Disposition: Discharged to home or Selfcare documented as of this encounter Visit Diagnoses Not on filedocumented in this encounter Additional Health Concerns Infection Onset Date Last Indicated Resolved Time COVID - 19 06/11/2023 06/11/2023 06/21/2023 12:1 6 AM STEAM PLANT RECORDS CLERK Assessment Noted Time PHQ-9 Depression Total Score: 2 02/26/20 20 8:55 AM CDT documented as of this encounter Care Teams Senior Design Engineering Specialist Relationship Specialty Start Date End Date Az Watson MD #2 [facility] [address] [place] [address] PCP - General Family Medicine 05/03/15 Cain Lira MD [address] [facility] [address] [facility] [address] [place] [address] Obstetrics & Gynecology 02/15/17 Francoise Tompkins RN [place] Manager Urgent Care 09/06/21 04/06/22 Claribel Sierra LSW [place] Manager Urgent Care 09/09/21 04/06/22 Trisha Cook APRN, DRAGSAW OPERATOR #2 [place] [address] Nurse Practitioner Advanced Practice Nurse 11/29/22 Golden Napier MD #2 [facility] [address] [place] [address] Consulting Physician Colon and Rectal Surgery 08/13/23 Emilio Sarabia MD #2 [facility] [address] [place] [address] Consulting Physician Urology 09/11/23 documented as of this encounter
--- OUTSIDE RECORDS SUMMARY | 2024-10-21 08:17 | XMS_ITS | Encounter Summary ---
Author Organization [facility] Address [address] [place] [address] Phone Care Team Providers Care Project Leader Name Role Phone Az Watson MD Primary Care Provider [phone] Cain Lira MD Unavailable [phone] Francoise Tompkins RN Unavailable Unavailable Claribel SierraW Unavailable Unavailab Tirsha Houston APRN, SALOMON Unavailable Golden Napier MD Unavailable Emilio Sarabia MD Unavailable [phone] Reason for Visit * Reason Comments Medication Refill Encounter Details Date Type Department Care Team (Late st Contact Info) Description 11/04/2020 Refill [facility] [address] [place] [address] Az Watson MD #[address] [address] Medication Refill Social History Tobacco [...] Future Appointments In 5 days Mariaa Posadas, CATALOG LIBRARY ASSISTANT-SPEECH LANGUAGE PATHOLOGIST [facility] Rehab at [facility] In 1 month Az Watson MD [facility] Medical Group - Family Medicine [facility] In 7 months Mine Rivera, [facility] Medical Group - Gastroenterology - [facility] TILE PRESSER - Recent and Past Visits Recent Visits Date Type Provider Dept 09/01/20 Office Visit Az Watson MD [facility] 06/01/20 Office Visit Az Watson MD [facility] 02/26/20 Office Visit Az Watson MD [facility] 02/02/20 Office Visit Az Watson MD [facility] 01/19/20 Office Visit Az Watson MD [facility] 12/31/19 Office Visit Mary Beth Soriano, [facility] [place] 10/13/19 Telemedicine Az Watson MD [...] Description 10/24/2024 10:30 AM CDT Office Visit [facility] UROLOGY #2 [place] [address] Emilio Sarabia MD #2 [facility] [address] [place] [address] 10/29/2024 8:30 AM CDT Office Visit [facility] Medical Group - Family Medicine - [place] #2 [place] [address] Vickey Robbins APRN, STAYING MACHINE OPERATOR #2 [facility] [address] [place] [address] 11/04/2024 9:00 AM CDT [facility] [address] [place] [address] Az Watson MD #2 [facility] [address] [place] [address] Discharge Disposition: Discharged to home or Selfcare documented as of this encounter Visit Diagnoses Diagnosis Controlled type 2 diabetes mellitus without complication, without long-term current use of insulin documented in this encounter Additional Health Concerns Infection Onset Date Last Indicated Resolved Time COVID - 19 06/11/2023 06/11/2023 06/21/2023 12:1 6 AM DOCTOR ASSISTANT Assessment Noted Time PHQ-9 Depression Total Score: 4 03/24/20 21 8:46 AM CDT documented as of this encounter Care Teams Project Leader Relationship Specialty Start Date End Date Az Watson MD #2 [facility] [address] [place] [address] PCP - General Family Medicine 05/03/15 Cain Lira MD [address] [place] [address] Obstetrics & Gynecology 02/15/17 Francoise Tompkins RN [place] 09/06/21 04/06/22 Claribel Sierra LSW [place] 09/09/21 04/06/22 Trisha Cook APRN, STAYING MACHINE OPERATOR #2 [place] [address] Nurse Practitioner Advanced Practice Nurse 11/29/22 Golden Napier MD #2 [facility] [address] [place] [address] Consulting Physician Colon and Rectal Surgery 08/13/23 Emilio Sarabia MD #2 [facility] [address] [place] [address] Consulting Physician Urology 09/11/23 documented as of this encounter
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
--- OUTSIDE RECORDS SUMMARY | 2024-10-21 08:17 | XMS_ITS | Encounter Summary ---
Author Organization [facility] Address [address] [place] [address] Phone Care Team Providers Care Brick Picker Name Role Phone Az Watson MD Primary Care Provider [phone] Cain Lira MD Unavailable [phone] Francoise Tompkins RN Unavailable Unavailable Claribel SierraW Unavailable Unavailab Trisha Houston APRN, SALOMON Unavailable Golden Napier MD Unavailable Emilio Sarabia MD Unavailable [phone] Reason for Visit * Reason Comments Medication Refill Encounter Details Date Type Department Care Team (Late st Contact Info) Description 12/28/2020 Refill [facility] [address] [place] [address] Az Watson MD #[address] [address] Medication Refill Social History Tobacco [...] Group - Family Medicine - Vickey Billy TECHNOLOGY SALES SPECIALIST, NAPRAPATH 3 months ago PVC's (premature ventricular contractions) [...] Appointments Future Appointments In 3 weeks Az Watosn MD [facility] Family Medicine [facility] In 6 months Mine Rivera Nikki, PAC [facility] Gastroenterology [facility] AUTOMATIC SPREADER OPERATOR - Recent and Past Visits Recent Visits Date Type Provider Dept 11/10/20 Office Visit Vickey Robbins APN, SALOMON [facility] 09/01/20 Office Visit Az Watson MD [facility] [place] 06/01/20 Office Visit Az Watson MD [facility] [place] 02/26/20 Office Visit Az Watson MD [facility] [place] 02/02/20 Office Visit Az Watson MD [facility] [place] 01/19/20 Office Visit Az Watson MD [facility] 12/31/19 Office Visit Mary Beth Soriano, [facility]19 Telemedicine Az Watson MD [facility] [place] Showing recent visits within past 460 days with a meds authorizing provider and meeting all other requirements Future Appointments Date Type Provider Dept 01/21/21 Appointment Az Watson MD [facility] [place] Showing future appointments within next 90 days with a meds authorizing provider and meeting all other requirements documented in this encounter Plan of Treatment Upcoming Encounters Date Type Department Care Team (Latest Contact Info) Description 10/24/2024 10:30 AM CDT Office Visit [facility] #[address] [place] [address] Emilio Sarabia MD #[address] [address] 10/29/2024 8:30 AM CDT Office Visit [facility] [address] [place] [address] Vickey Robbins APRN, NAPRAPATH #[address] [address] 11/04/2024 9:00 AM CDT Ancillary Procedure [facility] [address] [place] [address] Az Watson MD #[address] [address] Discharge Disposition: Discharged to home or Selfcare documented as of this encounter Visit Diagnoses Not on filedocumented in this encounter Additional Health Concerns Infection Onset Date Last Indicated Resolved Time COVID - 19 06/11/2023 06/11/2023 06/21/2023 12:1 6 AM DIRECTOR OF VOCATIONAL TRAINING Assessment Noted Time PHQ-9 Depression Total Score: 4 09/02/19 21 8:46 AM CDT documented as of this encounter Care Teams Brick Picker Relationship Specialty Start Date End Date Az Watson MD #[address] [address] PCP - General Family Medicine 05/03/15 Cain Lira MD [address] [facility] [address] [place] [address] Obstetrics & Gynecology 02/15/17 Francoise Tompkins RN [place] Currency Machine Operator 09/06/21 04/06/22 Claribel Sierra LSW [place] Currency Machine Operator 09/09/21 04/06/22 Trisha Cook APRN, NAPRAPATH #2 [place] [address] Nurse Practitioner Advanced Practice Nurse 11/29/22 Golden Napier MD #[address] [address] Consulting Physician Colon and Rectal Surgery 08/13/23 Emilio Sarabia MD #2 [facility], [address] [address] Consulting Physician Urology 09/11/23 documented as of this encounter
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
--- OUTSIDE RECORDS SUMMARY | 2024-10-21 08:17 | XMS_ITS | Encounter Summary ---
Author Organization [facility] Address [address] [place] [address] Phone Care Team Providers Care Measuring Machine Operator Name Role Phone Az Watson MD Primary Care Provider [phone] Cain Lira MD Unavailable [phone] Francoise Tompkins RN Unavailable Unavailable Claribel SierraW Unavailable Unavailab Trisha Houston APRN, [place]OM[place] Unavailable Golden Napier MD Unavailable Emilio Sarabia MD Unavailable [phone] Reason for Visit * Reason Comments Medication Refill Encounter Details Date Type Department Care Team (Late st Contact Info) Description 10/27/2019 Refill [facility] [address] [place] [address] Az Watson MD #[address] [address] Medication Refill Social History Tobacco Use Types Packs/Day Years Used Date Smoking Tobacco: Former Cigarettes 1 30 0 06/18/1985 - 06/18/2015 Smokeless Tobacco: Never Comments:quit may 2015 Alcohol Use Standard Drinks/Week Comments No 0 (1 standard drink = 0.6 oz pur e alcohol) only at [place] PHQ-2 Answer Date Recorded PHQ-2 Score 2 [...] 7 months ago Hyperlipidemia, unspecified hyperlipidemia type [facility] Az Watson MD 9 months ago Acute cystitis with hematuria [facility] Vickey Robbins APN, GINNER HELPER 1 year ago Hyperlipidemia, unspecified hyperlipidemia type [facility] Az Watson MD 2 years ago Chronic prescription benzodiazepine use [facility] Az Watson MD 2 years ago Vitamin D insufficiency [facility] Az Watson MD Upcoming Appointments Future Appointments In 5 months Sony Hu, [facility], [facility] Failed - This refill cannot be delegated documented in this encounter Plan of Treatment Upcoming Encounters Date Type Department Care Team (Latest Contact Info) Description 10/24/2024 10:30 AM CDT Office Visit [facility] #[address] [place] [phone] Emilio Sarabia MD #2 [facility] [address] [place] [address] 10/29/2024 8:30 AM CDT Office Visit [facility] - Family [facility] #2 [place] [phone] Vickey Robbins APRN, GINNER HELPER #2 [facility] [address] [place] [address] 11/04/2024 9:00 AM CDT [facility]illary [facility] [address] [place] [address] Az Watson MD #[address] [address] Discharge Disposition: Discharged to home or Selfcare documented as of this encounter Visit Diagnoses Not on filedocumented in this encounter Additional Health Concerns Infection Onset Date Last Indicated Resolved Time COVID - 19 06/11/2023 06/11/2023 06/21/2023 12:1 6 AM DROP WIRE ALINER Assessment Noted Time PHQ-9 Depression Total Score: 2 09/19/19 20 9:00 AM CDT documented as of this encounter Care Teams Measuring Machine Operator Relationship Specialty Start Date End Date Az Watson MD #2 [facility] [address] [place] [address] PCP - General Family Medicine 05/03/15 Cain Lira MD [address] [place] [address] Obstetrics & Gynecology 02/15/17 Francoise Tompkins RN [place] Biological Aide 09/06/21 04/06/22 Claribel Sierra LSW [place] Biological Aide 09/09/21 04/06/22 Trisha Cook APRN, GINNER HELPER #2 [place] [address] Nurse Practitioner Advanced Practice Nurse 11/29/22 Golden Napier MD #2 [facility] [address] [place] [address] Consulting Physician Colon and Rectal Surgery 08/13/23 Emilio Sarabia MD #2 [facility] [address] [place] [address] Consulting Physician Urology 09/11/23 documented as of this encounter
--- OUTSIDE RECORDS SUMMARY | 2024-10-21 08:17 | XMS_ITS | Encounter Summary ---
Author Organization [facility] Address [address] [place] [address] Phone Care Team Providers Care Banquet Waiter/Waitress Name Role Phone Az Watson MD Primary Care Provider [phone] Cain Lira MD Unavailable [phone] Trisha Cook APRN, SENIOR DIRECTOR Unavailable Golden Napier MD Unavailable Emilio Sarabia MD Unavailable [phone] Reason for Visit * Reason Comments Medication Refill Encounter Details Date Type Department Care Team (Late st Contact Info) Description 03/26/2023 Refill [facility] - Family Medicine - [place] #2 [place] [address] Vickey Robbins APRN, SENIOR DIRECTOR #[address] [address] Medication Refill Social History Tobacco Use Types [...] Miscellaneous Notes * Telephone Encounter - Kari Blacmkon RN - 03/26/2023 4:59 PM CDT Medication [...] 09/19/22 Office Visit Vickey Robbins APRN, CNP [facility] [place] 06/19/22 Office Visit [facility]N, [facility] [place] 04/10/[facility] Office Visit Vickey Robbins APRN, SALOMON [facility] Showing recent visits within past 365 days and meeting all other requirements Future Appointments No visits were found meeting these conditions. Showing future appointments within next 90 days and meeting all other requirements documented in this encounter Plan of Treatment Upcoming Encounters Date Type Department Care Team (Latest Contact Info) Description 10/24/2024 10:30 AM CDT Office Visit [facility] PHYSICIAN [facility] UROLOGY #2 [place] [address] Emilio Sarabia MD #2 [facility] [address] [place] [address] 10/29/2024 8:30 AM CDT Office Visit [facility] - Family Medicine - [place] #2 [place] [address] Vickey Robbins APRN, SENIOR DIRECTOR #2 [facility] [address] [place] [address] 11/04/2024 9:00 AM CDT Ancillary Procedure [facility] [address] [place] [address] Az Watson MD #2 [facility] [address] [place] [address] Discharge Disposition: Discharged to home or Selfcare documented as of this encounter Goals Goal Patient Goal Type Associated Problems Recent Progress Patient-Stated? Author Behavioral Health Behavioral Health On track( 022 8:46 AM METER SHOP SUPERINTENDENT) Yes Betsy Butts, SUPERINTENDENT NONSELLING Note: I need to be able to [...] 19 06/11/2023 06/11/2023 06/21/2023 12:1 6 AM METER SHOP SUPERINTENDENT Assessment Noted Time PHQ-9 Depression Total Score: 4 09/02/19 21 8:46 AM CDT documented as of this encounter Care Teams Banquet Waiter/Waitress Relationship Specialty Start Date End Date Az Watson MD #2 [facility] [address] [place] [address] PCP - General Family Medicine 05/03/15 Cain Lira MD [address] [place], [place] [address] Obstetrics & Gynecology 02/15/17 Trisha Cook APRN, SENIOR DIRECTOR #2 [place] [address] Nurse Practitioner Advanced Practice Nurse 11/29/22 Golden Napier MD #2 [facility] [address] [place] [address] Consulting Physician Colon and Rectal Surgery 08/13/23 Emilio Sraabia MD #[address] [address] Consulting Physician Urology 09/11/23 documented as of this encounter
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
--- OUTSIDE RECORDS SUMMARY | 2024-10-21 08:17 | XMS_ITS | Encounter Summary ---
Author Organization [facility] Address [address] [place] [address] Phone Care Team Providers Care Marketing Campaign Analyst Name Role Phone Az Watson MD Primary Care Provider [phone] Cain Lira MD Unavailable [phone] Francoise Tompkins RN Unavailable Unavailable Claribel Sierra Unavailable Unavailab Trisha Houston APRN, TRAINING FACILITATOR Unavailable Golden Napier MD Unavailable Emilio Sarabia MD Unavailable [phone] Reason for Visit * Reason Comments Medication Refill Encounter Details Date Type Department Care Team (Late st Contact Info) Description 05/09/2021 Refill [facility] - [place] #[address] [place] [address] Az Watson MD [address] [address] Medication Refill Social History Tobacco Use Types [...] COVID-19? No / Unsure 04/25/2021 10:00 AM MACHINING TECHNICIAN documented as of this encounter Miscellaneous Notes [...] APRN, CNP [facility] [place] 01/31/21 Office Visit Az Watson MD [facility] [...] 90 days and meeting all other requirements INING TECHNICIAN documented in this encounter Plan of Treatment Upcoming Encounters Date Type Department Care Team (Latest Contact Info) Description 10/24/2024 10:30 AM CDT Office Visit [facility] PHYSICIAN [facility] UROLOGY #2 [place] [address] Emilio Sarabia MD #2 [facility] [address] [place] [address] 10/29/2024 8:30 AM CDT Office Visit [facility] - Family Medicine [facility] #2 [place] [address] Vickey Robbins APRN, TRAINING FACILITATOR #2 [facility] [address] [place] [address] 11/04/2024 9:00 AM CDT [facility] [address] [place] [address] Az Watson MD #[address] [address] Discharge Disposition: Discharged to home or Selfcare documented as of this encounter Visit Diagnoses Not on filedocumented in this encounter Additional Health Concerns Infection Onset Date Last Indicated Resolved Time COVID - 19 06/11/2023 06/11/2023 06/21/2023 12:1 6 AM MACHINING TECHNICIAN Assessment Noted Time PHQ-9 Depression Total Score: 4 09/02/19 21 8:46 AM CDT documented as of this encounter Care Teams Marketing Campaign Analyst Relationship Specialty Start Date End Date Az Watson MD #[address] [address] PCP - General Family Medicine 05/03/15 Cain Lira MD [address] [place] [address] Obstetrics & Gynecology 02/15/17 Francoise Tompkins RN [place] Librarian Special Library 09/06/21 04/06/22 Claribel iSerra LSW [place] Librarian Special Library 09/09/21 04/06/22 Trisha Cook APRN, TRAINING FACILITATOR #2 [place] [address] Nurse Practitioner Advanced Practice Nurse 11/29/22 Golden Napier MD #2 [facility] [address] [place] [address] Consulting Physician Colon and Rectal Surgery 08/13/23 Emilio Sarabia MD #2 [facility] [address] [place] [address] Consulting Physician Urology 09/11/23 documented as of this encounter
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
--- OUTSIDE RECORDS SUMMARY | 2024-10-21 08:17 | XMS_ITS | Encounter Summary ---
Author Organization [facility] Address [address] [place] [address] Phone Care Team Providers Care Radioactive Waste Disposal Dispatcher Name Role Phone Az Watson MD Primary Care Provider [phone] Cain Lira MD Unavailable [phone] Francoise Tompkins RN Unavailable Unavailable Claribel SierraW Unavailable Unavailab Trisha Houston APRN, SALOMON Unavailable Golden Napier MD Unavailable Emilio Sarabia MD Unavailable [phone] Reason for Visit * Reason Comments Medication Refill Encounter Details Date Type Department Care Team (Late st Contact Info) Description 11/24/2019 Refill [facility] [address] [place] [address] Az Watson MD #[address] [address] Medication Refill Social History Tobacco Use Types Packs/Day Years Used Date Smoking Tobacco: Former Cigarettes 1 30 0 06/18/1985 - 06/18/2015 Smokeless Tobacco: Never Comments:quit may 2015 Alcohol Use Standard Drinks/Week Comments No 0 (1 standard drink = 0.6 oz pur e alcohol) only at [facility] PHQ-2 Answer Date Recorded PHQ-2 Score 2 [...] Hyperlipidemia, unspecified hyperlipidemia type [facility] Az Watson MD 10 months ago Acute cystitis with hematuria [facility] Vickey Robbins APN, ATTENDING PSYCHIATRIST 1 year ago Hyperlipidemia, unspecified hyperlipidemia type [facility] Az Watson MD 2 years ago Chronic prescription benzodiazepine use [facility] Az Watson MD Upcoming Appointments Future Appointments In 1 month Az Watson MD [facility], [facility] In 4 months Sony Hu DO [facility] GASTRO[facility]OLOGY, [facility] documented in this encounter Plan of Treatment Upcoming Encounters Date Type Department Care Team (Latest Contact Info) Description 10/24/2024 10:30 AM CDT Office Visit [facility]ICIAN [facility] UROLOGY #2 [place] [address] Emilio Sarabia MD #2 [facility] [address] [place] [address] 10/29/2024 8:30 AM CDT [facility] Visit [facility] #2 [place] [address] Vickey Robbins APRN, ATTENDING PSYCHIATRIST #2 [facility] [address] [place] [address] 11/04/2024 9:00 AM CDT [facility] [address] [place] [address] Az Watson MD #2 [facility] [address] [place] [address] Discharge Disposition: Discharged to home or Selfcare documented as of this encounter Visit Diagnoses Not on filedocumented in this encounter Additional Health Concerns Infection Onset Date Last Indicated Resolved Time COVID - 19 06/11/2023 06/11/2023 06/21/2023 12:1 6 AM QUARANTINE INSPECTOR Assessment Noted Time PHQ-9 Depression Total Score: 2 09/19/19 20 9:00 AM CDT documented as of this encounter Care Teams Radioactive Waste Disposal Dispatcher Relationship Specialty Start Date End Date Az Watson MD #2 [facility] [address] [place] [address] PCP - General Family Medicine 05/03/15 Cain Lira MD [address] [place], [place] [address] Obstetrics & Gynecology 02/15/17 Francoise Tompkins RN [place] Cheese Tester 09/06/21 04/06/22 Claribel Sierra LSW [place] Cheese Tester 09/09/21 04/06/22 Trisha Cook APRN, ATTENDING PSYCHIATRIST #2 [place] [address] Nurse Practitioner Advanced Practice Nurse 11/29/22 Golden Napier MD #2 [facility] [address] [place] [address] Consulting Physician Colon and Rectal Surgery 08/13/23 Emilio Sarabia MD #2 [facility] [address] [place] [address] Consulting Physician Urology 09/11/23 documented as of this encounter
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
--- OUTSIDE RECORDS SUMMARY | 2024-10-21 08:17 | XMS_ITS | Encounter Summary ---
Author Organization [facility] Address [address] [place] [address] Phone Care Team Providers Care Lasting Machine Operator Bed Name Role Phone Az Watson MD Primary Care Provider Cain Lira MD Unavailable [phone] Trisha Cook APRN, BIOPHYSICS PROFESSOR Unavailable Golden Napier MD Unavailable Emilio Sarabia MD Unavailable [phone] Reason for Visit * Reason Comments Medication Refill Encounter Details Date Type Department Care Team (Late st Contact Info) Description 06/24/2022 Refill [facility] - Gastroenterology - [place] [address]2 [place] [id number] Mine Rivera Nikki, PAC [address] [place] [address] Medication Refill Social History Tobacco Use Types [...] Coronavirus/COVID-19? No / Unsure 06/19/2022 2:46 PM COMBAT SYSTEMS OPERATOR [employer] documented as of this encounter Miscellaneous Notes [...] [place] 06/30/21 Office Visit Mine Rivera PAC [facility] [place] Showing recent visits within past 365 days and meeting all other requirements Future Appointments Date Type Provider Dept 09/19/22 Appointment Az Watson MD [facility] [place] Showing future appointments within next 90 days and meeting all other requirements s AT SYSTEMS OPERATOR [place] [place] documented in this encounter Plan of Treatment Upcoming Encounters Date Type Department Care Team (Latest Contact Info) Description 10/24/2024 10:30 AM CDT Office Visit [facility]IAN [facility] UROLOGY #2 [place] [address] Emilio Sarabia MD #2 [facility] [address] [place] [address] 10/29/2024 8:30 AM CDT Office Visit [facility] - Family Medicine - [place] #2 [place] [address] Vickey Robbins APRN, BIOPHYSICS PROFESSOR #2 [facility] [address] [place] [address] 11/04/2024 9:00 AM CDT Ancillary Procedure [facility] [address] [place] [address] Az Watson MD #2 [facility] [address] [place] [address] Discharge Disposition: Discharged to home or Selfcare documented as of this encounter Goals Goal Patient Goal Type Associated Problems Recent Progress Patient-Stated? Author Behavioral Health Behavioral Health On track( 022 8:46 AM COMBAT SYSTEMS OPERATOR [employer]) Yes Betsy Butts, VBA DEVELOPER Note: I need to be able to [...] 19 06/11/2023 06/11/2023 06/21/2023 12:1 6 AM COMBAT SYSTEMS OPERATOR [employer] Assessment Noted Time PHQ-9 Depression Total Score: 4 09/02/19 21 8:46 AM CDT documented as of this encounter Care Teams Lasting Machine Operator Bed Relationship Specialty Start Date End Date Az Wtason MD #2 [facility] [address] [place] [address] PCP - General Family Medicine 05/03/15 Cain Lira MD [address] [place] [address] Obstetrics & Gynecology 02/15/17 Trisha Cook APRN, BIOPHYSICS PROFESSOR #2 [place] [address] Nurse Practitioner Advanced Practice Nurse 11/29/22 Golden Napier MD #2 [facility] [address] [place] [address] Consulting Physician Colon and Rectal Surgery 08/13/23 Emilio Sarabia MD #2 [facility] [address] [place] [address] Consulting Physician Urology 09/11/23 documented as of this encounter
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
--- OUTSIDE RECORDS SUMMARY | 2024-10-21 08:18 | XMS_ITS | Encounter Summary ---
Author Organization [facility] Address [address] [facility] [place] [address] Care Team Providers Care File Keeper Name Role Phone Az Watson MD Primary Care Provider [phone] Encounter Details Date Type Department Care Team (Late st Contact Info) Description 04/20/2023 Lab Requisition [facility] - Pathology Lab [address] [place] [address] Josefa Ye MD [facility] [address] [address] Anemia, unspecified Social History Tobacco Use Types Packs/Day Years Used Date Smoking Tobacco: Former Cigarettes 1 2015 Smokeless Tobacco: Never Alcohol Use Standard Drinks/Week Comments Not Currently 0 (1 standard drink = 0.6 oz pur e alcohol) Occasionally Comments No Sex and Gender Information Value Date Recorded Sex Assigned at Not on file Legal Sex Female 8:54 AM FINISH FILER Gender Identity Not on file Sexual Orientation [...] CYTOMETRY BONE MARROW Routine 04/20/2023 8:10 AM FINISH FILER Anemia, unspecified documented in this encounter Results * FLOW CYTOMETRY BONE MARROW (04/20/2023 8:10 AM FINISH FILER) Case Report Flow Cytometry Case: [id number] Authorizing Provider: Josefa Ye MD Collected: 04/20/2023 08:10 AM Ordering Location: [facility] Pathology Lab Received: 04/20/2023 02:26 PM Pathologist: Augusta Hopson MD Specimen: Bone Marrow 04/20/2023 3:52 PM [facility] Final Diagnosis Bone marrow, flow cytometric immunophenotypic analysis: - No evidence of a monoclonal B-cell population or increase in blasts - See interpretation 04/20/2023 3:52 PM [facility] Flow Cytometry Interpretation Viability: 89% B-cells: polytypic, kappa:lambda ratio 1.4:1 Blasts: detected, 1.6% of events A bone marrow aspirate smear prepared from the flow cytometry specimen has been reviewed for quality management coordinator purposes. 04/20/2023 3:52 PM [facility] Flow Cytometry Results Differential Result Comment Flow Cell Count /uL 8,400 Total Viability % 89.0 Lymphocytes % 48 Dim CD45 Region % 6 Monocytes % 15 Granulocytes % 31 04/20/2023 3:52 PM [facility] Reason for test Anemia, unspecified 285.9 04/20/2023 3:52 PM [facility] PATH[facility] LAB Client Specimen ID # [id number] 04/20/2023 3:52 PM [facility] LAB Number of markers 10 were performed. A-2 Flow CD10 A-3 Flow CD13 A-5 Flow CD20 A-1 Flow CD5 A-4 Flow CD19 A-6 Flow CD33 A-7 Flow CD34 A-8 Flow CD45 A-9 Marcus Hook+CD19+ A-10 Lambda+CD19+ 04/20/2023 3:52 PM [facility] Pathologist Location at [facility] 04/20/2023 3:52 PM [facility] PATH[facility] LAB Disclaimer Test performed at [facility], [address] [place] [address], [address]. *The established laboratory minimum viability is 70%. [...] high complexity clinical testing. 04/20/2023 3:52 PM [facility] PATH[facility] LAB Embedded Images 3:52 PM [facility] PATH[facility] LAB Pathology/Cytolo gy BONE MARROW SPECIMEN / Unknown 04/20/2023 8:10 AM FINISH FILER 04/20/2023 2:26 PM FINISH FILER us Josefa Ye MD LAB - PATHOLOGY/CYTOLOGY ORDERAB LES Final Result [facility] [address] [place] [address], [facility] [phone] documented in this encounter Visit Diagnoses Diagnosis Anemia, unspecified documented in this encounter Care Teams File Keeper Relationship Specialty Start Date End Date Az Watson MD PCP - General 03/06/18 documented as of this encounter
--- OUTSIDE RECORDS SUMMARY | 2024-10-21 08:18 | XMS_ITS | CONTINUITY OF CARE DOCUMENT ---
Author Name adriannekevinwinston Address Unknown Organization [facility] Address [address] [place] [address] Phone [phone] Care Team Providers Care Channeling Machine Runner Name Role Phone ALVARO LIMON MD Unavailable [phone] ALVARO LIMON MD Unavailable INSURANCE PROVIDERS Payer name Policy type / Coverage type Lan red libertarian [place] [facility] Medicaid 1 [id number]
--- OUTSIDE RECORDS SUMMARY | 2024-10-21 08:18 | XMS_ITS | Patient Health Record ---
Author Organization 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) Active confirmed Problem Anemia (515523995) Anemia, unspecified (D64.9) Active confirmed Problem Anxiety disorder (548657458) Anxiety disorder, unspecified (F41.9) Active confirmed Problem Allergic rhinitis caused by pollen (disorder) (99173083) Allergic rhinitis due to pollen (J30.1) Active confirmed Problem Chronic obstructive pulmonary disease (08829205) Chronic obstructive pulmonary disease, unspecified (J44.9) Active confirmed Problem Gastro-esophageal reflux disease without esophagitis (098600290) Gastro-esophagea l reflux disease without esophagitis (K21.9) Active confirmed Problem Rheumatoid arthritis (75359434) Rheumatoid arthritis, unspecified (M06.9) Active confirmed Problem Age-related osteoporosis (336131920) Age-related osteoporosis without current pathological fracture (M81.0) Active confirmed Problem Hyperlipidemia (71779327) Hyperlipidemia, unspecified (E78.5) Active confirmed Problem Headache (99506181) Headache, unspecified (R51.9) Active confirmed Plan Of Treatment No Information Insurance Providers Payer Name Payer Address Payer Phone Subscriber Number Group Number Insured Name Patient Relationship to Insured Coverage Start Date Coverage End Date [employer] [place] [address] [place] [address] [id number] Ivone Hernandez Self - patient is the insured 2 Medical (General) History Surgical History Surgery Date(Month/Year) Tonsillectomy; 2011-08-30 Bladder Surgery: urge inconti, Date of P rocedure: 2004; 2011-08-30 Hysterectomy: varicose vein. SHAHAB, Date o f Procedure: 2004; 2011-08-30
--- OUTSIDE RECORDS SUMMARY | 2024-10-21 08:18 | XMS_ITS | Encounter Summary ---
Author Organization [facility] Address [address] [place] [address] Phone Care Team Providers Care Concert Pianist Name Role Phone Az Watson MD Primary Care Provider [phone] Cain Lira MD Unavailable [phone] Francoise Tompkins RN Unavailable Unavailable Claribel Sierra Unavailable Unavailab Trisha Houston APRN, SALOMON Unavailable Golden Napier MD Unavailable Emilio Sarabia MD Unavailable [phone] Reason for Visit * Reason Comments Medication Refill Encounter Details Date Type Department Care Team (Late st Contact Info) Description 02/08/2022 [facility]ill [facility] - [place] [address] [place] [address] Az Watson MD [address] [address] Medication Refill Social History Tobacco Use Types [...] Dept 09/21/21 Office Visit Az Watson MD [facility] [place] 08/30/21 Office Visit [facility] [place] 04/18/21 Office Visit Vickey Robbins APRN, DRY PAN OPERATOR [facility] Showing recent visits within past 365 days and meeting all other requirements Future Appointments Date Type Provider Dept 04/28/22 Appointment Az Watson MD [facility] [place] Showing future appointments within [...] Description 10/24/2024 10:30 AM CDT Office Visit [facility] #2 [place] [address] Emilio Sarabia MD #2 [facility] [address] [place] [address] 10/29/2024 8:30 AM CDT Office Visit [facility] Medical Group - Family Medicine - [place] #2 [place] [phone] Vickey Robbins APRN, DRY PAN OPERATOR #2 [facility] [address] [place] [address] 11/04/2024 9:00 AM CDT [facility] [address] [place] [address] Az Watson MD #2 [facility] [address] [place] [address] Discharge Disposition: Discharged to home or Selfcare documented as of this encounter Visit Diagnoses Diagnosis Controlled type 2 diabetes mellitus without complication, without long-term current use of insulin documented in this encounter Additional Health Concerns Infection Onset Date Last Indicated Resolved Time COVID - 19 06/11/2023 06/11/2023 06/21/2023 12:1 6 AM STAFFING AND SCHEDULING COORDINATOR Assessment Noted Time PHQ-9 Depression Total Score: 4 09/02/19 21 8:46 AM CDT documented as of this encounter Care Teams Concert Pianist Relationship Specialty Start Date End Date Az Watson MD #2 [facility] [address] [place] [address] PCP - General Family Medicine 05/03/15 Cain Lira MD [address] [facility] [address] [facility] [address] [place] [address] Obstetrics & Gynecology 02/15/17 Francoise Tompkins RN [place] Whirley Operator 09/06/21 04/06/22 Claribel Sierra LSW [place] Whirley Operator 09/09/21 04/06/22 Trisha Cook APRN, DRY PAN OPERATOR #2 [place] [address] Nurse Practitioner Advanced Practice Nurse 11/29/22 Golden Napier MD #2 [facility] [address] [place] [address] Consulting Physician Colon and Rectal Surgery 08/13/23 Emilio Sarabia MD #2 [facility] [address] [place] [address] Consulting Physician Urology 09/11/23 documented as of this encounter
--- OUTSIDE RECORDS SUMMARY | 2024-10-21 08:18 | XMS_ITS | Encounter Summary ---
Author Organization [facility] Address [address] [place] [address] Phone Care Team Providers Care Nail Specialist Name Role Phone Az Watson MD Primary Care Provider [phone] Cain Lira MD Unavailable [phone] Francoise Tompkins RN Unavailable Unavailable Claribel Sierra Unavailable Unavailab Trisha Houston APRN, SALOMON Unavailable Golden Napier MD Unavailable Emilio Sarabia MD Unavailable [phone] Reason for Visit * Reason Comments Medication Refill Encounter Details Date Type Department Care Team (Late st Contact Info) Description 10/27/2021 Refill [facility] - [place] [address] [place] [address] Az Watson MD [address] [address] Medication Refill Social History Tobacco Use Types [...] 11/10/20 Office Visit Vickey Robbins APRN, SALOMON [facility] [place] Showing recent visits within past 365 days and meeting all other requirements Future Appointments Date Type Provider Dept 12/08/21 Appointment Az Watson MD [facility] Showing future appointments within next 90 days and meeting all other requirements documented in this encounter Plan of Treatment Upcoming Encounters Date Type Department Care Team (Latest Contact Info) Description 10/24/2024 10:30 AM CDT Office Visit [facility] UROLOGY #2 [place] [address] Emilio Sarabia MD #2 [facility] [address] [place] [address] 10/29/2024 8:30 AM CDT Office Visit [facility] - Family Medicine [facility] #2 [place] [address] Vickey Robbins APRN, POSTDOCTORAL SCIENTIST #2 [facility] [address] [place] [address] 11/04/2024 9:00 AM CDT [facility] [address] [place] [address] Az Watson MD #[address] [address] Discharge Disposition: Discharged to home or Selfcare documented as of this encounter Visit Diagnoses Not on filedocumented in this encounter Additional Health Concerns Infection Onset Date Last Indicated Resolved Time COVID - 19 06/11/2023 06/11/2023 06/21/2023 12:1 6 AM MENTAL HEALTH ORDERLY Assessment Noted Time PHQ-9 Depression Total Score: 4 09/02/19 21 8:46 AM CDT documented as of this encounter Care Teams Nail Specialist Relationship Specialty Start Date End Date Az Watson MD #2 [facility] [address] [place] [address] PCP - General Family Medicine 05/03/15 Cain Lira MD [address] [place], [place] [phone] Obstetrics & Gynecology 02/15/17 Francoise Tompkins RN [place] Autocad Draftsman 09/06/21 04/06/22 Claribel Sierra LSW [place] Autocad Draftsman 09/09/21 04/06/22 Trisha Cook APRN, POSTDOCTORAL SCIENTIST #2 [place] [address] Nurse Practitioner Advanced Practice Nurse 11/29/22 Golden Napier MD #2 [facility] [address] [place] [address] Consulting Physician Colon and Rectal Surgery 08/13/23 Emilio Sarabia MD #2 [facility] [address] [place] [address] Consulting Physician Urology 09/11/23 documented as of this encounter
--- OUTSIDE RECORDS SUMMARY | 2024-10-21 08:18 | XMS_ITS | Patient Health Record ---
Author Organization [facility] [employer] Address [facility]ly [facility] [place] [address] Support Name Relationship Address Phone Ivone Hernandez Guarantor Unknown [phone] Reason For Referral No Information Medications Medication [...] W/U Status Risk Notes Problem Chronic laryngitis (58024525) Chronic laryngitis (476.0) 0 confirmed Kervin Problem Degeneration of intervertebral disc (35410730) Degeneration of intervertebral disc, site unspecified (722.6) 0 confirmed Kervin Plan Of Treatment No Information Medical (General) History Surgical History Surgery Date(Month/Year) bladder sling tonsillectomy
--- OUTSIDE RECORDS SUMMARY | 2024-10-21 08:18 | XMS_ITS | Encounter Summary ---
Author Organization [facility] Address [address] [place] [address] Phone Care Team Providers Care Network Firewall Engineer Name Role Phone Az Watson MD Primary Care Provider [phone] Cain Lira MD Unavailable [phone] Francoise Tompkins RN Unavailable Unavailable Claribel Sierra Unavailable Unavailab Trisha Houston APRN, HEAVY MOBILE EQUIPMENT REPAIRER Unavailable Golden Napier MD Unavailable Emilio Sarabia MD Unavailable [phone] Reason for Visit * Reason Comments Medication Refill Encounter Details Date Type Department Care Team (Late st Contact Info) Description 05/17/2021 Refill [facility] - [place] [address] [place] [address] Az Watson MD [address] [address] Medication Refill Social History Tobacco Use Types [...] COVID-19? No / Unsure 04/25/2021 10:00 AM PREASSEMBLER PRINTED CIRCUIT BOARD documented as of this encounter Miscellaneous Notes [...] Date Type Provider Dept 04/18/21 Office Visit Vickye Robbins APRN, SALOMON [place] 01/31/21 Office Visit Az Watson MD [facility] 11/10/20 Office Visit Vickey Robbins APRN, SALOMON [place] 09/01/20 Office Visit Az Watson MD [facility] 06/01/20 Office Visit Az Watson MD [facility] Showing recent visits within past 365 days and meeting all other requirements Future Appointments Date Type Provider Dept 05/27/21 Appointment Az Watson MD [facility] Showing future appointments within next 90 days and meeting all other requirements Passed - ALT less than 90 and AST less than 55 on record in past 12 months SGOT (AST) Date Value Ref Range Status 02/03/2021 20 <=32 U/L Final SGPT (ALT) Date Value Ref Range Status 02/03/2021 22 <=41 U/L Final SSEMBLER PRINTED CIRCUIT BOARD documented in this encounter Plan of Treatment Upcoming Encounters Date Type Department Care Team (Latest Contact Info) Description 10/24/2024 10:30 AM CDT Office Visit [facility] UROLOGY #2 [place] [address] Emilio Sarabia MD #2 [facility] [address] [place] [address] 10/29/2024 8:30 AM CDT Office Visit [facility] - Family Medicine [facility] #2 [place] [address] Vickey Robbins APRN, HEAVY MOBILE EQUIPMENT REPAIRER #2 [facility] [address] [place] [address] 11/04/2024 9:00 AM CDT [facility] [address] [place] [address] Az Watson MD #2 [facility] [address] [place] [address] Discharge Disposition: Discharged to home or Selfcare documented as of this encounter Visit Diagnoses Not on filedocumented in this encounter Additional Health Concerns Infection Onset Date Last Indicated Resolved Time COVID - 19 06/11/2023 06/11/2023 06/21/2023 12:1 6 AM PREASSEMBLER PRINTED CIRCUIT BOARD Assessment Noted Time PHQ-9 Depression Total Score: 4 09/02/19 21 8:46 AM CDT documented as of this encounter Care Teams Network Firewall Engineer Relationship Specialty Start Date End Date Az Watson MD #2 [facility] [address] [place] [address] PCP - General Family Medicine 05/03/15 Cain Lira MD [address] [place], [place] [address] Obstetrics & Gynecology 02/15/17 Francoise Tompkins RN [place] Agate Setter 09/06/21 04/06/22 Claribel Sierra LSW [place] Agate Setter 09/09/21 04/06/22 Trisha Cook APRN, HEAVY MOBILE EQUIPMENT REPAIRER #2 [place] [address] Nurse Practitioner Advanced Practice Nurse 11/29/22 Golden Napier MD #2 [facility] [address] [place] [address] Consulting Physician Colon and Rectal Surgery 08/13/23 Emilio Sarabia MD #2 [facility] [address] [place] [address] Consulting Physician Urology 09/11/23 documented as of this encounter
--- OUTSIDE RECORDS SUMMARY | 2024-10-21 08:18 | XMS_ITS | Clinical Summary ---
Author Organization [facility] [employer] Address [address] [facility] [place] [address] Care Team Providers Care Bike Assembler Name Role Phone Az Watson MD Primary Care Provider [phone] Source Comments [facility] [employer],non-owned Affiliates and Associated Physician Practices is amultiple site organization consisting of ambulatory clinics and hospital sitesin [place], [place], [place]. This disclosure is being madepursuant to the Care Everywhere program and may not contain all information available regarding this patient. Last updated 18.[facility] [employer] Allergies Active Allergy Reactions Criticality Noted Date Comments Codeine Urticaria 11/03/2009 Depakote GI Discomfort 11/06/2009 Blisters at the back of my head. Duloxetine Other,Rash,Seizures, Unkn own High 12/16/2015 seizure Reaction: Other reaction, seizure Erythromycin Urticaria 11/03/2009 [place] Rash High 06/30/2021 Blisters on back of [...] fluticasone propionate (Flonase) 50 MCG/ACT nasal spray [place] 2 sprays into each nostril once daily [...] naloxone HCl (Narcan) 4 MG/0.1ML nasal spray [place] 1 spray into the nose as needed [...] on file Legal Sex Female 8:54 AM BLANKET WINDER OPERATOR Gender Identity Not on file Sexual [...] to complete this topic Insurance MEDICAID - [facility] MEDICARE MEDICAID - [place] DUAL ADV [place] Advance Directives * Full Code (Latest Code Status on File) Date Activated Date Inactivated Comments 11/03/2009 8:39 PM 11/17/2009 10:15 PM Care Teams Bike Assembler Relationship Specialty Start Date End Date Az Watson MD PCP - General 03/06/18
--- OUTSIDE RECORDS SUMMARY | 2024-10-21 08:18 | XMS_ITS | Encounter Summary ---
Author Organization [facility] Address [address] [place] [address] Phone Care Team Providers Care Pharmacist Apprentice Name Role Phone Az Watson MD Primary Care Provider [phone] Cain Lira MD Unavailable [phone] Francoise Tompkins RN Unavailable Unavailable Claribel Sierra Unavailable Unavailab Trisha Houston APRN, DAIRY LABORATORY TECHNICIAN Unavailable Golden Napier MD Unavailable Emilio Sarabia MD Unavailable [phone] Reason for Visit * Reason Comments Medication Refill Encounter Details Date Type Department Care Team (Late st Contact Info) Description 11/14/2021 Refill [facility] - [place] #2 [place] [address] Mine Rivera Nikki, PAC [address] [place] [address] Medication Refill Social History Tobacco Use Types [...] 10/24/2024 10:30 AM CDT Office Visit [facility]Y #2 [place] [address] Emilio Sarabia MD #2 [facility] [address] [place] [address] 10/29/2024 8:30 AM CDT Office Visit [facility] Group - Family Medicine [facility] #2 [place] [address] Vickey Robbins APRN, DAIRY LABORATORY TECHNICIAN #2 [facility] [address] [place] [address] 11/04/2024 9:00 AM CDT [facility] [address] [place] [address] Az Watson MD #2 [facility] [address] [place] [address] Discharge Disposition: Discharged to home or Selfcare documented as of this encounter Visit Diagnoses Diagnosis Gastroesophageal reflux disease without esophagitis Esophageal reflux documented in this encounter Additional Health Concerns Infection Onset Date Last Indicated Resolved Time COVID - 19 06/11/2023 06/11/2023 06/21/2023 12:1 6 AM HOME IMPROVEMENT ADVISOR Assessment Noted Time PHQ-9 Depression Total Score: 4 09/02/19 21 8:46 AM CDT documented as of this encounter Care Teams Pharmacist Apprentice Relationship Specialty Start Date End Date Az Watson MD #2 [facility] [address] [place] [address] PCP - General Family Medicine 05/03/15 Cain Lira MD [address] [facility] [address] [facility] [address] [place] [address] Obstetrics & Gynecology 02/15/17 Francoise Tompkins RN [place] Electrician Shop 09/06/21 04/06/22 Claribel Sierra LSW [place] Electrician Shop 09/09/21 04/06/22 Trisha Cook APRN, DAIRY LABORATORY TECHNICIAN #[address] [place] [address] Nurse Practitioner Advanced Practice Nurse 11/29/22 Golden Napier MD #2 [facility] [address] [place] [address] Consulting Physician Colon and Rectal Surgery 08/13/23 Emiloi Sarabia MD #2 [facility] [address] [place] [address] Consulting Physician Urology 09/11/23 documented as of this encounter
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
--- OUTSIDE RECORDS SUMMARY | 2024-10-21 08:18 | XMS_ITS | Encounter Summary ---
Author Organization [facility] Address [address] [place] [address] Phone Care Team Providers Care Configuration Specialist Name Role Phone Az Watson MD Primary Care Provider [phone] Cain Lira MD Unavailable [phone] Francoise Tompkins RN Unavailable Unavailable Claribel Sierra Unavailable Unavailab Trisha Houston APRN, SALOMON Unavailable Golden Napier MD Unavailable Emilio Sarabia MD Unavailable [phone] Reason for Visit * Reason Comments Medication Refill Encounter Details Date Type Department Care Team (Late st Contact Info) Description 10/26/2021 Refill [facility] Medicine - [place] [address] [place] [id number] Az Watson MD [address] [address] Medication Refill Social History Tobacco Use Types [...] Office Visit Vickey Robbins APRN, SALOMON [place] Showing recent visits [...] Description 10/24/2024 10:30 AM CDT Office Visit [facility] PHYSICIAN [facility] #2 [place] [address] Emilio Sarabia MD #2 [facility] [address] [place] [address] 10/29/2024 8:30 AM CDT Office Visit [facility] #2 [place] [address] Vickey Robbins APRN, BEE FARMER #2 [facility] [address] [place] [address] 11/04/2024 9:00 AM CDT [facility] [address] [place] [address] Az Waston MD #2 [facility] [address] [place] [address] Discharge Disposition: Discharged to home or Selfcare documented as of this encounter Visit Diagnoses Not on filedocumented in this encounter Additional Health Concerns Infection Onset Date Last Indicated Resolved Time COVID - 19 06/11/2023 06/11/2023 06/21/2023 12:1 6 AM MODEL MAKER PLASTER Assessment Noted Time PHQ-9 Depression Total Score: 4 09/02/19 21 8:46 AM CDT documented as of this encounter Care Teams Configuration Specialist Relationship Specialty Start Date End Date Az Watson MD #2 [facility] [address] [place] [address] PCP - General Family Medicine 05/03/15 Cain Lira MD [address] [place] [address] Obstetrics & Gynecology 02/15/17 Francoise Tompkins RN [place] Component Assembler 09/06/21 04/06/22 Claribel Sierra LSW [place] Component Assembler 09/09/21 04/06/22 Trisha Cook APRN, BEE FARMER #2 [place] [address] Nurse Practitioner Advanced Practice Nurse 11/29/22 Golden Napier MD #2 [facility] [address] [place] [address] Consulting Physician Colon and Rectal Surgery 08/13/23 Emilio Sarabia MD #2 [facility] [address] [place] [address] Consulting Physician Urology 09/11/23 documented as of this encounter
--- OUTSIDE RECORDS SUMMARY | 2024-10-21 08:18 | XMS_ITS | Encounter Summary ---
Author Organization [facility] Address [address] [place] [address] Care Team Providers Care Machine Turner Name Role Phone Az Watson MD Primary Care Provider [phone] Encounter Details Date Type Department Care Team (Late st Contact Info) Description 04/23/2023 Lab Requisition [facility] - Pathology Lab [address] [place] [address] Josefa Ye MD [facility] [address] [address] Illness, unspecified Social History Tobacco Use Types Packs/Day Years Used Date Smoking Tobacco: Former Cigarettes 1 2015 Smokeless Tobacco: Never Alcohol Use Standard Drinks/Week Comments Not Currently 0 (1 standard drink = 0.6 oz pur e alcohol) Occasionally Comments No Sex and Gender Information Value Date Recorded Sex Assigned at Not on file Legal Sex Female 8:54 AM AIRWAYS CONTROL SPECIALIST Gender Identity Not on file Sexual Orientation [...] MARROW BIOPSY (STL) Routine 04/20/2023 8:12 AM AIRWAYS CONTROL SPECIALIST Illness, unspecified documented in this encounter Results * BONE MARROW BIOPSY (STL) (04/20/2023 8:12 AM AIRWAYS CONTROL SPECIALIST) Case Report Bone Marrow Patholog y Report Case: [id number] Authorizing Provider: Josefa Ye MD Collected: 04/20/2023 08:12 AM Ordering Location: [facility] Pathology Lab Received: 04/23/2023 01:06 PM Pathologist: Yannick Ahn MD Specimens: A) - Bone Marrow Core, Left iliac B) - Bone Marrow Clot 04/23/2023 2:57 PM AIRWAYS CONTROL SPECIALIST U PATHOLOGY LAB Final Diagnosis Bone marrow, aspirate, clot section, and core biopsy: - Mildly hypocellular marrow with maturing trilineage hematopoiesis and no evidence of lymphoma or high-grade myeloid neoplasm. - Hemodilute aspirate smear. - See description. Peripheral blood smear: - Normocytic anemia. - See description. 04/23/2023 2:57 PM [facility] PATH[facility] Comment Correlation with genetics is recommended to assess for the possibility of a subtle myeloid stem cell disorder, that is not morphologically as evident. 04/23/2023 2:57 PM AIRWAYS CONTROL SPECIALIST U PATHOLOGY LAB Peripheral Smear Description RBC: normocytic anemia. WBC: normal in number and morphology. No dysplasia seen. Platelets:normal in number and morphology. 04/23/2023 2:57 PM [facility] Bone Marrow Aspirate Differential count (200 cells): not performed due to hemodilution. Specimen quality: hemodilute. Spicules: none. Mostly peripheral blood elements with occasional myeloid and erythroid precursor cells. 04/23/2023 2:57 PM [facility] Bone Marrow Core Biopsy and [...] morphology: peripheral blood only. 04/23/2023 2:57 PM [facility] Flow Cytometry Summary Bone marrow, flow cytometric immunophenotypic analysis: - No evidence of a monoclonal B-cell population or increase in blasts 04/23/2023 2:57 PM [facility] Clinical History Anemia. 04/23/2023 2:57 PM [facility] Materials Received Received are 11 slide(s) and 2 blocks labeled [id number] along with a copy of the outside pathology report. The materials originate from [facility], [address] [place] [address]. All original materials are returned to the referring institution, along with a copy of our final report. 04/23/2023 2:57 PM [facility] Pathologist Location at [facility] 04/23/2023 2:57 PM [facility] Disclaimer The performance characteristics of all immunohistochemical and indirect immunofluorescence stains (if any) cited in this report were determined by the Histopathology Laboratory of [facility]. Some of these tests were developed by [...] the attending (teaching) pathologist. 04/23/2023 2:57 PM AIRWAYS CONTROL SPECIALIST [facility] PATHOLOGY LAB Embedded Images 04/23/2023 2:57 PM AIRWAYS CONTROL SPECIALIST [facility] PATHOLOGY LAB Pathology/Cytology BONE MARROW CLOT SPECIMEN / Unknown 04/20/2023 8:12 AM AIRWAYS CONTROL SPECIALIST 04/23/2023 1:06 PM AIRWAYS CONTROL SPECIALIST Miscellaneous samples (specimen) BONE MARROW CLOT SPECIMEN / Unknown 04/20/2023 8:12 AM AIRWAYS CONTROL SPECIALIST 04/23/2023 1:06 PM AIRWAYS CONTROL SPECIALIST us Josefa Ye MD LAB - PATHOLOGY/CYTOLOGY ORDERAB LES Final Result [facility] PATHOLOGY LAB [address] [phone] documented in this encounter Visit Diagnoses Diagnosis Illness, unspecified documented in this encounter Care Teams Machine Turner Relationship Specialty Start Date End Date Az Watson MD PCP - General 03/06/18 documented as of this encounter
--- OUTSIDE RECORDS SUMMARY | 2024-10-21 08:18 | XMS_ITS | Encounter Summary ---
Author Organization [facility] Address [address] [place] [address] Phone Care Team Providers Care Concrete Tile Machine Operator Name Role Phone Az Watson MD Primary Care Provider [phone] Cain Lira MD Unavailable [phone] Francoise Tompkins RN Unavailable Unavailable Claribel SierraW Unavailable Unavailab Trisha Houston APRN, SALOMON Unavailable Golden Napier MD Unavailable Emilio Sarabia MD Unavailable [phone] Reason for Visit * Reason Comments Medication Refill Encounter Details Date Type Department Care Team (Late st Contact Info) Description 05/12/2020 Refill [facility] [address] [place], [place] [id number] Az Watson MD #[address] [address] Medication Refill Social History Tobacco Use Types Packs/Day Years Used Date Smoking Tobacco: Former Cigarettes 1 30 0 06/18/1985 - 06/18/2015 Smokeless Tobacco: Never Comments:quit may 2015 Alcohol Use Standard Drinks/Week Comments No 0 (1 standard drink = 0.6 oz pur e alcohol) only at [place] PHQ-2 Answer Date Recorded Total Score - [...] COVID-19? No / Unsure 04/27/2020 9:25 AM ASSISTANT FRONT DESK MANAGER documented as of this encounter Miscellaneous [...] 3 months ago Hoarseness, chronic [facility] - Az Collado MD 3 months ago Anxiety [facility] Az Alvarze MD 4 months ago Acute vaginitis [facility] Mary Beth Araujo PAC 7 months ago Gastroesophageal reflux disease without esophagitis [facility] Az Alvarez MD Upcoming Appointments Future Appointments In 2 weeks Az Watson MD [facility] [place] [facility] In 1 month Sony Hu, [facility] - Gastroenterology - [place] [facility] CADMIUM LIQUOR MAKER - Recent and Past Visits Recent Visits Date Type Provider Dept 02/26/20 Office Visit Az Watson MD [facility] 02/02/20 Office Visit Az Watson MD [facility] 01/19/20 Office Visit Az Watson MD [facility] 12/31/19 Office Visit Mary Beth Soriano PAC [facility] [place] 10/13/19 Telemedicine Az Watson MD [facility] [...] 2 months ago Hoarseness, chronic [facility] - Az Collado MD 3 months ago Hoarseness, chronic [facility] - Az Collado MD 3 months ago Anxiety [facility] - Az Collado MD 4 months ago Acute vaginitis [facility] 7 months ago Gastroesophageal reflux disease without esophagitis [facility] Az Watson MD Upcoming Appointments Future Appointments In 2 weeks Az Watson MD [facility] In 1 month Sony Hu, [facility] Gastroenterology [facility] CADMIUM LIQUOR MAKER - Recent and Past Visits Recent Visits Date Type Provider Dept 02/26/20 Office Visit [facility] [place] 02/02/20 Office Visit Az Watson MD [facility] [place] 01/19/20 Office Visit Az Watson MD [facility] [place] 12/31/19 Office Visit [facility]19 Telemedicine Az Watson MD [facility] [place] 03/13/19 Office Visit Az Watson MD [facility] Showing recent visits within past 460 days with a meds authorizing provider and meeting all other requirements Future Appointments Date Type Provider Dept 06/01/20 Appointment Az Watson MD [facility] [place] Showing future appointments within next 90 days with a meds authorizing provider and meeting all other requirements Passed - Last BP in normal range BP Readings from Last 1 Encounters: 02/26/20 122/74 STANT FRONT DESK MANAGER documented in this encounter Plan of Treatment Upcoming Encounters Date Type Department Care Team (Latest Contact Info) Description 10/24/2024 10:30 AM CDT Office Visit [facility] [address] [place] [address] Emilio Sarabia MD [address] [address] 10/29/2024 8:30 AM CDT Office Visit [facility] [address] [place] [address] Vickey Robbins, MARS, DANCE COSTUME DESIGNER #[address] [address] 11/04/2024 9:00 AM CDT Ancillary Procedure [facility] [address] [place] [address] Az Watson MD #[address] [address] Discharge Disposition: Discharged to home or Selfcare documented as of this encounter Visit Diagnoses Not on filedocumented in this encounter Additional Health Concerns Infection Onset Date Last Indicated Resolved Time COVID - 19 06/11/2023 06/11/2023 06/21/2023 12:1 6 AM ASSISTANT FRONT DESK MANAGER Assessment Noted Time PHQ-9 Depression Total Score: 2 02/26/20 20 8:55 AM CDT documented as of this encounter Care Teams Concrete Tile Machine Operator Relationship Specialty Start Date End Date Az Watsno MD #[address] [address] PCP - General Family Medicine 05/03/15 Cain Lira MD [address] [facility] [address] [facility] [address] [place], [place] [id number] Obstetrics & Gynecology 02/15/17 Francoise Tompikns RN [place] Wood Floor Refinisher 09/06/21 04/06/22 Claribel Sierra LSW [place] Wood Floor Refinisher 09/09/21 04/06/22 Trisha Cook APRN, DANCE COSTUME DESIGNER #2 [place] [address] Nurse Practitioner Advanced Practice Nurse 11/29/22 Golden Napier MD #[address] [address] Consulting Physician Colon and Rectal Surgery 08/13/23 Emilio Sarabia MD [address] [facility] [address] [place] [address] Consulting Physician Urology 09/11/23 documented as of this encounter
--- OUTSIDE RECORDS SUMMARY | 2024-10-21 08:18 | XMS_ITS | Encounter Summary ---
Author Organization [facility] Address [address] [place] [address] Phone Care Team Providers Care Management Sme Name Role Phone Az Watson MD Primary Care Provider [phone] Cain Lira MD Unavailable [phone] Francoise Tompkins RN Unavailable Unavailable Claribel SierraW Unavailable Unavailab Trisha Houston APRN, SALOMON Unavailable Golden Napier MD Unavailable Emilio Sarabia MD Unavailable [phone] Reason for Visit * Reason Comments Medication Refill Encounter Details Date Type Department Care Team (Late st Contact Info) Description 03/31/2020 Refill [facility] [address] [place] [address] Az Watson MD #[address] [address] Medication Refill Social History Tobacco Use Types Packs/Day Years Used Date Smoking Tobacco: Former Cigarettes 1 30 0 06/18/1985 - 06/18/2015 Smokeless Tobacco: Never Comments:quit may 2015 Alcohol Use Standard Drinks/Week Comments No 0 (1 standard drink = 0.6 oz pur e alcohol) only at [place] PHQ-2 Answer Date Recorded Total Score - [...] [facility] - [place] [facility] In 3 weeks Az Watson MD [facility] Medical [facility] RECORDS MANAGEMENT DIRECTOR - Recent and Past Visits Recent Visits Date Type Provider Dept 02/26/20 Office Visit Az Watson MD [facility] [place] 02/02/20 Office Visit Az Watson MD [facility] 01/19/20 Office Visit Az Watson MD [facility] [place] 12/31/19 Office Visit Mary Beth Soriano, BENNIE [facility] 10/13/19 Telemedicine Az Watson MD [facility] [place] 03/13/19 Office Visit Az Watson MD [facility] [place] 01/10/19 Office Visit Vickey Robbins APN, LOG SNAKER [facility] Showing recent visits within past 460 days with a meds authorizing provider and meeting all other requirements Future Appointments Date Type Provider Dept 04/22/20 Appointment Az Watson MD [facility] Showing future appointments within next 90 days [...] Outpatient Visits 1 month ago Hoarseness, chronic [facility] Medical Group - Family [facility] Az Collado MD 1 month ago Hoarseness, chronic [facility] Medical [facility] Az Collado MD 2 months ago Anxiety [facility] Medical [facility] Family [facility] - Az Collado MD 3 months ago Acute vaginitis [facility] Medical [facility] - [place] Beth Cronin, [facility] 5 months ago Gastroesophageal reflux disease without esophagitis [facility] Medical [facility] Upcoming Appointments Future Appointments In 2 weeks Sony Hu DO [facility] Medical Group - Gastroenterology [facility] In 3 weeks Az Watson MD [facility] RECORDS MANAGEMENT DIRECTOR - Recent and Past Visits Recent Visits Date Type Provider Dept 02/26/20 Office Visit Az Watson MD [facility] 02/02/20 Office Visit Az Watson MD [facility] 01/19/20 Office Visit Az Watson MD [facility] [place] 12/31/19 Office [facility] [place] 03/13/19 Office Visit [facility] [place] 01/10/19 Office Visit Vickey Robbins INSPECTOR ASSEMBLIES AND INSTALLATIONS, LOG SNAKER [facility] Showing recent visits within past 460 days with a meds authorizing provider and meeting all other requirements Future Appointments Date Type Provider Dept 04/22/20 Appointment Az Watson MD [facility] Showing future appointments within next 90 days with a meds authorizing provider and meeting all other requirements rosuvastatin (CRESTOR) 10 MG Tablet 90 Tab 2 Sig: TAKE ONE TABLET BY MOUTH EVERY DAY Cardiovascular: Antilipid - HMG-CoA Reductase Inhibitors Passed - 03/31/2020 4:50 PM Passed - Valid encounter within last 12 months Past Office Visits Recent Outpatient Visits 1 month ago Hoarseness, chronic [facility] Medical [facility] Az Collado MD 1 month ago Hoarseness, chronic [facility] Medical [facility] Az Collado MD 2 months ago Anxiety [facility] Az Collado MD 3 months ago Acute vaginitis [facility] BENNIE 5 months ago Gastroesophageal reflux disease without esophagitis [facility] Upcoming Appointments Future Appointments In 2 weeks Sony Hu, [facility] Gastroenterology [facility] In 3 weeks Az Watson MD [facility] RECORDS MANAGEMENT DIRECTOR - Recent and Past Visits Recent Visits Date Type Provider Dept 02/26/20 Office Visit Az Watson MD [facility] 02/02/20 Office Visit [facility] [place] 01/19/20 Office Visit Az Watson MD [facility] 12/31/19 Office Visit [facility] 10/13/19 Telemedicine Az Watson MD [facility] [place] 03/13/19 Office Visit Az Watson MD [facility] [place] 01/10/19 Office Visit Vickey Robbins INSPECTOR ASSEMBLIES AND INSTALLATIONS, LOG SNAKER [facility] Showing recent visits within past 460 days with a meds authorizing provider and meeting all other requirements Future Appointments Date Type Provider Dept 04/22/20 Appointment Az Watson [facility] [place] Showing future appointments within next 90 days with a meds authorizing provider and meeting all other requirements documented in this encounter Plan of Treatment Upcoming Encounters Date Type Department Care Team (Latest Contact Info) Description 10/24/2024 10:30 AM CDT Office Visit [facility] #2 [place] [address] Emilio Sarabia MD #2 [facility] [address] [place] [address] 10/29/2024 8:30 AM CDT Office Visit [facility] [place] [place] [address] [place] [id number] Vickey Robbins, SURGICAL BRACE MAKER, LOG SNAKER #2 [facility] [address] [place] [address] 11/04/2024 9:00 AM CDT Ancillary Procedure [facility] [address] [place] [address] Az Watson MD #[address] [address] Discharge Disposition: Discharged to home or Selfcare documented as of this encounter Visit Diagnoses Diagnosis Migraine without aura and without status migrainosus, not intractable Migraine without aura, without mention of intractable migraine without mention of status migrainosus documented in this encounter Additional Health Concerns Infection Onset Date Last Indicated Resolved Time COVID - 19 06/11/2023 06/11/2023 06/21/2023 12:1 6 AM FAT PRESSROOM WORKER Assessment Noted Time PHQ-9 Depression Total Score: 2 02/26/20 20 8:55 AM CDT documented as of this encounter Care Teams Management Sme Relationship Specialty Start Date End Date Az Watson MD #[address] [address] PCP - General Family Medicine 05/03/15 Cain Lira MD [address] [address] [facility] [address] [place] [address] Obstetrics & Gynecology 02/15/17 Francoise Tompkins RN [place] Logistics Vice President 09/06/21 04/06/22 Claribel Sierra LSW [place] Logistics Vice President 09/09/21 04/06/22 Trisha Cook APRN, LOG SNAKER #2 [place] [address] Nurse Practitioner Advanced Practice Nurse 11/29/22 Golden Napier MD #[address] [address] Consulting Physician Colon and Rectal Surgery 08/13/23 Emilio Sarabia MD #2 [place] [address] Consulting Physician Urology 09/11/23 documented as of this encounter
--- OUTSIDE RECORDS SUMMARY | 2024-10-21 08:18 | XMS_ITS | Encounter Summary ---
Author Organization [facility] Address [address] [place] [address] Phone Care Team Providers Care Doggy Daycare Activities Director Name Role Phone Az Watson MD Primary Care Provider [phone] Cain Lira MD Unavailable [phone] Francoise Tompkins RN Unavailable Unavailable Claribel SierraW Unavailable Unavailab Trisha Houston APRN, SALOMON Unavailable Golden Napier MD Unavailable Emilio Sarabia MD Unavailable [phone] Reason for Visit * Reason Comments Medication Refill Encounter Details Date Type Department Care Team (Late st Contact Info) Description 07/28/2020 Refill [facility] [address] [place] [address] Az Watson MD [address] [address] Medication Refill Social History [...] COVID-19? No / Unsure 07/01/2020 12:40 PM BUS WASHER documented as of this encounter Miscellaneous Notes [...] 7 months ago Acute vaginitis [facility], [facility] Upcoming Appointments Future Appointments In 1 month Az Watson MD [facility] Medical [facility] - [facility] In 11 months Mine Rivera Nikki, PAC [facility] Medical [facility] - Gastroenterology [facility] ETCHER ELECTROLYTIC - Recent and Past Visits Recent Visits Date Type Provider Dept 06/01/20 Office Visit Az Watson MD [facility] [place] 02/26/20 Office Visit Az Watson MD [facility] [place] 02/02/20 Office Visit Az Watson MD [facility] [place] 01/19/20 Office Visit Az Watson MD [facility] [place] 12/31/19 Office Visit Mary Beth Soriano, PAC [facility] [place] 10/13/19 Telemedicine Az Watson MD [facility] [place] [...] ago Bladder infection [facility] Az Collado MD 5 months ago Hoarseness, chronic [facility] Az Collado MD 5 months ago Hoarseness, chronic [facility] Az Collado MD 6 months ago Anxiety [facility] - Az Collado MD 7 months ago Acute vaginitis [facility] Medical [facility] B[facility] Cronin, BENNIE Upcoming Appointments Future Appointments In 1 month Az Watson MD [facility] In 11 months Mine Rivera November, PAC [facility] Medical [facility] - Gastroenterology [facility] ETCHER ELECTROLYTIC - Recent and Past Visits Recent Visits Date Type Provider Dept 06/01/20 Office Visit Az Watson MD [facility] [place] 02/26/20 Office Visit Az Watson MD [facility] [place] 02/02/20 Office Visit Az Watson MD [facility] [place] 01/19/20 Office Visit Az Watson MD [facility] [place] 12/31/19 Office Visit Mary Beth Soriano, BENNIE [facility] [place] 10/13/19 Telemedicine Az Watson MD [...] ago Bladder infection [facility] - Az Collado MD 5 months ago Hoarseness, chronic [facility] - Az Collado MD 5 months ago Hoarseness, chronic [facility] Az Collado MD 6 months ago Anxiety [facility] - Az Collado MD 7 months ago [facility] Mary Beth Haile, PAC Upcoming Appointments Future Appointments In 1 month Az Watson MD [facility] In 11 months Mine Rivera, PAC [facility] - Gastroenterology [facility] ETCHER ELECTROLYTIC - Recent and Past Visits Recent Visits Date Type Provider Dept 06/01/20 Office Visit Az Watson MD [facility] [place] 02/26/20 Office Visit Az Watson MD [facility] [place] 02/02/20 Office Visit Az Watson MD [facility] [place] 01/19/20 Office Visit Az Watson MD [facility] [place] 12/31/19 Office Visit Mary Beth Soriano, BENNIE [facility] 10/13/19 Telemedicine Az Watson MD [facility] [place] [...] 1 month ago Bladder infection [facility] Az Collado MD 5 months ago Hoarseness, chronic [facility] Az Collado MD 5 months ago Hoarseness, chronic [facility] Az Collado MD 6 months ago Anxiety [facility] Az Collado MD 7 months ago Acute vaginitis [facility] Mary Beth Haile, BENNIE Upcoming Appointments Future Appointments In 1 month Az Watson MD [facility] Medical [facility] - Family Medicine [facility], [facility] In 11 months Mine Rivera, BENNIE [facility] Medical [facility] - Gastroenterology [facility] ETCHER ELECTROLYTIC - Recent and Past Visits Recent Visits [...] authorizing provider and meeting all other requirements WASHER documented in this encounter Plan of Treatment Upcoming Encounters Date Type Department Care Team (Latest Contact Info) Description 10/24/2024 10:30 AM CDT Office Visit [facility] #2 [place] [address] Emilio Sarabia MD #2 [facility] [address] [place] [address] 10/29/2024 8:30 AM CDT [facility] #2 [facility] [place] [place] [address] Vickey Robbins, FORDER OPERATOR, PHOTOGRAPHER PORTRAIT #2 [facility] [address] [place] [address] 11/04/2024 9:00 AM CDT Ancillary Procedure [facility] [address] [place] [address] Az Watson MD #[address] [address] Discharge Disposition: Discharged to home or Selfcare documented as of this encounter Visit Diagnoses Diagnosis Controlled type 2 diabetes mellitus without complication, without long-term current use of insulin Hyperlipidemia, unspecified hyperlipidemia type documented in this encounter Additional Health Concerns Infection Onset Date Last Indicated Resolved Time COVID - 19 06/11/2023 06/11/2023 06/21/2023 12:1 6 AM BUS WASHER Assessment Noted Time PHQ-9 Depression Total Score: 2 02/26/20 20 8:55 AM CDT documented as of this encounter Care Teams Doggy Daycare Activities Director Relationship Specialty Start Date End Date Az Watson MD #[address] [address] PCP - General Family Medicine 05/03/15 Cain Lira MD [address] [facility] [address] [facility] [address] [place] [address] Obstetrics & Gynecology 02/15/17 Francoise Tompkins RN [place] Fuel Distribution System Operator 09/06/21 04/06/22 Claribel Sierra LSW [place] Fuel Distribution System Operator 09/09/21 04/06/22 Trisha Cook APRN, PHOTOGRAPHER PORTRAIT #2 [place] [address] Nurse Practitioner Advanced Practice Nurse 11/29/22 Golden Napier MD #2 [facility] [address] [place] [address] Consulting Physician Colon and Rectal Surgery 08/13/23 Emilio Sarabia MD #[address] [address] Consulting Physician Urology 09/11/23 documented as of this encounter
--- OUTSIDE RECORDS SUMMARY | 2024-10-21 08:18 | XMS_ITS | Encounter Summary ---
Author Organization [facility] Address [address] [place] [address] Phone Care Team Providers Care Grain I Farmworker Name Role Phone Az aWtson MD Primary Care Provider [phone] Cain Lira MD Unavailable [phone] Francoise Tompkins RN Unavailable Unavailable Claribel Sierra Unavailable Unavailab Trisha Houston APRN, SALES SUPPORT ASSISTANT Unavailable Golden Napier MD Unavailable Emilio Sarabia MD Unavailable [phone] Reason for Visit * Reason Comments Medication Refill Encounter Details Date Type Department Care Team (Late st Contact Info) Description 11/10/2021 Refill [facility]ology - [place] #2 [place] [phone] Mine Rivera Nikki, PAC [address] [place] [address] Medication Refill Social History Tobacco Use Types [...] 10:30 AM CDT Office Visit [facility] #2 [place] [address] Emilio Sarabia MD #2 [facility] [address] [place] [address] 10/29/2024 8:30 AM CDT Office Visit [facility] Medical Group - Family Medicine - [place] #2 [place] [address] Vickey Robbins APRN, SALES SUPPORT ASSISTANT #2 [facility] [address] [place] [address] 11/04/2024 9:00 AM CDT [facility] [address] [place] [address] Az Watson MD #2 [facility] [address] [place] [address] Discharge Disposition: Discharged to home or Selfcare documented as of this encounter Visit Diagnoses Diagnosis Gastroesophageal reflux disease without esophagitis Esophageal reflux documented in this encounter Additional Health Concerns Infection Onset Date Last Indicated Resolved Time COVID - 19 06/11/2023 06/11/2023 06/21/2023 12:1 6 AM MATERIALS PLANNER Assessment Noted Time PHQ-9 Depression Total Score: 4 09/02/19 21 8:46 AM CDT documented as of this encounter Care Teams Grain I Farmworker Relationship Specialty Start Date End Date Az Watson MD #2 [facility] [address] [place] [address] PCP - General Family Medicine 05/03/15 Cain Lira MD [address] [facility] [address] [facility] [address] [place] [address] Obstetrics & Gynecology 02/15/17 Francoise Tompkins RN [place] House Builder 09/06/21 04/06/22 Claribel Sierra LSW [place] House Builder 09/09/21 04/06/22 Trisha Cook APRN, SALES SUPPORT ASSISTANT #2 [place] [address] Nurse Practitioner Advanced Practice Nurse 11/29/22 Golden Napier MD #2 [facility] [address] [place] [address] Consulting Physician Colon and Rectal Surgery 08/13/23 Emilio Sarabia MD #2 [facility] [address] [place] [address] Consulting Physician Urology 09/11/23 documented as of this encounter
--- OUTSIDE RECORDS SUMMARY | 2024-10-21 08:18 | XMS_ITS | Encounter Summary ---
Author Organization [facility] Address [address] [place] [address] Phone Care Team Providers Care Vulcanizing Machine Operator Name Role Phone Az Watson MD Primary Care Provider [phone] Cain Lira MD Unavailable [phone] Francoise Tompkins RN Unavailable Unavailable Claribel SierraW Unavailable Unavailab Trisha Hosuton APRN, SALOMON Unavailable Golden Napier MD Unavailable Emilio Sarabia MD Unavailable [phone] Reason for Visit * Reason Comments Medication Refill Encounter Details Date Type Department Care Team (Late st Contact Info) Description 02/06/2020 Refill [facility] [address] [place], [place] [id number] Az Watson MD #[address] [address] Medication Refill Social History Tobacco Use Types Packs/Day Years Used Date Smoking Tobacco: Former Cigarettes 1 30 0 06/18/1985 - 06/18/2015 Smokeless Tobacco: Never Comments:quit may 2015 Alcohol Use Standard Drinks/Week Comments No 0 (1 standard drink = 0.6 oz pur e alcohol) only at [place] PHQ-2 Answer Date Recorded PHQ-2 Score 2 [...] Upcoming Appointments Future Appointments Tomorrow SAHCUSTECH1; [facility], [facility] Tomorrow [address]HCCT[address] [facility], [facility] In 2 days Az Watson MD [facility] Medical Group - Primary Care, [facility] In 2 months Sony Hu DO [facility] Medical Group - Gastroenterology, [facility] In 2 months Az Watson MD [facility] Medical Group - Primary Care, [facility] PLIER WORKER - Recent and Past Visits Recent Visits Date Type Provider Dept 02/02/20 Office Visit Az Watson MD [facility] 01/19/20 Office Visit Az Watson MD [facility] 12/31/19 Office Visit Mary Beth Soriano PAC [facility] [place] 10/13/19 Telemedicine Az Watson MD [facility] [place] 03/13/19 Office Visit Az Watson MD [facility] 01/10/19 Office Visit Vickey Robbins APN, RADIATION ENGINEER [facility] recent visits within past 460 days with a meds authorizing provider and meeting all other requirements Future Appointments Date Type Provider Dept 02/11/20 Appointment Az Watson MD [facility] [place] 04/22/20 Appointment Az Watson MD [facility] [place] Showing future appointments within next 90 [...] Upcoming Appointments Future Appointments Tomorrow SAHCUSTECH1; [facility]US[facility], [facility] Tomorrow [facility] CT, [facility] In 2 days Az Watson MD [facility] - Primary Care, [facility] In 2 months Sony Hu DO [facility] - Gastroenterology, [facility] In 2 months Az Watson MD [facility] - Primary Care, [facility] PLIER WORKER - Recent and Past Visits Recent Visits Date Type Provider Dept 02/02/20 Office Visit Az Watson MD [facility] [place] 01/19/20 Office Visit Az Watson MD [facility] [place] 12/31/19 Office Visit Mary Beth Soriano PAC [facility] [place] 10/13/19 Telemedicine Az Watson MD [facility] [place] 03/13/19 Office Visit Az Watson MD [facility] [place] 01/10/19 Office Visit Vickey Robbins APN, RADIATION ENGINEER [facility] [place] Showing recent visits within past 460 days with a meds authorizing provider and meeting all other requirements Future Appointments Date Type Provider Dept 02/11/20 Appointment Az Watson MD [facility] [place] 04/22/20 Appointment Az Watson MD [facility] [place] Showing future appointments within next 90 [...] MD 3 weeks ago Anxiety [facility] - Primary Care Az Watson MD 1 month ago Acute vaginitis [facility] Mary Beth Soriano, PAC 3 months ago Gastroesophageal reflux disease without esophagitis [facility] Az Watson MD 11 months ago Hyperlipidemia, unspecified hyperlipidemia type [facility] Az Watson MD Upcoming Appointments Future Appointments Tomorrow SAHCUSTECH1; [facility]US[facility] Tomorrow [facility] CT, [facility] Az Watson MD [facility], [facility] In 2 months Sony Hu DO [facility] - Gastroenterology, [facility] In 2 months Az Watson MD [facility] Medical [facility] - Primary Care, [facility] PLIER WORKER - Recent and Past Visits Recent Visits Date Type Provider Dept 02/02/20 Office Visit Az Watson MD [facility] [place] 01/19/20 Office Visit Az Watson MD [facility] [place] 12/31/19 Office Visit Mary Beth Soriano, BENNIE [facility] [place] 10/13/19 Telemedicine Az Watson MD [facility] [place] 03/13/19 Office Visit Az Watson MD [facility] [place] 01/10/19 Office Visit Vickey Robbins APN, RADIATION ENGINEER [facility] [place] Showing recent visits within past 460 days with a meds authorizing provider and meeting all other requirements Future Appointments Date Type Provider Dept 02/11/20 Appointment Az Watson MD [facility] [place] 04/22/20 Appointment Az Watson MD [facility] [place] Showing future appointments within next 90 days [...] 10:30 AM CDT Office Visit [facility] #2 [place] [address] Emilio Sarabia MD #2 [facility] [address] [place] [address] 10/29/2024 8:30 AM CDT Office Visit [facility] Medical Group - Family Medicine [facility] #2 [place] [address] Vickey Robbins APRN, RADIATION ENGINEER #[address] [facility] [address] [place] [address] 11/04/2024 9:00 AM CDT [facility] [address] [place] [address] Az Watson MD #[address] [address] Discharge Disposition: Discharged to home or Selfcare documented as of this encounter Visit Diagnoses Not on filedocumented in this encounter Additional Health Concerns Infection Onset Date Last Indicated Resolved Time COVID - 19 06/11/2023 06/11/2023 06/21/2023 12:1 6 AM THERAPY MANAGER Assessment Noted Time PHQ-9 Depression Total Score: 2 12/31/19 20 10:12 AM CDT documented as of this encounter Care Teams Vulcanizing Machine Operator Relationship Specialty Start Date End Date Az Watson MD #[address] [address] PCP - General Family Medicine 05/03/15 Cain Lira MD [address] [place] [address] Obstetrics & Gynecology 02/15/17 Francoise Tompkins RN [place] Manager Leasing 09/06/21 04/06/22 Claribel Sierra LSW [place] Manager Leasing 09/09/21 04/06/22 Trisha Cook APRN, RADIATION ENGINEER #[address] [place] [address] Nurse Practitioner Advanced Practice Nurse 11/29/22 Golden Napier MD #[address] [facility] [address] [place] [address] Consulting Physician Colon and Rectal Surgery 08/13/23 Emilio Sarabia MD #2 [facility] [address] [place] [address] Consulting Physician Urology 09/11/23 documented as of this encounter
--- OUTSIDE RECORDS SUMMARY | 2024-10-21 08:18 | XMS_ITS | Encounter Summary ---
Author Organization [facility] Address [address] [place] [address] Phone Care Team Providers Care Sandblaster Supervisor Name Role Phone Az Watson MD Primary Care Provider [phone] Cain Lira MD Unavailable [phone] Trisha Cook APRN, HULL LINE CREW MEMBER Unavailable Golden Napier MD Unavailable Emilio Sarabia MD Unavailable [phone] Reason for Visit * Reason Comments Medication Refill Encounter Details Date Type Department Care Team (Late st Contact Info) Description 08/15/2023 Refill [facility] Medical Group - Family Medicine - [place] #2 [place] [address] Az Watson MD #[address] [address] Medication Refill Social History Tobacco Use Types [...] [place] 01/02/23 Office Visit Vickey Robbins APRN, HULL LINE CREW MEMBER [facility] [place] 11/08/22 Office Visit Vickey Robbins APRN, SALOMON [facility] Office Visit Vickey Robbins APRN, SALOMON [facility] Showing recent visits within past 365 days and meeting all other requirements Future Appointments No visits were found meeting these conditions. Showing future appointments within next 90 days and meeting all other requirements Passed - GFR greater than or equal to 30 in past 12 months GFR, EST. NONAFRICAN Date Value Ref Range Status 04/20/2023 >60 >=60 Final CUSTOMS AND BORDER OFFICER documented in this encounter Plan of Treatment Upcoming Encounters Date Type Department Care Team (Latest Contact Info) Description 10/24/2024 10:30 AM CDT Office Visit [facility] PHYSICIAN [facility]Y #2 [place] [address] Emilio Sarabia MD #2 [facility] [address] [place] [address] 10/29/2024 8:30 AM CDT Office Visit [facility] Medical [facility] - Family Medicine - [place] #2 [place] [address] Vickey Robbins APRN, HULL LINE CREW MEMBER #2 [facility] [address] [place] [address] 11/04/2024 9:00 AM CDT [facility] [address] [place] [address] Az Watson MD #2 [facility] [address] [place] [address] Discharge Disposition: Discharged to home or Selfcare documented as of this encounter Goals Goal Patient Goal Type Associated Problems Recent Progress Patient-Stated? Author Behavioral Health Behavioral Health On track( 022 8:46 AM US CUSTOMS AND BORDER OFFICER) Yes Betsy Butts, JUNIOR MARKETING ASSOCIATE Note: I need to be able [...] documented as of this encounter Care Teams Sandblaster Supervisor Relationship Specialty Start Date End Date Az Watson MD #2 [facility] [address] [place] [address] PCP - General Family Medicine 05/03/15 Cain Lira MD [address] [place] [address] Obstetrics & Gynecology 02/15/17 Trisha Cook APRN, HULL LINE CREW MEMBER #2 [place] [address] Nurse Practitioner Advanced Practice Nurse 11/29/22 Golden Napier MD #2 [facility] [address] [place] [address] Consulting Physician Colon and Rectal Surgery 08/13/23 Emilio Sarabia MD #2 [facility] [address] [place] [address] Consulting Physician Urology 09/11/23 documented as of this encounter
--- OUTSIDE RECORDS SUMMARY | 2024-10-21 08:18 | XMS_ITS | Encounter Summary ---
Author Organization [facility] Address [address] [place] [address] Phone Care Team Providers Care Haircutter Name Role Phone Az Watson MD Primary Care Provider [phone] Cain Lira MD Unavailable [phone] Francoise Tompkins RN Unavailable Unavailable Claribel Sierra Unavailable Unavailab Trisha Houston APRN, FIELD PARTY MANAGER Unavailable Golden Napier MD Unavailable Emilio Sarabia MD Unavailable [phone] Reason for Visit * Reason Comments Medication Refill Encounter Details Date Type Department Care Team (Late st Contact Info) Description 02/10/2022 Refill [facility] - [place] #2 [place] [phone] Mine Rivera Nikki, PAC [address] [place] [address] Medication Refill Social History Tobacco Use Types [...] PHYSICIAN GROUP UROLOGY #[address] [place] [address] Emilio Sarabia MD #[address], [address] [address] 10/29/2024 8:30 AM CDT Office Visit [facility] #2 [place] [address] Vickey Robbins APRN, FIELD PARTY MANAGER #[address] [address] 11/04/2024 9:00 AM CDT Ancillary Procedure [facility] [address] [place] [address] Az Watson MD #[address] [address] Discharge Disposition: Discharged to home or Selfcare documented as of this encounter Visit Diagnoses Diagnosis Gastroesophageal reflux disease without esophagitis Esophageal reflux documented in this encounter Additional Health Concerns Infection Onset Date Last Indicated Resolved Time COVID - 19 06/11/2023 06/11/2023 06/21/2023 12:1 6 AM INDUSTRIAL ARTS TEACHER Assessment Noted Time PHQ-9 Depression Total Score: 4 09/02/19 21 8:46 AM CDT documented as of this encounter Care Teams Haircutter Relationship Specialty Start Date End Date Az Watson MD #[address] [address] PCP - General Family Medicine 05/03/15 Cain Lira MD [address] [facility] [address] [address] Obstetrics & Gynecology 02/15/17 Francoise Tompkins RN [place] Information Assurance Analyst 09/06/21 04/06/22 Claribel Sierra LSW [place] Information Assurance Analyst 09/09/21 04/06/22 Trisha Cook APRN, FIELD PARTY MANAGER #2 [place] [address] Nurse Practitioner Advanced Practice Nurse 11/29/22 Golden Napier MD #2 [facility] [address] [place] [address] Consulting Physician Colon and Rectal Surgery 08/13/23 Emilio Sarabia MD #2 [facility] [address] [place] [address] Consulting Physician Urology 09/11/23 documented as of this encounter
--- OUTSIDE RECORDS SUMMARY | 2024-10-21 08:18 | XMS_ITS | Encounter Summary ---
Author Organization [facility] Address [address] [place] [address] Phone Care Team Providers Care Intelligence Applications Name Role Phone Az Watson MD Primary Care Provider [phone] Cain Lira MD Unavailable [phone] Francoise Tompkins RN Unavailable Unavailable Claribel Sierra Unavailable Unavailab Trisha Houston APRN, FOREPART LASTER Unavailable Golden Napier MD Unavailable Emilio Sarabia MD Unavailable [phone] Reason for Visit * Reason Comments Medication Refill Encounter Details Date Type Department Care Team (Late st Contact Info) Description 08/11/2021 Refill [facility] - Family Medicine - [place] [address] [place] [address] Az Watson MD [address] [address] Medication Refill Social History Tobacco Use Types [...] Dept 04/18/21 Office Visit Vickey Robbins APRN, FOREPART LASTER [facility] [place] Showing recent visits within past 182 [...] Provider Dept 08/30/21 Appointment Az Watson MD [facility] Showing [...] Provider Dept 08/30/21 Appointment Az Watson MD [facility] Showing future appointments within next 90 days and meeting all other requirements HOIST OPERATOR documented in this encounter Plan of Treatment Upcoming Encounters Date Type Department Care Team (Latest Contact Info) Description 10/24/2024 10:30 AM CDT Office Visit [facility] PHYSICIAN [facility] UROLOGY #2 [place] [address] Emilio Sarabia MD #2 [facility] [address] [place] [address] 10/29/2024 8:30 AM CDT Office Visit [facility] Medical [facility] - Family Medicine [facility] #2 [place] [address] Vickey Robbins APRN, FOREPART LASTER #2 [facility] [address] [place] [address] 11/04/2024 9:00 AM CDT [facility] [address] [place] [address] Az Watson MD #2 [facility] [address] [place] [address] Discharge Disposition: Discharged to home or Selfcare documented as of this encounter Visit Diagnoses Diagnosis Controlled type 2 diabetes mellitus without complication, without long-term current use of insulin Hyperlipidemia, unspecified hyperlipidemia type documented in this encounter Additional Health Concerns Infection Onset Date Last Indicated Resolved Time COVID - 19 06/11/2023 06/11/2023 06/21/2023 12:1 6 AM PIT HOIST OPERATOR Assessment Noted Time PHQ-9 Depression Total Score: 4 09/02/19 21 8:46 AM CDT documented as of this encounter Care Teams Intelligence Applications Relationship Specialty Start Date End Date Az Watson MD #2 [facility] [address] [place] [address] PCP - General Family Medicine 05/03/15 Cain Lira MD [address] [facility] [address] [place] [address] Obstetrics & Gynecology 02/15/17 Francoise Tompkins RN [place] Protection Manager 09/06/21 04/06/22 Claribel Sierra LSW [place] Protection Manager 09/09/21 04/06/22 Trisha Cook APRN, FOREPART LASTER #2 [place] [address] Nurse Practitioner Advanced Practice Nurse 11/29/22 Golden Napier MD #2 [facility] [address] [place] [address] Consulting Physician Colon and Rectal Surgery 08/13/23 Emilio Sarabia MD #2 [facility] [address] [place] [address] Consulting Physician Urology 09/11/23 documented as of this encounter
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
--- OUTSIDE RECORDS SUMMARY | 2024-10-21 08:18 | XMS_ITS | Encounter Summary ---
Author Organization [facility] Address [address] [place] [address] Phone Care Team Providers Care Hair Assistant Name Role Phone Az Watson MD Primary Care Provider [phone] Cain Lira MD Unavailable [phone] Francoise Tompkins RN Unavailable Unavailable Claribel Sierra Unavailable Unavailab Trisha Houston APRN, SALOMON Unavailable Golden Napier MD Unavailable Emilio Sarabia MD Unavailable [phone] Reason for Visit * Reason Comments Medication Refill Encounter Details Date Type Department Care Team (Late st Contact Info) Description 12/09/2021 Refill [facility] Family Medicine - [place] [address] [place] [address] Az Watson MD #[address] [address] Medication Refill Social History Tobacco Use Types [...] [place] 04/18/21 Office Visit Vickey Robbins APRN, CONSULTING ENGINEER [facility] [place] 01/31/21 Office Visit Az Watson MD [...] [place] 04/18/21 Office Visit Vickey Robbins APRN, CONSULTING ENGINEER [facility] [place] 01/31/21 Office Visit Az Watson [...] Description 10/24/2024 10:30 AM CDT Office Visit [facility] PHYSICIAN GROUP UROLOGY #2 [place] [address] Emilio Sarabia MD #2 [facility] [address] [place] [address] 10/29/2024 8:30 AM CDT Office Visit [facility] - Family Medicine [facility] #2 [place] [address] Vickey Robbins, SURFACE TO AIR WEAPONS OFFICER, CONSULTING ENGINEER #2 [facility] [address] [place] [address] 11/04/2024 9:00 AM CDT [facility] [address] [place] [address] Az Watson MD #2 [facility] [address] [place] [address] Discharge Disposition: Discharged to home or Selfcare documented as of this encounter Visit Diagnoses Diagnosis Hyperlipidemia, unspecified hyperlipidemia type documented in this encounter Additional Health Concerns Infection Onset Date Last Indicated Resolved Time COVID - 19 06/11/2023 06/11/2023 06/21/2023 12:1 6 AM ADMINISTRATIVE SERVICES ASSISTANT Assessment Noted Time PHQ-9 Depression Total Score: 4 09/02/19 21 8:46 AM CDT documented as of this encounter Care Teams Hair Assistant Relationship Specialty Start Date End Date Az Watson MD #2 [facility] [address] [place] [address] PCP - General Family Medicine 05/03/15 Cain Lira MD [address] [place] [address] Obstetrics & Gynecology 02/15/17 Francoise Tompkins RN [place] Automobile Mechanic Helper 09/06/21 04/06/22 Claribel Sierra LSW [place] Automobile Mechanic Helper 09/09/21 04/06/22 Trisha Cook APRN, CONSULTING ENGINEER #2 [place] [address] Nurse Practitioner Advanced Practice Nurse 11/29/22 Golden Napier MD #2 [facility] [address] [place] [address] Consulting Physician Colon and Rectal Surgery 08/13/23 Emilio Sarabia MD #2 [facility] [address] [place] [address] Consulting Physician Urology 09/11/23 documented as of this encounter
--- OUTSIDE RECORDS SUMMARY | 2024-10-21 08:18 | XMS_ITS | Encounter Summary ---
Author Organization [facility] Address [address] [place] [address] Phone Care Team Providers Care Software Engineering Associate Manager Name Role Phone Az Watson MD Primary Care Provider [phone] Cain Lira MD Unavailable [phone] Francoise Tompkins RN Unavailable Unavailable Claribel SierraW Unavailable Unavailab Trisha Houston APRN, SALOMON Unavailable Golden Napier MD Unavailable Emilio Sarabia MD Unavailable [phone] Reason for Visit * Reason Comments Medication Refill Encounter Details Date Type Department Care Team (Late st Contact Info) Description 06/25/2020 Refill [facility] [address] [place] [address] Az Watson MD #[address] [address] Medication Refill Social History Tobacco [...] COVID-19? No / Unsure 06/21/2020 6:32 AM PSYCHIATRY ADULT PHYSICIAN documented as of this encounter Miscellaneous Notes [...] [facility] Az Watson MD [facility] Medical [facility] - Family [facility] [place] MENTAL HEALTH WORKER - Recent and Past Visits Recent Visits Date Type Provider Dept 06/01/20 Office Visit Az Watson MD [facility] 02/26/20 Office Visit Az Watson MD [facility] 02/02/20 Office Visit Az Watson MD [facility] 01/19/20 Office Visit Az Watson MD [facility] 12/31/19 Office Visit Mary Beth Soriano PAC [facility] [place] 10/13/19 Telemedicine Az Watson MD [facility] [place] Showing recent visits within past 460 days with a meds authorizing provider and meeting all other requirements Future Appointments Date Type Provider Dept 09/01/20 Appointment Az Watson MD [facility] Showing future appointments within next 90 days with a meds authorizing provider and meeting all other requirements HIATRY ADULT PHYSICIAN documented in this encounter Plan of Treatment Upcoming Encounters Date Type Department Care Team (Latest Contact Info) Description 10/24/2024 10:30 AM CDT Office Visit [facility] #2 [place] [address] Emilio Sarabia MD #2 [facility] [address] [place] [address] 10/29/2024 8:30 AM CDT Office Visit [facility] #2 [place] [address] Vickey Robbins APRN, JAVA PORTAL DEVELOPER #2 [facility] [address] [place] [address] 11/04/2024 9:00 AM CDT Ancillary Procedure [facility] [address] [place] [address] Az Watson MD #2 [facility] [address] [place] [address] Discharge Disposition: Discharged to home or Selfcare documented as of this encounter Visit Diagnoses Not on filedocumented in this encounter Additional Health Concerns Infection Onset Date Last Indicated Resolved Time COVID - 19 06/11/2023 06/11/2023 06/21/2023 12:1 6 AM PSYCHIATRY ADULT PHYSICIAN Assessment Noted Time PHQ-9 Depression Total Score: 2 02/26/20 20 8:55 AM CDT documented as of this encounter Care Teams Software Engineering Associate Manager Relationship Specialty Start Date End Date Az Watson MD #2 [facility] [address] [place] [address] PCP - General Family Medicine 05/03/15 Cain Lira MD [address] [facility] [address] [place] [address] Obstetrics & Gynecology 02/15/17 Francoise Tompkins RN [place] Health Actuary 09/06/21 04/06/22 Claribel Sierra LSW [place] Health Actuary 09/09/21 04/06/22 Trisha Cook APRN, JAVA PORTAL DEVELOPER #2 [place] [address] Nurse Practitioner Advanced Practice Nurse 11/29/22 Golden Napier MD #2 [facility] [address] [place] [address] Consulting Physician Colon and Rectal Surgery 08/13/23 Emilio Sarabia MD #2 [facility] [address] [place] [address] Consulting Physician Urology 09/11/23 documented as of this encounter
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
--- OUTSIDE RECORDS SUMMARY | 2024-10-21 08:19 | XMS_ITS | Clinical Summary ---
Author Organization [facility] Amanda naranjo [facility] Address [address] [place] [address] Care Team Providers Care Silver Plater Name Role Phone Az Watson MD Primary Care Provider [phone] Allergies Active Allergy Reactions Criticality Noted Date [...] 02/23/20 Active fluticasone propionate (FLONASE) 50 mcg/spray [place], Suspension nasal inhaler Fluticasone Propionate 50 MCG/ACT [...] Type Department Care Team Description 10/02/2024 Telephone [facility] Oncology and Hematology - [place] [address] [place] [address] He Tran MD Depression Referral 09/09/2024 [...] on file Legal Sex 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 [address] [place] [address] Rogelio Franks MD [address] [phone] Health Maintenance Due Date Last Done Comments [...] to Health Maintenance Insurance [place] [facility] [id number] [place] S[address] [place] [address] Care Teams Silver Plater Relationship Specialty Start Date End Date Az Watson MD [address] [address] PCP - General Family Practice 06/26/23
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
--- OUTSIDE RECORDS SUMMARY | 2024-10-21 08:19 | XMS_ITS | Continuity of Care Document ---
Author Organization [facility] Address [address] [place] [address] Phone Care Team Providers Care Mineral Resources Inspector Name Role Phone Ronald MICHEAL, Emma Unavailable [...] Diagnoses Date Provider Providers Copied on [facility]counter [facility], [facility] [address], [place], [place], [id number], tel:[phone] SEC Cuco MARTINES Professional No Information 3 Ronald Carter. [address] [place], [place] [address], [address], [place], [place], [address], [place]. tel:[phone] [facility], [facility] [address], [place], [place], [address], [phone] SEC [place] BOBBI Professional Diabetic eye exam (chief complaint) Drusen (degenerative) of macula, left eyeAge-related nuclear cataract, bilateralType 2 diabetes mellitus without complicationsO ptic cupping of both eyes 2 Lonny Hays. [email or web address], [address] [place], [place], [address], [place]. tel:[phone] Referring Provider: Saúl Alas [email or web address] [facility] [address], [place], [address] . tel:[phone] [facility], [facility] [address], [place], [place], [address], [place] tel:[phone] SEC [place] Professional Complete Exam (chief complaint) Age-related nuclear cataract, bilateralType 2 diabetes mellitus without complicationsB ranch retinal vein occlusion of right eye with retinal neovasculariza tionOptic cupping of both eyesDry eye syndrome of bilateral lacrimal glands 1 Lonny Hays. [email or web address], [address], [place], [place], [address], [place]. tel:[phone] Referring Provider: Saúl Alas [email or web address], [place], [address] . tel:[phone] [facility], [address] [place] [address] [address], [place], [place], [address], [phone] SEC [place] Professional Complete Exam (chief complaint) Age-related nuclear cataract, bilateral Sep-2 1 Lonny [address]. [address], [facility], [place], [place], [address], . tel:[phone] Referring Provider: Saúl Alas, [address] [facility] [address], [place], [address] . tel:[phone] [facility], [address] [place] [address] [address], [place], [place], [address], [phone] SEC [place] Professional complete (chief complaint) Age-related nuclear cataract, bilateralBranc h retinal vein occlusion of right eye with retinal neovasculariza tionOptic cupping of both eyesType 2 diabetes mellitus without complications Nov- 0 Lonny Hays. [address] [facility], [facility], [place], [place], [address], [place]. tel:[phone] Referring Provider: Saúl Alas, [address], [place], [address] . tel:[phone] [facility], [address] [place] [address] [address], [place], [place], [address], [phone] SEC Fredy Cooley No Information October- 0 Lonny Hays. [address], [address], [place], [place], [address], . tel:[phone] Family History Family Member Type Diagnosis Age At Onset Problem Family history of Diabetes nj nino Payers Payer name Insurance type Covered alliance party ID Authoriza tion(s) Medicare [facility] [id number] Medicaid [facility] [id number] Social History Type Description Quantity Date Captured [...] she has new glasses on order at [facility]. Complete Exam The 56 year old female [...]
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
--- OUTSIDE RECORDS SUMMARY | 2024-10-21 08:19 | XMS_ITS | Encounter Summary ---
Author Organization [facility] Address [address] [place] [address] Phone Care Team Providers Care Travograph Operator Name Role Phone Az Watson MD Primary Care Provider [phone] Cain Lira MD Unavailable [phone] Trisha Cook APRN, MEDICATION NURSE Unavailable Golden Napier MD Unavailable Emilio Sarabia MD Unavailable [phone] Reason for Visit * Reason Comments Medication Refill Encounter Details Date Type Department Care Team (Late st Contact Info) Description 04/27/2023 Refill [facility] - Family Medicine - [place] [address] [place] [address] Az Watson MD [address] [address] Medication Refill Social History Tobacco Use Types [...] Coronavirus/COVID-19? No / Unsure 04/20/2023 6:05 AM FORGE HEATER documented as of this encounter Miscellaneous Notes * Telephone Encounter - Josi Wiley RN - 04/27/2023 1:35 PM FORGE HEATER Per nursing clinical judgement, provider to review [...] Office Visit Vickey Robbins APRN, [facility] 02/28/23 Office Visit Vickey Robbins APRN, [facility] 01/24/23 Office Visit Vickey Robbins APRN, [place] 01/02/23 Office Visit Vickey Robbins APRN, [facility] 11/08/22 Office Visit Vickey Robbins APRN, [facility] 10/17/22 Office Visit Vickey Robbins APRN, [place] 09/19/22 Office Visit Vickey Robbins APRN, [...] Office Visit Vickey Robbins APRN, [place] 01/02/23 Office Visit Vickey Robbins APRN, [place] 11/08/22 Office Visit Vickey Robbins APRN, [place] [facility] 10/17/22 Office Visit Vickey Robbins APRN, [place] 09/19/22 Office Visit Vickey Robbins APRN, [place] 06/19/22 Office Visit Vickey Robbins APRN, MEDICATION NURSE [facility] Showing recent visits within past 365 days and meeting all other requirements Future Appointments Date Type Provider Dept 07/25/23 Appointment Az Watson MD [facility] Showing future appointments within next 90 days and meeting all other requirements E HEATER documented in this encounter Plan of Treatment Upcoming Encounters Date Type Department Care Team (Latest Contact Info) Description 10/24/2024 10:30 AM CDT Office Visit [facility] [address] [place] [address] Emilio Sarabia MD #2 [facility] [address] [place] [address] 10/29/2024 8:30 AM CDT Office Visit [facility] - Family Medicine [facility] [address] [place] [address] Vickey Robbins APRN, MEDICATION NURSE #2 [facility] [address] [place] [address] 11/04/2024 9:00 AM CDT Ancillary Procedure [facility] [address] [place] [address] Az Watson MD #2 [facility] [address] [place] [address] Discharge Disposition: Discharged to home or Selfcare documented as of this encounter Goals Goal Patient Goal Type Associated Problems Recent Progress Patient-Stated? Author Behavioral Health Behavioral Health On track( 022 8:46 AM FORGE HEATER) Yes Betsy Butts, TEXTILE CHEMIST Note: I need to be able to [...] 19 06/11/2023 06/11/2023 06/21/2023 12:1 6 AM FORGE HEATER Assessment Noted Time PHQ-9 Depression Total Score: 4 09/02/19 21 8:46 AM CDT documented as of this encounter Care Teams Travograph Operator Relationship Specialty Start Date End Date Az Watson MD #2 [facility] [address] [place] [address] PCP - General Family Medicine 05/03/15 Cain Lira MD [address] [facility] [address] [place], [place] [id number] Obstetrics & Gynecology 02/15/17 Trisha Cook APRN, MEDICATION NURSE [address] [place] [address] Nurse Practitioner Advanced Practice Nurse 11/29/22 Golden Napier MD #2 [facility] [address] [place] [address] Consulting Physician Colon and Rectal Surgery 08/13/23 Emilio Sarabia MD #2 [facility] [address] [place] [address] Consulting Physician Urology 09/11/23 documented as of this encounter
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
--- OUTSIDE RECORDS SUMMARY | 2024-10-21 08:19 | XMS_ITS | Encounter Summary ---
Author Organization [facility] Address [address] [place] [address] Phone Care Team Providers Care Building Consultant Name Role Phone Az Watson MD Primary Care Provider [phone] Cain Lira MD Unavailable [phone] Trisha Cook APRN, DAIRY HAND Unavailable Golden Napier MD Unavailable Emilio Sarabia MD Unavailable [phone] Reason for Visit * Reason Comments Medication Refill Encounter Details Date Type Department Care Team (Late st Contact Info) Description 04/26/2023 Refill [facility] - [place] #2 [place] [address] Az Watson MD #[address] [address] Medication Refill Social History Tobacco Use Types [...] Coronavirus/COVID-19? No / Unsure 04/20/2023 6:05 AM MEDICAL DATA ANALYST documented as of this encounter Miscellaneous Notes * Telephone Encounter - Emma Gonzalez RN - 04/26/2023 1:31 PM MEDICAL DATA ANALYST PDMP 01/26/23 90 day supply Medication failed [...] Dept 04/18/23 Office Visit Az Watson MD [facility] [place] 03/08/23 Office Visit Vickey Robbins APRN, SALOMON [facility] [place] 02/28/23 Office Visit Vickey Robbins APRN, SALOMON [facility] 01/24/23 Office Visit Vickey Robbins APRN, SALOMON [facility] [place] 01/02/23 Office Visit Vickey Robbins APRN, SALOMON [facility] [place] 11/08/22 Office Visit Vickey Robbins APRN, DAIRY HAND [facility] [place] Showing recent visits within past 182 [...] Ref Range Status 04/20/2023 >60 >=60 Final CAL DATA ANALYST * Telephone Encounter - Emma Gonzalez RN - 04/26/2023 1:29 PM MEDICAL DATA ANALYST Images from the original note were not included. Duplicate metFORMIN HCl Dispensed Days Supply Quantity Provider Pharmacy METFORMIN 500MG TAB 04/20/2023 30 60 Tablet Az Watson MD [facility] Pharmac... CAL DATA ANALYST documented in this encounter Plan of Treatment Upcoming Encounters Date Type Department Care Team (Latest Contact Info) Description 10/24/2024 10:30 AM CDT Office Visit [facility]Y #2 [place] [address] Emilio Sarabia MD #2 [facility] [address] [place] [address] 10/29/2024 8:30 AM CDT Office Visit [facility] Family [facility] [place] #2 [place] [address] Vickey Robbins APRN, DAIRY HAND #2 [facility] [address] [place] [address] 11/04/2024 9:00 AM CDT Ancillary Procedure [facility] [address] [place] [address] Az Watson MD #2 [place] [address] Discharge Disposition: Discharged to home or Selfcare documented as of this encounter Goals Goal Patient Goal Type Associated Problems Recent Progress Patient-Stated? Author Behavioral Health Behavioral Health On track( 022 8:46 AM MEDICAL DATA ANALYST) Yes Betsy Butts, DIRECTOR CASE Note: I need to be able to [...] 19 06/11/2023 06/11/2023 06/21/2023 12:1 6 AM MEDICAL DATA ANALYST Assessment Noted Time PHQ-9 Depression Total Score: 4 09/02/19 21 8:46 AM CDT documented as of this encounter Care Teams Building Consultant Relationship Specialty Start Date End Date Az Watson MD #2 [place] [address] PCP - General Family Medicine 05/03/15 Cain Lira MD [address] [place] [address] Obstetrics & Gynecology 02/15/17 Trisha Cook APRN, DAIRY HAND #2 [place] [address] Nurse Practitioner Advanced Practice Nurse 11/29/22 Golden Napier MD #2 [facility] [address] [place] [address] Consulting Physician Colon and Rectal Surgery 08/13/23 Emilio Sarabia MD #2 [facility] [address] [place] [address] Consulting Physician Urology 09/11/23 documented as of this encounter
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
--- OUTSIDE RECORDS SUMMARY | 2024-10-21 08:19 | XMS_ITS | Encounter Summary ---
Author Organization [facility] Address [address] [place] [address] Phone Care Team Providers Care Electrical Supervisor Name Role Phone Az Watson MD Primary Care Provider [phone] Cain Lira MD Unavailable [phone] Trisha Cook APRN, FACILITY SUPERVISOR Unavailable Golden Napier MD Unavailable Emilio Sarabia MD Unavailable [phone] Reason for Visit * Reason Comments Medication Refill Encounter Details Date Type Department Care Team (Late st Contact Info) Description 04/25/2023 Refill [facility] - [place] #2 [place] [address] Az Watson MD #[address] [address] Medication Refill Social History Tobacco Use Types [...] Coronavirus/COVID-19? No / Unsure 04/20/2023 6:05 AM FIELD MACHINIST documented as of this encounter Miscellaneous Notes * Telephone Encounter - Josi Wiley RN - 04/26/2023 9:55 AM FIELD MACHINIST Not active on medication list. PDMP: dispensed [...] Visit Vickey Robbins APRN, SALOMON [facility] 11/08/22 Office Visit Vickey Robbins APRN, SALOMON [facility] 10/17/22 Office Visit Vickey Robbins APRN, SALOMON [facility] 09/19/22 Office Visit Vickey Robbins APRN, SALOMON [facility] 06/19/22 Office Visit Vickey Robbins APRN, SALOMON [facility] [place] Showing recent visits within past 365 days and meeting all other requirements Future Appointments Date Type Provider Dept 07/25/23 Appointment Az Watson MD [facility] [place] Showing future appointments within next 90 days and meeting all other requirements D MACHINIST * Telephone Encounter - Ilir Sam, RN - 04/25/2023 12:11 PM CST Patient calling and states she is almost out of Oxycodone. Has 1 dose left. Needs it filled this afternoon. D MACHINIST documented in this encounter Plan of Treatment Upcoming Encounters Date Type Department Care Team (Latest Contact Info) Description 10/24/2024 10:30 AM CDT Office Visit [facility] UROLOGY #2 [place] [address] Emilio Sarabia MD #2 [facility] [place] [facility] [address] [place] [address] 10/29/2024 8:30 AM CDT Office Visit [facility] - Family Medicine - [place] #2 [place] [address] Vickey Robbins APRN, SALOMON #2 [facility] [address] [place] [address] 11/04/2024 9:00 AM CDT Ancillary Procedure [facility] [address] [place] [address] Az Watson MD #2 [facility] [address] [place] [address] Discharge Disposition: Discharged to home or Selfcare documented as of this encounter Goals Goal Patient Goal Type Associated Problems Recent Progress Patient-Stated? Author Behavioral Health Behavioral Health On track( 022 8:46 AM FIELD MACHINIST) Yes Betsy Butts, CRUST SORTER Note: I need to be able to [...] 19 06/11/2023 06/11/2023 06/21/2023 12:1 6 AM FIELD MACHINIST Assessment Noted Time PHQ-9 Depression Total Score: 4 09/02/19 21 8:46 AM CDT documented as of this encounter Care Teams Electrical Supervisor Relationship Specialty Start Date End Date Az Watson MD #2 [facility] [place] [address] PCP - General Family Medicine 05/03/15 Cain Lira MD [address] [place] [address] Obstetrics & Gynecology 02/15/17 Trisha Cook APRN, FACILITY SUPERVISOR #2 [place] [address] Nurse Practitioner Advanced Practice Nurse 11/29/22 Golden Napier MD #2 [facility] [address] [place] [address] Consulting Physician Colon and Rectal Surgery 08/13/23 Emilio Sarabia MD #2 [facility] [place] [facility] [address] [place] [address] Consulting Physician Urology 09/11/23 documented as of this encounter
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
== END 2024-10-21 08:14 | disposition home or self-care (01) ==
PROVIDERS: PCP Family Medicine; Visit Provider Surgery
DX: N60.02 Solitary cyst of left breast (principal)
CPT/HCPCS: 76642